=== PATIENT | female | born 1935 | race Caucasian/White ===

== ENCOUNTER → 2020-03-03 15:41 | Outpatient (CLI) | payer MEDICARE, SELFPAY ==
--- NOTE | ~2020-03-03 | XR_ITS ---
EXAMINATION: XR hip LT 2V w AP pelvis DATE: 03/03/2020 16:13 INDICATION: Left hip injury with left groin pain post fall TECHNIQUE: Anteroposterior view of the pelvis and anteroposterior and frog-leg lateral views of the l eft hip were obtained. COMPARISON: 10/08/2010 FINDINGS: Alignment is normal. Antegrade intramedullary stefania with femoral neck and distal interlocking screw fix ation at the proximal left femur. Cortical discontinuity consistent with nondisplaced fracture along the lateral aspect of the left first sacral arch. There is also buckling along the cortex at the ceph alad aspect of the left pubic body also consistent with a nondisplaced fracture. Mild osteoarthritis at the bilateral hips. Heterotopic ossification near the left ischial tuberosity origin of the proxim al left hamstring tendons. Moderate lower lumbar spondylosis. IMPRESSION: 1. Nondisplaced fractures at the left pubic body and left sacral ala. Reviewed, dictated and finalized at location B. GER OPERATIONAL
--- NOTE | ~2020-03-03 | XR_ITS ---
EXAMINATION: XR wrist LT 2V DATE: 03/03/2020 16:13 INDICATION: Left wrist pain post fall TECHNIQUE: Posteroanterior and lateral views of the left wrist were obtained. COMPARISON: none FINDINGS: Normal alignment. No acute fracture. Severe osteoarthritis at the first carpal metacarpal joint. Mild osteoarthritis at the distal radioulnar, wrist, midcarpal and triscaphe joints. Diffuse osteopenia. Soft tissues are unremarkable. IMPRESSION: 1. 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 No acute osseous abnormality. Reviewed, dictated and finalized at location B. ESSIONAL DEVELOPMENT DIRECTOR
== END ==
PROVIDERS: PCP Family Medicine; Visit Provider Physician Assistant Medical
DX: M25.532 Pain in left wrist (principal); S79.912A Unspecified injury of left hip, initial encounter; S32.502A Unspecified fracture of left pubis, initial encounter for closed fracture; S32.19XA Other fracture of sacrum, initial encounter for closed fracture
CPT/HCPCS: 73100; 73502

== ENCOUNTER 2020-03-05 07:58 | Emergency (ER) | payer MEDICARE, SELFPAY ==
--- NOTE | ~2020-03-05 | CT_ITS ---
EXAMINATION: CT pelvis wo con DATE: 03/05/2020 09:21 INDICATION: Pelvic fracture TECHNIQUE: High resolution computed tomography (CT) of the pelvis was performed without intravenous c ontrast. Additional sagittal and coronal reconstructions were performed. Automated exposure control a nd iterative reconstruction technique were employed. The dose-length product was 279.11 mGy-cm. COMPARISON: Radiographs dated 03/05/2020 FINDINGS: Nondisplaced fracture along the lateral aspect of the left sacral ala which extends into the left sac roiliac joint and which does not appear to transgress the neural foramina. Nondisplaced fracture of t he left pubic body with some buckling along the posterior cortex. There is an additional subtle nondi splaced fracture at the lateral base of the left superior pubic ramus which extends into the anterior and inferomedial aspect of the left acetabulum but which spares the articular cortices. Old healed f racture of the left inferior pubic ramus. Partially visualized antegrade intramedullary stefania and dynamic femoral neck compression screw fixation at the proximal left femur. Mild left and mild to moderate right hip osteoarthritis. Lumbar spondylo sis with severe disc height loss at L4-L5 and severe bilateral facet osteoarthritis at L5-S1. Multipl e diverticula along the sigmoid and visualized descending colon without adjacent inflammatory change to suggest diverticulitis. Normal appendix. Bladder, uterus and bilateral adnexa are unremarkable. Sm all hematoma in the extraperitoneal fat along the posterior margin of the left pubic body. IMPRESSION: 1. Nondisplaced fractures of the left pubic body, lateral root of the left superior pubic ramus exten ding into the left acetabulum and of the left sacral ala. Reviewed, dictated and finalized at location B. ANCE WILDLIFE SPECIALIST IMPRESSION: 1. Nondisplaced fractures of the left pubic body, lateral root of the left supe rior pubic ramus extending into the left acetabulum and of the left sacral ala.
--- NOTE | ~2020-03-05 | XR_ITS ---
EXAMINATION: XR pelvis 1-2V EXAM DATE: 03/05/2020 08:25 INDICATION: Pelvic fracture. TECHNIQUE: Pelvis frontal projection(s) obtained and reviewed. Comparison is made to prior examinatio n from 03/03/2020. Correlation was made with pelvic, left hip x-ray 03/03/2020. FINDINGS: Left hip gamma nail which is intact. There is moderate symmetric bilateral hip primary oste oarthritis. There are left inferior and pubis/superior ramus fractures which appear most likely acute . Possible nondisplaced left sacral ala fracture. Accounting for differences in technique, there is n o significant interval change. IMPRESSION: Left inferior ramus, pubis superior, possible sacral fractures unchanged. Reviewed, dictated and finalized at location A. HT SIMULATOR TEACHER IMPRESSION: Left inferior ramus, pubis superior, possible sacral fractures unch anged.
[2020-03-05 07:55] VITALS: BP 134/90; PULSE 83; RESP 17; TEMP 36.4; O2SAT 96
--- NOTE | 2020-03-05 08:05 | ED.FALL ---
HPI - Fall General Chief Complaint: Fall Stated Complaint: fx pelvis and wrist pain Time Seen by Provider: 03/05/20 08:02 History of Present Illness HPI Narrative: 84 yo female brought in by EMS from home for a pelvic fracture. She reports that she had a fall from standing 2 days ago. She had pain in the left groin and left wrist after this. She had outpatient x-rays done that reportedly showed a pelvic fracture. This morning the pain in her groin was more severe and she was not able to bear weight. The pain in her rist is mild. She lives alone. She did not hit her head in the fall. No numbness, weakness, back pain, neck pain. Related Data Allergies Allergy/AdvReac Type Severity Reaction Status Date / Time metformin Allergy Unknown Unknown Verified 03/05/20 08:17 Penicillins AdvReac Unknown Verified 03/05/20 08:17 Review of Systems Review of Systems: All systems reviewed & are unremarkable except as noted in HPI and below Constitutional: Constitutional: Denies fever(s) and Denies weakness Cardiovascular: Cardiovascular: Denies chest pain Respiratory: Respiratory: Denies dyspnea Gastrointestinal: Gastrointestinal: Denies abdominal pain, Denies nausea and Denies vomiting Genitourinary: Genitourinary: Denies dysuria Musculoskeletal: Musculoskeletal: Denies back pain Integumentary/Breasts: Comments: No wound Neurologic: Denies confusion, Denies dizziness, Denies numbness and Denies weakness Hematologic/Lymphatic: Hematologic/Lymphatic: Denies easy bleeding PMFSH Past Medical History Medical History Depression Diabetes type 2, controlled Other iron deficiency anemias Vitamin D deficiency Family History Family History Father Family history of diabetes mellitus in first degree relative Other Family history of lupus erythematosus Social History Social History Smoking status: Never smoker Alcohol intake: never Substance use: never Substance use type: does not use Gender identity (if verbalized by the patient): Female Exam Const: General: healthy appearing, no acute distress and alert Orientation/consciousness: patient oriented x3 HENMT: Head: normal to inspection Neck: Neck: normal visual inspection and no lymphadenopathy Chest: Chest palpation & inspection: no tenderness Resp: Effort & Inspection: normal respiratory effort Auscultation: clear to auscultation bilaterally, no rales, no rhonchi and no wheezes Cardio: Jugular venous distension: no JVD Rate: regular rate Rhythm: regular rhythm Heart sounds: no murmurs GI: Inspection: non-distended GI Palp: Yes Soft to palpation and No Tenderness to palpation present (GI) Skin: General skin exam: normal color Neuro: General: patient oriented x3, moves all extremities, no focal motor deficits and CN's II-XI intact bilaterally Speech: normal speech Extrem: Other: severe pain with left leg movement. pelvis stable. Mild left wrist swelling Psych: Appearance: well kempt Affect: normal affect Course Vital Signs Vital signs: Vital Signs Temperature 36.4 C 03/05/20 07:55 Pulse Rate 83 03/05/20 07:55 Respiratory Rate 17 03/05/20 07:55 Blood Pressure 134/90 03/05/20 07:55 Pulse Oximetry 96 03/05/20 07:55 Temperature 36.4 C 03/05/20 12:45 Pulse Rate 76 03/05/20 12:45 Respiratory Rate 16 03/05/20 12:45 Blood Pressure 144/65 H 03/05/20 12:45 Pulse Oximetry 99 03/05/20 12:45 MDM - Fall MDM Narrative Medical decision making narrative: Case discussed with Dr. Diaz. He recommends that she have a CT to better see the fracture. Otherwise he believes that she is safe for discharge to rehab and would like her to start on Eliquis for DVT prophylaxis. The patient changed her mind several times about her willingness to go to rehab. She
[2020-03-05 08:38] LABS: Basophils Percent Auto 0.5 % (0.2-1.2); Eosinophils Absolute Auto 0.1 K/mm3 (0-0.3); Eosinophils Percent Auto 1.5 % (0-4.4); Hematocrit 35.2 % (37.0-47.0); Hemoglobin 11.4 g/dL (12.0-15.0); Immature Granulocyte Absolute 0.02 K/mm3 (0.00-0.031); Immature Granulocyte Percent A 0.3 % (0-0.5); Lymphocytes Absolute Auto 0.86 K/mm3 (0.9-3.2); Lymphocytes Percent Auto 10.9 % (18.3-44.2); Mean Corpuscular HGB Conc 32.4 g/dl (32-36); Mean Corpuscular Hemoglobin 32.2 pg (26-34); Mean Corpuscular Volume 99.4 fl (80-100); Mean Platelet Volume 11.8 fl (7.4-10.4); Monocytes Absolute Auto 0.7 K/mm3 (0.1-0.6); Monocytes Percent Auto 9.4 % (2.6-8.5); Neutrophils Absolute Auto 6.1 K/mm3 (1.3-6.7); Neutrophils Percent Auto 77.4 % (45.5-73.1); Platelet Count Result 156 k/mm3 (150-375); Red Blood Count 3.54 M/mm3 (4.2-5.4); Red Cell Distribution Width 14.3 % (11.5-14.5); White Blood Count 7.9 K/mm3 (4.5-10.0)
[2020-03-05 08:41] LABS: Add Urine Microscopic? YES; Appearance Urine Clear (Clear); Bilirubin Urine Negative (Negative); Blood Urine Negative (Negative); Color Urine Yellow (Yellow); Glucose Urine UA Negative (Negative); Ketones Urine Negative (Negative); Leukocyte Esterase Ur Negative LEU/UL (Negative); Nitrate Urine Negative (Negative); Protein Urine Negative (Negative); RBC Urine 0-2 /hpf (0-2); Specific Grav Ur 1.024 (1.001-1.035); Urobilinogen Urine Negative mg/dL (<2.0); WBC Urine 0-3 /hpf
[2020-03-05 08:44] VITALS: BP 144/66; PULSE 72; RESP 18; O2SAT 95
[2020-03-05 08:56] LABS: Alanine Aminotransferase 18 U/L (4-35); Albumin Level 4.2 g/dL (3.5-5.1); Alkaline Phosphatase 78 U/L (38-126); Anion Gap 5 mmol/L (8-16); Aspartate Amino Transferase 35 U/L (14-36); Bilirubin,Total 0.9 mg/dL (0.2-1.3); Blood Urea Nitrogen 22 mg/dL (7-17); Calcium 9.6 mg/dL (8.4-10.2); Carbon Dioxide 30 mmol/L (22-30); Chloride 104 mmol/L (98-107); Estimated Glomerular Filt Rate > 60; Glucose 185 mg/dL (65-105); Potassium 4.1 mmol/L (3.4-5.0); Sodium 139 mmol/L (137-145)
[2020-03-05 09:30] LABS: Prothrombin Time 13.8 Seconds (11.1-14.7)
[2020-03-05 09:31] LABS: Partial Thromboplastin Time 30.8 SECONDS (22.3-36.8)
[2020-03-05 09:38] VITALS: BP 139/61; PULSE 73; RESP 18; O2SAT 99
[2020-03-05 10:32] VITALS: BP 144/65; PULSE 73; RESP 17; O2SAT 98
--- NOTE | 2020-03-05 12:01 | PCCCNOTE ---
Care Coordination met with pt about her need for help with her ADL's and rehab. Pt choose [facility] first and 2nd [facility]. [facility] does not have beds available today. [facility] has obtained the auth from [facility] and has accepted pt. Spoke with daughter Vianney at bedside and she is agreeable. Daughter Guerda Mark [phone] is agreeable to placement as well.
[2020-03-05 12:45] VITALS: BP 144/65; PULSE 76; RESP 16; TEMP 36.4; O2SAT 99
== END 2020-03-05 13:45 ==
PROVIDERS: Emergency Provider Emergency Medicine; Family Provider Family Medicine; PCP Family Medicine
DX: S32.502A Unspecified fracture of left pubis, initial encounter for closed fracture (principal); S32.592A Other specified fracture of left pubis, initial encounter for closed fracture; S32.19XA Other fracture of sacrum, initial encounter for closed fracture; E11.9 Type 2 diabetes mellitus without complications; F32.9 Major depressive disorder, single episode, unspecified; E55.9 Vitamin D deficiency, unspecified; D50.9 Iron deficiency anemia, unspecified
CPT/HCPCS: 36415; 51701; 72170; 72192; 80053; 81001; 85025; 85610; 85730; 99284

== ENCOUNTER 2020-10-10 10:04 | Emergency (ER) | payer MEDICARE, SELFPAY ==
[2020-10-10 10:28] VITALS: BP 150/64; PULSE 74; RESP 18; TEMP 37.2; O2SAT 99
--- NOTE | 2020-10-10 10:35 | ED.ABDPAIN ---
HPI - Abdominal Pain General Chief Complaint: Abdominal Pain Stated Complaint: Stomach Pain Time Seen by Provider: 10/10/20 10:35 Source: patient Mode of arrival: ambulatory Limitations: no limitations History of Present Illness HPI narrative: Marybeth Sunshine is an 85 yo female with a PMH of gastrointestinal stricture/obstruction, osteopenia, diabetes, [facility]. She is afebrile has no urinary issues but has difficulty trying to eat she has not had a bowel movement since Monday. She started vomiting afternoon after she tried to eat something. When she vomits it is mucous and everything that she tried to eat. She has basically been unable to drink or eat anything since evening and has little pain as long she does not try to eat. Blood sugar is 141 Related Data Allergies Allergy/AdvReac Type Severity Reaction Status Date / Time metformin Allergy Mild Hives Verified 10/10/20 11:35 Penicillins Allergy Mild Hives Verified 10/10/20 11:35 Review of Systems Review of Systems: CONSTITUTIONAL: Denies fever, chills, sweats. EYES: Denies visual changes, redness, discharge. ENT: Denies rhinorrhea, congestion, sore throat, otalgia. CARDIOVASCULAR: Denies chest pain, palpitations, edema. RESPIRATORY: Denies dyspnea, wheezing, cough GASTROINTESTINAL: Has abdominal pain, nausea, vomiting, diarrhea. GENITOURINARY: Denies dysuria, hematuria, abnormal discharge SKIN: Denies rash or itching. NEUROLOGIC: Denies numbness, or focal weakness. PSYCHIATRIC: Denies anxiety or depression. [facility] Past Medical History Medical History Depression Diabetes type 2, controlled Other iron deficiency anemias Stricture esophagus Vitamin D deficiency Family History Family History Father Family history of diabetes mellitus in first degree relative Other Family history of lupus erythematosus Social History Social History Smoking status: Never smoker Alcohol intake: never Substance use: never Substance use type: does not use Gender identity (if verbalized by the patient): Female Comments At time of signature, I agree with nursing past medical, surgical, social and family history. There is no relevant family history pertinent to the presenting complaint. Exam Narrative: GENERAL: This is a well-nourished, well-developed patient, in mild distress. HEAD: normocephalic, atraumatic. EYES: Sclera clear/white. Vision is grossly intact. EARS: External ears normal. Hearing grossly intact. NOSE: External nose normal without nasal discharge, nares without redness, no rhinorrhea. Patient denies pain but unable to eat THROAT: Mucous membranes moist, posterior pharynx NECK: Neck supple, non-tender CARDIOVASCULAR: Regular rate and rhythm without murmurs, gallops, or rubs. RESPIRATORY: Clear to auscultation. Breath sounds equal bilaterally. No wheezes, rales, or rhonchi. GASTROINTESTINAL: Abdomen soft, mild -tender,hypoactive BS SKIN: warm, intact with no suspicious lesions or rash, good texture and turgor. NEURO: awake, alert, and oriented to person, place and time. There were no obvious focal neurologic abnormalities. Steady gait EXTREMITIES: Normal range of motion. BACK: Nontender without deformity Course Course Emergency Course: Patient comes with difficulty eating and vomiting since Blood sugar is 141-patient will be transferred to [facility] for further work-up as she has been vomiting since , and unable to eat anything without vomiting back up with mucus, has had no bowel movement since Monday. Se has a history of GI stricture. She is diabetic but does not remember having a history of gastroparesis Vital Signs Vital signs: Vital Signs Temperature 99.0 F 10/10/20 10:28 Pulse Rate 74 10/10
== END 2020-10-10 11:00 | disposition short-term general hospital (02) ==
PROVIDERS: Emergency Provider Nurse Practitioner; PCP Family Medicine
DX: R11.10 Vomiting, unspecified (principal); R10.84 Generalized abdominal pain; E11.9 Type 2 diabetes mellitus without complications; F32.9 Major depressive disorder, single episode, unspecified
CPT/HCPCS: 82948; 99212; G0463

== ENCOUNTER 2020-10-10 11:23 | Observation (INO) | payer MEDICARE, SELFPAY ==
[2020-10-10] VITALS (29 sets, daily range): BP systolic 96–165; BP diastolic 54–79; PULSE 70–77; RESP 15–26; TEMP 36.1–36.8; O2SAT 87–100; BMI 22.8
--- NOTE | ~2020-10-10 | XR_ITS ---
EXAMINATION: XR chest 2V DATE: 10/10/2020 12:58 INDICATION: Esophageal obstruction TECHNIQUE: PA and lateral views of the chest were obtained. COMPARISON: Chest radiograph dated 10/08/2010 FINDINGS: Hyperexpansion of lungs with mild flattening of the diaphragm and increased retrosternal clear space suggestive but not diagnostic of COPD. No focal airspace opacities, pulmonary edema, pleural effusion or pneumothorax. The cardiomediastinal silhouette is normal. Several old healed right-sided rib frac tures. IMPRESSION: 1. Hyperexpansion lungs suggestive but not diagnostic of COPD. No acute cardiopulmonary disease. Reviewed, dictated and finalized at location A. IMPRESSION: 1. Hyperexpansion lungs suggestive but not diagnostic of COPD. No acute cardiop ulmonary disease.
--- NOTE | 2020-10-10 11:37 | PC.NURSE ---
Addendum entered by Zeus Funez, TECH 10/10/20 11:43: O2 99% Height 5'4 Weight 132lb Original Note: pt taken to room, vitals tken HR 73 BP 165/62 RR 17 Temp 97.5 F
[2020-10-10 12:41] LABS: Basophils Percent Auto 0.5 % (0.2-1.2); Eosinophils Absolute Auto 0.1 K/mm3 (0-0.3); Eosinophils Percent Auto 0.9 % (0-4.4); Hematocrit 36.8 % (37.0-47.0); Hemoglobin 11.6 g/dL (12.0-15.0); Immature Granulocyte Absolute 0.02 K/mm3 (0.00-0.031); Immature Granulocyte Percent A 0.2 % (0-0.5); Lymphocytes Absolute Auto 1.27 K/mm3 (0.9-3.2); Lymphocytes Percent Auto 14.5 % (18.3-44.2); Mean Corpuscular HGB Conc 31.5 g/dl (32-36); Mean Corpuscular Hemoglobin 30.9 pg (26-34); Mean Corpuscular Volume 97.9 fl (80-100); Mean Platelet Volume 11.2 fl (7.4-10.4); Monocytes Absolute Auto 0.5 K/mm3 (0.1-0.6); Monocytes Percent Auto 5.7 % (2.6-8.5); Neutrophils Absolute Auto 6.8 K/mm3 (1.3-6.7); Neutrophils Percent Auto 78.2 % (45.5-73.1); Platelet Count Result 183 k/mm3 (150-375); Red Blood Count 3.76 M/mm3 (4.2-5.4); Red Cell Distribution Width 13.4 % (11.5-14.5); White Blood Count 8.7 K/mm3 (4.5-10.0)
--- NOTE | 2020-10-10 12:50 | ECG_ITS ---
Measurements Intervals Helen Rate: 70 P: 66 NC: 186 QRS: 30 QRSD: 78 T: 60 QT: 404 QTc: 436 Interpretive Statements SINUS RHYTHM EARLY PRECORDIAL R/S TRANSITION BORDERLINE ECG Electronically Signed On 10-10-2020 17:15:44 CDT by Jose Alejandro Paredes D.O.
[2020-10-10 12:51] LABS: Alanine Aminotransferase 16 U/L (4-35); Albumin Level 4.6 g/dL (3.5-5.1); Alkaline Phosphatase 94 U/L (38-126); Anion Gap 11 mmol/L (8-16); Aspartate Amino Transferase 32 U/L (14-36); Bilirubin,Total 0.7 mg/dL (0.2-1.3); Blood Urea Nitrogen 18 mg/dL (7-17); Calcium 9.5 mg/dL (8.4-10.2); Carbon Dioxide 26 mmol/L (22-30); Chloride 100 mmol/L (98-107); Estimated Glomerular Filt Rate > 60; Glucose 131 mg/dL (65-110); Lipase 68 U/L (23-300); Potassium 4.4 mmol/L (3.4-5.0); Sodium 137 mmol/L (137-145)
--- NOTE | 2020-10-10 12:56 | ED.NAVMDI ---
HPI - Nausea/Vomiting/Diarrhea General Chief complaint: Nausea/Vomiting/Diarrhea Stated complaint: trouble swallowing Time Seen by Provider: 10/10/20 11:40 Source: patient Mode of arrival: ambulatory Limitations: no limitations History of Present Illness HPI Narrative: This is a 85 year old female that presents to the ER for difficulty swallowing x 2 days. Reports everything she tries to swallow, liquids or solids, comes back up shortly after. Does report she has had to have her esophagus dilated in the past. This was a couple of years ago. She had not had any trouble after that until just these last couple of days. Denies fever, chest pain, abdominal pain, or dysuria. Related Data Allergies Allergy/AdvReac Type Severity Reaction Status Date / Time metformin Allergy Mild Hives Verified 10/10/20 15:02 Penicillins Allergy Mild Hives Verified 10/10/20 15:02 Review of Systems Review of Systems: CONSTITUTIONAL: Denies fever CARDIOVASCULAR: Denies chest pain, or edema. GASTROINTESTINAL: Reports nausea and vomiting. Denies abdominal pain GENITOURINARY: Denies dysuria All systems reviewed & are unremarkable except as noted in HPI and below PMFSH Past Medical History Medical History Depression Diabetes type 2, controlled Other iron deficiency anemias Stricture esophagus Vitamin D deficiency Family History Family History Father Family history of diabetes mellitus in first degree relative Other Family history of lupus erythematosus Social History Social History Smoking status: Never smoker Alcohol intake: never Substance use: never Substance use type: does not use Gender identity (if verbalized by the patient): Female Exam Narrative: GENERAL: Well-appearing, well-nourished, and in no acute distress. HEAD: Normocephalic, atraumatic. EYES: EOMI. ENT: Nares clear, no rhinorrhea or epistaxis. Mucous membranes moist. Oropharynx without tonsillar hypertrophy exudate or other lesions. CHEST: Clear to auscultation. No respiratory distress. No wheezes rales or rhonchi HEART: Regular rate and rhythm. No murmur heard. Normal peripheral pulses. ABDOMEN: Soft, nontender, nondistended, normal active bowel sounds. EXTREMITIES: Normal range of motion. No edema. SKIN: Warm, dry, no rash. NEURO: No focal deficits. Alert and oriented x3. PSYCH: Normal mood and affect Course Consultations Consultation #1: Spoke with Dr. Clemente about patient and workup who will consult. Date: 10/10/20 Time: 14:00 Consultation #2: Spoke with hospitalist about patient and work-up who accepts admission Date: 10/10/20 Time: 15:05 Vital Signs Vital signs: Vital Signs Pulse Rate 76 10/10/20 11:33 Respiratory Rate 22 H 10/10/20 11:33 Temperature 98.2 F 10/10/20 14:33 Pulse Rate 72 10/10/20 14:33 Respiratory Rate 20 10/10/20 14:33 Blood Pressure 146/79 H 10/10/20 14:33 Pulse Oximetry 98 10/10/20 14:33 MDM - Nausea/Vomiting/Diarrhea MDM Narrative Medical decision making narrative: Patient presents to the ER for vomiting over the last couple of days. Reports she has history of needing an esophageal dilation a couple years ago. She had been doing well after this until just the last couple of days. Every time she eats or drinks anything moments after she starts to have some discomfort and then vomits. Denies any current abdominal pain. She is afebrile and nontoxic appearing. Her vitals are stable. CBC is without leukocytosis. Does show normocytic anemia with hemoglobin of 11.6. Metabolic panel without concerning findings. Lipase is normal. UA does have 7-9 white blood cells, patient is not having any symptoms. This will be sent for culture. Chest x-ray is without acute cardiopulmonary abnormality. Spoke with Dr. Clemente about patient and w
[2020-10-10 13:19] LABS: Add Urine Microscopic? YES; Appearance Urine Clear (Clear); Bacteria Urine Trace /hpf; Bilirubin Urine Negative (Negative); Blood Urine Negative (Negative); Color Urine Yellow (Yellow); Glucose Urine UA Negative (Negative); Ketones Urine 1+ mg/dL (Negative); Leukocyte Esterase Ur 2+ LEU/UL (Negative); Mucus Urine Rare /lpf; Nitrate Urine Negative (Negative); Protein Urine 2+ mg/dL (Negative); Specific Grav Ur 1.027 (1.001-1.035); Squamous Epithelial Cell Urine Few /hpf (Few); Urobilinogen Urine Negative mg/dL (<2.0)
[2020-10-10 14:21] LABS: Prothrombin Time 12.9 Seconds (11.1-14.7)
[2020-10-10] MEDS: SODIUM CHLORIDE 0.9% IV 1,000 ML 999 ML IV CONT (15:01)
[2020-10-10] MEDS: SODIUM CHLORIDE 0.9% IV 1,000 ML 75 ML IV CONT (15:15)
--- NOTE | 2020-10-10 15:30 | PM.IMHP ---
H&P: HPI History of Present Illness Date/Time: 10/10/20 15:30 Chief Complaint: Difficulties keeping down food and liquid. Narrative: This is a very pleasant 85-year-old female with history of cricopharyngeal achalasia status post dilation and Botox injection in February [address] Jah Soni at [place] who presented to the emergency department earlier today from home for evaluation after she has been having difficulties keeping food and even liquid down for the last 2 days. On afternoon she was eating a ham salad sandwich and after a couple of bites it was regurgitated and since that time she has not been able to hold down solids or liquids. She has no pain or difficulty in swallowing but she feels as though the food is not passing through to the stomach. The symptoms are similar to those she was experiencing prior to seeing Dr. Soni. She is not having any difficulties managing her secretions and she denies concerns for aspiration. No fever, chills, or sweats. No chest pain, cough, or shortness of breath. Review of Systems Review of Systems: Twelve systems were reviewed with pertinent positives and negatives as per HPI. No recent cold or flu symptoms. She denies sick contacts. No known exposure to those positive for COVID 19. Diabetes is well controlled. She has not noticed blood in her stool. Occasional heartburn but nothing significant. Except as documented, all other systems were reviewed and are negative. [facility] Past Medical History Medical History (Updated 10/10/20 @ 21:02 by Cely Burger PA-C) Anemia Cricopharyngeal achalasia Status post dilatation and Botox injection per Dr. Jah Soni (ENT) at [place]. Depression with anxiety Essential hypertension Type 2 diabetes mellitus Vitamin D deficiency Surgical History Surgical History (Updated 10/10/20 @ 20:55 by Cely Burger PA-C) History of arthroscopic knee surgery History of cataract extraction History of open reduction and internal fixation (ORIF) procedure Pinning of left hip fracture. History of tonsillectomy Family History Family History Father Family history of diabetes mellitus in first degree relative Other Family history of lupus erythematosus Social History Social History (Updated 10/10/20 @ 20:56 by Cely Burger PA-C) Social History: Surrogate decision maker: Guerda Mark, daughter. Code status: Full code. Smoking status: Never smoker Alcohol intake: never Substance use: never Additional living arrangements comments: Patient lives in a senior apartment in [place]. She has 6 children and was essentially a single mother for many years as her at a young age. 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 Meds Home Medications and Allergies Home Medications Medication Instructions Recorded Confirmed Type pioglitazone 30 mg tablet 30 mg PO DAILY #90 tablet 12/03/19 10/10/20 Rx sertraline 50 mg tablet 75 mg PO DAILY #135 tablet 12/03/19 10/10/20 Rx ibandronate 150 mg tablet 150 mg PO MONTHLY #12 tablet 01/13/20 10/10/20 Rx gabapentin 300 mg capsule See Rx Instructions PO DAILY #270 05/14/20 10/10/20 Rx cap Allergies Allergy/AdvReac Type Severity Reaction Status Date / Time metformin Allergy Mild Hives Verified 10/10/20 15:02 Penicillins Allergy Mild Hives Verified 10/10/20 15:02 Vital Signs Vital Signs - 24 hr 10/10/20 11:33 10/10/20 11:34 10/10/20 11:45 Temperature Pulse Rate 76 75 72 Respiratory Rate 22 H 25 H 23 H Blood Pressure 165/62 H Pulse Oximetry 99 10/10/20 11:46 10/10/20 12:00 10/10/20 12:01 Temperature Pulse Rate 71 71 72 Respiratory Rate 19 19 16 Blood Pressure 146/62 H 137/65 Pulse Oximetry 97 98 97 10/10/20 12:15 10/10/20 12:16 10/10/20 12:30 Temperature Pulse Rate 74 72 77 Respiratory Rate 22 H 19 15 Blood Pressure 141/63 H P
--- NOTE | 2020-10-10 18:28 | ADMGEN ---
This patient, Cristine Sunshine, was admitted to 3 Medical Room 345-01. Patient oriented to hospital policies and general routines including ID bracelet, bed and alarms, visiting hours, pain management, procedures, bathroom and other care routines, personal items, smoking policy, room service/diet, and visiting hours. Information on how to activate the Rapid Response Team has been discussed. Patient/Family are encouraged to report perceived risks to care and to ask questions if they do not understand what they are told or what they should do.
[2020-10-10 21:38] LABS: Glucose Point of Care 80 mg/dl (65-105)
[2020-10-11 00:28] LABS: Glucose Point of Care 81 mg/dl (65-105)
[2020-10-11] MEDS: SODIUM CHLORIDE 0.9% IV 1,000 ML 75 ML IV CONT (04:51)
[2020-10-11 05:13] VITALS: BP 118/52; PULSE 77; RESP 16; TEMP 36.1; O2SAT 97
[2020-10-11 06:42] LABS: Hematocrit 33.8 % (37.0-47.0); Hemoglobin 10.5 g/dL (12.0-15.0); Mean Corpuscular HGB Conc 31.1 g/dl (32-36); Mean Corpuscular Hemoglobin 30.5 pg (26-34); Mean Corpuscular Volume 98.3 fl (80-100); Mean Platelet Volume 11.3 fl (7.4-10.4); Platelet Count Result 158 k/mm3 (150-375); Red Blood Count 3.44 M/mm3 (4.2-5.4); Red Cell Distribution Width 13.3 % (11.5-14.5); White Blood Count 5.3 K/mm3 (4.5-10.0)
[2020-10-11 06:53] LABS: Glucose Point of Care 66 mg/dl (65-105)
[2020-10-11 06:57] LABS: Anion Gap 10 mmol/L (8-16); Blood Urea Nitrogen 13 mg/dL (7-17); Calcium 8.3 mg/dL (8.4-10.2); Carbon Dioxide 20 mmol/L (22-30); Chloride 107 mmol/L (98-107); Estimated CRCL calculation 50 ml/min; Estimated Glomerular Filt Rate > 60; Glucose 71 mg/dL (65-110); Magnesium 1.6 mg/dL (1.6-2.3); Potassium 3.6 mmol/L (3.4-5.0); Sodium 137 mmol/L (137-145)
[2020-10-11] MEDS: DEXTROSE 50% 25 GM/50 ML SYRINGE IV PUSH (07:00)
[2020-10-11 07:03] LABS: Hemoglobin A1C 6.7 % (<5.7)
[2020-10-11 07:33] LABS: Glucose Point of Care 136 mg/dl (65-105)
[2020-10-11 08:18] LABS: Glucose Point of Care 120 mg/dl (65-105)
[2020-10-11] MEDS: GABAPENTIN 300 MG CAPSULE PO (10:54)
--- NOTE | 2020-10-11 12:22 | PM.IMPN ---
Progress Note: A&P Assessment and Plan (1) Dysphagia: Code(s): R13.10 - Dysphagia, unspecified Status: Acute Assessment and Plan: Patient has a history of cricopharyngeal achalasia requiring dilatation and Botox injections as above and in fact she initially wanted to be transferred to [place] to see her ENT, Dr. Stephens, who had treated her previously though no beds are available. Dr. Clemente (GI) was consulted by the ED provider and he has agreed to see the patient in consultation. She will be NPO as she is not able to hold down food or drink for any significant period of time, putting her at risk for aspiration. Gabapentin PO allowed exceptionally as patient was complaining of diffuse pain. (2) Type 2 diabetes mellitus: Code(s): E11.9 - Type 2 diabetes mellitus without complications Status: Acute Assessment and Plan: Hold pioglitazone as she is NPO. Initiate sliding scale insulin, Accu-Cheks, and hypoglycemic protocol. Check hemoglobin A1c. (3) Essential hypertension: Code(s): I10 - Essential (primary) hypertension Status: Acute Assessment and Plan: I do not see antihypertensives listed on her home medications. Blood pressures reviewed and they are stable. (4) Chronic anemia: Code(s): D64.9 - Anemia, unspecified Status: Acute Assessment and Plan: Hemoglobin and hematocrit are stable on review of previous labs. (5) Depression with anxiety: Code(s): F41.8 - Other specified anxiety disorders Status: Acute Assessment and Plan: No acute issues. Sertraline on hold as she is NPO currently. Subjective Date/time seen: 10/11/20 12:22 Patient was examined at the bedside. There is no acute distress. She is complaining of dysphagia. Review of Systems Gastrointestinal: Comments: difficulty swallowing. Exam Narrative: HEENT: EOMI. Sclerae anicteric. Oral mucosa moist. Oropharynx clear. Neck: Supple. No adenopathy or thyromegaly. Respiratory: Lungs are clear to auscultation bilaterally. Cardiovascular: Regular rate and rhythm with S1-S2. Gastrointestinal: Abdomen is soft, nontender, and nondistended with positive bowel sounds. Skin: Warm and dry. Extremities: No cyanosis, clubbing, or edema. Radial and pedal pulses intact. Neurological: Alert. Cranial nerves 2-12 are grossly intact. No gross focal deficits to casual conversation. Psychiatric: Pleasant and cooperative with normal mood and affect. Judgment and insight intact. Objective Data Vital Signs Vital Signs: Vital Signs - 24 hr 10/10/20 12:30 10/10/20 12:33 10/10/20 12:45 Temperature Pulse Rate 77 75 72 Respiratory Rate 15 21 H 19 Blood Pressure 143/67 H Pulse Oximetry 87 L 100 100 10/10/20 13:00 10/10/20 13:01 10/10/20 13:15 Temperature Pulse Rate 75 73 71 Respiratory Rate 15 21 H 19 Blood Pressure 96/76 L Pulse Oximetry 93 100 100 10/10/20 13:16 10/10/20 13:30 10/10/20 13:31 Temperature Pulse Rate 71 72 71 Respiratory Rate 19 21 H 22 H Blood Pressure 140/59 L 129/62 Pulse Oximetry 100 98 99 10/10/20 13:45 10/10/20 13:46 10/10/20 14:00 Temperature Pulse Rate 72 72 70 Respiratory Rate 26 H 20 18 Blood Pressure 136/54 L Pulse Oximetry 97 98 99 10/10/20 14:01 10/10/20 14:15 10/10/20 14:16 Temperature Pulse Rate 70 71 71 Respiratory Rate 15 21 H 18 Blood Pressure 125/61 135/64 Pulse Oximetry 100 100 98 10/10/20 14:33 10/10/20 16:01 10/10/20 17:17 Temperature 98.2 F 96.9 F L 97.8 F Pulse Rate 72 73 74 Respiratory Rate 20 24 H 15 Blood Pressure 146/79 H 143/63 H 154/59 H Pulse Oximetry 98 100 98 10/10/20 18:02 10/10/20 18:25 10/10/20 20:26 Temperature 97.5 F L 97.5 F L 97.2 F L Pulse Rate 75 76 72 Respiratory Rate 15 18 16 Blood Pressure 124/76 150/68 H 137/55 L Pulse Oximetry 99 97 96 10/11/20 05:13 Temperature 96.9 F L Pulse Rate 77 Respiratory Rate 16 Blood Pre
--- NOTE | 2020-10-11 12:30 | WPDGICN ---
Assessment and Plan Assessment and plan (1) Cricopharyngeal achalasia: Code(s): K22.0 - Achalasia of cardia Status: Inactive Assessment and Plan: she has known history of CP dysphagia and treated previously with botox injection by ENT will arrange for EGD tomorrow and probably will need botox injection again, she was told in the past that if recurrent symptom probably will benefit from definitive myotomy for which he can follow up with ENT as outpatient only liquid diet for now and npo after midnight (2) Dysphagia: Code(s): R13.10 - Dysphagia, unspecified Status: Acute Assessment and Plan: probably from above problem but will assess with egd in am (3) Essential hypertension: Code(s): I10 - Essential (primary) hypertension Status: Acute (4) Type 2 diabetes mellitus: Code(s): E11.9 - Type 2 diabetes mellitus without complications Status: Acute GI Consult Note Consult date/time: 10/11/20 12:30 Reason for consult: dysphagia HPI: Cristine Sunshine is a 85 year old female with history of cricopharyngeal achalasia status post dilation and Botox injection in February [address] Jah Soni (ENT) at [place] (she had EGD 2017 when first presented with dysphagia and EGD performed by Dr Brewster who found difficulty to advance scope at [facility], also found non-obstructive small ring in lower esophagus- finally referred to [facility] and treated as mentioned above). She has done quite well until 3 days ago when noted again difficulty keeping food and even liquid down after she had for dinner ham salad sandwich. She can swallow her own saliva and she is not in distress but still food not passing through to the stomach. Review of Systems Constitutional: Constitutional: Denies chills Eyes: Eyes: Denies blurry vision ENT: Comments: using hearing aids Cardiovascular: Cardiovascular: Denies chest pain Respiratory: Respiratory: Denies dyspnea Gastrointestinal: Gastrointestinal: Reports no additional gastrointestinal complaints Genitourinary: Genitourinary: Denies hematuria Musculoskeletal: Musculoskeletal: Denies back pain Integumentary/Breasts: Skin/Breast: Denies dry skin Neurologic: Denies headache(s) Psychiatric: Psychiatric: Reports no additional psychiatric complaints PMFSH Past Medical History Medical History (Updated 10/11/20 @ 12:38 by Haider Clemente MD) Anemia Cricopharyngeal achalasia Status post dilatation and Botox injection per Dr. Jah Soni (ENT) at [place]. Depression with anxiety Essential hypertension Type 2 diabetes mellitus Vitamin D deficiency Surgical History Surgical History (Updated 10/10/20 @ 20:55 by Cely Burger PA-C) History of arthroscopic knee surgery History of cataract extraction History of open reduction and internal fixation (ORIF) procedure Pinning of left hip fracture. History of tonsillectomy Family History Family History Father Family history of diabetes mellitus in first degree relative Other Family history of lupus erythematosus Social History Social History (Updated 10/10/20 @ 20:56 by Cely Burger PA-C) Social History: Surrogate decision maker: Guerda Mark, daughter. Code status: Full code. Smoking status: Never smoker Alcohol intake: never Substance use: never Additional living arrangements comments: Patient lives in a senior apartment in [place]. She has 6 children and was essentially a single mother for many years as her at a young age. 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 Meds Home Medications and Allergies Home Medications Medication Instructions Recorded Confirmed Type pioglitazone 30 mg tablet 30 mg PO DAILY #90 tablet 12/03/19 10/10/20 Rx sertraline 50 mg tablet 75 mg PO DAILY #135 tablet 12/03/19 10/10/20 Rx ibandronate 150 m
[2020-10-11 13:29] LABS: Glucose Point of Care 87 mg/dl (65-105)
[2020-10-11 14:00] VITALS: BP 147/52; PULSE 77; RESP 20; TEMP 36.1; O2SAT 99
[2020-10-11 15:58] LABS: Glucose Point of Care 97 mg/dl (65-105)
[2020-10-11] MEDS: GABAPENTIN 300 MG CAPSULE 600 MG PO (17:20)
[2020-10-11 20:50] VITALS: BP 132/56; PULSE 75; RESP 16; TEMP 36.5; O2SAT 98
[2020-10-12 00:04] LABS: Glucose Point of Care 69 mg/dl (65-105)
[2020-10-12] MEDS: DEXTROSE 50% 25 GM/50 ML SYRINGE IV PUSH (00:09)
[2020-10-12 00:35] LABS: Glucose Point of Care 136 mg/dl (65-105)
[2020-10-12 05:52] VITALS: BP 153/51; PULSE 72; RESP 16; TEMP 36.6; O2SAT 98
[2020-10-12 06:01] LABS: Glucose Point of Care 77 mg/dl (65-105)
--- NOTE | 2020-10-12 07:07 | WPDANESEPP ---
Anes - Eval Pre Procedure Date/Time: 10/12/20 07:07 Pre Op Diagnosis: Esophageal obstruction Patient Data Age: 85 Gender: F Height: 1.63 m Weight: 60.2 kg Last Vital Signs Temp 36.6 C 10/12/20 05:52 Pulse 72 10/12/20 05:52 Resp 16 10/12/20 05:52 BP 153/51 H 10/12/20 05:52 Pulse Ox 98 10/12/20 05:52 Allergies Allergy/AdvReac Type Severity Reaction Status Date / Time metformin Allergy Mild Hives Verified 10/10/20 15:02 Penicillins Allergy Mild Hives Verified 10/10/20 15:02 Home Medications Medication Instructions Recorded Confirmed Type pioglitazone 30 mg tablet 30 mg PO DAILY #90 tablet 12/03/19 10/10/20 Rx sertraline 50 mg tablet 75 mg PO DAILY #135 tablet 12/03/19 10/10/20 Rx ibandronate 150 mg tablet 150 mg PO MONTHLY #12 tablet 01/13/20 10/10/20 Rx gabapentin 300 mg capsule See Rx Instructions PO DAILY #270 05/14/20 10/10/20 Rx cap Laboratory Tests 10/11/20 10/11/20 10/11/20 07:30 08:01 13:26 POC Capillary Glucose 136 mg/dl H mg/dl 120 mg/dl H mg/dl 87 mg/dl mg/dl (65-105) (65-105) (65-105) 10/11/20 10/12/20 10/12/20 15:56 00:02 00:32 POC Capillary Glucose 97 mg/dl mg/dl 69 mg/dl mg/dl 136 mg/dl H mg/dl (65-105) (65-105) (65-105) 10/12/20 05:59 POC Capillary Glucose 77 mg/dl mg/dl (65-105) Patient hx anesthesia problems: none Family hx anesthesia problems: none PMFSH Past Medical History Medical History (Updated 10/11/20 @ 12:38 by Haider Clemente MD) Anemia Cricopharyngeal achalasia Status post dilatation and Botox injection per Dr. Jah Soni (ENT) at [place]. Depression with anxiety Essential hypertension Type 2 diabetes mellitus Vitamin D deficiency Surgical History Surgical History (Updated 09/04/21 @ 20:55 by Cely Burger PA-C) History of arthroscopic knee surgery History of cataract extraction History of open reduction and internal fixation (ORIF) procedure Pinning of left hip fracture. History of tonsillectomy Family History Family History Father Family history of diabetes mellitus in first degree relative Other Family history of lupus erythematosus Social History Social History (Updated 10/10/20 @ 20:56 by Cely Burger PA-C) Social History: Surrogate decision maker: Guerad Mark, daughter. Code status: Full code. Smoking status: Never smoker Alcohol intake: never Substance use: never Additional living arrangements comments: Patient lives in a senior apartment in [place]. She has 6 children and was essentially a single mother for many years as her at a young age. 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 Exam Day of Procedure 10/12/20 07:07 Patient weight: normal Heart: regular rate and rhythm Lungs: decreased breath sounds Airway: Mallampati scale class II Neurological: alert and oriented
--- NOTE | 2020-10-12 07:55 | WPDANESEPPF ---
Anes - Initial Pre Proc Eval Procedure: Operation Date: 10/12/20 08:30 Proposed Procedures p Esophagogastroduodenoscopy - Haider Clemente MD Date/Time: 10/12/20 07:55 Surgeon: Felix Yip MD Pre Op Diagnosis: Esophageal obstruction Patient Data Age: 85 Gender: F Height: 1.63 m Weight: 60.2 kg Last Vital Signs Temp 36.6 C 10/12/20 05:52 Pulse 72 10/12/20 05:52 Resp 16 10/12/20 05:52 BP 153/51 H 10/12/20 05:52 Pulse Ox 98 10/12/20 05:52 Allergies Allergy/AdvReac Type Severity Reaction Status Date / Time metformin Allergy Mild Hives Verified 10/10/20 15:02 Penicillins Allergy Mild Hives Verified 10/10/20 15:02 Home Medications Medication Instructions Recorded Confirmed Type pioglitazone 30 mg tablet 30 mg PO DAILY #90 tablet 12/03/19 10/10/20 Rx sertraline 50 mg tablet 75 mg PO DAILY #135 tablet 12/03/19 10/10/20 Rx ibandronate 150 mg tablet 150 mg PO MONTHLY #12 tablet 01/13/20 10/10/20 Rx gabapentin 300 mg capsule See Rx Instructions PO DAILY #270 05/14/20 10/10/20 Rx cap Laboratory Tests 10/11/20 10/11/20 10/11/20 08:01 13:26 15:56 POC Capillary Glucose 120 mg/dl H mg/dl 87 mg/dl mg/dl 97 mg/dl mg/dl (65-105) (65-105) (65-105) 10/12/20 10/12/20 10/12/20 00:02 00:32 05:59 POC Capillary Glucose 69 mg/dl mg/dl 136 mg/dl H mg/dl 77 mg/dl mg/dl (65-105) (65-105) (65-105) Patient hx anesthesia problems: none Family hx anesthesia problems: none PMFSH Past Medical History Medical History Anemia Cricopharyngeal achalasia Status post dilatation and Botox injection per Dr. Jah Soni (ENT) at [place]. Depression with anxiety Essential hypertension Type 2 diabetes mellitus Vitamin D deficiency Surgical History Surgical History History of arthroscopic knee surgery History of cataract extraction History of open reduction and internal fixation (ORIF) procedure Pinning of left hip fracture. History of tonsillectomy Family History Family History Father Family history of diabetes mellitus in first degree relative Other Family history of lupus erythematosus Social History Social History Social History: Surrogate decision maker: Guerda Mark, daughter. Code status: Full code. Smoking status: Never smoker Alcohol intake: never Substance use: never Additional living arrangements comments: Patient lives in a senior apartment in [place]. She has 6 children and was essentially a single mother for many years as her at a young age. 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 Anes - Eval Final PreProcedure Day of Procedure 10/12/20 07:55 Patient weight: normal Heart: regular rate and rhythm Lungs: clear to auscultation Airway: Mallampati scale class II Neurological: other Last oral intake: >/= 8 hours ASA classification: III Emergent: no Anesthetic plan: proceed Anesthesia type and monitoring: general GIVS and standard monitoring Informed Consent: The patient's anesthetic plan and its attendant risks and benefits were discussed with the patient/family/POA. Questions were solicited and answers provided to the satisfaction of the patient/family/POA.
[2020-10-12] MEDS: LACTATED RINGERS 1,000 ML 150 ML IV CONT (07:56)
[2020-10-12 07:57] VITALS: BP 148/68; PULSE 76; RESP 16; TEMP 36.8; O2SAT 99
--- NOTE | 2020-10-12 08:00 | PC.NURSE ---
Patient taken to endo.
[2020-10-12 08:21] LABS: Glucose Point of Care 86 mg/dl (65-105)
[2020-10-12 08:28] VITALS: BP 113/56; PULSE 74; RESP 19; O2SAT 99
[2020-10-12 08:38] VITALS: BP 126/67; PULSE 79; RESP 23; O2SAT 99
[2020-10-12 08:48] VITALS: BP 160/82; PULSE 72; RESP 22; O2SAT 99
[2020-10-12] MEDS: GABAPENTIN 300 MG CAPSULE PO (10:28)
--- NOTE | 2020-11-04 14:18 | PM.DS ---
DS: Admitting Diagnosis Discharge Date 10/12/20 Admitting Diagnosis dysphagia DS: Discharge Diagnosis Discharge Diagnosis (1) Dysphagia: Code(s): R13.10 - Dysphagia, unspecified Status: Acute Assessment and Plan: Patient has a history of cricopharyngeal achalasia requiring dilatation and Botox injections as above and in fact she initially wanted to be transferred to [place] to see her ENT, Dr. Stephens, who had treated her previously though no beds are available. Dr. Clemente (GI) was consulted by the ED provider and he has agreed to see the patient in consultation. She will be NPO as she is not able to hold down food or drink for any significant period of time, putting her at risk for aspiration. Gabapentin PO allowed exceptionally as patient was complaining of diffuse pain. (2) Type 2 diabetes mellitus: Code(s): E11.9 - Type 2 diabetes mellitus without complications Status: Acute Assessment and Plan: Hold pioglitazone as she is NPO. Initiate sliding scale insulin, Accu-Cheks, and hypoglycemic protocol. Check hemoglobin A1c. (3) Essential hypertension: Code(s): I10 - Essential (primary) hypertension Status: Acute Assessment and Plan: I do not see antihypertensives listed on her home medications. Blood pressures reviewed and they are stable. (4) Chronic anemia: Code(s): D64.9 - Anemia, unspecified Status: Acute Assessment and Plan: Hemoglobin and hematocrit are stable on review of previous labs. (5) Depression with anxiety: Code(s): F41.8 - Other specified anxiety disorders Status: Acute Assessment and Plan: No acute issues. Sertraline on hold as she is NPO currently. DS: Summary Hospital Course Reason for hospitalization: Chief Complaint: Difficulties keeping down food and liquid. Narrative: This is a very pleasant 85-year-old female with history of cricopharyngeal achalasia status post dilation and Botox injection in February [address] Jah Soni at [place] who presented to the emergency department earlier today from home for evaluation after she has been having difficulties keeping food and even liquid down for the last 2 days. On afternoon she was eating a ham salad sandwich and after a couple of bites it was regurgitated and since that time she has not been able to hold down solids or liquids. She has no pain or difficulty in swallowing but she feels as though the food is not passing through to the stomach. The symptoms are similar to those she was experiencing prior to seeing Dr. Soni. She is not having any difficulties managing her secretions and she denies concerns for aspiration. No fever, chills, or sweats. No chest pain, cough, or shortness of breath. Hospital Course: patient with history of cricopharyngeal achalasia status post dilation and Botox injection in February 2017, patient presented with dysphagia and patient was seen by GI and had a EGD and esophagus was dilated, patient states is feeling much able to swallow and has no complaint will discharge the patient home today Status at Discharge Functional status at discharge: independent ambulation Overall status at discharge: patient is back to baseline Time Spent with Patient Time attestation: Total time spent providing and/or coordinating discharge services: Patient was seen and examined at the time of the discharge Condition at discharge is stable Code status: Full code. Time spent preparing discharge summary, discharge medications, discussing discharge planning with manager rn case and patient is 35 minutes. Time spent: Greater than 30 minutes Exam Narrative: elderly frail Patient is comfortable, NAD HEENT: eyes are clear and none icteric LUNGS:CTA HEART: RR S1S2 ABD: BS+, Soft and nontender Lower extremities: no edema SKIN: nonjaundiced Neuro: grossly intact. Discharge Plan Discharge Attending physician on discharge
== END 2020-10-12 12:00 | disposition home or self-care (01) ==
LOC: ANHED 15:03 → ANH3MED 10-11 21:58
PROVIDERS: Internal Medicine Gastroenterology; Physician Assistant; Admitting Provider Internal Medicine Nephrology; Emergency Provider Emergency Medicine; PCP Family Medicine; Visit Provider Family Medicine
PROC: 0DJ08ZZ Inspection of Upper Intestinal Tract, Via Natural or Artificial Opening Endoscopic (ICD-10-PCS; CPT 43235; principal; 2020-10-12 08:30)
DX: R13.10 Dysphagia, unspecified (principal); R11.2 Nausea with vomiting, unspecified; E11.9 Type 2 diabetes mellitus without complications; I10 Essential (primary) hypertension; D64.9 Anemia, unspecified; K22.2 Esophageal obstruction; K22.0 Achalasia of cardia; F41.8 Other specified anxiety disorders; Z79.899 Other long term (current) drug therapy; E55.9 Vitamin D deficiency, unspecified
CPT/HCPCS: 43247; 43249; 36415; 71046; 80048; 80053; 81001; 82948; 83036; 83690; 83735; 85025; 85027; 85610; 85730; 87077; 87086; 87186; 93005; 96361; 96365; 96375; 96376; 99285; A9270; C1726; G0378; J0696; J2704; J7030; J7120

== ENCOUNTER 2020-12-04 00:29 | Day surgery (SDC) | payer MEDICARE, SELFPAY ==
[2020-11-16 14:40] VITALS: BMI 23.1
[2020-12-04 08:53] VITALS: BP 154/61; PULSE 68; RESP 18; TEMP 36.7; O2SAT 99; BMI 22.8
[2020-12-04 09:07] LABS: Glucose Point of Care 136 mg/dl (65-105)
[2020-12-04] MEDS: LACTATED RINGERS 1,000 ML 150 ML IV CONT (09:07)
--- NOTE | 2020-12-04 09:14 | WPDANESEPPF ---
Anes - Initial Pre Proc Eval Procedure: Operation Date: 12/04/20 09:45 Proposed Procedures p Esophagogastroduodenoscopy With Possible Botox Injection - Haider Clemente MD Date/Time: 12/04/20 09:14 Surgeon: Haider Clemente MD Pre Op Diagnosis: dysphagia Patient Data Age: 85 Gender: F Height: 1.63 m Weight: 60.3 kg Last Vital Signs Temp 36.7 C 12/04/20 08:53 Pulse 68 12/04/20 08:53 Resp 18 12/04/20 08:53 BP 154/61 H 12/04/20 08:53 Pulse Ox 99 12/04/20 08:53 Allergies Allergy/AdvReac Type Severity Reaction Status Date / Time metformin Allergy Mild Hives Verified 11/09/20 12:43 Penicillins Allergy Mild Hives Verified 11/09/20 12:43 Home Medications Medication Instructions Recorded Confirmed Type ibandronate 150 mg tablet 150 mg PO MONTHLY #12 tablet 01/13/20 11/16/20 Rx gabapentin 300 mg capsule See Rx Instructions PO DAILY #270 05/14/20 11/16/20 Rx cap pioglitazone 30 mg tablet 30 mg PO DAILY #90 tablet 10/27/20 11/16/20 Rx sertraline 50 mg tablet 75 mg PO DAILY #135 tablet 10/27/20 11/16/20 Rx Laboratory Tests 12/04/20 09:05 POC Capillary Glucose 136 mg/dl H mg/dl (65-105) Patient hx anesthesia problems: none Family hx anesthesia problems: none Results Review: All pre-operative results and documents have been reviewed as part of the pre-operative evaluation. [facility] Past Medical History Medical History Anemia Cricopharyngeal achalasia Status post dilatation and Botox injection per Dr. Jah Soni (ENT) at [place]. Depression with anxiety Essential hypertension Type 2 diabetes mellitus Vitamin D deficiency Surgical History Surgical History History of arthroscopic knee surgery History of cataract extraction History of open reduction and internal fixation (ORIF) procedure Pinning of left hip fracture. History of tonsillectomy Family History Family History Father Family history of diabetes mellitus in first degree relative Other Family history of lupus erythematosus Social History Social History Social History: Surrogate decision maker: Guerda Mark, daughter. Code status: Full code. Smoking status: Never smoker Alcohol intake: never Substance use: never Living arrangements: alone Additional living arrangements comments: Patient lives in a senior apartment in [place]. She has 6 children and was essentially a single mother for many years as her at a young age. 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 Spiritual care concerns: No Anes - Eval Final PreProcedure Day of Procedure 12/04/20 09:14 Patient weight: normal Heart: regular rate and rhythm Lungs: clear to auscultation Airway: Mallampati scale class II Neurological: alert and oriented Last oral intake: >/= 8 hours ASA classification: III Emergent: no Anesthetic plan: proceed Anesthesia type and monitoring: general GIVS and standard monitoring Results Review: All pre-operative results and documents have been reviewed as part of the pre-operative evaluation. Informed Consent: The patient's anesthetic plan and its attendant risks and benefits were discussed with the patient/family/POA. Questions were solicited and answers provided to the satisfaction of the patient/family/POA.
--- NOTE | 2020-12-04 09:35 | PM.HPGS ---
History of Present Illness History of Present Illness Consent: Risks, benefits, and alternatives have been discussed and questions answered. Patient agrees to proceed with procedure. Chief complaint: dysphagia Narrative: Crsitine Sunshine is a 85 year old female with recent hospitalization with dysphagia, EGD showed retained food in distal esophagus and ring in GEJ dilated with balloon 12-15mm (did not require Botox injection) but she has been diagnosed in the past with cricopharyngeal achalasia in 2017 when botox was used. She is doing much better and denies more dysphagia. Review of Systems Constitutional: Constitutional: Denies headache(s) and Denies weakness Eyes: Eyes: Denies blurry vision ENT: Reports Normal hearing present, Denies headache(s) and Denies neck pain Cardiovascular: Cardiovascular: Denies chest pain and Denies dyspnea Respiratory: Respiratory: Denies dyspnea Gastrointestinal: Gastrointestinal: Reports no additional gastrointestinal complaints Genitourinary: Genitourinary: Denies dysuria Musculoskeletal: Musculoskeletal: Denies neck pain Integumentary/Breasts: Skin/Breast: Denies dry skin Neurologic: Reports Normal hearing present, Denies headache(s) and Denies weakness Psychiatric: Psychiatric: Denies anxiety Endocrine: Endocrine: Denies change in body appearance Hematologic/Lymphatic: Hematologic/Lymphatic: Denies easy bleeding Allergic/Immunologic: Allergic/Immunologic: Denies urticaria PMFSH Past Medical History Medical History (Updated 12/04/20 @ 09:38 by Haider Clemente MD) Anemia Cricopharyngeal achalasia Status post dilatation and Botox injection per Dr. Jah Soni (ENT) at [place]. Depression with anxiety Esophageal ring Essential hypertension Type 2 diabetes mellitus Vitamin D deficiency Surgical History Surgical History History of arthroscopic knee surgery History of cataract extraction History of open reduction and internal fixation (ORIF) procedure Pinning of left hip fracture. History of tonsillectomy Family History Family History Father Family history of diabetes mellitus in first degree relative Other Family history of lupus erythematosus Social History Social History Social History: Surrogate decision maker: Guerda Mark, daughter. Code status: Full code. Smoking status: Never smoker Alcohol intake: never Substance use: never Living arrangements: alone Additional living arrangements comments: Patient lives in a senior apartment in [place]. She has 6 children and was essentially a single mother for many years as her at a young age. 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 care concerns: No Meds Home Medications and Allergies Home Medications Medication Instructions Recorded Confirmed Type ibandronate 150 mg tablet 150 mg PO MONTHLY #12 tablet 01/13/20 11/16/20 Rx gabapentin 300 mg capsule See Rx Instructions PO DAILY #270 05/14/20 11/16/20 Rx cap pioglitazone 30 mg tablet 30 mg PO DAILY #90 tablet 10/27/20 11/16/20 Rx sertraline 50 mg tablet 75 mg PO DAILY #135 tablet 10/27/20 11/16/20 Rx Allergies Allergy/AdvReac Type Severity Reaction Status Date / Time metformin Allergy Mild Hives Verified 11/09/20 12:43 Penicillins Allergy Mild Hives Verified 11/09/20 12:43 Vital Signs Vital Signs - 24 hr 12/04/20 08:53 Temperature 98.1 F Pulse Rate 68 Respiratory Rate 18 Blood Pressure 154/61 H Pulse Oximetry 99 Exam Const: General: comfortable and no acute distress HENMT: General nose exam: Normal nares present Eyes: General: appearance normal, both eyes and all related structures Neck: Neck: no JVD Resp: Auscultation: clear to auscultation bilaterally Cardio: Rat
[2020-12-04 09:56] VITALS: BP 141/60; PULSE 72; RESP 20; O2SAT 100
[2020-12-04 10:06] VITALS: BP 152/66; PULSE 70; RESP 21; O2SAT 98
[2020-12-04 10:16] VITALS: BP 155/72; PULSE 64; RESP 17; O2SAT 100
== END 2020-12-04 10:30 | disposition home or self-care (01) ==
PROVIDERS: PCP Family Medicine; Visit Provider Internal Medicine Gastroenterology
PROC: 0DJ08ZZ Inspection of Upper Intestinal Tract, Via Natural or Artificial Opening Endoscopic (ICD-10-PCS; CPT 43235; principal; 2020-12-04 09:45)
DX: R13.10 Dysphagia, unspecified (principal); K22.2 Esophageal obstruction; K29.50 Unspecified chronic gastritis without bleeding; E11.9 Type 2 diabetes mellitus without complications; E55.9 Vitamin D deficiency, unspecified; F32.A Depression, unspecified; F41.9 Anxiety disorder, unspecified
CPT/HCPCS: 43239; 82948; 88305; J2001; J2704; J7120

== ENCOUNTER 2023-01-19 10:23 | Emergency (ER) | payer MEDICARE, SELFPAY ==
--- NOTE | 2023-01-19 10:41 | ED.GENADULT ---
HPI - General Adult General Chief complaint: Upper Respiratory Infection Stated complaint: sob,hoarse Time Seen by Provider: 01/19/23 10:50 Source: patient, RN notes reviewed and old records reviewed Mode of arrival: ambulatory Limitations: no limitations History of Present Illness HPI narrative: 87-year-old female presents to [facility] with complaints cough, congestion, sore throat, hoarseness, general malaise this started 3 days ago. Patient is not taking anything for symptoms. Patient denies dizziness, weakness, chest pain, vomiting, shortness of breath. MD complaint: Cough, congestion, sore throat Onset (ago): day(s) (3) Related Data Allergies Allergy/AdvReac Type Severity Reaction Status Date / Time metformin Allergy Mild Hives Verified 08/24/22 07:56 Penicillins Allergy Mild Hives Verified 08/24/22 07:56 Review of Systems Constitutional: Constitutional: Reports no additional constitutional complaints Eyes: Eyes: Reports no additional eye complaints ENT: Reports as per HPI, Denies vertigo, Denies dizziness, Reports nasal congestion and Reports sore throat Cardiovascular: Cardiovascular: Reports no additional cardiovascular complaints Respiratory: Respiratory: Reports as per HPI, Reports chest congestion, Reports cough, Denies dyspnea and Denies wheezing Neurologic: Reports system reviewed and no additional complaints, except as documented [facility] Past Medical History Medical History Anemia BMI 22.0-22.9, adult Cricopharyngeal achalasia Status post dilatation and Botox injection per Dr. Jah Soni (ENT) at [place]. Depression with anxiety Esophageal ring Essential hypertension Gastritis Type 2 diabetes mellitus Vitamin D deficiency Surgical History Surgical History History of arthroscopic knee surgery History of cataract extraction History of open reduction and internal fixation (ORIF) procedure Pinning of left hip fracture. History of tonsillectomy Family History Family History Father Family history of diabetes mellitus in first degree relative Mother Rheumatoid arthritis Sibling No problems noted. Other Family history of lupus erythematosus Social History Social History Social History: Surrogate decision maker: Guerda Mark, daughter. Code status: Full code. Smoking status: Never smoker Second hand tobacco smoke exposure: Yes Alcohol intake: never Substance use: never Substance use type: does not use Lack of Transportation: No Lack of Food: Never True Current Housing: I Have Housing Concerned About Future Housing: No Difficulty Paying Gas/Electric Bills: No Difficulty Paying for Meds: No Currently Unemployed: No Education: Trade/Vocational Certificate Difficulty w/ Childcare or Family Care: No Living arrangements: alone Additional living arrangements comments: Patient lives in a senior apartment in [place]. She has 6 children and was essentially a single mother for many years as her at a young age. 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 Gender identity (if verbalized by the patient): Female Spiritual care concerns: No Comments At the time of my signature, I reviewed and agree with the nursing past medical, surgical, social, and family history. There is no relevant family history pertinent to the patient complaint. Exam Const: General: cooperative, healthy appearing, no acute distress and well nourished Nutritional Appearance: well nourished Orientation/consciousness: patient oriented x3 Limitations: no limitations HENMT: Head: normal to inspection and normocephalic Ears: external ears normal, TM's normal
[2023-01-19 10:45] VITALS: BP 138/76; PULSE 91; RESP 18; TEMP 36.3; O2SAT 99
== END 2023-01-19 11:25 | disposition home or self-care (01) ==
PROVIDERS: Emergency Provider Registered Nurse; PCP Family Medicine
DX: J02.0 Streptococcal pharyngitis (principal); E11.9 Type 2 diabetes mellitus without complications; I10 Essential (primary) hypertension; Z20.822 Contact with and (suspected) exposure to COVID-19
CPT/HCPCS: 87426; 87880; 99213; C9803; G0463

== ENCOUNTER 2023-07-12 10:25 | Emergency (ER) | payer MEDICARE, SELFPAY ==
--- NOTE | 2023-07-12 10:31 | ED.URI ---
HPI - URI/Sore Throat General Chief Complaint: Upper Respiratory Infection Stated Complaint: cough Time Seen by Provider: 07/12/23 10:31 Source: patient Mode of arrival: ambulatory Limitations: no limitations History of Present Illness HPI Narrative: Patient is an 87-year-old female who presents with cough, runny nose and eye itching for the last month. Patient states she thinks it is allergies but has not taken anything for allergies. Patient states she is not concerned for strep throat, pneumonia, bronchitis. Patient just wants checked out to make sure she is healthy to go see her son who is in late stages of cancer. Patient plans on flying out as soon she can. Denies any fever, chills, nausea, vomiting, diarrhea, sore throat, ear pain. Related Data Allergies Allergy/AdvReac Type Severity Reaction Status Date / Time metformin AdvReac Mild Hives Verified 07/12/23 10:32 Penicillins AdvReac Mild Hives Verified 07/12/23 10:32 Review of Systems Review of Systems: All systems reviewed & are unremarkable except as noted in HPI and below Constitutional: Constitutional: Denies body ache(s), Denies chills, Denies fatigue, Denies fever(s), Denies headache(s), Denies malaise and Denies weakness Eyes: Eyes: Denies blurry vision, Reports itchy eyes and Denies loss of vision ENT: Denies otalgia, Denies headache(s), Reports nasal congestion, Denies sinus pain and Denies sore throat Cardiovascular: Cardiovascular: Denies chest pain, Denies irregular heart rhythm and Denies dyspnea Respiratory: Respiratory: Reports cough and Denies dyspnea Gastrointestinal: Gastrointestinal: Denies abdominal pain, Denies diarrhea, Denies nausea and Denies vomiting Musculoskeletal: Musculoskeletal: Denies back pain, Denies myalgias and Denies arthralgias Integumentary/Breasts: Skin/Breast: Denies pruritus and Denies rash Neurologic: Denies headache(s), Denies loss of vision and Denies weakness Psychiatric: Psychiatric: Reports no additional psychiatric complaints Endocrine: Endocrine: Denies fatigue Allergic/Immunologic: Allergic/Immunologic: Denies itchy eyes PMFSH Past Medical History Medical History Anemia BMI 22.0-22.9, adult Cricopharyngeal achalasia Status post dilatation and Botox injection per Dr. Jah Soni (ENT) at [place]. Depression with anxiety Esophageal ring Essential hypertension Gastritis Type 2 diabetes mellitus Vitamin D deficiency Surgical History Surgical History History of arthroscopic knee surgery History of cataract extraction History of open reduction and internal fixation (ORIF) procedure Pinning of left hip fracture. History of tonsillectomy Family History Family History Father Family history of diabetes mellitus in first degree relative Mother Rheumatoid arthritis Sibling No problems noted. Other Family history of lupus erythematosus Social History Social History Social History: Surrogate decision maker: Guerda Mark, daughter. Code status: Full code. Smoking status: Never smoker Second hand tobacco smoke exposure: Yes Alcohol intake: never Substance use: never Substance use type: does not use Lack of Transportation: No Lack of Food: Never True Current Housing: I Have Housing Concerned About Future Housing: No Difficulty Paying Gas/Electric Bills: No Difficulty Paying for Meds: No Currently Unemployed: No Education: Trade/Vocational Certificate Difficulty w/ Childcare or Family Care: No Living arrangements: alone Additional living arrangements comments: Patient lives in a senior apartment in [place]. She has 6 children and was essentially a single mother for many years as her at a young age. Occ
[2023-07-12 10:48] VITALS: BP 153/61; PULSE 86; RESP 18; TEMP 36.8; O2SAT 98
== END 2023-07-12 11:15 | disposition home or self-care (01) ==
PROVIDERS: Emergency Provider Nurse Practitioner Family; PCP Family Medicine
DX: J06.9 Acute upper respiratory infection, unspecified (principal); I10 Essential (primary) hypertension; E55.9 Vitamin D deficiency, unspecified; F41.8 Other specified anxiety disorders
CPT/HCPCS: 99213; G0463

== ENCOUNTER 2023-10-23 13:34 | Outpatient (CLI) | payer MEDICARE, SELFPAY ==
[2023-10-23 14:04] LABS: Basophils Absolute Auto 0.1 K/mm3 (0.0-0.1); Basophils Percent Auto 0.9 % (0.2-1.2); Eosinophils Absolute Auto 0.1 K/mm3 (0-0.3); Eosinophils Percent Auto 2.5 % (0-4.4); Hematocrit 37.2 % (37.0-47.0); Hemoglobin 11.2 g/dL (12.0-15.0); Immature Granulocyte Absolute 0.02 K/mm3 (0.00-0.031); Immature Granulocyte Percent A 0.4 % (0-0.5); Lymphocytes Absolute Auto 1.68 K/mm3 (0.9-3.2); Lymphocytes Percent Auto 30.4 % (18.3-44.2); Mean Corpuscular HGB Conc 30.1 g/dl (32-36); Mean Corpuscular Hemoglobin 28.9 pg (26-34); Mean Corpuscular Volume 96.1 fl (80-100); Mean Platelet Volume 12.1 fl (7.4-10.4); Monocytes Absolute Auto 0.5 K/mm3 (0.1-0.6); Neutrophils Absolute Auto 3.1 K/mm3 (1.3-6.7); Neutrophils Percent Auto 56.8 % (45.5-73.1); Platelet Count Result 189 k/mm3 (150-375); Red Blood Count 3.87 M/mm3 (4.2-5.4); Red Cell Distribution Width 15.2 % (11.5-14.5); White Blood Count 5.5 K/mm3 (4.5-10.0)
[2023-10-23 14:24] LABS: Iron 85 ug/dL (37-170)
[2023-10-23 14:26] LABS: Alanine Aminotransferase 17 U/L (6-35); Albumin Level 4.5 g/dL (3.5-5.1); Alkaline Phosphatase 87 U/L (38-126); Anion Gap 9 mmol/L (4-12); Aspartate Amino Transferase 34 U/L (14-36); Bilirubin,Total 0.3 mg/dL (0.2-1.3); Blood Urea Nitrogen 19 mg/dL (7-17); Calcium 9.5 mg/dL (8.4-10.2); Carbon Dioxide 29 mmol/L (22-30); Chloride 98 mmol/L (98-107); Estimated Glomerular Filt Rate > 60; Glucose 174 mg/dL (65-110); Potassium 4.9 mmol/L (3.4-5.0); Sodium 136 mmol/L (137-145)
[2023-10-23 14:35] LABS: Percent Iron Saturation 23 % (20-50)
[2023-10-23 14:46] LABS: Vitamin D 25 Hydroxy 53.8 ng/mL
[2023-10-23 16:11] LABS: Folic Acid > 20.0 ng/mL (2.76->20)
== END 2023-10-23 13:35 | disposition home or self-care (01) ==
LOC: ANHLAB 13:39
PROVIDERS: PCP Family Medicine
DX: D64.9 Anemia, unspecified (principal); R53.83 Other fatigue; E55.9 Vitamin D deficiency, unspecified; D50.8 Other iron deficiency anemias; R20.2 Paresthesia of skin; Z13.29 Encounter for screening for other suspected endocrine disorder; Z13.0 Encounter for screening for diseases of the blood and blood-forming organs and certain disorders involving the immune mechanism
CPT/HCPCS: 36415; 80053; 82306; 82607; 82746; 83540; 83550; 84443; 85025; 86644; 86645; 86664; 86665

== ENCOUNTER 2023-10-24 16:25 | Outpatient (NON) | payer MEDICARE, SELFPAY ==
[2023-11-07 07:51] LABS: EBV Nuclear Ab Antibody <18.00; EBV Virus Capsid Ag IgG Ab >750.00; EBV Virus Capsid Ag IgM Ab <36.00
== END 2023-10-24 16:26 | disposition home or self-care (01) ==
PROVIDERS: PCP Family Medicine
DX: D72.828 Other elevated white blood cell count (principal); R53.83 Other fatigue
CPT/HCPCS: 36415; 86644; 86645; 86664; 86665

== ENCOUNTER 2023-11-23 10:13 | Emergency (ER) | payer MEDICARE, SELFPAY ==
[2023-11-23 10:37] VITALS: BP 123/69; PULSE 88; RESP 16; TEMP 37.1; O2SAT 98
[2023-11-23 10:42] VITALS: BP 123/69; PULSE 88; RESP 16; TEMP 37.1
--- NOTE | 2023-11-23 10:54 | ED.URI ---
HPI - URI/Sore Throat General Chief Complaint: Upper Respiratory Infection Stated Complaint: sore throat and weakness Time Seen by Provider: 11/23/23 10:50 Source: patient, RN notes reviewed and old records reviewed Mode of arrival: ambulatory Limitations: no limitations History of Present Illness HPI Narrative: 88 year old female who presents to [facility] care with complaints of 3 day history of dry hacking cough with feelings of weakness. Patient reports that she has noted some wheezing at times, denies any acute dyspnea. Patient reports no fevers, eat pain, sore throat or any headache pain, reports some nasal drainage. Patient reports that she has taken some Yarely Dickinson cold medication. MD elicited complaint: cough, rhinorrhea and nasal congestion Pertinent past history: pneumonia and other (bronchitis) Onset (ago): day(s) (3) Severity: moderate Able to tolerate fluids by mouth: Yes Treatments prior to arrival: other (Yarely Dickinson cold medication) Related Data Allergies Allergy/AdvReac Type Severity Reaction Status Date / Time metformin Allergy Mild Hives Verified 11/23/23 10:41 Penicillins Allergy Mild Hives Verified 11/23/23 10:41 Review of Systems Review of Systems: CONSTITUTIONAL: Denies malaise, chills, sweats, or fever. EYES: Denies visual changes, redness, or discharge. ENT: Reports rhinorrhea, congestion,no sinus pain,no otalgia and no sore throat. CARDIOVASCULAR: Denies chest pain, palpitations, or edema. RESPIRATORY: Reports dry cough.? Denies dyspnea admits to some wheezes GASTROINTESTINAL: Denies abdominal pain, nausea, vomiting, diarrhea SKIN: Denies rash or itching. MUSCULOSKELETAL: Denies myalgia. NEUROLOGIC: Denies headache. All systems reviewed & are unremarkable except as noted in HPI and below PMFSH Past Medical History Medical History Anemia BMI 22.0-22.9, adult Cricopharyngeal achalasia Status post dilatation and Botox injection per Dr. Jah Soni (ENT) at [place]. Depression with anxiety Esophageal ring Essential hypertension Gastritis Pneumonia age 18 Type 2 diabetes mellitus Vitamin D deficiency Surgical History Surgical History History of arthroscopic knee surgery History of cataract extraction History of open reduction and internal fixation (ORIF) procedure Pinning of left hip fracture. History of tonsillectomy Family History Family History Father Family history of diabetes mellitus in first degree relative Mother Rheumatoid arthritis Sibling No problems noted. Other Family history of lupus erythematosus Social History Social History Social History: Surrogate decision maker: Guerda Mark, daughter. Code status: Full code. Smoking status: Never smoker Second hand tobacco smoke exposure: Yes Alcohol intake: never Substance use: never Substance use type: does not use Do You Feel Safe in your Home?: Yes Lack of Transportation: No Lack of Food: Never True Current Housing: I Have Housing Concerned About Future Housing: No Difficulty Paying Gas/Electric Bills: No Difficulty Paying for Meds: No Currently Unemployed: No Education: Trade/Vocational Certificate Difficulty w/ Childcare or Family Care: No Living arrangements: alone Additional living arrangements comments: Patient lives in a senior apartment in [place]. She has 6 children and was essentially a single mother for many years as her at a young age. 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 Gender identity (if verbalized by the patient): Female Spiritual care concerns: No Comments At time of signature, agree with nursing past medi
[2023-11-23 11:51] LABS: EDCOVIDSCREEN Negative (Negative); EDINFLUASCREEN Negative (Negative); EDINFLUBSCREEN Negative (Negative)
== END 2023-11-23 11:18 | disposition home or self-care (01) ==
PROVIDERS: Emergency Provider Registered Nurse; PCP Family Medicine
DX: J40 Bronchitis, not specified as acute or chronic (principal); Z20.822 Contact with and (suspected) exposure to COVID-19; E11.9 Type 2 diabetes mellitus without complications; I10 Essential (primary) hypertension; E55.9 Vitamin D deficiency, unspecified; F41.8 Other specified anxiety disorders
CPT/HCPCS: 87426; 87804; 99213; G0463

== ENCOUNTER 2023-12-29 13:15 | Emergency (ER) | payer MEDICARE, SELFPAY ==
[2023-12-29] VITALS (29 sets, daily range): BP systolic 112–149; BP diastolic 44–65; PULSE 77–97; RESP 12–26; TEMP 37.5; O2SAT 93–100
--- NOTE | ~2023-12-29 | CT_ITS ---
EXAMINATION: CTA chest PE protocol DATE: 12/29/2023 16:33 INDICATION: Shortness of breath and cough TECHNIQUE: Computed tomography (CT) pulmonary angiogram of the chest was performed with 100 mL Omnipa que-350 intravenous contrast. Additional 3D reconstructions utilizing coronal maximum intensity proje ction (MIP) were performed. Automated exposure control and iterative reconstruction technique were em ployed. The dose-length product was 183.83 mGy-cm. COMPARISON: None FINDINGS: No definitive pulmonary embolus. Evaluation limited in the subsegmental pulmonary arteries due to mil d to moderate scattered respiratory motion artifact. Mild basilar and dependent atelectasis in the bi lateral lower lobes. No pneumonia, pulmonary edema, pleural effusion or pneumothorax. The artifactual masslike opacity in the infrahilar right lower lung zone results from superimposition of shadows of the right middle and lower lobar pulmonary arteries and veins. Heart size is normal. No pericardial e ffusion. Thoracic aorta is normal in caliber with no dissection. No pathologically enlarged thoracic lymphadenopathy. Small sliding-type hiatal hernia. Moderate thoracic spondylosis. IMPRESSION: 1. No pulmonary embolism. Sensitivity decreased in some of the smaller subsegmental pulmonary arterie s due to mild to moderate scattered motion artifact. 2. Mild dependent and basilar atelectasis in the lateral lower lobes. No other acute cardiopulmonary disease. 3. Small sliding-type hiatal hernia. Reviewed, dictated and finalized at location B. OR NET SOFTWARE DEVELOPER IMPRESSION: 1. No pulmonary embolism. Sensitivity decreased in some of the smaller subsegme ntal pulmonary arteries due to mild to moderate scattered motion artifact. 2. Mild dependent and basilar atelectasis in the lateral lower lobes. No other acute cardiopulmonary disease. 3. Small sliding-type hiatal hernia.
--- NOTE | ~2023-12-29 | XR_ITS ---
EXAMINATION: XR chest 1V portable DATE: 12/29/2023 15:26 INDICATION: Cough and weakness TECHNIQUE: frontal view of the chest was obtained. COMPARISON: Chest radiograph dated 10/10/2020 FINDINGS: Gas-filled stomach underlies the elevated left hemidiaphragm. New masslike opacity with relatively sh arply defined margins opacity projecting over the right infrahilar region with no other airspace opac ities, pulmonary edema, pleural effusion or pneumothorax. The cardiomediastinal silhouette is within normal limits for AP technique. Multiple old bilateral rib fractures. IMPRESSION: 1. New indeterminate masslike opacity in the right infrahilar region. Recommend CT for further evalua tion, preferably with contrast. Reviewed, dictated and finalized at location B. ICAL THERAPIST ASSISTANT IMPRESSION: 1. New indeterminate masslike opacity in the right infrahilar region. Recommend CT for further evaluation, preferably with contrast.
[2023-12-29 14:09] LABS: Influenza A QL RT-PCR Negative (Negative); Influenza B QL RT-PCR Negative (Negative); RSV RNA, RT-PCR Negative (Negative); SARS-CoV-2 RNA PCR Positive (Negative)
--- NOTE | 2023-12-29 15:13 | ECG_ITS ---
Test Date: 2023-12-29 15:36:07 Measurements Intervals [place] Rate: 92 P: 48 NH: 164 QRS: 56 QRSD: 98 T: 77 QT: 373 QTc: 463 Interpretive Statements SINUS RHYTHM BORDERLINE ST-T WAVE ABNORMALITY- INF/LAT LEADS BASELINE ARTIFACT- I, III, AVR, AVL, AVF, V1-V6 BORDERLINE ECG No previous ECG available for comparison Electronically Signed On 12-29-2023 15:42:18 EVAPORATOR HELPER by Jose Alejandro Paredes D.O.
--- NOTE | 2023-12-29 15:43 | ED.URI ---
HPI - URI/Sore Throat General Chief Complaint: Upper Respiratory Infection Stated Complaint: SHORT OF BREATH, URI Time Seen by Provider: 12/29/23 14:40 History of Present Illness HPI Narrative: 88-year-old female presenting with cough and shortness of breath. States that it started overnight. Also complains of body aches and generalized weakness. No chest pain or leg swelling. She was nauseated earlier but received Zofran from EMS and nausea improved. Related Data Allergies Allergy/AdvReac Type Severity Reaction Status Date / Time metformin Allergy Mild Hives Verified 11/23/23 10:41 Penicillins Allergy Mild Hives Verified 11/23/23 10:41 Review of Systems Review of Systems: All systems reviewed & are unremarkable except as noted in HPI and below PMFSH Past Medical History Medical History Anemia BMI 22.0-22.9, adult Cricopharyngeal achalasia Status post dilatation and Botox injection per Dr. Jah Soni (ENT) at [place]. Depression with anxiety Esophageal ring Essential hypertension Gastritis Pneumonia age 18 Type 2 diabetes mellitus Vitamin D deficiency Surgical History Surgical History History of arthroscopic knee surgery History of cataract extraction History of open reduction and internal fixation (ORIF) procedure Pinning of left hip fracture. History of tonsillectomy Family History Family History Father Family history of diabetes mellitus in first degree relative Mother Rheumatoid arthritis Sibling No problems noted. Other Family history of lupus erythematosus Social History Social History Social History: Surrogate decision maker: Guerda Mark, daughter. Code status: Full code. Smoking status: Never smoker Second hand tobacco smoke exposure: Yes Alcohol intake: never Substance use: never Substance use type: does not use Do You Feel Safe in your Home?: Yes Lack of Transportation: No Lack of Food: Never True Current Housing: I Have Housing Concerned About Future Housing: No Difficulty Paying Gas/Electric Bills: No Difficulty Paying for Meds: No Currently Unemployed: No Education: Trade/Vocational Certificate Difficulty w/ Childcare or Family Care: No Living arrangements: alone Additional living arrangements comments: Patient lives in a senior apartment in [place]. She has 6 children and was essentially a single mother for many years as her at a young age. 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 Gender identity (if verbalized by the patient): Female Spiritual care concerns: No Exam Narrative: GENERAL: Well-appearing, in no acute distress, pleasant cooperative HEAD: Normocephalic, atraumatic. EYES: PERRLA and EOMI. ENT: Mucous membranes moist. NECK: Supple. CHEST: Clear to auscultation. No respiratory distress. HEART: Regular rate and rhythm. ABDOMEN: Soft, nontender, nondistended EXTREMITIES: No edema. SKIN: Warm, dry, no rash. NEURO: Alert and oriented x3. PSYCH: Normal mood and affect. Course Vital Signs Vital signs: Vital Signs Temperature 99.5 F 12/29/23 13:18 Pulse Rate 96 12/29/23 13:18 Respiratory Rate 20 12/29/23 13:18 Blood Pressure 149/52 H 12/29/23 13:18 Pulse Oximetry 96 12/29/23 13:18 Oxygen Delivery Room Air 12/29/23 13:18 Temperature 99.5 F 12/29/23 13:18 Pulse Rate 77 12/29/23 18:45 Respiratory Rate 22 H 12/29/23 18:45 Blood Pressure 112/65 12/29/23 17:31 Pulse Oximetry 98 12/29/23 18:00 Oxygen Delivery Room Air 12/29/23 15:13 MDM - URI/Sore Throat MDM Narrative Medical decision making narrative: 88-year-old female presenting with cough. Exam remarkable for the above. Vitals are within normal limits. EKG per my interpretation shows normal sinus rhythm, no ST elevations or depressions. Patient is positive for COVID-19. Blood work without acute abnormalities. CT of the chest shows no pulmonary embolus or other acute abnormalities. Patient observed for several hours and she continues to have normal vital signs. She feels well and would like to go home which I think is reasonable. Discussed appropriate supportive care and follow-up. Appropriate return precautions given. Discharged in stable condition. Differential Diagnosis Differential diagnosis: Likely upper respiratory infection, viral infection, influenza and other (COVID-19, pneumonia) Medical Records Attestation: I reviewed the patient's medical records. Lab Data Attestation: I reviewed the patient's lab results. 12/29/23 15:38 12/29/23 15:38 Labs: Lab Results 12/29/23 12/29/23 12/29/23 Range/Units 13:26 15:38 17:44 WBC 6.8 (4.5-10.0) K/mm3 RBC 3.78 L (4.2-5.4) M/mm3 Hgb 11.2 L (12.0-15.0) g/dL Hct 35.7 L (37.0-47.0) % MCV 94.4 (80-100) fl MCH 29.6 (26-34) pg MCHC 31.4 L (32-36) g/dl RDW 14.6 H (11.5-14.5) % Plt Count 155 (150-375) k/mm3 MPV 11.8 H (7.4-10.4) fl Immature Gran % (Auto) 0.4 (0-0.5) % Neut % (Auto) 82.8 H (45.5-73.1) % Lymph % (Auto) 7.5 L (18.3-44.2) % [place] % (Auto) 8.8 H (2.6-8.5) % Eos % (Auto) 0.1 (0-4.4) % Baso % (Auto) 0.4 (0.2-1.2) % Lymph # (Auto) 0.51 L (0.9-3.2) K/mm3 [place] # (Auto) 0.6 (0.1-0.6) K/mm3 Eos # (Auto) 0.0 (0-0.3) K/mm3 Baso # (Auto) 0.0 (0.0-0.1) K/mm3 Abs Immat Gran (auto) 0.03 (0.00-0.031) K/mm3 Absolute Neuts (auto) 5.6 (1.3-6.7) K/mm3 Absolute Nucleated RBC 0.000 (0.0-0.012) K/mm3 Nucleated RBC % 0.0 (0.0-0.2) % Sodium 138 (137-145) mmol/L Potassium 3.9 (3.4-5.0) mmol/L Chloride 99 (98-107) mmol/L Carbon Dioxide 30 (22-30) mmol/L Anion Gap 9 (4-12) mmol/L BUN 17 (7-17) mg/dL Creatinine 0.70 (0.7-1.0) mg/dL Estim Creat Clear Calc 41 ml/min Estimated GFR > 60 (59 - ) Glucose 178 H (65-110) mg/dL Calcium 9.3 (8.4-10.2) mg/dL Total Bilirubin 0.8 (0.2-1.3) mg/dL AST 39 H (14-36) U/L ALT 15 (6-35) U/L Alkaline Phosphatase 85 (38-126) U/L Total Protein 8.0 (6.3-8.2) g/dL Albumin 4.4 (3.5-5.1) g/dL Lipase 86 (23-300) U/L Urine Color Yellow (Yellow) Urine Appearance Clear (Clear) Urine pH 8.5 (5.0-9.0) Ur Specific [place] > 1.045 H (1.001-1.035) Urine Protein Trace (Negative) mg/dL Urine Glucose (UA) Negative (Negative) mg/dL Urine Ketones Negative (Negative) mg/dL Ur Blood (Man) Negative (Negative) Urine Nitrate Negative (Negative) Urine Bilirubin Negative (Negative) Urine Urobilinogen 1.0 (<2.0) mg/dL Leukocyte Esterase Rfl Negative (Negative) AARON/UL Urine RBC 3-5 H (0-2) /hpf Urine WBC 0-5 (0-3) /hpf Ur Squamous Epith Cells None seen (Few) /hpf Urine Bacteria None seen /hpf Urine Casts 0-2 Influenza A (RT-PCR) Negative (Negative) Influenza B (RT-PCR) Negative (Negative) RSV (RT-PCR) Negative (Negative) SARS-CoV-2 RNA (RT-PCR) Positive A (Negative) Imaging Data Radiologist's impression: ITS Impressions Chest X-Ray 12/29/23 15:27 IMPRESSION: 1. New indeterminate masslike opacity in the right infrahilar region. Recommend CT for further evaluation, preferably with contrast. Chest CTA 12/29/23 16:35 IMPRESSION: 1. No pulmonary embolism. Sensitivity decreased in some of the smaller subsegmental pulmonary arteries due to mild to moderate scattered motion artifact. 2. Mild dependent and basilar atelectasis in the lateral lower lobes. No other acute cardiopulmonary disease. 3. Small sliding-type hiatal hernia. Critical Care Time Critical Care Time Critical Care Time: No Discharge Plan Discharge Clinical Impression: COVID-19 Patient Disposition: Home, Self-Care Condition: Stable Instructions: Antibiotic Form, How to Recover from COVID-19 at Home (ED) Additional Instructions: Your workup today is positive for COVID-19. Your blood work and CT scan are reassuring. Please rest and drink plenty of hydrating fluids. Use Tylenol and ibuprofen for body aches or fevers. Follow-up closely with your PCP. If your symptoms worsen or other concerning symptoms arise, please return to the ER. Prescriptions: No Action albuterol sulfate 90 mcg/actuation HFA aerosol inhaler 2 puff inhalation QID PRN (Reason: shortness of breath or wheezing) Qty: 6.7 0RF azithromycin 250 mg tablet See Rx Instructions .ROUTE .COMPLEX Qty: 6 0RF Rx Instructions: For 250 mg dose pack: take 500 mg today (day 1), then 250 mg for 4 days (days 2-5) prednisone 20 mg tablet 40 mg PO DAILY 5 Days Qty: 10 0RF loratadine 10 mg tablet 10 mg PO DAILY Qty: 30 0RF ibandronate 150 mg tablet 150 mg PO MONTHLY Qty: 12 2RF sertraline [Zoloft] 50 mg tablet 75 mg PO DAILY Qty: 135 3RF gabapentin [Neurontin] 300 mg capsule See Rx Instructions PO DAILY Qty: 270 2RF Rx Instructions: Take 1 capsule by mouth in the AM and 2 in the PM PO daily; cholecalciferol (vitamin D3) 125 mcg (5,000 unit) capsule 125 mcg PO DAILY Qty: 30 0RF Follow-up/Referrals: Mario Walker MD [Primary Care Provider] -
[2023-12-29 15:44] LABS: Basophils Percent Auto 0.4 % (0.2-1.2); Eosinophils Percent Auto 0.1 % (0-4.4); Hematocrit 35.7 % (37.0-47.0); Hemoglobin 11.2 g/dL (12.0-15.0); Immature Granulocyte Absolute 0.03 K/mm3 (0.00-0.031); Immature Granulocyte Percent A 0.4 % (0-0.5); Lymphocytes Absolute Auto 0.51 K/mm3 (0.9-3.2); Lymphocytes Percent Auto 7.5 % (18.3-44.2); Mean Corpuscular HGB Conc 31.4 g/dl (32-36); Mean Corpuscular Hemoglobin 29.6 pg (26-34); Mean Corpuscular Volume 94.4 fl (80-100); Mean Platelet Volume 11.8 fl (7.4-10.4); Monocytes Absolute Auto 0.6 K/mm3 (0.1-0.6); Monocytes Percent Auto 8.8 % (2.6-8.5); Neutrophils Absolute Auto 5.6 K/mm3 (1.3-6.7); Neutrophils Percent Auto 82.8 % (45.5-73.1); Platelet Count Result 155 k/mm3 (150-375); Red Blood Count 3.78 M/mm3 (4.2-5.4); Red Cell Distribution Width 14.6 % (11.5-14.5); White Blood Count 6.8 K/mm3 (4.5-10.0)
[2023-12-29] MEDS: KETOROLAC 15 MG/ML VIAL (*BKC) IV PUSH (15:57)
[2023-12-29 16:01] LABS: Alanine Aminotransferase 15 U/L (6-35); Albumin Level 4.4 g/dL (3.5-5.1); Alkaline Phosphatase 85 U/L (38-126); Anion Gap 9 mmol/L (4-12); Aspartate Amino Transferase 39 U/L (14-36); Bilirubin,Total 0.8 mg/dL (0.2-1.3); Blood Urea Nitrogen 17 mg/dL (7-17); Calcium 9.3 mg/dL (8.4-10.2); Carbon Dioxide 30 mmol/L (22-30); Chloride 99 mmol/L (98-107); Estimated CRCL calculation 41 ml/min; Estimated Glomerular Filt Rate > 60; Glucose 178 mg/dL (65-110); Lipase 86 U/L (23-300); Potassium 3.9 mmol/L (3.4-5.0); Sodium 138 mmol/L (137-145)
[2023-12-29 17:56] LABS: Add Urine Microscopic? YES; Appearance Urine Clear (Clear); Bacteria Urine None Seen /hpf; Bilirubin Urine Negative (Negative); Blood Urine Negative (Negative); Color Urine Yellow (Yellow); Glucose Urine UA Negative (Negative); Ketones Urine Negative (Negative); Leukocyte Esterase Ur Negative LEU/UL (Negative); Nitrate Urine Negative (Negative); Non Pathogenic Casts 0-2; Protein Urine Trace mg/dL (Negative); Specific Grav Ur > 1.045 (1.001-1.035); Squamous Epithelial Cell Urine None Seen /hpf (Few); WBC Urine 0-5 /hpf (0-3); pH Urine 8.5 (5.0-9.0)
--- NOTE | 2023-12-29 19:16 | PC.NURSE ---
Report received from ROSA Romero. Assumed care of patient at this time.
== END 2023-12-29 19:30 | disposition home or self-care (01) ==
PROVIDERS: Emergency Medicine; Emergency Provider Emergency Medicine; PCP Family Medicine
DX: U07.1 COVID-19 (principal); F41.8 Other specified anxiety disorders; I10 Essential (primary) hypertension; E11.9 Type 2 diabetes mellitus without complications; E55.9 Vitamin D deficiency, unspecified
CPT/HCPCS: 36415; 71045; 71275; 80053; 81001; 83690; 85025; 87637; 93005; 96374; 99284; J1885; Q9967

== ENCOUNTER 2024-03-05 11:11 | Emergency (ER) | payer MEDICARE, SELFPAY ==
--- NOTE | ~2024-03-05 | XR_ITS ---
EXAMINATION: XR chest 2V DATE: 03/05/2024 12:18 INDICATION: Cough. TECHNIQUE: Frontal and lateral views of the chest were obtained. COMPARISON: Chest single view 12/29/2023, chest CT 12/29/2023 FINDINGS: There is no pneumonia, pleural effusion, or pneumothorax. The heart size is normal. There a re multiple old healed bilateral rib fractures. There is a chronic burst fracture of T12. IMPRESSION: 1. No acute cardiopulmonary disease. Reviewed, dictated and finalized at location A. ENTER GENERAL
--- NOTE | 2024-03-05 11:19 | ED.URI ---
HPI - URI/Sore Throat General Chief Complaint: Upper Respiratory Infection Stated Complaint: cough / congestion Time Seen by Provider: 03/05/24 12:00 Source: patient, RN notes reviewed and old records reviewed Mode of arrival: ambulatory Limitations: no limitations History of Present Illness HPI Narrative: patient presents with complaints of cough and congestion that began yesterday. She does not believe that she has been running a fever. She reports that she does have a headache and some body aches. She denies any chest pain or shortness of breath. She has been using gxhy-gcl-[id number] medications to manage her symptoms. She voices no other concerns or complaints today Related Data Allergies Allergy/AdvReac Type Severity Reaction Status Date / Time metformin Allergy Mild Hives Verified 03/05/24 11:30 Penicillins Allergy Mild Hives Verified 03/05/24 11:30 Review of Systems Review of Systems: All systems reviewed & are unremarkable except as noted in HPI and below Constitutional: Constitutional: Reports no additional constitutional complaints, Reports body ache(s), Reports headache(s) and Reports lethargy ENT: Reports system reviewed and no additional complaints, except as documented and Reports nasal congestion Cardiovascular: Cardiovascular: Reports no additional cardiovascular complaints Respiratory: Respiratory: Reports no additional respiratory complaints and Reports cough Gastrointestinal: Gastrointestinal: Reports no additional gastrointestinal complaints PMFSH Past Medical History Medical History Pneumonia age 18 Gastritis BMI 22.0-22.9, adult Esophageal ring Depression with anxiety Cricopharyngeal achalasia Status post dilatation and Botox injection per Dr. Jah Soni (ENT) at [place]. Anemia Essential hypertension Type 2 diabetes mellitus Vitamin D deficiency Surgical History Surgical History History of open reduction and internal fixation (ORIF) procedure Pinning of left hip fracture. History of arthroscopic knee surgery History of tonsillectomy History of cataract extraction Family History Family History Father Family history of diabetes mellitus in first degree relative Mother Rheumatoid arthritis Sibling No problems noted. Other Family history of lupus erythematosus Social History Social History Social History: Surrogate decision maker: Guerda Mark, daughter. Code status: Full code. Smoking status: Never smoker Second hand tobacco smoke exposure: Yes Alcohol intake: never Substance use: never Substance use type: does not use Do You Feel Safe in your Home?: Yes Lack of Transportation: No Lack of Food: Never True Current Housing: I Have Housing Concerned About Future Housing: No Difficulty Paying Gas/Electric Bills: No Difficulty Paying for Meds: No Currently Unemployed: No Education: Trade/Vocational Certificate Difficulty w/ Childcare or Family Care: No Living arrangements: alone Additional living arrangements comments: Patient lives in a senior apartment in [place]. She has 6 children and was essentially a single mother for many years as her at a young age. 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 Gender identity (if verbalized by the patient): Female Spiritual care concerns: No Comments At the time of my signature, I reviewed and agree with the nursing past medical, surgical, social, and family history. There is no relevant family history pertinent to the patient complaint. Exam Const: General: cooperative, no acute distress, alert and awake Orientation/consciousness: oriented to person, oriented to place and oriented to time HENMT: Head: normal to inspection Face/Nose/Sinus: Nasal discharge present clear Mouth: Yes moist mucous membranes Resp: Effort & Inspection: normal respiratory effort and able to speak in complete sentences Auscultation: clear to auscultation bilaterally, no crackles, no rales, no rhonchi, no wheezes and diminished lung sounds bilateral in the lower lung spaulding Cardio: Palpation: normal PMI Rate: regular rate Rhythm: regular rhythm Heart sounds: S1 normal heart sound present and S2 normal heart sound present Neuro: General: oriented to person, oriented to place and oriented to time Cranial nerves: Yes CN's II-XII intact bilaterally Psych: Appearance: grossly normal Thought process: Normal thought process present Insight: Good insight present (Psych) Judgement: Good judgement present (Psych) Course Course Level of Care: Express Care Visit Vital Signs Vital signs: Reviewed MDM - URI/Sore Throat MDM Narrative Medical decision making narrative: reassuring physical exam, negative flu, negative COVID, chest x-ray without acute finding. Results discussed with patient. Suspect that symptoms are viral in origin. Supportive care measures discussed. Emergency department precautions discussed. Discharge instructions reviewed with patient, as well as provided in writing per nursing staff. The instructions also include specific and strict return/GO TO THE ER as well as f/u information. All questions have been answered, and the patient deny any further questions with discharge and discharge plan. Some parts of this dictation were generated by voice recognition software and may contain typographical and/or grammatical inaccuracies. Differential Diagnosis Differential diagnosis: Likely upper respiratory infection, sinusitis, viral infection and influenza Medical Records Attestation: I reviewed the patient's medical records. Lab Data Attestation: I reviewed the patient's lab results. Imaging Data My impression: No acute finding Radiologist's impression: [address] [id number] XRay Report Signed Patient: Marybeth Sunshine : 1935 MR#: [id number] Age: 88 Acct:[id number] Loc: [facility] ADM Date: 03/05/24Attending Dr: Ordering Physician: Heather Lewis FNP Date of Service: 03/05/24 Procedure(s): XR chest 2V Accession Number(s): [id number] cc: Heather Lewis FNP; Mario Walker MD~ EXAMINATION: XR chest 2V DATE: 03/05/2024 12:18 INDICATION: Cough. TECHNIQUE: Frontal and lateral views of the chest were obtained. COMPARISON: Chest single view 12/29/2023, chest CT 12/29/2023 FINDINGS: There is no pneumonia, pleural effusion, or pneumothorax. The heart size is normal. There are multiple old healed bilateral rib fractures. There is a chronic burst fracture of T12. IMPRESSION: 1. No acute cardiopulmonary disease. Reviewed, dictated and finalized at location A. LY RESOURCE MANAGEMENT PROFESSOR Please be advised this is a medical document. It is intended for [id number]-[id number] communication. It is written in medical language and may contain unfamiliar abbreviations or verbiage. Medical documents are intended to carry relevant information, facts as evident, and the clinical opinion of the practitioner at the time of the encounter. This report may have been done utilizing a voice recognition system. Attempts have been made to correct errors. However, there may be uncorrected grammatical, spelling, and recognition errors present. The file time of this note does not necessarily represent the time of service. Dictated By: Shane Cook MD 03/05/24 1219 Signed By: <Electronically signed by Shane Cook MD in [place]> Discharge Plan Discharge Clinical Impression: Viral infection Patient Disposition: Home, Self-Care Condition: Stable Instructions: Antibiotic Form, Viral Syndrome (ED) Additional Instructions: take [id number] medication to treat your symptoms. Follow package instructions. Please follow-up with your primary care provider. Emergency department immediately for new or worse symptoms Patient Language: Kiswahili Prescriptions: No Action albuterol sulfate 90 mcg/actuation HFA aerosol inhaler 2 puff inhalation QID PRN (Reason: shortness of breath or wheezing) Qty: 6.7 0RF azithromycin 250 mg tablet See Rx Instructions .ROUTE .COMPLEX Qty: 6 0RF Rx Instructions: For 250 mg dose pack: take 500 mg today (day 1), then 250 mg for 4 days (days 2-5) prednisone 20 mg tablet 40 mg PO DAILY 5 Days Qty: 10 0RF loratadine 10 mg tablet 10 mg PO DAILY Qty: 30 0RF ibandronate 150 mg tablet 150 mg PO MONTHLY Qty: 12 2RF sertraline [Zoloft] 50 mg tablet 75 mg PO DAILY Qty: 135 3RF cholecalciferol (vitamin D3) 125 mcg (5,000 unit) capsule 125 mcg PO DAILY Qty: 30 0RF gabapentin [Neurontin] 300 mg capsule See Rx Instructions PO DAILY Qty: 270 2RF Rx Instructions: Take 1 capsule by mouth in the AM and 2 in the PM PO daily; Follow-up/Referrals: Mario Walker MD [Primary Care Provider] - 3 Days Time of Disposition: 12:36
[2024-03-05 11:36] VITALS: BP 111/57; PULSE 98; RESP 18; TEMP 36.4; O2SAT 98
[2024-03-05 12:12] LABS: EDCOVIDSCREEN Negative (Negative); EDINFLUASCREEN Negative (Negative); EDINFLUBSCREEN Negative (Negative)
--- OUTSIDE RECORDS SUMMARY | 2024-03-05 12:20 | XMS_ITS | Clinical Summary ---
Author Organization [facility] Care Team Providers Care Extractive Metallurgist Name Role Phone Unavailable Primary Care Provider Unavailabl e Social History Tobacco Use Types Packs/Day Years Used Date Smoking Tobacco: Never Assessed Comments Unknown Sex and Gender Information Value Date Recorded Sex Assigned at Not on file Legal Sex Female 1:48 PM CDT Gender Identity Not on file Sexual Orientation Not on file Plan of Treatment Health Maintenance Due Date Last Done Comments DEXA Bone Density 1935 Hepatitis C Virus (HCV) Screening 1935 Pneumococcal Immunization (50+ years) (1 of 1 - PCV) 09/16/1985 Zoster Immunization (1 of 2) 09/16/1985 Respiratory Syncytial Virus (RSV) Immunization (Adult) (1 - 1-dose 75+ series) 09/16/2010 Influenza Immunization (#1) 2023 SARS-COV-2 Immunization ( season) 2023 05/28/2020, 05/03/2020 DTaP/Tdap/Td Immunization Discontinued 06/17/2016 TdaP Immunization Completed 06/17/2016 Hepatitis B Immunization Aged Out No longer eligible based on patient's age to complete this topic Meningococcal Immunization (ACWY) Aged Out No longer eligible based on patient's age to complete this topic Rotavirus Immunization Aged Out No lo nger eligible based on patient's age to complete this topic
--- OUTSIDE RECORDS SUMMARY | 2024-03-05 12:20 | XMS_ITS | Clinical Summary ---
Author Organization [facility] [place] Address [address] [place] [address] Care Team Providers Care Special Weapons And Tactics Officer Name Role Phone Mario Walker MD Primary Care Provider + [phone] Allergies Active Allergy Reactions Criticality Noted Date Comments Penicillins Hives,Swelling Medium 04/27/2021 Medications gabapentin (NEURONTIN) 300 mg capsule 11/25/2020 Active ibandronate (BONIVA) 150 mg tablet 12/06/2020 Active pioglitazone (ACTOS) 30 mg tablet 11/25/2020 Active sertraline (ZOLOFT) 50 mg tablet 11/25/2020 Active omeprazole (PriLOSEC) 20 mg capsule 05/14/2021 Active Active Problems Problem Noted Date Diagnosed Date 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 Medical History Medical History Date Comments Anxiety disorder Anxiety - (Adde d by TW Conv) Personal history of other en docrine, nutritional and metabolic disease History of diabetes mellitus - (Added by TW Conv) Personal history of other di seases of the musculoskeletal system and connective tissue History o f back pain - (Added by TW Conv) Personal history of healed t raumatic fracture History of fracture - (Added by TW Conv) Alcohol abuse Diabetes mellitus (HCC) Family History Medical History Relation Name Comments Alcohol abuse Brother Edil Diabetes Son William Relation Name Status Comments Brother Edil Thomas Social History Tobacco Use Types Packs/Day Years Used Date Smoking Tobacco: Never Personal Safety Answer Date Recorded Getting School Help Needed Not on file 04/07 Comments Unknown Sex and Gender Information Value Date Recorded Sex Assigned at Not on file Legal Sex Female 3:19 PM CDT Gender Identity Not on file Sexual Orientation Not on file Obstetrics History Last Filed Vital Signs Vital Sign Reading Time Taken Comments Blood Pressure 138/63 01/11/2017 1:21 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 Pulse 72 01/11/2017 1:21 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 DIPPER Temperature - - Respiratory Rate - - Oxygen Saturation - - Inhaled Oxygen Concentration - - Weight 59.9 kg (132 lb) 04/27/2021 1:37 PM CDT Height 162.6 cm (5' 4 ) 04/27/2021 1:37 PM CDT Body Mass Index 22.66 04/27/2021 1:37 PM CDT Plan of Treatment Health Maintenance Due Date Last Done Comments Depression Screening 1935 Fall Risk Assessment 1935 Hepatitis B Screening 09/16/1953 Zoster Vaccine (1 of 2) 09/16/1985 Pneumococcal vaccine 65+ (1 of 1 - PCV) 09/16/2000 Well Visit 65+ 09/16/2000 Covid-19 Vaccine (3 - season) 2023, 05/03/2020 Influenza Vaccine (#1) 2023 DTaP/Tdap/Td Vaccine (2 - Td or Tdap) 06/17/202601/2017 Insurance [facility] Address: [address] [address] [place] [address] [facility] Address: [address] [address] [place] [address] [facility] Address: [address] [address] [place] [address] Care Teams Special Weapons And Tactics Officer Relationship Specialty Start Date End Date Mario Walker MD PCP - General 11/28/16
--- OUTSIDE RECORDS SUMMARY | 2024-03-05 12:20 | XMS_ITS | Clinical Summary ---
Author Organization [facility] Address [facility] [place] [address] [place] [address] Care Team Providers Care Parachute Marker Name Role Phone Unavailable Primary Care Provider Unavailabl e Social History Tobacco Use Types Packs/Day Years Used Date Smoking Tobacco: Never Assessed Comments Unknown Sex and Gender Information Value Date Recorded Sex Assigned at Not on file Legal Sex Female 5:02 PM CDT Gender Identity Not on file Sexual Orientation Not on file Plan of Treatment Health Maintenance Due Date Last Done Comments DTaP, Tdap and Td Vaccines ( 1 - Tdap) 09/16/1954 Zoster Vaccines (1 of 2) 09/16/1985 Pneumococcal Vaccine: 65+ Ye ars (1 of 1 - PCV) 09/16/2000 RSV Immunization or 60+ Years (1 - 1-dose 75+ series) 09/16/2010 COVID-19 Vaccine (2023-2 5 season) 2023 Influenza Adult (#1) 2023 Meningococcal B Vaccine Aged Out No l onger eligible based on patient's age to complete this topic Meningococcal Vaccine Aged Out No skye fabiano eligible based on patient's age to complete this topic RSV Immunizations Under 20 Months Aged Out No longer eligible based on patient's age to complete this topic
--- OUTSIDE RECORDS SUMMARY | 2024-03-05 12:20 | XMS_ITS | Continuity of Care Document ---
Author Organization [facility] Address [address] [place] [address] [address] [place] [address] Phone Care Team Providers Care Leather Fitter Name Role Phone Narayan Caro Unavailable Unavailable [...] Providers Copied on Encounter Office/[place]pat [place], [facility] [address] [place] [address] [address], [place], [place], [id number], [place] tel:[phone] [facility] No Information [address] Gordo Busch. [address], [place], [address], [place]. tel:[phone] Office/outpat ient Visit, [facility], [address] [place] [address] [address], [place], [place], [id number], [place] tel:[phone] [facility] No Information 0-200 8 Jacque Pagan [address] , [address], [place], [facility], . tel:[phone] Office/outpat ient Visit, [facility], [address], [place], [place], [id number], [place] tel:[phone] [facility] No Information June- 3-200 8 Jacque Butler. [address], [place], [facility], . tel:[phone] Office/outpat ient Visit, [facility], [address] [place] [address] [address], [place], [place], [id number], [place] tel:[phone] [facility] No Information Sep-2 5-200 7 Jacque Butler. [address], [place], [facility], . tel:[phone] Office/outpat ient Visit, [facility], [address], [place], [place], [id number], [place] tel:[phone] [facility] No Information Oct-1 9-200 7 Gordo Busch. [address], [place], [facility], [place]. tel:[phone] Office/outpat ient Visit, [facility] [address] [place] [address] [address], [place], [place], [id number], [place] tel:[phone] [facility] No Information Aug-1 0-200 7 Jacque Pagan [address], [place], [facility], [place]. tel:[phone] Office/outpat ient Visit, [facility], [address], [place], [place], [id number], [place] tel:[phone] [facility] No Information Miguelito-2 2-200 7 Jacque Pagan [address], [place], [facility], . tel:[phone] Office/outpat ient Visit, [facility], [address] [place] [address] [address], [place], [place], [id number], tel:[phone] [facility] No Information Miguelito-1 2-200 7 Santillan Carrie. [address] [facility] , [address], [place], [facility], [place]. tel:[phone] Office/outpat ient Visit, [facility], [address] [place] [address] [address], [place], [place], [id number], tel:[phone] [facility] No Information Miguelito-0 5-200 7 Santillan Carrie. [address] [facility] , [address], [place], [facility], . tel:[phone] [facility], [address] [place] [address] [address], [place], [place], [id number], tel:[phone] [facility] No Information Miguelito-0 1-200 7 Gordo Bushc. [address] [facility] , [address], [place], [facility], . tel:[phone] Family History Family Member Type Diagnosis Age At Onset No Information Payers Payer name Insurance type Covered alliance party ID [place] [id number] Social History Type Description Quantity Date Captured [...]
--- OUTSIDE RECORDS SUMMARY | 2024-03-05 12:20 | XMS_ITS | Continuity of Care Document ---
Author Organization [facility] Address [address] [place] [address] Phone Care Team Providers Care Appointment Setter Name Role Phone Frederick Miranda MD Unavailable Unavailable Allergies, Adverse Reactions, Alerts Substance Reaction Status Criticality No Known Allergies Active No Inform ation Medications Medication Instructions Dosage Effective Dates (start - stop) Status Comments Tylenol 325 mg tablet - Active ciprofloxacin 250 mg tablet - Ac tive hydrocodone 5 mg-acetaminophen 325 mg tablet - Active pioglitazone 30 mg tablet - Acti ve alprazolam 0.5 mg tablet - Activ e aspirin 325 mg tablet - Active ferrous sulfate 325 mg (65 mg iron) tablet - Active gabapentin 600 mg tablet - Activ e multivitamin tablet - Active sertraline 50 mg tablet - Active tramadol 50 mg tablet - Active Procedures Procedure Date Hand Xray Min 3 Views Hand Xray Min 3 Views Hand Xray Min 3 Views Postop followup visit Special Casting Material (Fiberglass) Ju Arm, Forearm Splint Application, Static Cast Supplies,Short Arm Split,Fiberglass ,Adult Hip Xray 2 To 3 Views Unilateral W Pelvi s When Per Hip Xray 2 To 3 Views Unilateral W Pelvi s When Per Hand Xray Min 3 Views Hand Xray Min 3 Views Femur FX Repair W/intramedullary implant , Interlocking Screws Hand Metacarpal Fx Single,Trtmt W/o Natanael p Initial hospital care, low Initial hospital care, moderate 019 Advance Directives Directive Yes / No Effective Date File Name No Information Encounters Encounter Description Practice Location Reason(s) For Visit Diagnoses Date Provider Providers Copied on Encounter [facility], [address] [place] [address], [id number], tel:[phone] [facility] hand (chief complaint) Pain in left hand 9 Ruth Mack. [address] [place] [address], [id number] , . tel:[phone] Referring Provider: Frederick Miranda, [address] [place] [address], [address] . tel:[phone] [facility], [address] [place] [address], [id number], tel:[phone] [facility] Pain in left hipPain in left handClosed displaced fracture of shaft of second metacarpal bone of left hand with routine healing, subsequent encounterClosed displaced fracture of shaft of third metacarpal bone of left hand with routine healing, subsequent encounterClosed displaced fracture of shaft of fourth metacarpal bone of left hand with routine healing, subsequent encounterClosed displaced fracture of shaft of fifth metacarpal bone of left hand with routine healing, subsequent encounterClosed displaced intertrochanteric fracture of left femur with routine healing, subsequent encounter Ruth Mack. [address] [place] [address], [id number] , . tel:[phone] Referring Provider: Frederick Miranda, [address] [place] [address], [address] . tel:[phone] [facility], [address] [place] [address], [id number], tel:[phone] [facility] Nondisplaced intertrochanteric fracture of left femur, init 9 Ruth Mack. [address] [place] [address], [id number] , . tel:[phone] Referring Provider: Frederick Miranda, [address] [place], [address] . tel:[phone] Initial hospital care, [facility], [address] [place] [address], [id number], tel:[phone] [facility] [place] No Information 9 Franklin Miller. [address] [place], [place], [id number] , . tel:[phone] Referring Provider: Mario Ramirez, [address] [place], [address] . tel:[phone] Initial hospital care, [facility], [address], [place], [id number], tel:[phone] [facility] No Information Salazar Tony. [address] [place] [address], [id number] , . tel:[phone] Referring Provider: Mario Ramirez, [address] [place], [address] . tel:[phone] Family History Family Member Type Diagnosis Age At Onset Problem (finding) Family history of Diabe cuate mellitus Payers Payer name Insurance type Covered republican ID Authorsladea tiarmani(s) [place] MB [id number] [facility] [id number] Social History Type Description Quantity Date Captured Comments Alcohol Use Details Unknown Caffeine Use Details Unknown Tobacco Use Status Current non-smoker 19 Smoking Status Never smoker Non-Smoking Tobacco Use Details : No Details Available : No Details Available Sex Female Chief Complaint And Reason For Visit From encounter dated '08/07/2018 13:10'. hand (chief complaint) Reason For Referral Reason For Referral No Information Plan Of Treatment Date Type Action Status Future Order: Radiology Order Walker nd Xray Min 3 Views ([id number]), Ordered on: Ordered Future Order: Radiology Order Walker nd Xray Min 3 Views ([id number]), Ordered on: Ordered Future Order: Radiology Order Hi p Unil W Pelvis 2-3 Views ([id number]), Ordered on: Ordered History Of Present Illness Encounter Date Complaint History Of Prese nt Illness hand Functional Status Date Functional Assessmen t No Information Instructions Date Instruction Additional Infor mation No Information Assessments Type Assessment Date assessment Pain in left hand Patient Care Teams Name Effective Dates (start - stop) Status Members No Information
--- OUTSIDE RECORDS SUMMARY | 2024-03-05 12:20 | XMS_ITS | Referral Summary ---
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 Social History Tobacco Use Types Packs/Day Years Used Date Smoking Tobacco: Never Personal Safety Answer Date Recorded Getting School Help Needed Not on file 04/07 Comments Unknown Sex and Gender Information Value Date Recorded Sex Assigned at Not on file Legal Sex Female 3:19 PM CDT Gender Identity Not on file Sexual Orientation Not on file Last Filed Vital Signs Vital Sign Reading Time Taken Comments Blood Pressure 138/63 01/11/2017 1: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 STAMP 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 Pulse 72 01/11/2017 1:21 PM STAMP PRESSER Temperature - - Respiratory Rate - - Oxygen Saturation - - Inhaled Oxygen Concentration - - Weight 59.9 kg (132 lb) 04/27/2021 1:37 PM CDT Height 162.6 cm (5' 4 ) 04/27/2021 1:37 PM CDT Body Mass Index 22.66 04/27/2021 1:37 PM CDT Plan of Treatment Not on file Insurance [facility] MED[facility] Address: [place] [id number] [address] [facility] [place] [address] [place] [address] HMO [facility] MEDIC[facility] Address: [address] [address] [place] [address] [employer] MDCR HMO REF Care Teams Physician Asst Relationship Specialty Start Date End Date Mario Walker MD PCP - General 11/28/16
--- OUTSIDE RECORDS SUMMARY | 2024-03-05 12:22 | XMS_ITS | Continuity of Care Document ---
Author Organization [facility] Address [address] [place] [address] [address] [place] [address] Phone Care Team Providers Care Court Recorder Name Role Phone Narayan Caro Unavailable Unavailable [...] Providers Copied on Encounter Office/outpat ient Visit, [facility], [address] [place] [address] [address], [place], [place], [id number], [place] tel:[phone] [facility] No Information [address]. [address] , [address], [place], [address], [place]. tel:[phone] Office/outpat ient Visit, [facility], [address] [place] [address] [address], [place], [place], [id number], [place] tel:[phone] [facility] No Information 0-200 8 Jacque Pagan [address], [place], [place], [facility], . tel:[phone] Office/outpat ient Visit, [facility], [address], [place], [place], [id number], [place] tel:[phone] [facility] No Information June- 3-200 8 Jacque Butler. [address] , [address], [place], [facility], . tel:[phone] Office/outpat ient Visit, [facility], [address] [place] [address] [address], [place], [place], [id number], [place] tel:[phone] [facility] No Information Sep-2 5-200 7 Jacque Butler. [address], [place], [place], [facility], . tel:[phone] Office/outpat ient Visit, [facility], [address], [place], [place], [id number], [place] tel:[phone] [facility] No Information Oct-1 9-200 7 Gordo Bus[address]. [address], [place], [place], [facility], [place]. tel:[phone] Office/outpat ient Visit, [facility], [address] [place] [address] [address], [place], [place], [id number], [place] tel:[phone] [facility] No Information Aug-1 0-200 7 Jacque Pagan [address], [place], [facility], [place]. tel:[phone] Office/outpat ient Visit, [facility], [address], [place], [place], [id number], [place] tel:[phone] [facility] No Information Miguelito-2 2-200 7 Jacque Pagan [address], [place], [place], [facility], . tel:[phone] Office/outpat ient Visit, [facility], [address] [place] [address] [address], [place], [place], [id number], tel:[phone] [facility] No Information Miguelito-1 2-200 7 Santillan Carrie. [address] [facility] , [address], [place], [facility], [place]. tel:[phone] Office/outpat ient Visit, [facility], [address] [place] [address] [address], [place], [place], [id number], tel:[phone] [facility] No Information Miguelito-0 5-200 7 Santillan Carrie. [address] [facility] , [address], [place], [facility], . tel:[phone] [facility], [address] [place] [address] [address], [place], [place], [id number], tel:[phone] [facility] No Information Miguelito-0 1-200 7 Gordo Bus[address]. [address] [facility] , [address], [place], [facility], . tel:[phone] Family History Family Member Type Diagnosis Age At Onset No Information Payers Payer name Insurance type Covered green party ID [place] [id number] Social History Type Description Quantity Date Captured [...]
--- OUTSIDE RECORDS SUMMARY | 2024-03-05 12:22 | XMS_ITS | Continuity of Care Document ---
Author Organization [facility] Address [address] [place] [address] Phone Care Team Providers Care Cushion Mat Maker Name Role Phone Frederick Miranda MD Unavailable [...] Diagnoses Date Provider Providers Copied on Encounter [facility], [address] [place] [address], [id number], tel:[phone] [facility] hand (chief complaint) Pain in left hand 9 Ruth Mack. [address] [place] [address], [id number] , . tel:[phone] Referring Provider: Frederick Miranda, [address] [place] [address], [address] . tel:[phone] [facility], [address] [place] [address], [id number], tel:[phone] [facility] Pain in left hipPain in left [...] with routine healing, subsequent encounter Ruth Mack. [address] [place] [address], [id number] , . tel:[phone] Referring Provider: Frederick Miranda, [address] [place] [address], [address] . tel:[phone] [facility], [address] [place] [address], [id number], tel:[phone] [facility] Nondisplaced intertrochanteric fracture of left femur, init 9 Ruth Mack. [address] [place] [address], [id number] , . tel:[phone] Referring Provider: Frederick Miranda, [address] [place], [address] . tel:[phone] Initial hospital care, [facility], [address] [place] [address], [id number], tel:[phone] [facility] [place] No Information 9 Franklin Miller. [address] [place], [place], [id number] , . tel:[phone] Referring Provider: Mario Ramirez, [address] [place], [address] . tel:[phone] Initial hospital care, [facility], [address], [place], [id number], tel:[phone] [facility] No Information Salazar Tony. [address] [place] [address], [id number] , . tel:[phone] Referring Provider: Mario Ramirez, [address] [place], [address] . tel:[phone] Family History Family Member Type Diagnosis Age At Onset Problem (finding) Family history of Diabe cuate mellitus Payers Payer name Insurance type Covered green party ID Authorsladea tiarmani(s) [place] MB [id number] [facility] [id number] Social History Type Description Quantity Date Captured [...] Order Walker nd Xray Min 3 Views ([id number]), Ordered on: Ordered Future Order: Radiology Order Walker nd Xray Min 3 Views ([id number]), Ordered on: Ordered Future Order: Radiology Order Hi p Unil W Pelvis 2-3 Views ([id number]), Ordered on: Ordered History Of Present Illness Encounter Date Complaint History Of Prese nt Illness hand Functional Status Date Functional Assessmen t No Information Instructions Date Instruction Additional Infor mation No Information Assessments Type Assessment Date assessment Pain in left hand Patient Care Teams Name Effective Dates (start - stop) Status Members No Information
== END 2024-03-05 12:40 | disposition home or self-care (01) ==
PROVIDERS: Emergency Provider Nurse Practitioner Family; PCP Family Medicine
DX: B34.9 Viral infection, unspecified (principal); Z20.822 Contact with and (suspected) exposure to COVID-19; I10 Essential (primary) hypertension; E11.9 Type 2 diabetes mellitus without complications; E55.9 Vitamin D deficiency, unspecified; F41.8 Other specified anxiety disorders
CPT/HCPCS: 71046; 87426; 87804; 99213; G0463

== ENCOUNTER 2024-03-11 09:57 | Inpatient (IN) | payer MEDICARE, SELFPAY ==
--- NOTE | ~2024-03-11 | NM_ITS ---
EXAMINATION: NM hepatobiliary wo pharm DATE: 03/14/2024 12:07 INDICATION: Cholelithiasis with right upper quadrant abdominal pain to assess cystic duct. COMPARISON: CT abdomen and pelvis dated 03/12/2024 and ultrasound dated 03/13/2024 TECHNIQUE: 5.1 mCi Tc-99m mebrofenin (Choletec) was administered intravenously. Scintigraphic images of the abdomen were obtained for one hour. Additional 2 hour delayed scintigrams obtained. FINDINGS: There is normal clearance of radiotracer from the blood pool. There is homogeneous tracer u ptake by the liver. Activity progresses to the bowel and gallbladder. During the initial hour the ma jority of the excreted activity. Be centered in the ming hepatis either within the biliary collectin g system or potentially in the distal stomach or proximal duodenum. A small amount of activity does e xtend into the gallbladder. To assess for persistent biliary obstruction additional 2 hour delayed im ages were obtained at which time such the activity extending to the small bowel. IMPRESSION: 1. Atypical transient greater than expected accumulation of activity in the region of the mnig hepa tis during the initial hour of the study which subsequently all passes into the bowel. Appearance sug gests a possible partial versus transient biliary obstruction which could be related to a stone or po tentially spasm at the sphincter related to patient's morphine use which was discontinued during the examination. 2. Patent cystic duct with transient accumulation of activity in the gallbladder. Reviewed, dictated and finalized at location A. DENTIAL TECH IMPRESSION: 1. Atypical transient greater than expected accumulation of activity in the re gion of the ming hepatis during the initial hour of the study which subsequent ly all passes into the bowel. Appearance suggests a possible partial versus tra nsient biliary obstruction which could be related to a stone or potentially spa sm at the sphincter related to patient's morphine use which was discontinued du ring the examination. 2. Patent cystic duct with transient accumulation of activity in the gallbladde r.
--- NOTE | ~2024-03-11 | US_ITS ---
EXAMINATION: US renal BI, US abdomen limited DATE: 03/13/2024 12:34 INDICATION: Abdominal pain with distended gallbladder and kidney stones TECHNIQUE: Multiple grayscale and color Doppler ultrasound images of the right upper quadrant of the abdomen and of the bilateral kidneys were obtained. COMPARISON: None. FINDINGS: The pancreatic head and body are normal in appearance. The pancreatic tail is not visualized. Liver has normal echogenicity and contour, with a smooth surface. No liver lesion identified. No intrahepat ic biliary duct dilation suspected. Portal venous flow was seen in the hepatopetal, normal direction and has normal Doppler waveform. The visualized proximal inferior vena cava is normal. There is a sma ll bowel 1.5 cm echogenic and shadowing gallstone at the neck of the gallbladder the initial imaging in the supine position which moves to the fundus in the decubitus position. The gallbladder is dilate d to 5 cm in maximal diameter but without evident gallbladder wall thickening or pericholecystic flui d. The common bile duct measures up to 607 mm which remains within normal limits for age. Sonographic Beckham sign was reported as positive by the tax analyst. Visualized portion of the proximal abdomina l aorta is normal. The right kidney measures 9.1 x 5.0 x 4.8 cm. The left kidney measures 9.7 x 5.9 x 5.9 cm. The kidney s demonstrate normal echogenicity. There are few bilateral renal cysts the largest measuring 1.1 cm i n maximal diameter on the right and 1.8 cm on the left. There is no hydronephrosis in either kidney. No shadowing renal stones identified. The bladder is normal with bilateral ureteral jets visualized on color Doppler. IMPRESSION: 1. Small bowel gallstone within the gallbladder which is dilated with positive sonographic Beckham's s ign but without evident gallbladder wall thickening which is equivocal for acute cholecystitis. Consi johnnie HIDA scan for further evaluation. 2. Several small bilateral renal cysts. Otherwise normal kidneys without hydronephrosis. Reviewed, dictated and finalized at location A. SECRECY ACT OFFICER IMPRESSION: 1. Small bowel gallstone within the gallbladder which is dilated with positive sonographic Beckham's sign but without evident gallbladder wall thickening which is equivocal for acute cholecystitis. Consider HIDA scan for further evaluatio n. 2. Several small bilateral renal cysts. Otherwise normal kidneys without hydron ephrosis.
--- NOTE | ~2024-03-11 | XR_ITS ---
CHEST RADIOGRAPH, PA AND LATERAL CLINICAL HISTORY: weakness . COMPARISON: 03/05/2024 TECHNIQUE: PA and lateral views of the chest. FINDINGS The cardiomediastinal silhouette is unremarkable. Pleural plaques are identified bilaterally, unchanged from prior. The lungs are clear. IMPRESSION: No focal infiltrate or effusion. Reviewed, dictated and finalized at location A. ISTICAL METHODS TEACHER
--- NOTE | ~2024-03-11 | CT_ITS ---
CLINICAL INDICATION: Severe stomach pain COMPARISON: None. TECHNIQUE: Multiple contiguous axial images of the abdomen and pelvis were performed without the admi nistration of intravenous contrast The dose-length product (DLP) was 297.60 mGy-cm. Automated exposure control and iterative reconstruction technique were employed. FINDINGS/OBSERVATIONS: Examination is limited by significant motion artifact. Visualized lower thorax: The bilateral lung bases are clear. The heart is enlarged, without pericardial effusion. Liver: The liver demonstrates primarily homogeneous attenuation and is not enlarged measuring 14 cm in longi tudinal dimension. Gallbladder and biliary system: The gallbladder is distended. Additional characterization is limited secondary to motion artifact. Pancreas: Fatty atrophy of the pancreas is suspected, although evaluation is limited secondary to significant m otion artifact and the lack of intravenous contrast Spleen: Punctate calcifications identified within the splenic parenchyma, suggesting prior granulomatous dise ase. Kidneys: Calcified stones detected within the bilateral kidneys. No large hydro-nephrosis. Adrenal glands: Limited evaluation secondary to motion artifact. Gastrointestinal tract: Limited evaluation secondary to motion artifact. Appendix: Limited evaluation secondary to motion artifact. Vasculature: Limited evaluation secondary to motion artifact and the lack of intravenous contrast. Lymph nodes: Limited evaluation secondary to motion artifact and the lack of intravenous contrast. Pelvic structures: The bladder is distended. The uterus is atrophic and calcified. Body wall and musculoskeletal: Age-appropriate degenerative disease within the lower thoracic and lumbosacral spines. IMPRESSION: Limited evaluation secondary to significant motion artifact. Stones within the bilateral kidneys. Distention of the gallbladder. Reviewed, dictated and finalized at location A. HOLDER
--- NOTE | ~2024-03-11 | XR_ITS ---
HISTORY: right should pain ACUTE NON INJ RADIATES TO RT SIDE NECK COMPARISON: None TECHNIQUE: 3 views of the right shoulder were performed FINDINGS: No acute fracture. The glenohumeral and acromioclavicular joint space is markedly narrowed with osteophyte formation. The visualized portion of the adjacent right lung is clear. The humeral head is well seated within the glenoid fossa. IMPRESSION: Significant degenerative disease, without acute fracture or anterior dislocation. Reviewed, dictated and finalized at location A. FLUMER IMPRESSION: Significant degenerative disease, without acute fracture or anterior dislocatio n.
--- NOTE | ~2024-03-11 | XR_ITS ---
EXAMINATION: [id number] DATE: 03/15/2024 15:45 INDICATION: Right knee pain. TECHNIQUE: 2 views of right knee were obtained. COMPARISON: None. FINDINGS: Alignment is normal. No fracture. There is moderate osteoarthritis of medial compartment an d mild osteoarthritis of lateral compartment. There is chondrocalcinosis of the menisci. No knee join t effusion. IMPRESSION: 1. Moderate right knee osteoarthritis. Reviewed, dictated and finalized at location A. PING MACHINE OPERATOR
--- NOTE | ~2024-03-11 | XR_ITS ---
EXAMINATION: XR abdomen/kub 1V DATE: 03/18/2024 10:55 INDICATION: Abdominal distention and pain. TECHNIQUE: A supine view of the abdomen on 2 radiographs was obtained. COMPARISON: CT abdomen and pelvis 03/12/2024 FINDINGS: There are no dilated loops of bowel. There is a small volume of stool in colon. There is in ternal fixation of left femur. IMPRESSION: 1. Normal bowel gas pattern. Reviewed, dictated and finalized at location A. ERTIBLE SOFA BEDSPRING TESTER
--- NOTE | 2024-03-11 10:05 | ECG_ITS ---
Test Date: 2024-03-11 10:11:23 Measurements Intervals [place] Rate: 78 P: 46 TN: 154 QRS: 32 QRSD: 78 T: 62 QT: 415 QTc: 473 Interpretive Statements SINUS RHYTHM BORDERLINE ST-T WAVE ABNORMALITY- DIFFUSE LEADS BASELINE ARTIFACT- I, II, III, AVR, AVL, AVF, V1-V6 BORDERLINE ECG Compared to ECG 12/29/2023 15:36:07 NO SIGNIFICANT CHANGE Electronically Signed On 03-11-2024 10:38:05 MANAGER EDUCATIONAL by Jose Alejandro Paredes D.O.
[2024-03-11 10:08] VITALS: BP 164/81; PULSE 79; RESP 19; TEMP 36.7; O2SAT 96
[2024-03-11 10:30] LABS: Basophils Percent Auto 0.7 % (0.2-1.2); Hematocrit 38.9 % (37.0-47.0); Hemoglobin 12.1 g/dL (12.0-15.0); Immature Granulocyte Absolute 0.01 K/mm3 (0.00-0.031); Immature Granulocyte Percent A 0.3 % (0-0.5); Lymphocytes Absolute Auto 1.29 K/mm3 (0.9-3.2); Lymphocytes Percent Auto 43.1 % (18.3-44.2); Mean Corpuscular HGB Conc 31.1 g/dl (32-36); Mean Corpuscular Hemoglobin 28.9 pg (26-34); Mean Corpuscular Volume 93.1 fl (80-100); Mean Platelet Volume 11.4 fl (7.4-10.4); Monocytes Absolute Auto 0.3 K/mm3 (0.1-0.6); Monocytes Percent Auto 9.4 % (2.6-8.5); Neutrophils Absolute Auto 1.4 K/mm3 (1.3-6.7); Neutrophils Percent Auto 45.5 % (45.5-73.1); Platelet Count Result 171 k/mm3 (150-375); Red Blood Count 4.18 M/mm3 (4.2-5.4); Red Cell Distribution Width 14.7 % (11.5-14.5)
[2024-03-11 11:06] LABS: Alanine Aminotransferase 26 U/L (6-35); Albumin Level 4.1 g/dL (3.5-5.1); Alkaline Phosphatase 90 U/L (38-126); Anion Gap 12 mmol/L (4-12); Aspartate Amino Transferase 47 U/L (14-36); Bilirubin,Total 0.5 mg/dL (0.2-1.3); Blood Urea Nitrogen 16 mg/dL (7-17); Calcium 9.5 mg/dL (8.4-10.2); Carbon Dioxide 29 mmol/L (22-30); Chloride 100 mmol/L (98-107); Estimated CRCL calculation 34 ml/min; Estimated Glomerular Filt Rate > 60; Glucose 217 mg/dL (65-110); Potassium 3.4 mmol/L (3.4-5.0); Sodium 141 mmol/L (137-145)
[2024-03-11 11:31] LABS: Add Urine Microscopic? YES; Appearance Urine Cloudy (Clear); Bacteria Urine None Seen /hpf; Bilirubin Urine Negative (Negative); Blood Urine Negative (Negative); Glucose Urine UA Negative (Negative); Ketones Urine Trace mg/dL (Negative); Leukocyte Esterase Ur Negative LEU/UL (Negative); Nitrate Urine Negative (Negative); Protein Urine 1+ mg/dL (Negative); RBC Urine 0-2 /hpf (0-2); Specific Grav Ur 1.023 (1.001-1.035); Squamous Epithelial Cell Urine None Seen /hpf (Few); Urobilinogen Urine 0.2 mg/dL (<2.0); WBC Urine 0-5 /hpf (0-3)
[2024-03-11 11:35] LABS: Amorphous Sediment Urine Few; Color Urine Yellow (Yellow)
--- OUTSIDE RECORDS SUMMARY | 2024-03-11 11:43 | XMS_ITS | Continuity of Care Document ---
Author Organization [facility] Address [address] [place] [address] Phone Care Team Providers Care Ent Nurse Name Role Phone Frederick Miranda MD Unavailable [...] Diagnoses Date Provider Providers Copied on Encounter [facility], [address] [place] [address], [id number], tel:[phone] [facility] hand (chief complaint) Pain in left hand 9 Ruth Mack. [address] [place] [address], [id number] , . tel:[phone] Referring Provider: Frederick Miranda, [address] [place] [address], [address] . tel:[phone] [facility], [address] [place] [address], [id number], tel:[phone] [facility] Pain in left hipPain in left [...] with routine healing, subsequent encounter Ruth Mack. [address] [place] [address], [id number] , . tel:[phone] Referring Provider: Frederick Miranda, [address] [place] [address], [address] . tel:[phone] [facility], [address] [place] [address], [id number], tel:[phone] [facility] Nondisplaced intertrochanteric fracture of left femur, init 9 Ruth Mack. [address] [place] [address], [id number] , . tel:[phone] Referring Provider: Frederick Miranda, [address] [place], [address] . tel:[phone] Initial hospital care, [facility], [address] [place] [address], [id number], tel:[phone] [facility] PA No Information 9 Franklin Miller. [address], [place], [id number] , . tel:[phone] Referring Provider: Mario Ramirez, [address] [place], [address] . tel:[phone] Initial hospital care, [facility], [address], [place], [id number], tel:[phone] [facility] No Information Salazar Tony. [address] [place] [address], [id number] , . tel:[phone] Referring Provider: Mario Ramirez, [address] [place], [address] . tel:[phone] Family History Family Member Type Diagnosis Age At Onset Problem (finding) Family history of Diabe cuate mellitus Payers Payer name Insurance type Covered republican ID Authorsladea tiarmani(s) [place] MB [id number] [facility] [id number] Social History Type Description Quantity Date Captured [...] Order Walker nd Xray Min 3 Views ([id number]), Ordered on: Ordered Future Order: Radiology Order Walker nd Xray Min 3 Views ([id number]), Ordered on: Ordered Future Order: Radiology Order Hi p Unil W Pelvis 2-3 Views ([id number]), Ordered on: Ordered History Of Present Illness Encounter Date Complaint History Of Prese nt Illness hand Functional Status Date Functional Assessmen t No Information Instructions Date Instruction Additional Infor mation No Information Assessments Type Assessment Date assessment Pain in left hand Patient Care Teams Name Effective Dates (start - stop) Status Members No Information
--- OUTSIDE RECORDS SUMMARY | 2024-03-11 11:43 | XMS_ITS | Clinical Summary ---
Author Organization [facility] Care Team Providers Care Buildings And Grounds Coordinator Name Role Phone Unavailable Primary Care Provider [...]
--- OUTSIDE RECORDS SUMMARY | 2024-03-11 11:43 | XMS_ITS | Referral Summary ---
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 [place] [address] [place] [address] HMO [facility]F [facility] MEDICARE Address: [address] [address] [place] [address] [employer] MDCR HMO REF Care Teams Accountant Assistant Relationship Specialty Start Date End Date Mario Walker MD PCP - General 11/28/16
--- OUTSIDE RECORDS SUMMARY | 2024-03-11 11:43 | XMS_ITS | Continuity of Care Document ---
Author Organization [facility] Address [address] [place] [address] [place] [address] Phone Care Team Providers Care Integrated Logistics Programs Director Name Role Phone Narayan Caro Unavailable Unavailable [...] Providers Copied on Encounter Office/outpat ient Visit, [facility], [address] [place] [address] [address], [place], [place], [id number], [place] tel:[phone] SEC [facility] No Information 6[address] Gordo Busch. [address], [place], [address], [place]. tel:[phone] Office/outpat ient Visit, [facility], [address] [place] [address] [address], [place], [place], [id number], [place] tel:[phone] [facility] No Information 0200 8 Jacque Pagan [address], [place], [place], [facility], . tel:[phone] Office/outpat ient Visit, [facility], [address], [place], [place], [address], [place] tel:[phone] [facility] No Information June- 3-200 8 Jacque Butler. [address], [place], [place], [facility], . tel:[phone] Office/outpat ient Visit, [facility], [address] [place] [address] [address], [place], [place], [id number], [place] tel:[phone] [facility] No Information Sep-2 5-200 7 Jacque Butler. [address], [place], [facility], . tel:[phone] Office/outpat ient Visit, [facility], [address], [place], [place], [address], [place] tel:[phone] [facility] No Information Oct-1 9-200 7 Gordo Busch. [address], [place], [facility], [place]. tel:[phone] Office/outpat ient Visit, [facility], [address] [place] [address] [address], [place], [place], [address], [place] tel:[phone] [facility] No Information Aug-1 0-200 7 Jacque Pagan [address], [place], [facility], [place]. tel:[phone] Office/outpat ient Visit, [facility], [address], [place], [place], [id number], [place] tel:[phone] [facility] No Information Miguelito-2 2-200 7 Jacque Pagan [address], [place], [facility], . tel:[phone] Office/outpat ient Visit, [facility], [address] [place] [address] [address], [place], [place], [id number], tel:[phone] [facility] No Information Miguelito-1 2-200 7 Santillan Carrie. [address] [facility] , [address], [place], [facility], [place]. tel:[phone] Office/outpat ient Visit, [facility], [address] [place] [address] [address], [place], [place], [id number], tel:[phone] [facility] No Information Miguelito-0 5-200 7 Santillan Carrie. [address] [facility] , [address], [place], [facility], . tel:[phone] [facility], [address] [place] [address] [address], [place], [place], [id number], tel:[phone] [facility] No Information Miguelito-0 1-200 7 Gordo Busch. [address] [facility] , [address], [place], [facility], . tel:[phone] Family History Family Member Type Diagnosis Age At Onset No Information Payers Payer name Insurance type Covered green party ID [place] [id number] Social History Type Description Quantity Date Captured [...]
--- OUTSIDE RECORDS SUMMARY | 2024-03-11 11:43 | XMS_ITS | Clinical Summary ---
Author Organization [facility] Address [facility] [address] [place] [address] Care Team Providers Care Sack Lifter Name Role Phone Unavailable Primary Care Provider [...]
--- OUTSIDE RECORDS SUMMARY | 2024-03-11 11:43 | XMS_ITS | Clinical Summary ---
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
[2024-03-11] MEDS: SODIUM CHLORIDE 0.9% IV 1,000 ML 125 ML IV CONT (11:45)
--- NOTE | 2024-03-11 12:08 | ED_ITS ---
HPI - Weakness General Chief complaint: Weakness Stated complaint: weakness Time Seen by Provider: 03/11/24 10:21 Source: patient Mode of arrival: EMS Limitations: no limitations History of Present Illness HPI Narrative: 88-year-old with a history of hypertension, diabetes, anxiety has brought in from home by EMS with a complaint of marked weakness which started about 4 days ago, family friend who is at bedside states that she lives by herself and she is unable to manage. Patient complains of chest congestion and nonproductive cough. Denies any fever or chills no history of nausea or vomiting. Denies any abdominal pain. MD Complaint: generalized weakness Duration: constant Location: generalized Severity: moderate Relieving factors: none Exacerbating factors: none Associated symptoms: denies other symptoms Related Data Allergies Allergy/AdvReac Type Severity Reaction Status Date / Time metformin Allergy Mild Hives Verified 03/11/24 10:12 Penicillins Allergy Mild Hives Verified 03/11/24 10:12 Review of Systems 2 Review of Systems: All systems reviewed & are unremarkable except as noted in HPI and below Constitutional: Constitutional: Reports no additional constitutional complaints Eyes: Eyes: Reports no additional eye complaints Cardiovascular: Cardiovascular: Reports no additional cardiovascular complaints Respiratory: Respiratory: Reports no additional respiratory complaints Gastrointestinal: Gastrointestinal: Reports no additional gastrointestinal complaints Musculoskeletal: Musculoskeletal: Reports no additional musculoskeletal complaints Neurologic: Reports system reviewed and no additional complaints, except as documented PMF Past Medical History Medical History Pneumonia age 18 Gastritis BMI 22.0-22.9, adult Esophageal ring Depression with anxiety Cricopharyngeal achalasia Status post dilatation and Botox injection per Dr. Jah Soni (ENT) at [facility]. Anemia Essential hypertension Type 2 diabetes mellitus Vitamin D deficiency Surgical History Surgical History History of open reduction and internal fixation (ORIF) procedure Pinning of left hip fracture. History of arthroscopic knee surgery History of tonsillectomy History of cataract extraction Family History Family History Father Family history of diabetes mellitus in first degree relative Mother Rheumatoid arthritis Sibling No problems noted. Other Family history of lupus erythematosus Social History Social History (Reviewed 03/05/24 @ 11:19 by COLIN Guzmán Social History: Surrogate decision maker: Guerda Mark, daughter. Code status: Full code. Smoking status: Never smoker Second hand tobacco smoke exposure: Yes Alcohol intake: never Substance use: never Substance use type: does not use Do You Feel Safe in your Home?: Yes Lack of Transportation: No Lack of Food: Never True Current Housing: I Have Housing Concerned About Future Housing: No Difficulty Paying Gas/Electric Bills: No Difficulty Paying for Meds: No Currently Unemployed: No Education: Trade/Vocational Certificate Difficulty w/ Childcare or Family Care: No Living arrangements: alone Additional living arrangements comments: Patient lives in a senior apartment in [place]. She has 6 children and was essentially a single mother for many years as her at a young age. 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 Gender identity (if verbalized by the patient): Female Spiritual care concerns: No Exam 2 Narrative: GENERAL: Well-appearing, well-nourished, and in no acute distress. HEAD: Normocephalic, atraumatic. EYES: PERRLA and EOMI. ENT: Nares clear, no rhinorrhea or epistaxis. Mucous membranes moist. NECK: Supple. CHEST: Clear to auscultation. No respiratory distress. HEART: Regular rate and rhythm. No murmur heard. Normal peripheral pulses. ABDOMEN: Soft, nontender, nondistended, normal active bowel sounds. EXTREMITIES: Normal range of motion. No edema. SKIN: Warm, dry, no rash. NEURO: No focal deficits. Alert and oriented x3. PSYCH: Normal mood and affect. Course Course Emergency Course: Discussed lab work with the patient and the friend who is at bedside. She states that she is unable to manage and she wants to be admitted. I did involve case management did recommended 3 day stay to be placed at [facility]. I discussed with the hospitalist accepted the patient Vital Signs Vital signs: Vital Signs Temperature 36.7 C 03/11/24 10:08 Pulse Rate 79 03/11/24 10:08 Respiratory Rate 19 03/11/24 10:08 Blood Pressure 164/81 H 03/11/24 10:08 Pulse Oximetry 96 03/11/24 10:08 Oxygen Delivery Room Air 03/11/24 10:08 Temperature 36.7 C 03/11/24 10:08 Pulse Rate 79 03/11/24 10:08 Respiratory Rate 19 03/11/24 10:08 Blood Pressure 164/81 H 03/11/24 10:08 Pulse Oximetry 96 03/11/24 10:08 Oxygen Delivery Room Air 03/11/24 10:08 MDM - Weakness Differential Diagnosis Differential diagnosis: Likely hypoglycemia, dehydration and other (Viral syndrome, deconditioning) Lab Data 03/11/24 10:15 03/11/24 10:48 Labs: Lab Results 03/11/24 03/11/24 03/11/24 Range/Units 10:15 10:48 11:14 WBC 3.0 L (4.5-10.0) K/mm3 RBC 4.18 L (4.2-5.4) M/mm3 Hgb 12.1 (12.0-15.0) g/dL Hct 38.9 (37.0-47.0) % MCV 93.1 (80-100) fl MCH 28.9 (26-34) pg MCHC 31.1 L (32-36) g/dl RDW 14.7 H (11.5-14.5) % Plt Count 171 (150-375) k/mm3 MPV 11.4 H (7.4-10.4) fl Immature Gran % (Auto) 0.3 (0-0.5) % Neut % (Auto) 45.5 (45.5-73.1) % Lymph % (Auto) 43.1 (18.3-44.2) % Piatt % (Auto) 9.4 H (2.6-8.5) % Eos % (Auto) 1.0 (0-4.4) % Baso % (Auto) 0.7 (0.2-1.2) % Lymph # (Auto) 1.29 (0.9-3.2) K/mm3 Piatt # (Auto) 0.3 (0.1-0.6) K/mm3 Eos # (Auto) 0.0 (0-0.3) K/mm3 Baso # (Auto) 0.0 (0.0-0.1) K/mm3 Abs Immat Gran (auto) 0.01 (0.00-0.031) K/mm3 Absolute Neuts (auto) 1.4 (1.3-6.7) K/mm3 Absolute Nucleated RBC 0.000 (0.0-0.012) K/mm3 Nucleated RBC % 0.0 (0.0-0.2) % Sodium 141 (137-145) mmol/L Potassium 3.4 (3.4-5.0) mmol/L Chloride 100 (98-107) mmol/L Carbon Dioxide 29 (22-30) mmol/L Anion Gap 12 (4-12) mmol/L BUN 16 (7-17) mg/dL Creatinine 0.70 (0.7-1.0) mg/dL Estim Creat Clear Calc 34 ml/min Estimated GFR > 60 (59 - ) Glucose 217 H (65-110) mg/dL Calcium 9.5 (8.4-10.2) mg/dL Total Bilirubin 0.5 (0.2-1.3) mg/dL AST 47 H (14-36) U/L ALT 26 (6-35) U/L Alkaline Phosphatase 90 (38-126) U/L Total Protein 7.0 (6.3-8.2) g/dL Albumin 4.1 (3.5-5.1) g/dL Urine Color Yellow (Yellow) Urine Appearance Cloudy H (Clear) Urine pH 7.0 (5.0-9.0) Ur Specific Swain 1.023 (1.001-1.035) Urine Protein 1+ H (Negative) mg/dL Urine Glucose (UA) Negative (Negative) mg/dL Urine Ketones Trace H (Negative) mg/dL Ur Blood (Man) Negative (Negative) Urine Nitrate Negative (Negative) Urine Bilirubin Negative (Negative) Urine Urobilinogen 0.2 (<2.0) mg/dL Leukocyte Esterase Rfl Negative (Negative) AARON/UL Urine RBC 0-2 (0-2) /hpf Urine WBC 0-5 (0-3) /hpf Ur Squamous Epith Cells None seen (Few) /hpf Amorphous Sediment Few H (None) Urine Bacteria None seen /hpf Urine Casts 3-5 Imaging Data Radiologist's impression: ITS Impressions Chest X-Ray 03/11/24 10:46 IMPRESSION: No focal infiltrate or effusion. ECG Data EKG #1: ECG completion date: 03/11/24 ECG completion time: 10:11 EKG Interpretation: normal rate (78), sinus rhythm, non-specific ST changes, normal QRS, NL axis and no acute changes Discharge Plan Discharge Clinical Impression: Weakness Patient Disposition: Still a Patient Condition: Stable Instructions: Antibiotic Form Patient Language: Marshallese Prescriptions: No Action loratadine 10 mg tablet 10 mg PO DAILY Qty: 30 0RF ibandronate 150 mg tablet 150 mg PO MONTHLY Qty: 12 2RF cholecalciferol (vitamin D3) 125 mcg (5,000 unit) capsule 125 mcg PO DAILY Qty: 30 0RF gabapentin [Neurontin] 300 mg capsule See Rx Instructions PO DAILY Qty: 270 2RF Rx Instructions: Take 1 capsule by mouth in the AM and 2 in the PM PO daily; sertraline [Zoloft] 50 mg tablet 75 mg PO DAILY Qty: 135 3RF Follow-up/Referrals: Mario Walker MD [Primary Care Provider] - Time of Disposition: 12:19
[2024-03-11 12:40] VITALS: BP 156/59; PULSE 65; RESP 18; O2SAT 95
--- NOTE | 2024-03-11 13:29 | PC.NURSE ---
Meal tray ordered for pt.
--- OUTSIDE RECORDS SUMMARY | 2024-03-11 14:37 | XMS_ITS | Continuity of Care Document ---
Author Organization [facility] Address [address] [place] [address] [place] [address] Phone Care Team Providers Care Surgical Processor Name Role Phone Narayan Caro Unavailable Unavailable [...] Providers Copied on Encounter Office/outpat ient Visit, [facility], [address] [place] [address] [address], [place], [place], [id number], [place] tel:[phone] [facility] No Information 6200 9 [address], [place], [address], [place]. tel:[phone] Office/outpat ient Visit, [facility], [address] [place] [address] [address], [place], [place], [id number], [place] tel:[phone] [facility] No Information 0200 8 Jacque [address], [place], [place], [facility], . tel:[phone] Office/outpat ient Visit, [facility], [address], [place], [place], [address], [place] tel:[phone] [facility] No Information June- 3-200 8 Jacque Butler. [address], [place], [facility], . tel:[phone] Office/outpat ient Visit, [facility], [address] [place] [address] [address], [place], [place], [address], [place] tel:[phone] [facility] No Information Sep-2 5-200 7 Jacque Butler. [address], [place], [facility], . tel:[phone] Office/outpat ient Visit, [facility], [address], [place], [place], [address], [place] tel:[phone] [facility] No Information Oct-1 9-200 7 Gordo Busch. [address], [place], [facility], [place]. tel:[phone] Office/outpat ient Visit, [facility], [address] [place] [address] [address], [place], [place], [address], [place] tel:[phone] [facility] No Information Aug-1 0-200 7 Jacque Pagan [address], [place], [facility], [place]. tel:[phone] Office/outpat ient Visit, [facility], [address], [place], [place], [address], [place] tel:[phone] [facility] No Information Miguelito-2 2-200 7 Jacque Pagan [address], [place], [facility], . tel:[phone] Office/outpat ient Visit, [facility], [address] [place] [address] [address], [place], [place], [id number], tel:[phone] [facility] No Information Miguelito-1 2-200 7 Santillan Carrie. [address] [facility] , [address], [place], [facility], [place]. tel:[phone] Office/outpat ient Visit, [facility], [address] [place] [address] [address], [place], [place], [id number], tel:[phone] [facility] No Information Miguelito-0 5-200 7 Santillan Carrie. [address] [facility] , [address], [place], [facility], . tel:[phone] [facility], [address] [place] [address] [address], [place], [place], [address], tel:[phone] [facility] No Information Miguelito-0 1-200 7 Gordo Busch. [address] [facility] , [address], [place], [facility], . tel:[phone] Family History Family Member Type Diagnosis Age At Onset No Information Payers Payer name Insurance type Covered democrat ID [place] [id number] Social History Type Description Quantity Date Captured [...]
--- OUTSIDE RECORDS SUMMARY | 2024-03-11 14:37 | XMS_ITS | Clinical Summary ---
Author Organization [facility] Address [id number] [place] [address] [place] [address] Care Team Providers Care Barrel Washer Name Role Phone Unavailable Primary Care Provider [...]
--- OUTSIDE RECORDS SUMMARY | 2024-03-11 14:37 | XMS_ITS | Clinical Summary ---
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
--- OUTSIDE RECORDS SUMMARY | 2024-03-11 14:37 | XMS_ITS | Referral Summary ---
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 Pulse 72 01/11/2017 1:21 PM CENTRAL SUPPLY ASSISTANT Temperature - - Respiratory Rate - - Oxygen Saturation - - Inhaled Oxygen Concentration - - Weight 59.9 kg (132 lb) 04/27/2021 1:37 PM CDT Height 162.6 cm (5' 4) 04/27/2021 1:37 PM CDT Body Mass Index 22.66 04/27/2021 1:37 PM CDT Plan of Treatment Not on file Insurance [facility] HMO REF Member Subscriber Plan / Payer ( fective 2020-Present) Name:Bita Marybeth Felton Relation to Subscriber:Self Name:Bita Marybeth Felton Payer ID:[id number] (NAIC) Type:[facility] MEDICARE Address: [place] [id number] [place] [address] [place] [address] HMO REF UHC MDCR HMO REF Care Teams Food Safety Officer Relationship Specialty Start Date End Date Mario Walker MD PCP - General 11/28/16
--- OUTSIDE RECORDS SUMMARY | 2024-03-11 14:37 | XMS_ITS | Continuity of Care Document ---
Author Organization [facility] Address [address] [place] [address] Phone Care Team Providers Care Orthopedic Physician Assistant Name Role Phone Frederick Miranda MD Unavailable [...] Diagnoses Date Provider Providers Copied on Encounter [facility], [address] [place] [address], [id number], tel:[phone] [place] [facility] hand (chief complaint) Pain in left hand 9 Ruth Mack. [address] [place] [address], [id number] , . tel:[phone] Referring Provider: Frederick Miranda, [address] [place] [address], [address] . tel:[phone] [facility], [address] [place] [address], [id number], tel:[phone] [place] [facility] Pain in left hipPain in left [...] with routine healing, subsequent encounter Ruth Mack. [address] [place] [address], [id number] , . tel:[phone] Referring Provider: Frederick Miranda, [address] [place] [address], [id number] . tel:[phone] [facility], [address] [place] [address], [id number], tel:[phone] [facility] Nondisplaced intertrochanteric fracture of left femur, init 9 Ruth Mack. [address] [place] [address], [id number] , . tel:[phone] Referring Provider: Frederick Miranda, [address] [place], [address] . tel:[phone] Initial hospital care, [facility], [address] [place] [address], [id number], tel:[phone] [facility] [place] No Information 9 Franklin Miller. [address], [place], [id number] , . tel:[phone] Referring Provider: Mario Ramirez, [address] [place], [address] . tel:[phone] Initial hospital care, [facility], [address], [place], [id number], tel:[phone] [facility] No Information Salazar Tony. [address] [place] [address], [id number] , . tel:[phone] Referring Provider: Mario Ramirez, [address] [place], [address] . tel:[phone] Family History Family Member Type Diagnosis Age At Onset Problem (finding) Family history of Diabe cuate mellitus Payers Payer name Insurance type Covered green party ID Authorsladea tiarmani(s) [place] MB [id number] [facility] [id number] Social History Type Description Quantity Date Captured [...] Order Walker nd Xray Min 3 Views ([id number]), Ordered on: Ordered Future Order: Radiology Order Walker nd Xray Min 3 Views ([id number]), Ordered on: Ordered Future Order: Radiology Order Hi p Unil W Pelvis 2-3 Views ([id number]), Ordered on: Ordered History Of Present Illness Encounter Date Complaint History Of Prese nt Illness hand Functional Status Date Functional Assessmen t No Information Instructions Date Instruction Additional Infor mation No Information Assessments Type Assessment Date assessment Pain in left hand Patient Care Teams Name Effective Dates (start - stop) Status Members No Information
--- OUTSIDE RECORDS SUMMARY | 2024-03-11 14:38 | XMS_ITS | Clinical Summary ---
Author Organization [facility] Care Team Providers Care Sustainability Officer Name Role Phone Unavailable Primary Care Provider [...]
--- OUTSIDE RECORDS SUMMARY | 2024-03-11 14:39 | XMS_ITS | Continuity of Care Document ---
Author Organization [facility] Address [address] [place] [address] Phone Care Team Providers Care Crane Helper Name Role Phone Frederick Miranda MD Unavailable [...] Diagnoses Date Provider Providers Copied on Encounter [facility], [address] [place] [address], [id number], tel:[phone] [place] [facility] hand (chief complaint) Pain in left hand 9 Ruth Mack. [address] [place] [address], [id number] , . tel:[phone] Referring Provider: Frederick Miranda, [address] [place] [address], [address] . tel:[phone] [facility], [address] [place] [address], [id number], tel:[phone] [place] [facility] Pain in left hipPain in left [...] with routine healing, subsequent encounter Ruth Mack. [address] [place] [address], [id number] , . tel:[phone] Referring Provider: Frederick Miranda, [address] [place] [address], [address] . tel:[phone] [facility], [address] [place] [address], [id number], tel:[phone] [facility] Nondisplaced intertrochanteric fracture of left femur, init 9 Ruth Mack. [address] [place] [address], [id number] , . tel:[phone] Referring Provider: Frederick Miranda, [address] [place], [address] . tel:[phone] Initial hospital care, [facility], [address] [place] [address], [id number], tel:[phone] [facility] [place] No Information 9 Franklin Miller. [address] [place], [place], [id number] , . tel:[phone] Referring Provider: Mario Ramirez, [address] [place], [address] . tel:[phone] Initial hospital care, [facility], [address], [place], [id number], tel:[phone] [facility] No Information Salazar Tony. [address] [place] [address], [id number] , . tel:[phone] Referring Provider: Mario Ramirez, [address] [place], [address] . tel:[phone] Family History Family Member Type Diagnosis Age At Onset Problem (finding) Family history of Diabe cuate mellitus Payers Payer name Insurance type Covered alliance party ID Authorsladea tiarmani(s) [place] [id number] [facility] [id number] Social History Type Description Quantity Date Captured [...] Order Walker nd Xray Min 3 Views ([id number]), Ordered on: Ordered Future Order: Radiology Order Walker nd Xray Min 3 Views ([id number]), Ordered on: Ordered Future Order: Radiology Order Hi p Unil W Pelvis 2-3 Views ([id number]), Ordered on: Ordered History Of Present Illness Encounter Date Complaint History Of Prese nt Illness hand Functional Status Date Functional Assessmen t No Information Instructions Date Instruction Additional Infor mation No Information Assessments Type Assessment Date assessment Pain in left hand Patient Care Teams Name Effective Dates (start - stop) Status Members No Information
--- OUTSIDE RECORDS SUMMARY | 2024-03-11 14:39 | XMS_ITS | Continuity of Care Document ---
Author Organization [facility] Address [address] [place] [address] [place] [address] Phone Care Team Providers Care Customer Service Attendant Name Role Phone Narayan Caro Unavailable Unavailable [...] Providers Copied on Encounter Office/outpat ient Visit, [facility], [address] [place] [address] [address], [place], [place], [id number], [place] tel:[phone] [facility] No Information 6[address] Gordo Busch. [address] , [address], [place], [address], [place]. tel:[phone] Office/outpat ient Visit, [facility], [address] [place] [address] [address], [place], [place], [id number], [place] tel:[phone] [facility] No Information 0200 8 Jacque Pagan [address] , [address], [place], [place], [facility], . tel:[phone] Office/outpat ient Visit, [facility], [address], [place], [place], [id number], [place] tel:[phone] [facility] No Information June- 3-200 8 Jacque Butler. [address] , [address], [place], [place], [facility], . tel:[phone] Office/outpat ient Visit, [facility], [id number] [place] [address] [address], [place], [place], [id number], [place] tel:[phone] [facility] No Information Sep-2 5-200 7 Jacque Butler. [address] , [address], [place], [facility], . tel:[phone] Office/outpat ient Visit, [facility], [address], [place], [place], [id number], [place] tel:[phone] [facility] No Information Oct-1 9-200 7 Gordo Busch. [address] , [address], [place], [facility], [place]. tel:[phone] Office/outpat ient Visit, [facility], [address] [place] [address] [address], [place], [place], [id number], [place] tel:[phone] [facility] No Information Aug-1 0-200 7 Jacque Pagan [address] , [address], [place], [facility], [place]. tel:[phone] Office/outpat ient Visit, [facility], [address], [place], [place], [id number], [place] tel:[phone] [facility] No Information Miguelito-2 2-200 7 Jacque Pagan [address] , [address], [place], [facility], . tel:[phone] Office/outpat ient Visit, [facility], [address] [place] [address] [address], [place], [place], [id number], tel:[phone] [facility] No Information Miguelito-1 2-200 7 Santillan Carrie. [address] , [address], [place], [facility], [place]. tel:[phone] Office/outpat ient Visit, [facility], [id number] [place] [address] [address], [place], [place], [id number], tel:[phone] [facility] No Information Miguelito-0 5-200 7 Santillan Carrie. [address] [facility] , [address], [place], [facility], . tel:[phone] [facility], [address] [place] [address] [address], [place], [place], [id number], tel:[phone] [facility] No Information Miguelito-0 1-200 7 Gordo Busch. [address] [facility] , [address], [place], [facility], . tel:[phone] Family History Family Member Type Diagnosis Age At Onset No Information Payers Payer name Insurance type Covered constitution party ID [place] [id number] Social History Type Description Quantity Date Captured [...]
--- NOTE | 2024-03-11 14:40 | PM.IMHP ---
H&P: HPI History of Present Illness Date/Time: 03/11/24 14:40 Chief Complaint: Generalized weakness Narrative: 88 year old lady complains of weakness all over no chest pain, SOB or fever Pt has been having diarrhea and nausea not been eating much for few days no significant PMH PMH retained food in distal esophagus and dyphagia, GERD, gastritis and DM Review of Systems Review of Systems: all 12 systems reviewed and negative apart from diarrhea and nausea and generalized weakness PMFSH Past Medical History Medical History Pneumonia age 18 Gastritis BMI 22.0-22.9, adult Esophageal ring Depression with anxiety Cricopharyngeal achalasia Status post dilatation and Botox injection per Dr. Jah Soni (ENT) at [place]. Anemia Essential hypertension Type 2 diabetes mellitus Vitamin D deficiency Surgical History Surgical History History of open reduction and internal fixation (ORIF) procedure Pinning of left hip fracture. History of arthroscopic knee surgery History of tonsillectomy History of cataract extraction Family History Family History Father Family history of diabetes mellitus in first degree relative Mother Rheumatoid arthritis Sibling No problems noted. Other Family history of lupus erythematosus Social History Social History Social History: Surrogate decision maker: Guerda Mark, daughter. Code status: Full code. Smoking status: Never smoker Second hand tobacco smoke exposure: Yes Alcohol intake: never Substance use: never Substance use type: does not use Do You Feel Safe in your Home?: Yes Lack of Transportation: No Lack of Food: Never True Current Housing: I Have Housing Concerned About Future Housing: No Difficulty Paying Gas/Electric Bills: No Difficulty Paying for Meds: No Currently Unemployed: No Education: Trade/Vocational Certificate Difficulty w/ Childcare or Family Care: No Living arrangements: alone Additional living arrangements comments: Patient lives in a senior apartment in [place]. She has 6 children and was essentially a single mother for many years as her at a young age. 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 Gender identity (if verbalized by the patient): Female Spiritual care concerns: No Meds Home Medications and Allergies Home Medications ?Medication ?Instructions ?Recorded ?Confirmed ?Type ibandronate 150 mg tablet 150 mg PO MONTHLY #12 tabs 02/01/23 03/11/24 Rx loratadine 10 mg tablet 10 mg PO DAILY #30 tabs 07/12/23 03/11/24 Rx cholecalciferol (vitamin D3) 125 125 mcg PO DAILY #30 caps 10/25/23 11/23/23 Rx mcg (5,000 unit) capsule gabapentin 300 mg capsule See Rx Instructions PO DAILY #270 01/11/24 03/11/24 Rx (Neurontin) caps sertraline 50 mg tablet (Zoloft) 75 mg (1.5 x 50 mg) PO DAILY #135 03/07/24 03/11/24 Rx tabs Allergies Allergy/AdvReac Type Severity Reaction Status Date / Time metformin Allergy Mild Hives Verified 03/11/24 10:12 Penicillins Allergy Mild Hives Verified 03/11/24 10:12 Vital Signs Vital Signs - 24 hr 03/11/24 10:08 03/11/24 12:40 Temperature 36.7 C Pulse Rate 79 65 Respiratory Rate 19 18 Blood Pressure 164/81 H 156/59 H Pulse Oximetry 96 95 Oxygen Delivery Room Air Exam Narrative: General: Tired and weak dry appearing HEENT: EOMI. Sclerae anicteric. Oral mucosa moist. Oropharynx clear. Neck: Supple. No adenopathy or thyromegaly. Respiratory: Lungs are clear to auscultation bilaterally. Cardiovascular: Regular rate and rhythm with S1-S2. Gastrointestinal: Abdomen is soft, nontender, and nondistended with positive bowel sounds. Skin: Warm and dry. Extremities: No cyanosis, clubbing, or edema. Radial and pedal pulses intact. Neurological: Alert. Cranial nerves 2-12 are grossly intact. No gross focal deficits to casual conversation. Psychiatric: Pleasant and cooperative with normal mood and affect. Judgment and insight intact. H&P: Results Labs Labs: Short CBC 03/11/24 Range/Units 10:15 WBC 3.0 L (4.5-10.0) K/mm3 Hgb 12.1 (12.0-15.0) g/dL Hct 38.9 (37.0-47.0) % Plt Count 171 (150-375) k/mm3 BMP 03/11/24 10:48 Sodium 141 Potassium 3.4 Chloride 100 Carbon Dioxide 29 BUN 16 Creatinine 0.70 Glucose 217 H Calcium 9.5 Liver Function 03/11/24 Range/Units 10:48 Total Bilirubin 0.5 (0.2-1.3) mg/dL AST 47 H (14-36) U/L ALT 26 (6-35) U/L Alkaline Phosphatase 90 (38-126) U/L Albumin 4.1 (3.5-5.1) g/dL Urine 03/11/24 Range/Units 11:14 Urine Color Yellow (Yellow) Urine Appearance Cloudy H (Clear) Urine pH 7.0 (5.0-9.0) Ur Specific [place] 1.023 (1.001-1.035) Urine Protein 1+ H (Negative) mg/dL Urine Glucose (UA) Negative (Negative) mg/dL Assessment and Plan Assessment and plan (1) Weakness: Code(s): R53.1 - Weakness Status: Acute Assessment and Plan: pt feels weak all over PT/ OT pt may benefit from AR if remains very weak (2) Enteritis: Code(s): K52.9 - Noninfective gastroenteritis and colitis, unspecified Status: Acute Assessment and Plan: pt having diarrhea and nausea continue to hydrate BMP Start gatroaids or spirit order stool culture (3) Type 2 diabetes mellitus without complications: Qualifiers: Diabetes mellitus wine sales representative insulin use: without wine sales representative use Qualified Code(s): E11.9 - Type 2 diabetes mellitus without complications Code(s): E11.9 - Type 2 diabetes mellitus without complications Status: Acute Assessment and Plan: accuchecks SSI start NS (4) Essential hypertension: Code(s): I10 - Essential (primary) hypertension Status: Acute Assessment and Plan: watch bp in hospital continue bp meds accirdingly (5) Depression: Code(s): F32.9 - Major depressive disorder, single episode, unspecified Status: Acute Assessment and Plan: continue antidepressants add trazadone (6) Dysphagia: Code(s): R13.10 - Dysphagia, unspecified Status: Acute Assessment and Plan: add PPI Dysphagia in the past reassess with ST ? not eating because of depression ? infection or mechanical problem Plan full code DVT prop: lovenox PT/ OT Hospitalist MIPS Advance Care Plan I have confirmed that the patient's Advanced Care Plan is present, code status is documented, or surrogate decision maker is listed in patient medical record.: Yes Medication Reconciliation I have utilized all available resources to obtain, update and review the patients current medications (includes all prescriptions, OTC, herbals, cannabis, and nutritional supplements).: Yes
[2024-03-11 15:14] VITALS: BP 155/72; PULSE 65; RESP 16; O2SAT 95
--- NOTE | 2024-03-11 15:29 | PC.NURSE ---
Pt. friend Marybeth Ivory left bedside. Left her number [phone]
[2024-03-11 15:45] LABS: Influenza A QL RT-PCR Positive (Negative); Influenza B QL RT-PCR Negative (Negative); RSV RNA, RT-PCR Negative (Negative); SARS-CoV-2 RNA PCR Negative (Negative)
[2024-03-11 16:05] VITALS: BMI 24.1
[2024-03-11 16:45] LABS: Glucose Point of Care 122 mg/dl (65-105)
[2024-03-11] MEDS: ENOXAPARIN 40 MG/0.4 ML SYRINGE SUB-Q (16:53)
[2024-03-11] MEDS: ACETAMINOPHEN 325 MG TABLET 650 MG PO ×2 (19:58→23:46)
[2024-03-11 21:40] VITALS: BP 153/84; PULSE 66; RESP 18; TEMP 36.9; O2SAT 96
[2024-03-11 22:10] LABS: Glucose Point of Care 111 mg/dl (65-105)
[2024-03-12 06:00] VITALS: BP 163/68; PULSE 78; RESP 20; TEMP 36.8; O2SAT 96
[2024-03-12 07:37] LABS: Glucose Point of Care 141 mg/dl (65-105)
[2024-03-12] MEDS: HYDROmorphone HCL INJ (*CRX) 1 MG/ML SYR 0.5 MG IV PUSH ×3 (07:48→21:21)
[2024-03-12 08:00] VITALS: BP 160/40; PULSE 79; TEMP 36.6; O2SAT 100
[2024-03-12 08:23] VITALS: BP 157/69; BP 189/86
[2024-03-12] MEDS: SERTRALINE HCL 25 MG TABLET 75 MG PO (09:03)
--- NOTE | 2024-03-12 09:14 | PCSTNOTE ---
Please refer to the Bedside Swallow Evaluation in the EMR. Please note, silent aspiration cannot be ruled out at bedside. The above pleasant and cooperative pt was seen for a swallow evaluation at bedside. The pt was positioned upright in the bed. She was alert & able to follow commands. She is currently on clear liquids due to n/v. Pt c/o occasional choking. Oral mucosa is dry/normal; pt has full upper and lower dentures. Cursory oral peripheral exam revealed lingual and labial structures to be within functional limits. She was able to dry swallow on command and exhibited clear vocal quality. She was tested with ice chips, pudding, cracker, and thin liquids in controlled and uncontrolled amounts. The oral stages appeared WFL. No oral leakage or pocketing was noted. During the pharyngeal stage, swallow reflex appeared prompt & laryngeal elevation adequate. No overt s/s of aspiration were exhibited; however, silent aspiration cannot be ruled out at bedside. General impression is normal swallow ability. Recommendation: Regular diet and regular liquids. Thank you for this referral.
--- NOTE | 2024-03-12 10:54 | PM.IMPN ---
Progress Note: A&P Assessment and Plan (1) Depression: Code(s): F32.9 - Major depressive disorder, single episode, unspecified Status: Acute (2) Depression with anxiety: Code(s): F41.8 - Other specified anxiety disorders Status: Acute (3) Essential hypertension: Code(s): I10 - Essential (primary) hypertension Status: Acute (4) Type 2 diabetes mellitus without complications: Qualifiers: Diabetes mellitus petroleum terminal plant operator insulin use: without petroleum terminal plant operator use Qualified Code(s): E11.9 - Type 2 diabetes mellitus without complications Code(s): E11.9 - Type 2 diabetes mellitus without complications Status: Acute (5) Diabetes type 2, controlled: Code(s): E11.9 - Type 2 diabetes mellitus without complications Status: Acute (6) Type 2 diabetes mellitus: Qualifiers: Diabetes mellitus complication status: with hyperglycemia Diabetes mellitus group home insulin use: without petroleum terminal plant operator use Qualified Code(s): E11.65 - Type 2 diabetes mellitus with hyperglycemia Code(s): E11.9 - Type 2 diabetes mellitus without complications Status: Acute Plan 88 year old lady complains of weakness all over no chest pain, SOB or fever Pt has been having diarrhea and nausea not been eating much for few days General Weakness: Code(s): R53.1 - Weakness Status: Acute Assessment and Plan: Physical deconditioning due to aging and multiple comorbidities, exaggerated by flu infection Patient has general weakness PT/ OT pt may benefit from AR if remains very weak Acute gastroenteritis Likely resulting from viral infection pt having diarrhea and nausea continue to hydrate BMP Start gatroaids or spirit order stool culture pending Influenza a infection Chest x-ray shows no acute infiltrate or effusion Start Tamiflu p.o. Severe malnutrition Consult dietitian provide ensure per dietitian Type 2 diabetes mellitus without complications: Qualifiers: Diabetes mellitus petroleum terminal plant operator insulin use: without group home use Qualified Code(s): E11.9 - Type 2 diabetes mellitus without complications Code(s): E11.9 - Type 2 diabetes mellitus without complications Status: Acute Assessment and Plan: accuchecks SSI Essential hypertension: Code(s): I10 - Essential (primary) hypertension Status: Acute Assessment and Plan: watch bp in hospital continue bp meds accirdingly Depression: Code(s): F32.9 - Major depressive disorder, single episode, unspecified Status: Acute Assessment and Plan: continue antidepressants add trazadone (6) Dysphagia: Code(s): R13.10 - Dysphagia, unspecified Status: Acute Assessment and Plan: add PPI Speech eval recommend regular diet Subjective Date/time seen: 03/12/24 10:54 Interval history: Patient is afebrile, blood pressure stable, pulse ox 100% on room air, patient has a poor intake, I some cough and shortness breath. Exam Narrative: GENERAL: Ill-appearing in no acute distress. Severe nutrition - EYES: EOMI. Anicteric. - HENT: Moist mucous membranes. - LUNGS: Clear to auscultation bilaterally, no wheezing, rhonchi, or rales. - CARDIOVASCULAR: Regular rate and rhythm. No murmur. No JVD. - ABDOMEN: Soft, non-tender and non-distended. No palpable masses. - EXTREMITIES: No edema. Peripheral pulses 2+. Non-tender. - NEUROLOGIC: No focal neurological deficits. CN II-XII grossly intact. General weakness - PSYCHIATRIC: Awake, Alert and oriented x 3. Appropriate mood and affect. - SKIN: No rashes or lesions. Warm. - LYMPH: No cervical lymphadenopathy. Objective Data Vital Signs Vital Signs: Vital Signs - 24 hr 03/11/24 12:40 03/11/24 15:14 03/11/24 16:55 Temperature Pulse Rate 65 65 Respiratory Rate 18 16 Blood Pressure 156/59 H 155/72 H Pulse Oximetry 95 95 Oxygen Delivery Room Air 03/11/24 20:00 03/11/24 21:40 03/12/24 06:00 Temperature 98.5 F 98.3 F Pulse Rate 66 78 Respiratory Rate 18 20 Blood Pressure 153/84 H 163/68 H Pulse Oximetry 96 96 Oxygen Delivery Room Air 03/12/24 08:00 03/12/24 08:23 03/12/24 08:23 Temperature 97.8 F Pulse Rate 79 Respiratory Rate Blood Pressure 160/40 H 189/86 H 157/69 H Pulse Oximetry 100 Oxygen Delivery 03/12/24 09:00 Temperature Pulse Rate Respiratory Rate Blood Pressure Pulse Oximetry Oxygen Delivery Room Air Intake/Output Intake/Output: Intake & Output 03/09/24 03/10/24 03/11/24 03/12/24 23:59 23:59 23:59 23:59 Intake Total 550 0 Balance 550 0 Meds/Results Medications: Active Medications Generic Name Dose Route Start Last Admin Trade Name Hannah PRN Reason Stop Dose Admin Acetaminophen 650 mg 03/11/24 12:19 03/11/24 23:46 Acetaminophen 325 Mg Tablet PO 650 mg Q4H PRN Administration Mild Pain (1-3) or Fever Dextrose 12.5 gm 03/11/24 14:54 Dextrose 50% 25 Gm/50 Ml Syringe IV PUSH PRN PRN Hypoglycemia Protocol Glucagon 1 mg 03/11/24 14:54 Glucagon For Inj 1 Mg Vial IM PRN PRN Hypoglycemia Protocol Glucose 15 gm 03/11/24 14:54 Glucose Oral Gel 15 Gm Of Glucse In 37.5 Gm Tube PO PRN PRN Hypoglycemia Protocol Dextrose 1,000 mls @ 100 mls/hr 03/11/24 14:54 Dextrose 5% 1,000 Ml IVPB PRN PRN Hypoglycemia Protocol Insulin Aspart 2 - 5 units 03/11/24 17:00 03/12/24 09:00 Insulin Aspart (*Bkc) 100 Units/Ml SUB-Q Not Given TIDWM [facility] Protocol Loperamide HCl 2 mg 03/11/24 14:55 Loperamide Hcl 2 Mg Capsule PO PRN PRN Diarrhea Sertraline HCl 75 mg 03/12/24 09:00 03/12/24 09:03 Sertraline Hcl 25 Mg Tablet PO 75 mg DAILY JENY Administration Radiology Results: ITS Impressions Chest X-Ray 03/11/24 10:46 IMPRESSION: No focal infiltrate or effusion. Labs Labs: Laboratory Results - last 24 hr 03/11/24 03/11/24 03/11/24 10:48 11:14 13:39 Sodium 141 Potassium 3.4 Chloride 100 Carbon Dioxide 29 Anion Gap 12 BUN 16 Creatinine 0.70 Estim Creat Clear Calc 34 Estimated GFR > 60 Glucose 217 H POC Capillary Glucose Calcium 9.5 Total Bilirubin 0.5 AST 47 H ALT 26 Alkaline Phosphatase 90 Total Protein 7.0 Albumin 4.1 Urine Color Yellow Urine Appearance Cloudy H Urine pH 7.0 Ur Specific [place] 1.023 Urine Protein 1+ H Urine Glucose (UA) Negative Urine Ketones Trace H Ur Blood (Man) Negative Urine Nitrate Negative Urine Bilirubin Negative Urine Urobilinogen 0.2 Leukocyte Esterase Rfl Negative Urine RBC 0-2 Urine WBC 0-5 Ur Squamous Epith Cells None seen Amorphous Sediment Few H Urine Bacteria None seen Urine Casts 3-5 Influenza A (RT-PCR) Positive A Influenza B (RT-PCR) Negative RSV (RT-PCR) Negative SARS-CoV-2 RNA (RT-PCR) Negative 03/11/24 03/11/24 03/12/24 16:40 22:08 07:25 Sodium Potassium Chloride Carbon Dioxide Anion Gap BUN Creatinine Estim Creat Clear Calc Estimated GFR Glucose POC Capillary Glucose 122 H 111 H 141 H Calcium Total Bilirubin AST ALT Alkaline Phosphatase Total Protein Albumin Urine Color Urine Appearance Urine pH Ur Specific [place] Urine Protein Urine Glucose (UA) Urine Ketones Ur Blood (Man) Urine Nitrate Urine Bilirubin Urine Urobilinogen Leukocyte Esterase Rfl Urine RBC Urine WBC Ur Squamous Epith Cells Amorphous Sediment Urine Bacteria Urine Casts Influenza A (RT-PCR) Influenza B (RT-PCR) RSV (RT-PCR) SARS-CoV-2 RNA (RT-PCR)
[2024-03-12 11:20] LABS: Basophils Percent Auto 0.3 % (0.2-1.2); Eosinophils Percent Auto 0.5 % (0-4.4); Hematocrit 39.6 % (37.0-47.0); Hemoglobin 12.4 g/dL (12.0-15.0); Immature Granulocyte Absolute 0.01 K/mm3 (0.00-0.031); Immature Granulocyte Percent A 0.3 % (0-0.5); Lymphocytes Absolute Auto 1.37 K/mm3 (0.9-3.2); Lymphocytes Percent Auto 35.8 % (18.3-44.2); Mean Corpuscular HGB Conc 31.3 g/dl (32-36); Mean Corpuscular Volume 92.5 fl (80-100); Mean Platelet Volume 11.4 fl (7.4-10.4); Monocytes Absolute Auto 0.2 K/mm3 (0.1-0.6); Monocytes Percent Auto 5.5 % (2.6-8.5); Neutrophils Absolute Auto 2.2 K/mm3 (1.3-6.7); Neutrophils Percent Auto 57.6 % (45.5-73.1); Platelet Count Result 188 k/mm3 (150-375); Red Blood Count 4.28 M/mm3 (4.2-5.4); Red Cell Distribution Width 14.6 % (11.5-14.5); White Blood Count 3.8 K/mm3 (4.5-10.0)
--- NOTE | 2024-03-12 11:20 | PCPTNOTE ---
Attempted PT evaluation this date, pt declined this date. Family states that her stomach had been bothering her earlier this morning. RN states that she did give her medication earlier this morning.
[2024-03-12 11:48] LABS: Glucose Point of Care 137 mg/dl (65-105)
[2024-03-12 11:50] LABS: Anion Gap 14 mmol/L (4-12); Blood Urea Nitrogen 13 mg/dL (7-17); Calcium 8.5 mg/dL (8.4-10.2); Carbon Dioxide 23 mmol/L (22-30); Chloride 105 mmol/L (98-107); Estimated CRCL calculation 42 ml/min; Estimated Glomerular Filt Rate > 60; Glucose 144 mg/dL (65-110); Magnesium 1.7 mg/dL (1.6-2.3); Phosphorus 2.7 mg/dL (2.5-4.5); Potassium 3.4 mmol/L (3.4-5.0); Sodium 142 mmol/L (137-145)
[2024-03-12 14:00] VITALS: BP 167/59; PULSE 86; RESP 16; TEMP 36.4; O2SAT 97
[2024-03-12] MEDS: SODIUM CHLORIDE 0.9% IV 1,000 ML 70 ML IV CONT (14:45)
[2024-03-12 15:28] VITALS: BP 178/73; PULSE 72; RESP 18; TEMP 36.3; O2SAT 97
[2024-03-12 16:56] LABS: Glucose Point of Care 140 mg/dl (65-105)
[2024-03-12] MEDS: OSELTAMIVIR PHOSPHATE 75 MG CAPSULE PO (17:33)
[2024-03-12] MEDS: OSELTAMIVIR PHOSPHATE 30 MG CAPSULE PO (20:50)
[2024-03-12] MEDS: ACETAMINOPHEN 325 MG TABLET 650 MG PO (20:50)
[2024-03-12 21:10] VITALS: BP 167/95; PULSE 78; RESP 20; TEMP 36.8; O2SAT 98
[2024-03-12 21:16] LABS: Glucose Point of Care 133 mg/dl (65-105)
[2024-03-13] MEDS: HYDROmorphone HCL INJ (*CRX) 1 MG/ML SYR 0.5 MG IV PUSH ×6 (03:19→21:16)
[2024-03-13 05:15] VITALS: BP 167/64; PULSE 82; RESP 20; TEMP 36.7; O2SAT 96
[2024-03-13 07:56] LABS: Glucose Point of Care 107 mg/dl (65-105)
[2024-03-13 08:00] VITALS: BP 181/69; PULSE 86; RESP 20; TEMP 35.8; O2SAT 96
[2024-03-13] MEDS: SERTRALINE HCL 25 MG TABLET 75 MG PO (09:27)
[2024-03-13] MEDS: OSELTAMIVIR PHOSPHATE 30 MG CAPSULE PO ×2 (09:28→21:16)
--- NOTE | 2024-03-13 09:34 | PM.IMPN ---
Progress Note: A&P Assessment and Plan (1) Depression: Code(s): F32.9 - Major depressive disorder, single episode, unspecified Status: Acute (2) Depression with anxiety: Code(s): F41.8 - Other specified anxiety disorders Status: Acute (3) Essential hypertension: Code(s): I10 - Essential (primary) hypertension Status: Acute (4) Type 2 diabetes mellitus without complications: Qualifiers: Diabetes mellitus long term care administrator insulin use: without long term care administrator use Qualified Code(s): E11.9 - Type 2 diabetes mellitus without complications Code(s): E11.9 - Type 2 diabetes mellitus without complications Status: Acute (5) Diabetes type 2, controlled: Code(s): E11.9 - Type 2 diabetes mellitus without complications Status: Acute (6) Type 2 diabetes mellitus: Qualifiers: Diabetes mellitus complication status: with hyperglycemia Diabetes mellitus shelter insulin use: without long term care administrator use Qualified Code(s): E11.65 - Type 2 diabetes mellitus with hyperglycemia Code(s): E11.9 - Type 2 diabetes mellitus without complications Status: Acute Plan 88 year old lady complains of weakness all over no chest pain, SOB or fever Pt has been having diarrhea and nausea not been eating much for few days Abdomen pain Patient had 2 episodes of severe abdomen pain yesterday CT scan showed distended gallbladder and kidney stone without hydronephrosis Order abdominal ultrasound and renal ultrasound: 1.5 cm echogenic and shadowing gallstone at the neck of the gallbladder, no gallstones or hydronephrosis Consult general surgeon for evaluation and treatment General Weakness: Code(s): R53.1 - Weakness Status: Acute Assessment and Plan: Physical deconditioning due to aging and multiple comorbidities, exaggerated by flu infection Patient has general weakness PT/ OT pt may benefit from AR if remains very weak Acute gastroenteritis Likely resulting from viral infection pt having diarrhea and nausea continue to hydrate order stool culture pending Influenza a infection Chest x-ray shows no acute infiltrate or effusion Start Tamiflu p.o. Severe malnutrition Consult dietitian provide ensure per dietitian Type 2 diabetes mellitus without complications: Qualifiers: Diabetes mellitus long term care administrator insulin use: without long term care administrator use Qualified Code(s): E11.9 - Type 2 diabetes mellitus without complications Code(s): E11.9 - Type 2 diabetes mellitus without complications Status: Acute Assessment and Plan: accuchecks SSI Essential hypertension: Code(s): I10 - Essential (primary) hypertension Status: Acute Assessment and Plan: watch bp in hospital continue bp meds accirdingly Depression: Code(s): F32.9 - Major depressive disorder, single episode, unspecified Status: Acute Assessment and Plan: continue antidepressants add trazadone (6) Dysphagia: Code(s): R13.10 - Dysphagia, unspecified Status: Acute Assessment and Plan: add PPI Speech eval recommend regular diet Subjective Date/time seen: 03/13/24 09:34 Interval history: Patient is afebrile, blood pressure stable, pulse ox 100% on room air, patient has a poor intake, patient had 2 episodes severe abdomen pain, CT scan showed distended gallbladder and kidney stone without hydronephrosis. Patient still had severe epigastric pain, needs frequent narcotic treatment. Patient feels nauseated denies vomiting Exam Narrative: GENERAL: Ill-appearing in no acute distress. Severe nutrition - EYES: EOMI. Anicteric. - HENT: Moist mucous membranes. - LUNGS: Clear to auscultation bilaterally, no wheezing, rhonchi, or rales. - CARDIOVASCULAR: Regular rate and rhythm. No murmur. No JVD. - ABDOMEN: Soft, right upper quadrant abdomen tender and non-distended. No palpable masses. - EXTREMITIES: No edema. Peripheral pulses 2+. Non-tender. - NEUROLOGIC: No focal neurological deficits. CN II-XII grossly intact. General weakness - PSYCHIATRIC: Awake, Alert and oriented x 3. Appropriate mood and affect. - SKIN: No rashes or lesions. Warm. - LYMPH: No cervical lymphadenopathy. Objective Data Vital Signs Vital Signs: Vital Signs - 24 hr 03/12/24 11:50 03/12/24 14:00 03/12/24 15:28 Temperature 97.5 F L 97.4 F L Pulse Rate 86 72 Respiratory Rate 16 18 Blood Pressure 167/59 H 178/73 H Pulse Oximetry 97 97 Oxygen Delivery Room Air 03/12/24 20:00 03/12/24 21:10 03/13/24 05:15 Temperature 98.3 F 98.1 F Pulse Rate 78 82 Respiratory Rate 20 20 Blood Pressure 167/95 H 167/64 H Pulse Oximetry 98 96 Oxygen Delivery Room Air 03/13/24 08:00 Temperature 96.5 F L Pulse Rate 86 Respiratory Rate 20 Blood Pressure 181/69 H Pulse Oximetry 96 Oxygen Delivery Intake/Output Intake/Output: Intake & Output 03/10/24 03/11/24 03/12/24 03/13/24 23:59 23:59 23:59 23:59 Intake Total 550 240 724 Balance 550 240 724 Meds/Results Medications: Active Medications Generic Name Dose Route Start Last Admin Trade Name Freq PRN Reason Stop Dose Admin Acetaminophen 650 mg 03/11/24 12:19 03/12/24 20:50 Acetaminophen 325 Mg Tablet PO 650 mg Q4H PRN Administration Mild Pain (1-3) or Fever Dextrose 12.5 gm 03/11/24 14:54 Dextrose 50% 25 Gm/50 Ml Syringe IV PUSH PRN PRN Hypoglycemia Protocol Glucagon 1 mg 03/11/24 14:54 Glucagon For Inj 1 Mg Vial IM PRN PRN Hypoglycemia Protocol Glucose 15 gm 03/11/24 14:54 Glucose Oral Gel 15 Gm Of Glucse In 37.5 Gm Tube PO PRN PRN Hypoglycemia Protocol Hydromorphone HCl 0.5 mg 03/13/24 02:53 03/13/24 07:09 Hydromorphone Hcl Inj (*Crx) 1 Mg/Ml Syr IV PUSH 0.5 mg Q4HR PRN Administration Pain Rated 7-10 Dextrose 1,000 mls @ 100 mls/hr 03/11/24 14:54 Dextrose 5% 1,000 Ml IVPB PRN PRN Hypoglycemia Protocol Sodium Chloride 1,000 mls @ 70 mls/hr 03/12/24 13:55 03/12/24 14:45 Normal Saline Iv IV CONT 70 mls/hr .[id number] JENY Administration Insulin Aspart 2 - 5 units 03/11/24 17:00 03/13/24 09:26 Insulin Aspart (*Bkc) 100 Units/Ml SUB-Q Not Given TIDWM JENY Protocol Loperamide HCl 2 mg 03/11/24 14:55 Loperamide Hcl 2 Mg Capsule PO PRN PRN Diarrhea Oseltamivir Phosphate 30 mg 03/12/24 22:00 03/13/24 09:28 Oseltamivir Phosphate 30 Mg Capsule PO 03/16/24 21:01 30 mg Q12HR JENY Administration Sertraline HCl 75 mg 03/12/24 09:00 03/13/24 09:27 Sertraline Hcl 25 Mg Tablet PO 75 mg DAILY JENY Administration Radiology Results: ITS Impressions Chest X-Ray 03/11/24 10:46 IMPRESSION: No focal infiltrate or effusion. Abdomen/Pelvis CT 03/12/24 15:16 IMPRESSION: Limited evaluation secondary to significant motion artifact. Stones within the bilateral kidneys. Distention of the gallbladder. Labs Labs: Laboratory Results - last 24 hr 03/12/24 03/12/24 03/12/24 11:10 11:36 16:51 WBC 3.8 L RBC 4.28 Hgb 12.4 Hct 39.6 MCV 92.5 MCH 29.0 MCHC 31.3 L RDW 14.6 H Plt Count 188 MPV 11.4 H Immature Gran % (Auto) 0.3 Neut % (Auto) 57.6 Lymph % (Auto) 35.8 [place] % (Auto) 5.5 Eos % (Auto) 0.5 Baso % (Auto) 0.3 Lymph # (Auto) 1.37 [place] # (Auto) 0.2 Eos # (Auto) 0.0 Baso # (Auto) 0.0 Abs Immat Gran (auto) 0.01 Absolute Neuts (auto) 2.2 Absolute Nucleated RBC 0.000 Nucleated RBC % 0.0 Sodium 142 Potassium 3.4 Chloride 105 Carbon Dioxide 23 Anion Gap 14 H BUN 13 Creatinine 0.56 L Estim Creat Clear Calc 42 Estimated GFR > 60 Glucose 144 H POC Capillary Glucose 137 H 140 H Calcium 8.5 Phosphorus 2.7 Magnesium 1.7 03/12/24 03/13/24 21:08 07:42 WBC RBC Hgb Hct MCV MCH MCHC RDW Plt Count MPV Immature Gran % (Auto) Neut % (Auto) Lymph % (Auto) [place] % (Auto) Eos % (Auto) Baso % (Auto) Lymph # (Auto) [place] # (Auto) Eos # (Auto) Baso # (Auto) Abs Immat Gran (auto) Absolute Neuts (auto) Absolute Nucleated RBC Nucleated RBC % Sodium Potassium Chloride Carbon Dioxide Anion Gap BUN Creatinine Estim Creat Clear Calc Estimated GFR Glucose POC Capillary Glucose 133 H 107 H Calcium Phosphorus Magnesium
[2024-03-13 10:24] LABS: Basophils Percent Auto 0.5 % (0.2-1.2); Eosinophils Percent Auto 0.7 % (0-4.4); Hemoglobin 11.5 g/dL (12.0-15.0); Immature Granulocyte Absolute 0.02 K/mm3 (0.00-0.031); Immature Granulocyte Percent A 0.5 % (0-0.5); Lymphocytes Absolute Auto 1.01 K/mm3 (0.9-3.2); Mean Corpuscular HGB Conc 31.1 g/dl (32-36); Mean Corpuscular Hemoglobin 29.2 pg (26-34); Mean Corpuscular Volume 93.9 fl (80-100); Mean Platelet Volume 11.1 fl (7.4-10.4); Monocytes Absolute Auto 0.3 K/mm3 (0.1-0.6); Monocytes Percent Auto 5.9 % (2.6-8.5); Neutrophils Absolute Auto 3.1 K/mm3 (1.3-6.7); Neutrophils Percent Auto 69.4 % (45.5-73.1); Platelet Count Result 180 k/mm3 (150-375); Red Blood Count 3.94 M/mm3 (4.2-5.4); Red Cell Distribution Width 14.6 % (11.5-14.5); White Blood Count 4.4 K/mm3 (4.5-10.0)
[2024-03-13 10:38] LABS: Anion Gap 16 mmol/L (4-12); Blood Urea Nitrogen 16 mg/dL (7-17); Calcium 8.5 mg/dL (8.4-10.2); Carbon Dioxide 21 mmol/L (22-30); Chloride 106 mmol/L (98-107); Estimated CRCL calculation 40 ml/min; Estimated Glomerular Filt Rate > 60; Glucose 130 mg/dL (65-110); Magnesium 1.7 mg/dL (1.6-2.3); Phosphorus 2.6 mg/dL (2.5-4.5); Sodium 143 mmol/L (137-145)
[2024-03-13] MEDS: SODIUM CHLORIDE 0.9% IV 1,000 ML 70 ML IV CONT (10:57)
[2024-03-13 11:31] LABS: Glucose Point of Care 118 mg/dl (65-105)
--- NOTE | 2024-03-13 12:26 | PCPTNOTE ---
Attempted evaluation 1225, on hold per RN due to ultrasound and pain.
--- NOTE | 2024-03-13 13:30 | P.CONGS_ITS ---
Assessment and Plan Assessment and plan (1) Cholelithiasis: Code(s): K80.20 - Calculus of gallbladder without cholecystitis without obstruction Status: Acute Assessment and Plan: Patient presented to the ED with generalized weakness, cold-like symptoms, diarrhea, and nausea x 1 week. She was found to be Influenza A positive and admitted for possible skilled nursing placement. She has developed an acute onset of right-sided abdominal pain yesterday. CT scan of the abdomen and pelvis was limited due to motion artifact, but mentioned a distended gallbladder. She also had a RUQ abdominal ultrasound today that showed a 1.5 cm gallstone within a distended gallbladder, but with no wall thickening to suggest acute cholecystitis. The gallstone is mobile within the gallbladder on ultrasound and did not appear to be lodged in the neck. She does not have any leukocytosis and her LFTs are essentially normal on admission. She is still having RUQ pain and she is also focally tender in the RUQ on exam. We will go ahead and order a HIDA scan tomorrow morning to evaluate for cystic duct obstruction. The patient is a poor surgical candidate at this time in the setting of Influenza A as well as her generalized weakness, poor nutrition, and advanced age. We could consider percutaneous cholecystectomy tube placement if she is found to have a cystic duct obstruction. Will continue to follow along and await HIDA scan results to decipher further recommendations. (2) RUQ abdominal pain: Code(s): R10.11 - Right upper quadrant pain Status: Acute (3) Influenza A: Code(s): J10.1 - Influenza due to other identified influenza virus with other respiratory manifestations Status: Acute (4) Diarrhea: Code(s): R19.7 - Diarrhea, unspecified Status: Acute (5) Type 2 diabetes mellitus: Qualifiers: Diabetes mellitus complication status: with hyperglycemia Diabetes mellitus local company intermodal truck driver insulin use: without local company intermodal truck driver use Qualified Code(s): E11.65 - Type 2 diabetes mellitus with hyperglycemia Code(s): E11.9 - Type 2 diabetes mellitus without complications Status: Acute (6) Essential (primary) hypertension: Code(s): I10 - Essential (primary) hypertension Status: Acute Plan I have discussed the patient's case and plan of care with Dr. Sharma. Thank you for allowing us to see the patient in consultation and we will continue to follow along with you. History of Present Illness Consult details Consult date: 03/13/24 Reason for consult: other (Distention of the gallbladder on imaging) Requesting physician: Cristela Hatfield MD Narrative: This is an 88-year-old woman who we have been asked to see in surgical consultation for a gallbladder distension on imaging. She was brought into the ED 2 days ago via EMS for generalized weakness, nausea, and diarrhea. He typically lives at home alone and was no longer able to take care of herself due to the weakness. That reportedly had diarrhea and nausea over the past week with minimal oral intake. She was able to drink some liquids. No vomiting. She additionally had cold-like symptoms, including cough and congestion. Workup in the ED showed she was positive for influenza A. Chest x-ray negative. Labs showed a white blood cell count of 3,000, LFTs normal other than mild elevation of AST at 47. She was hemodynamically stable and admitted for possible placement to a skilled nursing. Care coordination was consulted. She is on droplet isolation and started on Tamiflu. She is on a diabetic diet, but has only eaten a few bites of food since admission per her family. Yesterday, she began complaining of abdominal pain. Per staff, she would yell out in pain and complain of abdominal pain but had a difficult time describing the pain or location. She was receiving IV Dilaudid about every 6 hours and today has received this almost every 4 hours. As the medication wears off, she wakes up and starts yelling in pain again. She had a CT scan of the abdomen and pelvis yesterday without IV contrast with a significant amount of motion artifact that limited the evaluation. CT showed stones within bilateral kidneys and gallbladder distension. She also has a renal ultrasound and RUQ abdominal ultrasound ordered for today, which showed a 1.5 cm gallstone within the dilated gallbladder with no wall thickening, and a positive sonographic Beckham's sign which is equivocal for acute cholecystitis. Radiologist recommends HIDA scan for further evaluation. She is now seen on the medical floor. She reports RUQ and epigastric abdominal pain. She recently received IV Dilaudid and is resting comfortably. No previous abdominal surgeries. Denies ever having this pain in the past. No other complaints at this time. Review of Systems 2 Review of Systems: All systems reviewed & are unremarkable except as noted in HPI and below PMFSH Past Medical History Medical History Pneumonia age 18 Gastritis BMI 22.0-22.9, adult Esophageal ring Depression with anxiety Cricopharyngeal achalasia Status post dilatation and Botox injection per Dr. Jah Soni (ENT) at [place]. Anemia Essential hypertension Type 2 diabetes mellitus Vitamin D deficiency Surgical History Surgical History History of open reduction and internal fixation (ORIF) procedure Pinning of left hip fracture. History of arthroscopic knee surgery History of tonsillectomy History of cataract extraction Family History Family History Father Family history of diabetes mellitus in first degree relative Mother Rheumatoid arthritis Sibling No problems noted. Other Family history of lupus erythematosus Social History Social History Social History: Surrogate decision maker: Guerda Mark, daughter. Code status: Full code. Smoking status: Never smoker Second hand tobacco smoke exposure: Yes Alcohol intake: never Substance use: never Substance use type: does not use Do You Feel Safe in your Home?: Yes Lack of Transportation: No Lack of Food: Never True Current Housing: I Have Housing Concerned About Future Housing: No Difficulty Paying Gas/Electric Bills: No Difficulty Paying for Meds: No Currently Unemployed: No Education: Trade/Vocational Certificate Difficulty w/ Childcare or Family Care: No Living arrangements: alone Additional living arrangements comments: Patient lives in a senior apartment in [place]. She has 6 children and was essentially a single mother for many years as her at a young age. 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 Gender identity (if verbalized by the patient): Female Spiritual care concerns: No Meds Home Medications and Allergies Home Medications ?Medication ?Instructions ?Recorded ?Confirmed ?Type ibandronate 150 mg tablet 150 mg PO MONTHLY #12 tabs 02/01/23 03/11/24 Rx loratadine 10 mg tablet 10 mg PO DAILY #30 tabs 07/12/23 03/11/24 Rx cholecalciferol (vitamin D3) 125 125 mcg PO DAILY #30 caps 10/25/23 03/11/24 Rx mcg (5,000 unit) capsule gabapentin 300 mg capsule See Rx Instructions PO DAILY #270 01/11/24 03/11/24 Rx (Neurontin) caps sertraline 50 mg tablet (Zoloft) 75 mg (1.5 x 50 mg) PO DAILY #135 03/07/24 03/11/24 Rx tabs Allergies Allergy/AdvReac Type Severity Reaction Status Date / Time metformin Allergy Mild Hives Verified 03/11/24 16:07 Penicillins Allergy Mild Hives Verified 03/11/24 16:07 Vital Signs Vital Signs - 24 hr 03/12/24 14:00 03/12/24 15:28 03/12/24 20:00 Temperature 97.5 F L 97.4 F L Pulse Rate 86 72 Respiratory Rate 16 18 Blood Pressure 167/59 H 178/73 H Pulse Oximetry 97 97 Oxygen Delivery Room Air 03/12/24 21:10 03/13/24 05:15 03/13/24 08:00 Temperature 98.3 F 98.1 F 96.5 F L Pulse Rate 78 82 86 Respiratory Rate 20 20 20 Blood Pressure 167/95 H 167/64 H 181/69 H Pulse Oximetry 98 96 96 Oxygen Delivery 03/13/24 09:25 Temperature Pulse Rate Respiratory Rate Blood Pressure Pulse Oximetry Oxygen Delivery Room Air Exam 2 Const: General: comfortable and no acute distress Nutritional Appearance: a verage body habitus Orientation/consciousness: patient oriented x3 HENMT: Head: normocephalic and atraumatic Ears: hearing grossly normal bilaterally Mouth: Yes moist mucous membranes Eyes: General: appearance normal, both eyes and all related structures P upils: Equal, round and reactive pupils present Neck: Neck: normal visual inspection and full ROM Resp: Effort & Inspection: no respiratory distress Auscultation: clear to auscultation bilaterally Cardio: Rate: regular rate Rhythm: regular rhythm Peripheral pulses: P eripheral pulses 2+ throughout GI: Inspection: non-distended, no scars and no visible herniation GI Palp: Yes Soft to palpation, Yes Tenderness to palpation present (GI) (RUQ), Yes Guarding due to palpation present (GI) (RUQ), Yes No hepatosplenomegaly present and No Rebound tenderness present Percussion: Yes normal to percussion A uscultation: normal bowel sounds Skin: General skin exam: normal color Neuro: General: moves all extremities and no focal motor deficits Speech: n ormal speech Motor exam (neuro): 5/5 motor strength present throughout Extrem: General: normal to inspection and no edema Psych: Mental Status: mental status grossly normal Attitude: cooperative Insight: Good insight present (Psych) Judgement: Good judgement present (Psych) Results Labs 03/13/24 10:15 03/13/24 10:15 Labs: Abnormal lab results 03/12/24 03/12/24 03/13/24 Range/Units 16:51 21:08 07:42 WBC (4.5-10.0) K/mm3 RBC (4.2-5.4) M/mm3 Hgb (12.0-15.0) g/dL MCHC (32-36) g/dl RDW (11.5-14.5) % MPV (7.4-10.4) fl Carbon Dioxide (22-30) mmol/L Anion Gap (4-12) mmol/L Creatinine (0.7-1.0) mg/dL Glucose (65-110) mg/dL POC Capillary Glucose 140 H 133 H 107 H (65-105) mg/dl 03/13/24 03/13/24 Range/Units 10:15 11:28 WBC 4.4 L (4.5-10.0) K/mm3 RBC 3.94 L (4.2-5.4) M/mm3 Hgb 11.5 L (12.0-15.0) g/dL MCHC 31.1 L (32-36) g/dl RDW 14.6 H (11.5-14.5) % MPV 11.1 H (7.4-10.4) fl Carbon Dioxide 21 L (22-30) mmol/L Anion Gap 16 H (4-12) mmol/L Creatinine 0.60 L (0.7-1.0) mg/dL Glucose 130 H (65-110) mg/dL POC Capillary Glucose 118 H (65-105) mg/dl Diabetes panel 03/13/24 Range/Units 10:15 Sodium 143 (137-145) mmol/L Potassium 4.0 (3.4-5.0) mmol/L Chloride 106 (98-107) mmol/L Carbon Dioxide 21 L (22-30) mmol/L BUN 16 (7-17) mg/dL Creatinine 0.60 L (0.7-1.0) mg/dL Glucose 130 H (65-110) mg/dL Calcium 8.5 (8.4-10.2) mg/dL Calcium panel 03/13/24 Range/Units 10:15 Calcium 8.5 (8.4-10.2) mg/dL Phosphorus 2.6 (2.5-4.5) mg/dL Pituitary panel 03/13/24 Range/Units 10:15 Sodium 143 (137-145) mmol/L Potassium 4.0 (3.4-5.0) mmol/L Chloride 106 (98-107) mmol/L Carbon Dioxide 21 L (22-30) mmol/L BUN 16 (7-17) mg/dL Creatinine 0.60 L (0.7-1.0) mg/dL Glucose 130 H (65-110) mg/dL Calcium 8.5 (8.4-10.2) mg/dL Adrenal panel 03/13/24 Range/Units 10:15 Sodium 143 (137-145) mmol/L Potassium 4.0 (3.4-5.0) mmol/L Chloride 106 (98-107) mmol/L Carbon Dioxide 21 L (22-30) mmol/L BUN 16 (7-17) mg/dL Creatinine 0.60 L (0.7-1.0) mg/dL Glucose 130 H (65-110) mg/dL Calcium 8.5 (8.4-10.2) mg/dL All other labs normal. Imaging Additional studies: ITS Impressions Chest X-Ray 03/11/24 10:46 IMPRESSION: No focal infiltrate or effusion. Abdomen/Pelvis CT 03/12/24 15:16 IMPRESSION: Limited evaluation secondary to significant motion artifact. Stones within the bilateral kidneys. Distention of the gallbladder. Abdomen Ultrasound 03/13/24 13:08 IMPRESSION: 1. Small bowel gallstone within the gallbladder which is dilated with positive sonographic Beckham's sign but without evident gallbladder wall thickening which is equivocal for acute cholecystitis. Consider HIDA scan for further evaluation. 2. Several small bilateral renal cysts. Otherwise normal kidneys without hydronephrosis. Renal Ultrasound 03/13/24 13:08
[2024-03-13 13:52] VITALS: BP 165/68; PULSE 74; RESP 16; TEMP 35.8; O2SAT 94
[2024-03-13 16:36] LABS: Glucose Point of Care 98 mg/dl (65-105)
[2024-03-13 22:00] VITALS: BP 157/62; PULSE 75; RESP 18; TEMP 36.6; O2SAT 95
[2024-03-13 22:18] LABS: Glucose Point of Care 90 mg/dl (65-105)
[2024-03-14] MEDS: HYDROmorphone HCL INJ (*CRX) 1 MG/ML SYR 0.5 MG IV PUSH ×4 (01:05→20:18)
[2024-03-14] MEDS: SODIUM CHLORIDE 0.9% IV 1,000 ML 70 ML IV CONT ×3 (01:26→20:18)
[2024-03-14 06:00] VITALS: BP 189/79; PULSE 96; RESP 18; TEMP 36.8; O2SAT 95
[2024-03-14 08:00] VITALS: BP 150/79; PULSE 74; RESP 18; TEMP 36.4; O2SAT 98
[2024-03-14 08:22] LABS: Glucose Point of Care 91 mg/dl (65-105)
[2024-03-14 09:30] LABS: Basophils Percent Auto 0.5 % (0.2-1.2); Eosinophils Percent Auto 0.6 % (0-4.4); Hematocrit 38.7 % (37.0-47.0); Hemoglobin 12.1 g/dL (12.0-15.0); Immature Granulocyte Absolute 0.02 K/mm3 (0.00-0.031); Immature Granulocyte Percent A 0.3 % (0-0.5); Lymphocytes Absolute Auto 0.95 K/mm3 (0.9-3.2); Lymphocytes Percent Auto 15.3 % (18.3-44.2); Mean Corpuscular HGB Conc 31.3 g/dl (32-36); Mean Corpuscular Hemoglobin 29.5 pg (26-34); Mean Corpuscular Volume 94.4 fl (80-100); Mean Platelet Volume 11.3 fl (7.4-10.4); Monocytes Absolute Auto 0.5 K/mm3 (0.1-0.6); Monocytes Percent Auto 7.8 % (2.6-8.5); Neutrophils Absolute Auto 4.7 K/mm3 (1.3-6.7); Neutrophils Percent Auto 75.5 % (45.5-73.1); Platelet Count Result 189 k/mm3 (150-375); Red Cell Distribution Width 14.9 % (11.5-14.5); White Blood Count 6.2 K/mm3 (4.5-10.0)
[2024-03-14 09:51] LABS: Alanine Aminotransferase 22 U/L (6-35); Albumin Level 4.1 g/dL (3.5-5.1); Alkaline Phosphatase 79 U/L (38-126); Anion Gap 19 mmol/L (4-12); Aspartate Amino Transferase 38 U/L (14-36); Bilirubin,Total 0.7 mg/dL (0.2-1.3); Blood Urea Nitrogen 14 mg/dL (7-17); Calcium 8.6 mg/dL (8.4-10.2); Carbon Dioxide 17 mmol/L (22-30); Chloride 109 mmol/L (98-107); Estimated CRCL calculation 44 ml/min; Estimated Glomerular Filt Rate > 60; Glucose 93 mg/dL (65-110); Magnesium 1.7 mg/dL (1.6-2.3); Phosphorus 2.3 mg/dL (2.5-4.5); Potassium 3.4 mmol/L (3.4-5.0); Sodium 145 mmol/L (137-145)
--- NOTE | 2024-03-14 10:24 | P.PNIM_ITS ---
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 insulin use: without terminal block assembler use Qualified Code(s): E11.9 - Type 2 diabetes mellitus without complications Code(s): E11.9 - Type 2 diabetes mellitus without complications Status: Acute (5) Diabetes type 2, controlled: Code(s): E11.9 - Type 2 diabetes mellitus without complications Status: Acute (6) Type 2 diabetes mellitus: Qualifiers: Diabetes mellitus complication status: with hyperglycemia Diabetes mellitus assisted insulin use: without terminal block assembler use Qualified Code(s): E11.65 - Type 2 diabetes mellitus with hyperglycemia Code(s): E11.9 - Type 2 diabetes mellitus without complications Status: Acute Plan 88 year old lady complains of weakness all over no chest pain, SOB or fever Pt has been having diarrhea and nausea not been eating much for few days Abdomen pain Patient had several episodes of severe abdomen pain CT scan showed distended gallbladder and kidney stone without hydronephrosis Order abdominal ultrasound and renal ultrasound: 1.5 cm echogenic and shadowing gallstone at the neck of the gallbladder, no gallstones or hydronephrosis Consult general surgeon for evaluation and treatment General surgeon considers percutaneous cholecystectomy tube placement if she is found to have a cystic duct obstruction Pending HIDA scan Appreciate general surgeon consultation, follow recommendations Suspecting acute cholecystitis Start meropenem 1 g q.8 hours IV General Weakness: Code(s): R53.1 - Weakness Status: Acute Assessment and Plan: Physical deconditioning due to aging and multiple comorbidities, exaggerated by flu infection Patient has general weakness PT/ OT pt may benefit from AR if remains very weak Acute gastroenteritis Likely resulting from viral infection pt having diarrhea and nausea continue to hydrate order stool culture pending Influenza a infection Chest x-ray shows no acute infiltrate or effusion Start Tamiflu p.o. Severe malnutrition Consult dietitian provide ensure per dietitian Type 2 diabetes mellitus without complications: Qualifiers: Diabetes mellitus assisted insulin use: without assisted use Qualified Code(s): E11.9 - Type 2 diabetes mellitus without complications Code(s): E11.9 - Type 2 diabetes mellitus without complications Status: Acute Assessment and Plan: accuchecks SSI Essential hypertension: Code(s): I10 - Essential (primary) hypertension Status: Acute Assessment and Plan: watch bp in hospital continue bp meds accirdingly Depression: Code(s): F32.9 - Major depressive disorder, single episode, unspecified Status: Acute Assessment and Plan: continue antidepressants add trazadone (6) Dysphagia: Code(s): R13.10 - Dysphagia, unspecified Status: Acute Assessment and Plan: add PPI Speech eval recommend regular diet Subjective Date/time seen: 03/14/24 10:24 Interval history: Patient is afebrile, blood pressure stable, pulse ox 100% on room air, patient has a poor intake, patient still complaining of intermittent severe epigastric pain, patient denies nausea vomiting. Leukopenia resolved Exam Narrative: GENERAL: Ill-appearing in no acute distress. Severe nutrition - EYES: EOMI. Anicteric. - HENT: Moist mucous membranes. - LUNGS: Clear to auscultation bilateral ly, no wheezing, rhonchi, or rales. - CARDIOVASCULAR: Regular rate and rhyth m. No murmur. No JVD. - ABDOMEN: Soft, right upper quadrant ab domen tender and non-distended. No palpable masses. - EXTREMITIES: No edema. Peripheral puls es 2+. Non-tender. - NEUROLOGIC: No focal neurological defi cits. CN II-XII grossly intact. General weakness - PSYCHIATRIC: Awake, Alert and oriented x 3. Appropriate mood and affect. - SKIN: No rashes or lesions. Warm. - LYMPH: No cervical lymphadenopathy. Objective Data Vital Signs Vital Signs: Vital Signs - 24 hr 03/13/24 13:52 03/13/24 20:00 03/13/24 22:00 Temperature 96.4 F L 97.9 F Pulse Rate 74 75 Respiratory Rate 16 18 Blood Pressure 165/68 H 157/62 H Pulse Oximetry 94 95 Oxygen Delivery Room Air 03/14/24 06:00 Temperature 98.3 F Pulse Rate 96 Respiratory Rate 18 Blood Pressure 189/79 H Pulse Oximetry 95 Oxygen Delivery Intake/Output Intake/Output: Intake & Output 03/11/24 03/12/24 03/13/24 03/14/24 23:59 23:59 23:59 23:59 Intake Total 510 100 5097 1050 Balance 974 039 7694 1050 Meds/Results Medications: Active Medications Generic Name Dose Route Start Last Admin Trade Name Freq PRN Reason Stop Dose Admin Acetaminophen 650 mg 03/11/24 12:19 03/12/24 20:50 Acetaminophen 325 Mg Tablet PO 650 mg Q4H PRN Administration Mild Pain (1-3) or Fever Dextrose 12.5 gm 03/11/24 14:54 Dextrose 50% 25 Gm/50 Ml Syringe IV PUSH PRN PRN Hypoglycemia Protocol Glucagon 1 mg 03/11/24 14:54 Glucagon For Inj 1 Mg Vial IM PRN PRN Hypoglycemia Protocol Glucose 15 gm 03/11/24 14:54 Glucose Oral Gel 15 Gm Of Glucse In 37.5 Gm Tube PO PRN PRN Hypoglycemia Protocol Hydromorphone HCl 0.5 mg 03/13/24 02:53 03/14/24 05:19 Hydromorphone Hcl Inj (*Crx) 1 Mg/Ml Syr IV PUSH 0.5 mg Q4HR PRN Administration Pain Rated 7-10 Dextrose 1,000 mls @ 100 mls/hr 03/11/24 14:54 Dextrose 5% 1,000 Ml IVPB PRN PRN Hypoglycemia Protocol Sodium Chloride 1,000 mls @ 70 mls/hr 03/12/24 13:55 03/14/24 01:26 Normal Saline Iv IV CONT 70 mls/hr .[id number] JENY Administration Insulin Aspart 2 - 5 units 03/11/24 17:00 03/14/24 08:23 Insulin Aspart (*Bkc) 100 Units/Ml SUB-Q Not Given TIDWM [facility] Protocol Loperamide HCl 2 mg 03/11/24 14:55 Loperamide Hcl 2 Mg Capsule PO PRN PRN Diarrhea Ondansetron HCl 4 mg 03/14/24 08:19 Ondansetron Inj 4 Mg/2 Ml Vial IV PUSH Q6H PRN Nausea And Vomiting Oseltamivir Phosphate 30 mg 03/12/24 22:00 03/13/24 21:16 Oseltamivir Phosphate 30 Mg Capsule PO 03/16/24 21:01 30 mg Q12HR JENY Administration Sertraline HCl 75 mg 03/12/24 09:00 03/13/24 09:27 Sertraline Hcl 25 Mg Tablet PO 75 mg DAILY JENY Administration Radiology Results: ITS Impressions Chest X-Ray 03/11/24 10:46 IMPRESSION: No focal infiltrate or effusion. Abdomen/Pelvis CT 03/12/24 15:16 IMPRESSION: Limited evaluation secondary to significant motion artifact. Stones within the bilateral kidneys. Distention of the gallbladder. Abdomen Ultrasound 03/13/24 13:08 IMPRESSION: 1. Small bowel gallstone within the gallbladder which is dilated with positive sonographic Beckham's sign but without evident gallbladder wall thickening which is equivocal for acute cholecystitis. Consider HIDA scan for further evaluation. 2. Several small bilateral renal cysts. Otherwise normal kidneys without hydronephrosis. ADDENDUM: 03/13/24 [id number] CORRECTION: There are couple dictation error is in the findings section. Corrected these sentences should read- There is a MOBILE 1.5 cm echogenic and shadowing gallstone at the neck of the gallbladder the initial imaging in the supine position which moves to the fundus in the decubitus position. The common bile duct measures up to 6-7 mm which remains within normal limits for age. Renal Ultrasound 03/13/24 13:08 IMPRESSION: 1. Small bowel gallstone within the gallbladder which is dilated with positive sonographic Beckham's sign but without evident gallbladder wall thickening which is equivocal for acute cholecystitis. Consider HIDA scan for further evaluation. 2. Several small bilateral renal cysts. Otherwise normal kidneys without hydronephrosis. ADDENDUM: 03/13/24 3630 CORRECTION: There are couple dictation error is in the findings section. Corrected these sentences should read- There is a MOBILE 1.5 cm echogenic and shadowing gallstone at the neck of the gallbladder the initial imaging in the supine position which moves to the fundus in the decubitus position. The common bile duct measures up to 6-7 mm which remains within normal limits for age. Labs Labs: Laboratory Results - last 24 hr 03/13/24 03/13/24 03/13/24 10:15 11:28 16:33 WBC 4.4 L RBC 3.94 L Hgb 11.5 L Hct 37.0 MCV 93.9 MCH 29.2 MCHC 31.1 L RDW 14.6 H Plt Count 180 MPV 11.1 H Immature Gran % (Auto) 0.5 Neut % (Auto) 69.4 Lymph % (Auto) 23.0 Finney % (Auto) 5.9 Eos % (Auto) 0.7 Baso % (Auto) 0.5 Lymph # (Auto) 1.01 Finney # (Auto) 0.3 Eos # (Auto) 0.0 Baso # (Auto) 0.0 Abs Immat Gran (auto) 0.02 Absolute Neuts (auto) 3.1 Absolute Nucleated RBC 0.000 Nucleated RBC % 0.0 Sodium 143 Potassium 4.0 Chloride 106 Carbon Dioxide 21 L Anion Gap 16 H BUN 16 Creatinine 0.60 L Estim Creat Clear Calc 40 Estimated GFR > 60 Glucose 130 H POC Capillary Glucose 118 H 98 Calcium 8.5 Phosphorus 2.6 Magnesium 1.7 Total Bilirubin AST ALT Alkaline Phosphatase Total Protein Albumin 03/13/24 03/14/24 03/14/24 22:04 08:19 08:55 WBC 6.2 RBC 4.10 L Hgb 12.1 Hct 38.7 MCV 94.4 MCH 29.5 MCHC 31.3 L RDW 14.9 H Plt Count 189 MPV 11.3 H Immature Gran % (Auto) 0.3 Neut % (Auto) 75.5 H Lymph % (Auto) 15.3 L Finney % (Auto) 7.8 Eos % (Auto) 0.6 Baso % (Auto) 0.5 Lymph # (Auto) 0.95 Finney # (Auto) 0.5 Eos # (Auto) 0.0 Baso # (Auto) 0.0 Abs Immat Gran (auto) 0.02 Absolute Neuts (auto) 4.7 Absolute Nucleated RBC 0.000 Nucleated RBC % 0.0 Sodium 145 Potassium 3.4 Chloride 109 H Carbon Dioxide 17 L Anion Gap 19 H BUN 14 Creatinine 0.53 L Estim Creat Clear Calc 44 Estimated GFR > 60 Glucose 93 POC Capillary Glucose 90 91 Calcium 8.6 Phosphorus 2.3 L Magnesium 1.7 Total Bilirubin 0.7 AST 38 H ALT 22 Alkaline Phosphatase 79 Total Protein 7.0 Albumin 4.1
[2024-03-14 12:56] LABS: Glucose Point of Care 90 mg/dl (65-105)
--- NOTE | 2024-03-14 13:07 | P.PNGS_ITS ---
Progress Note: A&P Assessment and Plan (1) Cholelithiasis: Code(s): K80.20 - Calculus of gallbladder without cholecystitis without obstruction Status: Acute Assessment and Plan: Patient admitted for possible alf placement and also found to have Influenza A. She developed an acute onset of right-sided abdominal pain after admission and has had abnormal findings of her gallbladder on imaging. CT scan showed a distended gallbladder. RUQ ultrasound showed a 1.5 cm gallstone within a distended gallbladder, but with no wall thickening to suggest acute cholecystitis. She continues to have RUQ pain and tenderness. HIDA scan ordered today and we are waiting for these results. If she has evidence of cystic duct occlusion, then we could consider proceeding with percutaneous cholecystostomy tube placement as she is a poor surgical candidate in the setting of influenza A, poor nutritional status, advanced age, and deconditioning. She is currently on IV Meropenem. Will continue to follow along. (2) RUQ abdominal pain: Code(s): R10.11 - Right upper quadrant pain Status: Acute (3) Influenza A: Code(s): J10.1 - Influenza due to other identified influenza virus with other respiratory manifestations Status: Acute Plan I have discussed the patient's case and plan of care with Dr. Sharma. Subjective Subjective Date/Time Seen: 03/14/24 13:07 Patient reports: no new complaints, still having pain and afebrile Interval history: Patient has been NPO this morning for the HIDA scan. Still having right upper quadrant abdominal pain. Her only other complaint is thirst. No acute issues overnight. White blood cell count 6200 today. Exam Const: General: no acute distress and awake Orientation/consciousness: patient oriented x3 GI: Inspection: non-distended GI Palp: Yes Soft to palpation, Yes T enderness to palpation present (GI) (RUQ), No Guarding due to palpation present (GI) and No Rebound tenderness present Auscultation: normal bowel sounds Objective Data Vital Signs Vital Signs: Vital Signs - 24 hr 03/13/24 13:52 03/13/24 20:00 03/13/24 22:00 Temperature 96.4 F L 97.9 F Pulse Rate 74 75 Respiratory Rate 16 18 Blood Pressure 165/68 H 157/62 H Pulse Oximetry 94 95 Oxygen Delivery Room Air 03/14/24 06:00 03/14/24 08:00 03/14/24 10:20 Temperature 98.3 F 97.5 F L Pulse Rate 96 74 Respiratory Rate 18 18 Blood Pressure 189/79 H 150/79 H Pulse Oximetry 95 98 Oxygen Delivery Room Air Intake/Output Intake/Output: Intake & Output 03/11/24 03/12/24 03/13/24 03/14/24 23:59 23:59 23:59 23:59 Intake Total 894 946 4237 1720.8 Balance 980 490 9664 1720.8 Meds/Results Medications: Active Medications Generic Name Dose Route Start Last Admin Trade Name Freq PRN Reason Stop Dose Admin Acetaminophen 650 mg 03/11/24 12:19 03/12/24 20:50 Acetaminophen 325 Mg Tablet PO 650 mg Q4H PRN Administration Mild Pain (1-3) or Fever Dextrose 12.5 gm 03/11/24 14:54 Dextrose 50% 25 Gm/50 Ml Syringe IV PUSH PRN PRN Hypoglycemia Protocol Glucagon 1 mg 03/11/24 14:54 Glucagon For Inj 1 Mg Vial IM PRN PRN Hypoglycemia Protocol Glucose 15 gm 03/11/24 14:54 Glucose Oral Gel 15 Gm Of Glucse In 37.5 Gm Tube PO PRN PRN Hypoglycemia Protocol Hydromorphone HCl 0.5 mg 03/13/24 02:53 03/14/24 05:19 Hydromorphone Hcl Inj (*Crx) 1 Mg/Ml Syr IV PUSH 0.5 mg Q4HR PRN Administration Pain Rated 7-10 Dextrose 1,000 mls @ 100 mls/hr 03/11/24 14:54 Dextrose 5% 1,000 Ml IVPB PRN PRN Hypoglycemia Protocol Sodium Chloride 1,000 mls @ 70 mls/hr 03/12/24 13:55 03/14/24 11:01 Normal Saline Iv IV CONT 0 mls/hr .[id number] JENY Infusion Meropenem 1 gm in 100 mls @ 200 mls/hr 03/14/24 10:30 IVPB Q8HR JENY Insulin Aspart 2 - 5 units 03/11/24 17:00 03/14/24 08:23 Insulin Aspart (*Bkc) 100 Units/Ml SUB-Q Not Given TIDWM JENY Protocol Loperamide HCl 2 mg 03/11/24 14:55 Loperamide Hcl 2 Mg Capsule PO PRN PRN Diarrhea Ondansetron HCl 4 mg 03/14/24 08:19 Ondansetron Inj 4 Mg/2 Ml Vial IV PUSH Q6H PRN Nausea And Vomiting Oseltamivir Phosphate 30 mg 03/12/24 22:00 03/13/24 21:16 Oseltamivir Phosphate 30 Mg Capsule PO 03/16/24 21:01 30 mg Q12HR JENY Administration Sertraline HCl 75 mg 03/12/24 09:00 03/13/24 09:27 Sertraline Hcl 25 Mg Tablet PO 75 mg DAILY JENY Administration Radiology Results: ITS Impressions Chest X-Ray 03/11/24 10:46 IMPRESSION: No focal infiltrate or effusion. Abdomen/Pelvis CT 03/12/24 15:16 IMPRESSION: Limited evaluation secondary to significant motion artifact. Stones within the bilateral kidneys. Distention of the gallbladder. Abdomen Ultrasound 03/13/24 13:08 IMPRESSION: 1. Small bowel gallstone within the gallbladder which is dilated with positive sonographic Beckham's sign but without evident gallbladder wall thickening which is equivocal for acute cholecystitis. Consider HIDA scan for further evaluation. 2. Several small bilateral renal cysts. Otherwise normal kidneys without hydronephrosis. ADDENDUM: 03/13/24 [id number] CORRECTION: There are couple dictation error is in the findings section. Corrected these sentences should read- There is a MOBILE 1.5 cm echogenic and shadowing gallstone at the neck of the gallbladder the initial imaging in the supine position which moves to the fundus in the decubitus position. The common bile duct measures up to 6-7 mm which remains within normal limits for age. Renal Ultrasound 03/13/24 13:08 IMPRESSION: 1. Small bowel gallstone within the gallbladder which is dilated with positive sonographic Beckham's sign but without evident gallbladder wall thickening which is equivocal for acute cholecystitis. Consider HIDA scan for further evaluation. 2. Several small bilateral renal cysts. Otherwise normal kidneys without hydronephrosis. ADDENDUM: 03/13/24 [id number] CORRECTION: There are couple dictation error is in the findings section. Corrected these sentences should read- There is a MOBILE 1.5 cm echogenic and shadowing gallstone at the neck of the gallbladder the initial imaging in the supine position which moves to the fundus in the decubitus position. The common bile duct measures up to 6-7 mm which remains within normal limits for age. Labs Labs: Laboratory Results - last 24 hr 03/13/24 03/13/24 03/14/24 16:33 22:04 08:19 WBC RBC Hgb Hct MCV MCH MCHC RDW Plt Count MPV Immature Gran % (Auto) Neut % (Auto) Lymph % (Auto) [place] % (Auto) Eos % (Auto) Baso % (Auto) Lymph # (Auto) [place] # (Auto) Eos # (Auto) Baso # (Auto) Abs Immat Gran (auto) Absolute Neuts (auto) Absolute Nucleated RBC Nucleated RBC % Sodium Potassium Chloride Carbon Dioxide Anion Gap BUN Creatinine Estim Creat Clear Calc Estimated GFR Glucose POC Capillary Glucose 98 90 91 Calcium Phosphorus Magnesium Total Bilirubin AST ALT Alkaline Phosphatase Total Protein Albumin 03/14/24 03/14/24 08:55 12:50 WBC 6.2 RBC 4.10 L Hgb 12.1 Hct 38.7 MCV 94.4 MCH 29.5 MCHC 31.3 L RDW 14.9 H Plt Count 189 MPV 11.3 H Immature Gran % (Auto) 0.3 Neut % (Auto) 75.5 H Lymph % (Auto) 15.3 L [place] % (Auto) 7.8 Eos % (Auto) 0.6 Baso % (Auto) 0.5 Lymph # (Auto) 0.95 [place] # (Auto) 0.5 Eos # (Auto) 0.0 Baso # (Auto) 0.0 Abs Immat Gran (auto) 0.02 Absolute Neuts (auto) 4.7 Absolute Nucleated RBC 0.000 Nucleated RBC % 0.0 Sodium 145 Potassium 3.4 Chloride 109 H Carbon Dioxide 17 L Anion Gap 19 H BUN 14 Creatinine 0.53 L Estim Creat Clear Calc 44 Estimated GFR > 60 Glucose 93 POC Capillary Glucose 90 Calcium 8.6 Phosphorus 2.3 L Magnesium 1.7 Total Bilirubin 0.7 AST 38 H ALT 22 Alkaline Phosphatase 79 Total Protein 7.0 Albumin 4.1
[2024-03-14] MEDS: MEROPENEM 1 GM/NS 100 ML 1 GM/100 ML BAG IVPB ×2 (13:59→20:16)
[2024-03-14 14:00] VITALS: BP 165/74; PULSE 74; RESP 18; TEMP 36.9; O2SAT 99
[2024-03-14] MEDS: OSELTAMIVIR PHOSPHATE 30 MG CAPSULE PO ×2 (14:00→20:17)
[2024-03-14] MEDS: SERTRALINE HCL 25 MG TABLET 75 MG PO (14:00)
[2024-03-14 14:18] VITALS: BMI 24.1
[2024-03-14] MEDS: POTASSIUM PHOS,M-BASIC-D-BASIC 15 MMOL in SODIUM CHLORIDE 0.9% IV 250 ML 63.75 MMOL IVPB (16:33)
[2024-03-14 17:23] LABS: Glucose Point of Care 127 mg/dl (65-105)
[2024-03-14] MEDS: LORazepam INJ (*CRX) 2 MG/ML VIAL 0.5 MG IV PUSH (17:51)
[2024-03-14 20:17] VITALS: BP 174/79; PULSE 85; RESP 18; TEMP 36.9; O2SAT 95
[2024-03-14 20:18] VITALS: BP 169/66; RESP 20
[2024-03-14 21:26] LABS: Glucose Point of Care 160 mg/dl (65-105)
[2024-03-15] VITALS (9 sets, daily range): BP systolic 144–182; BP diastolic 58–80; PULSE 79–113; RESP 18–22; TEMP 36.7–37.1; O2SAT 94–100
[2024-03-15] MEDS: MEROPENEM 1 GM/NS 100 ML 1 GM/100 ML BAG IVPB ×3 (06:00→21:26)
[2024-03-15 07:54] LABS: Glucose Point of Care 149 mg/dl (65-105)
[2024-03-15] MEDS: HYDROmorphone HCL INJ (*CRX) 1 MG/ML SYR 0.5 MG IV PUSH ×3 (08:10→21:25)
[2024-03-15] MEDS: SERTRALINE HCL 25 MG TABLET 75 MG PO (08:12)
[2024-03-15] MEDS: OSELTAMIVIR PHOSPHATE 30 MG CAPSULE PO ×2 (08:13→21:26)
--- NOTE | 2024-03-15 09:35 | PM.IMPN ---
Progress Note: A&P Assessment and Plan (1) Influenza A: Code(s): J10.1 - Influenza due to other identified influenza virus with other respiratory manifestations Status: Acute Assessment and Plan: Gradually improving, continue current treatment. (2) Weakness: Code(s): R53.1 - Weakness Status: Acute Assessment and Plan: Physical therapy and nursing placement. (3) Type 2 diabetes mellitus: Qualifiers: Diabetes mellitus fpc insulin use: without rodent exterminator use Diabetes mellitus complication status: with hyperglycemia Qualified Code(s): E11.65 - Type 2 diabetes mellitus with hyperglycemia Code(s): E11.9 - Type 2 diabetes mellitus without complications Status: Acute Assessment and Plan: Stable on current medications, will continue current treatment. (4) Cholelithiasis: Code(s): K80.20 - Calculus of gallbladder without cholecystitis without obstruction Status: Acute Assessment and Plan: Surgical consult noted. Patient is poor candidate for surgery. Continue to monitor. (5) Depression with anxiety: Code(s): F41.8 - Other specified anxiety disorders Status: Acute Assessment and Plan: Stable on current medications, will continue current treatment. (6) Essential hypertension: Code(s): I10 - Essential (primary) hypertension Status: Acute Assessment and Plan: Stable on current medications, will continue current treatment. Plan Plan is to continue current treatment. Surgical consult noted and appreciated. Physical therapy and intermediate placement. Full code. DVT prophylaxis Lovenox. Subjective Date/time seen: 03/15/24 09:35 Interval history: Patient was seen during the morning today. Mild abdominal pain. No Nausea or vomiting. No shortness of breath or chest pain. Review of Systems Review of Systems: All systems reviewed & are unremarkable except as noted in HPI and below (the history and physical exam.) Exam Const: General: cooperative and no acute distress Orientation/consciousness: oriented to person, oriented to place, oriented to time and patient oriented x3 HENMT: Head: normal to inspection Ears: hearing grossly normal bilaterally and external ears normal Face/Nose/Sinus: Normal external nose present and normal facial exam Face and sinus: normal facial exam Mouth: Yes Normal oral and palatal mucosa present Eyes: General: appearance normal, both eyes and all related structures Neck: Neck: normal visual inspection and full ROM Chest: Chest palpation & inspection: normal inspection of the chest and normal palpation of entire chest wall Resp: Effort & Inspection: normal respiratory effort Auscultation: clear to auscultation bilaterally Cardio: Jugular venous distension: no JVD Palpation: normal PMI Rate: regular rate Heart sounds: S1 normal heart sound present and S2 normal heart sound present GI: Inspection: normal to inspection GI Palp: Yes abdominal tenderness Neuro: General: oriented to person, oriented to place, oriented to time and patient oriented x3 Cranial nerves: Yes CN's II-XII intact bilaterally Speech: normal speech Gait exam (Neuro): Normal gait present Motor exam (neuro): 5/5 motor strength present throughout Sensory Exam: normal sensation Psych: Appearance: grossly normal Objective Data Vital Signs Vital Signs: Vital Signs - 24 hr 03/14/24 10:20 03/14/24 14:00 03/14/24 20:00 Temperature 36.9 C Pulse Rate 74 Respiratory Rate 18 Blood Pressure 165/74 H Pulse Oximetry 99 Oxygen Delivery Room Air Room Air 03/14/24 20:17 03/14/24 20:18 03/15/24 04:59 Temperature 36.9 C 36.7 C Pulse Rate 85 79 Respiratory Rate 18 20 20 Blood Pressure 174/79 H 169/66 H 148/63 H Pulse Oximetry 95 100 Oxygen Delivery 03/15/24 08:44 Temperature Pulse Rate Respiratory Rate Blood Pressure Pulse Oximetry 94 Oxygen Delivery Room Air Intake/Output Intake/Output: Intake & Output 03/12/24 03/13/24 03/14/24 03/15/24 23:59 23:59 23:59 23:59 Intake Total 240 1724 2476.0 550 Balance 240 1724 2476.0 550 Meds/Results Medications: Active Medications Generic Name Dose Route Start Last Admin Trade Name Freq PRN Reason Stop Dose Admin Acetaminophen 650 mg 03/11/24 12:19 03/12/24 20:50 Acetaminophen 325 Mg Tablet PO 650 mg Q4H PRN Administration Mild Pain (1-3) or Fever Dextrose 12.5 gm 03/11/24 14:54 Dextrose 50% 25 Gm/50 Ml Syringe IV PUSH PRN PRN Hypoglycemia Protocol Enoxaparin Sodium 40 mg 03/16/24 09:00 Enoxaparin 40 Mg/0.4 Ml Syringe SUB-Q DAILY JENY Glucagon 1 mg 03/11/24 14:54 Glucagon For Inj 1 Mg Vial IM PRN PRN Hypoglycemia Protocol Glucose 15 gm 03/11/24 14:54 Glucose Oral Gel 15 Gm Of Glucse In 37.5 Gm Tube PO PRN PRN Hypoglycemia Protocol Hydromorphone HCl 0.5 mg 03/14/24 17:29 03/15/24 08:10 Hydromorphone Hcl Inj (*Crx) 1 Mg/Ml Syr IV PUSH 0.5 mg Q3H PRN Administration Pain Rated 7-10 Dextrose 1,000 mls @ 100 mls/hr 03/11/24 14:54 Dextrose 5% 1,000 Ml IVPB PRN PRN Hypoglycemia Protocol Sodium Chloride 1,000 mls @ 70 mls/hr 03/12/24 13:55 03/14/24 20:18 Normal Saline Iv IV CONT 70 mls/hr .[id number] JENY Administration Meropenem 1 gm in 100 mls @ 200 mls/hr 03/14/24 14:00 03/15/24 06:00 IVPB 200 mls/hr Q8HR JENY Administration Insulin Aspart 2 - 5 units 03/11/24 17:00 03/15/24 08:13 Insulin Aspart (*Bkc) 100 Units/Ml SUB-Q Not Given TIDWM [facility] Protocol Loperamide HCl 2 mg 03/11/24 14:55 Loperamide Hcl 2 Mg Capsule PO PRN PRN Diarrhea Lorazepam 0.5 mg 03/14/24 17:30 03/14/24 17:51 Lorazepam Inj (*Crx) 2 Mg/Ml Vial IV PUSH 0.5 mg Q12H PRN Administration Anxiety Ondansetron HCl 4 mg 03/14/24 08:19 Ondansetron Inj 4 Mg/2 Ml Vial IV PUSH Q6H PRN Nausea And Vomiting Oseltamivir Phosphate 30 mg 03/12/24 22:00 03/15/24 08:13 Oseltamivir Phosphate 30 Mg Capsule PO 03/16/24 21:01 30 mg Q12HR JENY Administration Sertraline HCl 75 mg 03/12/24 09:00 03/15/24 08:12 Sertraline Hcl 25 Mg Tablet PO 75 mg DAILY JENY Administration Radiology Results: ITS Impressions Chest X-Ray 03/11/24 10:46 IMPRESSION: No focal infiltrate or effusion. Abdomen/Pelvis CT 03/12/24 15:16 IMPRESSION: Limited evaluation secondary to significant motion artifact. Stones within the bilateral kidneys. Distention of the gallbladder. Abdomen Ultrasound 03/13/24 13:08 IMPRESSION: 1. Small bowel gallstone within the gallbladder which is dilated with positive sonographic Beckham's sign but without evident gallbladder wall thickening which is equivocal for acute cholecystitis. Consider HIDA scan for further evaluation. 2. Several small bilateral renal cysts. Otherwise normal kidneys without hydronephrosis. ADDENDUM: 03/13/24 6003 CORRECTION: There are couple dictation error is in the findings section. Corrected these sentences should read- There is a MOBILE 1.5 cm echogenic and shadowing gallstone at the neck of the gallbladder the initial imaging in the supine position which moves to the fundus in the decubitus position. The common bile duct measures up to 6-7 mm which remains within normal limits for age. Renal Ultrasound 03/13/24 13:08 IMPRESSION: 1. Small bowel gallstone within the gallbladder which is dilated with positive sonographic Beckham's sign but without evident gallbladder wall thickening which is equivocal for acute cholecystitis. Consider HIDA scan for further evaluation. 2. Several small bilateral renal cysts. Otherwise normal kidneys without hydronephrosis. ADDENDUM: 03/13/24 [id number] CORRECTION: There are couple dictation error is in the findings section. Corrected these sentences should read- There is a MOBILE 1.5 cm echogenic and shadowing gallstone at the neck of the gallbladder the initial imaging in the supine position which moves to the fundus in the decubitus position. The common bile duct measures up to 6-7 mm which remains within normal limits for age. Hepatobiliary Scan Nuclear Medicine 03/14/24 12:08 IMPRESSION: 1. Atypical transient greater than expected accumulation of activity in the region of the ming hepatis during the initial hour of the study which subsequently all passes into the bowel. Appearance suggests a possible partial versus transient biliary obstruction which could be related to a stone or potentially spasm at the sphincter related to patient's morphine use which was discontinued during the examination. 2. Patent cystic duct with transient accumulation of activity in the gallbladder. Labs Labs: Laboratory Results - last 24 hr 03/14/24 03/14/24 03/14/24 08:55 12:50 17:20 Sodium 145 Potassium 3.4 Chloride 109 H Carbon Dioxide 17 L Anion Gap 19 H BUN 14 Creatinine 0.53 L Estim Creat Clear Calc 44 Estimated GFR > 60 Glucose 93 POC Capillary Glucose 90 127 H Calcium 8.6 Phosphorus 2.3 L Magnesium 1.7 Total Bilirubin 0.7 AST 38 H ALT 22 Alkaline Phosphatase 79 Total Protein 7.0 Albumin 4.1 03/14/24 03/15/24 20:22 07:45 Sodium Potassium Chloride Carbon Dioxide Anion Gap BUN Creatinine Estim Creat Clear Calc Estimated GFR Glucose POC Capillary Glucose 160 H 149 H Calcium Phosphorus Magnesium Total Bilirubin AST ALT Alkaline Phosphatase Total Protein Albumin
[2024-03-15 11:53] LABS: Glucose Point of Care 181 mg/dl (65-105)
[2024-03-15] MEDS: LORazepam INJ (*CRX) 2 MG/ML VIAL 0.5 MG IV PUSH (12:21)
[2024-03-15] MEDS: SODIUM CHLORIDE 0.9% IV 1,000 ML 70 ML IV CONT (14:56)
--- NOTE | 2024-03-15 15:33 | PCPTNOTE ---
The patient treatment was not able to be completed due to pain. Patient attempted participation with OT prior to PT and had increased pain with activity. Patient receiving X-rays at bedside and unable to participate in PT. Will plan to continue treatment per plan of care.
[2024-03-15 16:42] LABS: Glucose Point of Care 168 mg/dl (65-105)
[2024-03-15] MEDS: ACETAMINOPHEN 325 MG TABLET 650 MG PO (21:26)
[2024-03-15 22:21] LABS: Glucose Point of Care 212 mg/dl (65-105)
--- NOTE | 2024-03-15 22:39 | WPDPN ---
Progress Note: A&P Assessment and Plan (1) Cholelithiasis: Code(s): K80.20 - Calculus of gallbladder without cholecystitis without obstruction Status: Acute Assessment and Plan: Patient is noted to have abnormal gallbladder imaging was gallstones and a dilated gallbladder on CT scan. She had a HIDA scan performed which showed a patent cystic duct so she does not appear to have acute cholecystitis. On exam if you distract the patient palpation the right upper quadrant elicits very minimal if any tenderness. Today I press very deeply and the right upper quadrant without any complaints of pain. Again I had discussion the patient's daughter at the bedside today. I think the patient does not need to have any surgical management as I do not think the gallbladder is contributing to harm her complaints of pain. On physical examination the when the patient is distracted her abdomen is very benign by exam. I do not think the patient needs to have a cholecystostomy tube or a cholecystectomy. Advance diet as tolerated. Disposition as per hospitalist service. Subjective Date/time seen: 03/15/24 22:39 Interval history: Patient was calm and sleeping when I entered the room. Her daughter was at the bedside. She did awaken easily. Most of her complaints today were regarding right knee pain in right shoulder pain. She was then complaining of too much abdominal pain. She did eat small amounts without any vomiting or nausea. She was given some Ativan last night and this morning seems to be much less agitated. Exam GI: Other: The patient complains of having tenderness throughout the abdomen with a fairly palpating but if he distractor deep palpation in the right upper quadrant elicits no specific tenderness or rebound or guarding. Objective Data Vital Signs Vital Signs: Vital Signs - 24 hr 03/15/24 04:59 03/15/24 08:00 03/15/24 08:10 Temperature 36.7 C 37.0 C Pulse Rate 79 80 Respiratory Rate 20 18 Blood Pressure 148/63 H 152/59 H Pulse Oximetry 100 97 Oxygen Delivery Room Air 03/15/24 08:44 03/15/24 14:00 Temperature 37.1 C Pulse Rate 104 H Respiratory Rate 20 Blood Pressure 164/58 H Pulse Oximetry 94 99 Oxygen Delivery Room Air Intake/Output Intake/Output: Intake & Output 03/12/24 03/13/24 03/14/24 03/15/24 23:59 23:59 23:59 23:59 Intake Total 240 1724 2476.0 2210 Output Total 900 Balance 240 1724 2476.0 1310 Meds/Results Medications: Active Medications Generic Name Dose Route Start Last Admin Trade Name Freq PRN Reason Stop Dose Admin Acetaminophen 650 mg 03/11/24 12:19 03/15/24 21:26 Acetaminophen 325 Mg Tablet PO 650 mg Q4H PRN Administration Mild Pain (1-3) or Fever Dextrose 12.5 gm 03/11/24 14:54 Dextrose 50% 25 Gm/50 Ml Syringe IV PUSH PRN PRN Hypoglycemia Protocol Enoxaparin Sodium 40 mg 03/16/24 09:00 Enoxaparin 40 Mg/0.4 Ml Syringe SUB-Q DAILY JENY Glucagon 1 mg 03/11/24 14:54 Glucagon For Inj 1 Mg Vial IM PRN PRN Hypoglycemia Protocol Glucose 15 gm 03/11/24 14:54 Glucose Oral Gel 15 Gm Of Glucse In 37.5 Gm Tube PO PRN PRN Hypoglycemia Protocol Hydromorphone HCl 0.5 mg 03/14/24 17:29 03/15/24 21:25 Hydromorphone Hcl Inj (*Crx) 1 Mg/Ml Syr IV PUSH 0.5 mg Q3H PRN Administration Pain Rated 7-10 Dextrose 1,000 mls @ 100 mls/hr 03/11/24 14:54 Dextrose 5% 1,000 Ml IVPB PRN PRN Hypoglycemia Protocol Sodium Chloride 1,000 mls @ 70 mls/hr 03/12/24 13:55 03/15/24 14:56 Normal Saline Iv IV CONT 70 mls/hr .[id number] JENY Administration Meropenem 1 gm in 100 mls @ 200 mls/hr 03/14/24 14:00 03/15/24 21:26 IVPB 200 mls/hr Q8HR JENY Administration Insulin Aspart 2 - 5 units 03/11/24 17:00 03/15/24 16:47 Insulin Aspart (*Bkc) 100 Units/Ml SUB-Q Not Given TIDWM [facility] Protocol Loperamide HCl 2 mg 03/11/24 14:55 Loperamide Hcl 2 Mg Capsule PO PRN PRN Diarrhea Lorazepam 0.5 mg 03/14/24 17:30 03/15/24 12:21 Lorazepam Inj (*Crx) 2 Mg/Ml Vial IV PUSH 0.5 mg Q12H PRN Administration Anxiety Ondansetron HCl 4 mg 03/14/24 08:19 Ondansetron Inj 4 Mg/2 Ml Vial IV PUSH Q6H PRN Nausea And Vomiting Oseltamivir Phosphate 30 mg 03/12/24 22:00 03/15/24 21:26 Oseltamivir Phosphate 30 Mg Capsule PO 03/16/24 21:01 30 mg Q12HR JENY Administration Sertraline HCl 75 mg 03/12/24 09:00 03/15/24 08:12 Sertraline Hcl 25 Mg Tablet PO 75 mg DAILY JENY Administration Radiology Results: ITS Impressions Chest X-Ray 03/11/24 10:46 IMPRESSION: No focal infiltrate or effusion. Abdomen/Pelvis CT 03/12/24 15:16 IMPRESSION: Limited evaluation secondary to significant motion artifact. Stones within the bilateral kidneys. Distention of the gallbladder. Abdomen Ultrasound 03/13/24 13:08 IMPRESSION: 1. Small bowel gallstone within the gallbladder which is dilated with positive sonographic Beckham's sign but without evident gallbladder wall thickening which is equivocal for acute cholecystitis. Consider HIDA scan for further evaluation. 2. Several small bilateral renal cysts. Otherwise normal kidneys without hydronephrosis. ADDENDUM: 03/13/24 0401 CORRECTION: There are couple dictation error is in the findings section. Corrected these sentences should read- There is a MOBILE 1.5 cm echogenic and shadowing gallstone at the neck of the gallbladder the initial imaging in the supine position which moves to the fundus in the decubitus position. The common bile duct measures up to 6-7 mm which remains within normal limits for age. Renal Ultrasound 03/13/24 13:08 IMPRESSION: 1. Small bowel gallstone within the gallbladder which is dilated with positive sonographic Beckham's sign but without evident gallbladder wall thickening which is equivocal for acute cholecystitis. Consider HIDA scan for further evaluation. 2. Several small bilateral renal cysts. Otherwise normal kidneys without hydronephrosis. ADDENDUM: 03/13/24 [id number] CORRECTION: There are couple dictation error is in the findings section. Corrected these sentences should read- There is a MOBILE 1.5 cm echogenic and shadowing gallstone at the neck of the gallbladder the initial imaging in the supine position which moves to the fundus in the decubitus position. The common bile duct measures up to 6-7 mm which remains within normal limits for age. Hepatobiliary Scan Nuclear Medicine 03/14/24 12:08 IMPRESSION: 1. Atypical transient greater than expected accumulation of activity in the region of the ming hepatis during the initial hour of the study which subsequently all passes into the bowel. Appearance suggests a possible partial versus transient biliary obstruction which could be related to a stone or potentially spasm at the sphincter related to patient's morphine use which was discontinued during the examination. 2. Patent cystic duct with transient accumulation of activity in the gallbladder. Knee X-Ray 03/15/24 15:49 IMPRESSION: 1. Moderate right knee osteoarthritis. Labs Labs: Laboratory Results - last 24 hr 03/15/24 03/15/24 03/15/24 07:45 11:44 16:39 POC Capillary Glucose 149 H 181 H 168 H 03/15/24 20:47 POC Capillary Glucose 212 H
[2024-03-16] MEDS: MEROPENEM 1 GM/NS 100 ML 1 GM/100 ML BAG IVPB ×3 (05:36→21:56)
[2024-03-16] MEDS: SODIUM CHLORIDE 0.9% IV 1,000 ML 70 ML IV CONT ×2 (05:36→18:41)
[2024-03-16 06:28] VITALS: BP 159/71; PULSE 82; RESP 16; TEMP 37.4; O2SAT 97
[2024-03-16] MEDS: ACETAMINOPHEN 325 MG TABLET 650 MG PO (06:55)
[2024-03-16 08:24] LABS: Glucose Point of Care 164 mg/dl (65-105)
--- NOTE | 2024-03-16 08:49 | P.PNIM_ITS ---
Progress Note: A&P Assessment and Plan (1) Influenza A: Code(s): J10.1 - Influenza due to other identified influenza virus with other respiratory manifestations Status: Acute Assessment and Plan: Gradually improving, continue current treatment. (2) Weakness: Code(s): R53.1 - Weakness Status: Acute Assessment and Plan: Physical therapy and nursing placement. 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 (4) Cholelithiasis: Code(s): K80.20 - Calculus of gallbladder without cholecystitis without obstruction Status: Acute Assessment and Plan: Surgical consult noted. Patient is poor candidate for surgery. Continue to monitor. (5) Depression with anxiety: Code(s): F41.8 - Other specified anxiety disorders Status: Acute Assessment and Plan: Stable on current medications, will continue current treatment. (6) Essential hypertension: Code(s): I10 - Essential (primary) hypertension Status: Acute Assessment and Plan: Stable on current medications, will continue current treatment. Plan Abdomen pain Patient had several episodes of severe abdomen pain CT scan showed distended gallbladder and kidney stone without hydronephrosis Order abdominal ultrasound and renal ultrasound: 1.5 cm echogenic and shadowing gallstone at the neck of the gallbladder, no gallstones or hydronephrosis Consult general surgeon for evaluation and treatment General surgeon considers percutaneous cholecystectomy tube placement if she is found to have a cystic duct obstruction HIDA scan performed which showed a patent cystic duct so she does not appear to have acute cholecystitis Appreciate general surgeon consultation, follow recommendations General surgeon does not think the patient needs to have a cholecystostomy tube or a cholecystectomy. Advance diet as tolerated. f/u CBC CMP Now patient does not have abdomen pain Suspecting acute cholecystitis ON meropenem 1 g q.8 hours IV Hypokalemia Potassium chloride 2.8 Repeated potassium chloride 40 mg b.i.d. p.o. Follow-up BMP General Weakness: Code(s): R53.1 - Weakness Status: Acute Assessment and Plan: Physical deconditioning due to aging and multiple comorbidities, exaggerated by flu infection Patient has general weakness PT/ OT pt may benefit from AR if remains very weak Acute gastroenteritis Likely resulting from viral infection pt having diarrhea and nausea continue to hydrate order stool culture pending Influenza a infection Chest x-ray shows no acute infiltrate or effusion Start Tamiflu p.o. Severe malnutrition Consult dietitian provide ensure per dietitian Type 2 diabetes mellitus without complications: Qualifiers: Diabetes mellitus senior living insulin use: without termite control service representative use Qualified Code(s): E11.9 - Type 2 diabetes mellitus without complications Code(s): E11.9 - Type 2 diabetes mellitus without complications Status: Acute Assessment and Plan: accuchecks SSI Essential hypertension: Code(s): I10 - Essential (primary) hypertension Status: Acute Assessment and Plan: watch bp in hospital continue bp meds accirdingly Depression: Code(s): F32.9 - Major depressive disorder, single episode, unspecified Status: Acute Assessment and Plan: continue antidepressants add trazadone (6) Dysphagia: Code(s): R13.10 - Dysphagia, unspecified Status: Acute Assessment and Plan: add PPI Speech eval recommend regular diet Waiting for placement to SNF Subjective Date/time seen: 03/16/24 08:49 Interval history: Patient denies abdomen pain, nausea vomiting. Patient has chronic right shoulder pain. Patient also denies new focal weakness, abnormal sensation Exam Narrative: GENERAL: Ill-appearing in no acute distress. Severe nutrition - EYES: EOMI. Anicteric. - HENT: Moist mucous membranes. - LUNGS: Clear to auscultation bilateral ly, no wheezing, rhonchi, or rales. - CARDIOVASCULAR: Regular rate and rhyth m. No murmur. No JVD. - ABDOMEN: Soft, no tender and non-diste nded. No palpable masses. - EXTREMITIES: No edema. Peripheral puls es 2+. Non-tender. - NEUROLOGIC: No focal neurological defi cits. CN II-XII grossly intact. General weakness - PSYCHIATRIC: Awake, Alert and oriented x 3. Appropriate mood and affect. - SKIN: No rashes or lesions. Warm. - LYMPH: No cervical lymphadenopathy. Objective Data Vital Signs Vital Signs: Vital Signs - 24 hr 03/15/24 14:00 03/15/24 20:00 03/15/24 21:00 Temperature 98.8 F 98.1 F Pulse Rate 104 H 98 113 H Respiratory Rate 20 22 H 22 H Blood Pressure 164/58 H 175/80 H Pulse Oximetry 99 94 96 Oxygen Delivery Room Air 03/15/24 21:00 03/15/24 21:01 03/15/24 22:45 Temperature 98.1 F Pulse Rate 113 H 98 Respiratory Rate 22 H 22 H Blood Pressure 175/80 H 182/79 H 166/76 H Pulse Oximetry 96 94 Oxygen Delivery 03/15/24 23:00 03/16/24 06:28 Temperature 99.4 F Pulse Rate 82 Respiratory Rate 16 Blood Pressure 144/66 H 159/71 H Pulse Oximetry 97 Oxygen Delivery Intake/Output Intake/Output: Intake & Output 03/13/24 03/14/24 03/15/24 03/16/24 23:59 23:59 23:59 23:59 Intake Total 1724 2476.0 2310 1550 Output Total 900 375 Balance 1724 2476.0 1410 1175 Meds/Results Medications: Active Medications Generic Name Dose Route Start Last Admin Trade Name Freq PRN Reason Stop Dose Admin Acetaminophen 650 mg 03/11/24 12:19 03/16/24 06:55 Acetaminophen 325 Mg Tablet PO 650 mg Q4H PRN Administration Mild Pain (1-3) or Fever Dextrose 12.5 gm 03/11/24 14:54 Dextrose 50% 25 Gm/50 Ml Syringe IV PUSH PRN PRN Hypoglycemia Protocol Enoxaparin Sodium 40 mg 03/16/24 09:00 Enoxaparin 40 Mg/0.4 Ml Syringe SUB-Q DAILY JENY Glucagon 1 mg 03/11/24 14:54 Glucagon For Inj 1 Mg Vial IM PRN PRN Hypoglycemia Protocol Glucose 15 gm 03/11/24 14:54 Glucose Oral Gel 15 Gm Of Glucse In 37.5 Gm Tube PO PRN PRN Hypoglycemia Protocol Hydromorphone HCl 0.5 mg 03/14/24 17:29 03/15/24 21:25 Hydromorphone Hcl Inj (*Crx) 1 Mg/Ml Syr IV PUSH 0.5 mg Q3H PRN Administration Pain Rated 7-10 Dextrose 1,000 mls @ 100 mls/hr 03/11/24 14:54 Dextrose 5% 1,000 Ml IVPB PRN PRN Hypoglycemia Protocol Sodium Chloride 1,000 mls @ 70 mls/hr 03/12/24 13:55 03/16/24 05:36 Normal Saline Iv IV CONT 70 mls/hr .[id number] JENY Administration Meropenem 1 gm in 100 mls @ 200 mls/hr 03/14/24 14:00 03/16/24 05:36 IVPB 200 mls/hr Q8HR JENY Administration Insulin Aspart 2 - 5 units 03/11/24 17:00 03/15/24 16:47 Insulin Aspart (*Bkc) 100 Units/Ml SUB-Q Not Given TIDWM [facility] Protocol Loperamide HCl 2 mg 03/11/24 14:55 Loperamide Hcl 2 Mg Capsule PO PRN PRN Diarrhea Lorazepam 0.5 mg 03/14/24 17:30 03/15/24 12:21 Lorazepam Inj (*Crx) 2 Mg/Ml Vial IV PUSH 0.5 mg Q12H PRN Administration Anxiety Ondansetron HCl 4 mg 03/14/24 08:19 Ondansetron Inj 4 Mg/2 Ml Vial IV PUSH Q6H PRN Nausea And Vomiting Oseltamivir Phosphate 30 mg 03/12/24 22:00 03/15/24 21:26 Oseltamivir Phosphate 30 Mg Capsule PO 03/16/24 21:01 30 mg Q12HR JENY Administration Sertraline HCl 75 mg 03/12/24 09:00 03/15/24 08:12 Sertraline Hcl 25 Mg Tablet PO 75 mg DAILY JENY Administration Radiology Results: ITS Impressions Chest X-Ray 03/11/24 10:46 IMPRESSION: No focal infiltrate or effusion. Abdomen/Pelvis CT 03/12/24 15:16 IMPRESSION: Limited evaluation secondary to significant motion artifact. Stones within the bilateral kidneys. Distention of the gallbladder. Abdomen Ultrasound 03/13/24 13:08 IMPRESSION: 1. Small bowel gallstone within the gallbladder which is dilated with positive sonographic Beckham's sign but without evident gallbladder wall thickening which is equivocal for acute cholecystitis. Consider HIDA scan for further evaluation. 2. Several small bilateral renal cysts. Otherwise normal kidneys without hydronephrosis. ADDENDUM: 03/13/24 [id number] CORRECTION: There are couple dictation error is in the findings section. Corrected these sentences should read- There is a MOBILE 1.5 cm echogenic and shadowing gallstone at the neck of the gallbladder the initial imaging in the supine position which moves to the fundus in the decubitus position. The common bile duct measures up to 6-7 mm which remains within normal limits for age. Renal Ultrasound 03/13/24 13:08 IMPRESSION: 1. Small bowel gallstone within the gallbladder which is dilated with positive sonographic Beckham's sign but without evident gallbladder wall thickening which is equivocal for acute cholecystitis. Consider HIDA scan for further evaluation. 2. Several small bilateral renal cysts. Otherwise normal kidneys without hydronephrosis. ADDENDUM: 03/13/24 [id number] CORRECTION: There are couple dictation error is in the findings section. Corrected these sentences should read- There is a MOBILE 1.5 cm echogenic and shadowing gallstone at the neck of the gallbladder the initial imaging in the supine position which moves to the fundus in the decubitus position. The common bile duct measures up to 6-7 mm which remains within normal limits for age. Hepatobiliary Scan Nuclear Medicine 03/14/24 12:08 IMPRESSION: 1. Atypical transient greater than expected accumulation of activity in the region of the ming hepatis during the initial hour of the study which subsequently all passes into the bowel. Appearance suggests a possible partial versus transient biliary obstruction which could be related to a stone or potentially spasm at the sphincter related to patient's morphine use which was discontinued during the examination. 2. Patent cystic duct with transient accumulation of activity in the gallbladder. Knee X-Ray 03/15/24 15:49 IMPRESSION: 1. Moderate right knee osteoarthritis. Labs Labs: Laboratory Results - last 24 hr 03/15/24 03/15/24 03/15/24 11:44 16:39 20:47 POC Capillary Glucose 181 H 168 H 212 H 03/16/24 08:19 POC Capillary Glucose 164 H
[2024-03-16 09:07] LABS: Hematocrit 33.9 % (37.0-47.0); Mean Corpuscular HGB Conc 32.4 g/dl (32-36); Mean Corpuscular Hemoglobin 29.6 pg (26-34); Mean Corpuscular Volume 91.1 fl (80-100); Mean Platelet Volume 11.7 fl (7.4-10.4); Platelet Count Result 141 k/mm3 (150-375); Red Blood Count 3.72 M/mm3 (4.2-5.4); Red Cell Distribution Width 15.1 % (11.5-14.5); White Blood Count 7.7 K/mm3 (4.5-10.0)
[2024-03-16 09:21] LABS: Alanine Aminotransferase 16 U/L (6-35); Albumin Level 3.3 g/dL (3.5-5.1); Alkaline Phosphatase 63 U/L (38-126); Anion Gap 11 mmol/L (4-12); Aspartate Amino Transferase 21 U/L (14-36); Bilirubin,Total 1.3 mg/dL (0.2-1.3); Blood Urea Nitrogen 10 mg/dL (7-17); Calcium 8.1 mg/dL (8.4-10.2); Carbon Dioxide 19 mmol/L (22-30); Chloride 109 mmol/L (98-107); Estimated CRCL calculation 52 ml/min; Estimated Glomerular Filt Rate > 60; Glucose 239 mg/dL (65-110); Potassium 2.8 mmol/L (3.4-5.0); Sodium 139 mmol/L (137-145)
[2024-03-16] MEDS: SERTRALINE HCL 25 MG TABLET 75 MG PO (10:26)
[2024-03-16] MEDS: OSELTAMIVIR PHOSPHATE 30 MG CAPSULE PO ×2 (10:26→21:56)
[2024-03-16] MEDS: ENOXAPARIN 40 MG/0.4 ML SYRINGE SUB-Q (10:27)
[2024-03-16] MEDS: POTASSIUM CHLORIDE 20 MEQ PACKET (FOR LIQUID) 40 MEQ PO ×2 (10:33→18:40)
[2024-03-16] MEDS: HYDROmorphone HCL INJ (*CRX) 1 MG/ML SYR 0.5 MG IV PUSH (10:34)
[2024-03-16 12:03] LABS: Glucose Point of Care 315 mg/dl (65-105)
[2024-03-16] MEDS: INSULIN ASPART (*BKC) 100 UNITS/ML SUB-Q (12:26)
[2024-03-16] MEDS: GABAPENTIN 300 MG CAPSULE PO (12:27)
[2024-03-16 15:11] VITALS: BP 140/66; PULSE 100; RESP 18; TEMP 36.9; O2SAT 98
[2024-03-16 15:16] VITALS: BP 157/74; PULSE 105; RESP 20; TEMP 37.1; O2SAT 98
[2024-03-16 15:20] VITALS: BP 129/73; PULSE 112; RESP 22; TEMP 37.1; O2SAT 98
[2024-03-16 16:51] LABS: Glucose Point of Care 150 mg/dl (65-105)
[2024-03-16] MEDS: oxyCODONE HCL (*CRX) 5 MG TAB IR PO (18:40)
[2024-03-16 20:21] VITALS: BP 130/69; PULSE 105; RESP 16; TEMP 36.6; O2SAT 97
[2024-03-16 21:33] LABS: Glucose Point of Care 193 mg/dl (65-105)
[2024-03-17 04:29] VITALS: BP 179/98; PULSE 99; RESP 18; TEMP 36.7; O2SAT 99
[2024-03-17] MEDS: oxyCODONE HCL (*CRX) 5 MG TAB IR PO ×2 (04:42→18:42)
[2024-03-17] MEDS: MEROPENEM 1 GM/NS 100 ML 1 GM/100 ML BAG IVPB ×3 (05:00→20:51)
[2024-03-17 08:03] LABS: Glucose Point of Care 166 mg/dl (65-105)
[2024-03-17] MEDS: SERTRALINE HCL 25 MG TABLET 75 MG PO (09:13)
[2024-03-17] MEDS: ENOXAPARIN 40 MG/0.4 ML SYRINGE SUB-Q (09:14)
[2024-03-17] MEDS: GABAPENTIN 300 MG CAPSULE PO (09:14)
[2024-03-17] MEDS: POTASSIUM CHLORIDE 20 MEQ PACKET (FOR LIQUID) 40 MEQ PO ×2 (09:14→17:42)
[2024-03-17] MEDS: SODIUM CHLORIDE 0.9% IV 1,000 ML 70 ML IV CONT (09:29)
--- NOTE | 2024-03-17 10:32 | PM.IMPN ---
Progress Note: A&P Assessment and Plan (1) Influenza A: Code(s): J10.1 - Influenza due to other identified influenza virus with other respiratory manifestations Status: Acute Assessment and Plan: Gradually improving, continue current treatment. (2) Weakness: Code(s): R53.1 - Weakness Status: Acute Assessment and Plan: Physical therapy and nursing placement. 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 (4) Cholelithiasis: Code(s): K80.20 - Calculus of gallbladder without cholecystitis without obstruction Status: Acute Assessment and Plan: Surgical consult noted. Patient is poor candidate for surgery. Continue to monitor. (5) Depression with anxiety: Code(s): F41.8 - Other specified anxiety disorders Status: Acute Assessment and Plan: Stable on current medications, will continue current treatment. (6) Essential hypertension: Code(s): I10 - Essential (primary) hypertension Status: Acute Assessment and Plan: Stable on current medications, will continue current treatment. Plan Abdomen pain Patient had several episodes of severe abdomen pain CT scan showed distended gallbladder and kidney stone without hydronephrosis Order abdominal ultrasound and renal ultrasound: 1.5 cm echogenic and shadowing gallstone at the neck of the gallbladder, no gallstones or hydronephrosis Consult general surgeon for evaluation and treatment General surgeon considers percutaneous cholecystectomy tube placement if she is found to have a cystic duct obstruction HIDA scan performed which showed a patent cystic duct so she does not appear to have acute cholecystitis Appreciate general surgeon consultation, follow recommendations General surgeon does not think the patient needs to have a cholecystostomy tube or a cholecystectomy. Advance diet as tolerated. f/u CBC CMP Now patient does not have abdomen pain Suspecting acute cholecystitis On meropenem 1 g q.8 hours IV Hypokalemia Potassium chloride 2.8 Repeated potassium chloride 40 mg b.i.d. p.o. Follow-up BMP General Weakness: Code(s): R53.1 - Weakness Status: Acute Assessment and Plan: Physical deconditioning due to aging and multiple comorbidities, exaggerated by flu infection Patient has general weakness PT/ OT pt may benefit from AR if remains very weak Acute gastroenteritis Likely resulting from viral infection pt having diarrhea and nausea continue to hydrate order stool culture pending Influenza a infection Chest x-ray shows no acute infiltrate or effusion Start Tamiflu p.o. 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 Qualified Code(s): E11.9 - Type 2 diabetes mellitus without complications Code(s): E11.9 - Type 2 diabetes mellitus without complications Status: Acute Assessment and Plan: accuchecks SSI Essential hypertension: Code(s): I10 - Essential (primary) hypertension Status: Acute Assessment and Plan: watch bp in hospital continue bp meds accirdingly Depression: Code(s): F32.9 - Major depressive disorder, single episode, unspecified Status: Acute Assessment and Plan: continue antidepressants add trazadone (6) Dysphagia: Code(s): R13.10 - Dysphagia, unspecified Status: Acute Assessment and Plan: add PPI Speech eval recommend regular diet Waiting for placement to SNF Subjective Date/time seen: 03/17/24 10:32 Interval history: Patient has no new issue or event overnight. Patient denies abdomen pain, nausea vomiting. Patient has chronic right shoulder pain. Patient also denies new focal weakness, abnormal sensation Exam Narrative: GENERAL: Ill-appearing in no acute distress. Severe nutrition - EYES: EOMI. Anicteric. - HENT: Moist mucous membranes. - LUNGS: Clear to auscultation bilaterally, no wheezing, rhonchi, or rales. - CARDIOVASCULAR: Regular rate and rhythm. No murmur. No JVD. - ABDOMEN: Soft, no tender and non-distended. No palpable masses. - EXTREMITIES: No edema. Peripheral pulses 2+. Non-tender. - NEUROLOGIC: No focal neurological deficits. CN II-XII grossly intact. General weakness - PSYCHIATRIC: Awake, Alert and oriented x 3. Appropriate mood and affect. - SKIN: No rashes or lesions. Warm. - LYMPH: No cervical lymphadenopathy. Objective Data Vital Signs Vital Signs: Vital Signs - 24 hr 03/16/24 15:11 03/16/24 15:11 03/16/24 15:16 Temperature 98.5 F 98.5 F 98.7 F Pulse Rate 100 100 105 H Respiratory Rate 18 18 20 Blood Pressure 140/66 140/66 157/74 H Pulse Oximetry 98 98 98 Oxygen Delivery 03/16/24 15:20 03/16/24 20:00 03/16/24 20:21 Temperature 98.8 F 97.9 F Pulse Rate 112 H 105 H Respiratory Rate 22 H 16 Blood Pressure 129/73 130/69 Pulse Oximetry 98 97 Oxygen Delivery Room Air 03/17/24 04:29 Temperature 98.1 F Pulse Rate 99 Respiratory Rate 18 Blood Pressure 179/98 H Pulse Oximetry 99 Oxygen Delivery Intake/Output Intake/Output: Intake & Output 03/14/24 03/15/24 03/16/24 03/17/24 23:59 23:59 23:59 23:59 Intake Total 2476.0 2310 3425.8 1940 Output Total 900 575 400 Balance 2476.0 1410 2850.8 1540 Meds/Results Medications: Active Medications Generic Name Dose Route Start Last Admin Trade Name Freq PRN Reason Stop Dose Admin Acetaminophen 650 mg 03/11/24 12:19 03/16/24 06:55 Acetaminophen 325 Mg Tablet PO 650 mg Q4H PRN Administration Mild Pain (1-3) or Fever Dextrose 12.5 gm 03/11/24 14:54 Dextrose 50% 25 Gm/50 Ml Syringe IV PUSH PRN PRN Hypoglycemia Protocol Enoxaparin Sodium 40 mg 03/16/24 09:00 03/17/24 09:14 Enoxaparin 40 Mg/0.4 Ml Syringe SUB-Q 40 mg DAILY JENY Administration Gabapentin 300 mg 03/16/24 11:10 03/17/24 09:14 Gabapentin 300 Mg Capsule PO 300 mg DAILY JENY Administration Glucagon 1 mg 03/11/24 14:54 Glucagon For Inj 1 Mg Vial IM PRN PRN Hypoglycemia Protocol Glucose 15 gm 03/11/24 14:54 Glucose Oral Gel 15 Gm Of Glucse In 37.5 Gm Tube PO PRN PRN Hypoglycemia Protocol Dextrose 1,000 mls @ 100 mls/hr 03/11/24 14:54 Dextrose 5% 1,000 Ml IVPB PRN PRN Hypoglycemia Protocol Sodium Chloride 1,000 mls @ 70 mls/hr 03/12/24 13:55 03/17/24 09:29 Normal Saline Iv IV CONT 70 mls/hr .[id number] JENY Administration Meropenem 1 gm in 100 mls @ 200 mls/hr 03/14/24 14:00 03/17/24 05:30 IVPB Infused Q8HR JENY Infusion Insulin Aspart 2 - 5 units 03/11/24 17:00 03/17/24 09:13 Insulin Aspart (*Bkc) 100 Units/Ml SUB-Q Not Given TIDWM [facility] Protocol Loperamide HCl 2 mg 03/11/24 14:55 Loperamide Hcl 2 Mg Capsule PO PRN PRN Diarrhea Lorazepam 0.5 mg 03/14/24 17:30 03/15/24 12:21 Lorazepam Inj (*Crx) 2 Mg/Ml Vial IV PUSH 0.5 mg Q12H PRN Administration Anxiety Ondansetron HCl 4 mg 03/14/24 08:19 Ondansetron Inj 4 Mg/2 Ml Vial IV PUSH Q6H PRN Nausea And Vomiting Oxycodone HCl 5 mg 03/16/24 11:03 03/17/24 04:42 Oxycodone Hcl (*Crx) 5 Mg Tab Ir PO 5 mg Q6HR PRN Administration Pain Rated 7-10 Potassium Chloride 40 meq 03/16/24 09:30 03/17/24 09:14 Potassium Chloride 20 Meq Packet (For Liquid) PO 40 meq BID JENY Administration Sertraline HCl 75 mg 03/12/24 09:00 03/17/24 09:13 Sertraline Hcl 25 Mg Tablet PO 75 mg DAILY JENY Administration Radiology Results: ITS Impressions Chest X-Ray 03/11/24 10:46 IMPRESSION: No focal infiltrate or effusion. Abdomen/Pelvis CT 03/12/24 15:16 IMPRESSION: Limited evaluation secondary to significant motion artifact. Stones within the bilateral kidneys. Distention of the gallbladder. Abdomen Ultrasound 03/13/24 13:08 IMPRESSION: 1. Small bowel gallstone within the gallbladder which is dilated with positive sonographic Beckham's sign but without evident gallbladder wall thickening which is equivocal for acute cholecystitis. Consider HIDA scan for further evaluation. 2. Several small bilateral renal cysts. Otherwise normal kidneys without hydronephrosis. ADDENDUM: 03/13/24 1003 CORRECTION: There are couple dictation error is in the findings section. Corrected these sentences should read- There is a MOBILE 1.5 cm echogenic and shadowing gallstone at the neck of the gallbladder the initial imaging in the supine position which moves to the fundus in the decubitus position. The common bile duct measures up to 6-7 mm which remains within normal limits for age. Renal Ultrasound 03/13/24 13:08 IMPRESSION: 1. Small bowel gallstone within the gallbladder which is dilated with positive sonographic Beckham's sign but without evident gallbladder wall thickening which is equivocal for acute cholecystitis. Consider HIDA scan for further evaluation. 2. Several small bilateral renal cysts. Otherwise normal kidneys without hydronephrosis. ADDENDUM: 03/13/24 [id number] CORRECTION: There are couple dictation error is in the findings section. Corrected these sentences should read- There is a MOBILE 1.5 cm echogenic and shadowing gallstone at the neck of the gallbladder the initial imaging in the supine position which moves to the fundus in the decubitus position. The common bile duct measures up to 6-7 mm which remains within normal limits for age. Hepatobiliary Scan Nuclear Medicine 03/14/24 12:08 IMPRESSION: 1. Atypical transient greater than expected accumulation of activity in the region of the ming hepatis during the initial hour of the study which subsequently all passes into the bowel. Appearance suggests a possible partial versus transient biliary obstruction which could be related to a stone or potentially spasm at the sphincter related to patient's morphine use which was discontinued during the examination. 2. Patent cystic duct with transient accumulation of activity in the gallbladder. Knee X-Ray 03/15/24 15:49 IMPRESSION: 1. Moderate right knee osteoarthritis. Labs Labs: Laboratory Results - last 24 hr 03/16/24 03/16/24 03/16/24 11:58 16:48 21:29 POC Capillary Glucose 315 H 150 H 193 H 03/17/24 07:59 POC Capillary Glucose 166 H
[2024-03-17 12:03] LABS: Glucose Point of Care 303 mg/dl (65-105)
[2024-03-17] MEDS: ACETAMINOPHEN 325 MG TABLET 650 MG PO (12:25)
[2024-03-17] MEDS: INSULIN ASPART (*BKC) 100 UNITS/ML SUB-Q (12:25)
[2024-03-17 16:24] VITALS: BP 161/68; PULSE 80; RESP 18; TEMP 36.9; O2SAT 97
[2024-03-17 16:27] VITALS: BP 166/72; PULSE 82; RESP 18; TEMP 36.8; O2SAT 97
[2024-03-17 17:20] LABS: Glucose Point of Care 184 mg/dl (65-105)
[2024-03-17] MEDS: ONDANSETRON INJ 4 MG/2 ML VIAL IV PUSH (18:42)
[2024-03-17 21:58] LABS: Glucose Point of Care 194 mg/dl (65-105)
[2024-03-17 22:00] VITALS: BP 148/79; PULSE 93; RESP 18; TEMP 37.3; O2SAT 91
[2024-03-18] MEDS: oxyCODONE HCL (*CRX) 5 MG TAB IR PO ×3 (01:30→21:05)
[2024-03-18] MEDS: SODIUM CHLORIDE 0.9% IV 1,000 ML 70 ML IV CONT ×2 (01:30→17:32)
[2024-03-18] MEDS: MEROPENEM 1 GM/NS 100 ML 1 GM/100 ML BAG IVPB (05:30)
[2024-03-18 06:00] VITALS: BP 175/80; PULSE 94; RESP 18; TEMP 36.6; O2SAT 93
[2024-03-18 08:16] LABS: Glucose Point of Care 188 mg/dl (65-105)
[2024-03-18] MEDS: ACETAMINOPHEN 325 MG TABLET 650 MG PO ×2 (08:43→21:05)
[2024-03-18] MEDS: BENZOCAINE/MENTHOL (*BKC) 18 EA LOZENGE 1 LOZENGE PO (08:44)
[2024-03-18] MEDS: SERTRALINE HCL 25 MG TABLET 75 MG PO (08:44)
[2024-03-18] MEDS: GABAPENTIN 300 MG CAPSULE PO (08:44)
[2024-03-18] MEDS: POTASSIUM CHLORIDE 20 MEQ PACKET (FOR LIQUID) 40 MEQ PO ×2 (08:44→17:33)
[2024-03-18] MEDS: LIDOCAINE 5% PATCH 1 PATCH TRANSDERM (08:45)
[2024-03-18] MEDS: ENOXAPARIN 40 MG/0.4 ML SYRINGE SUB-Q (08:46)
--- NOTE | 2024-03-18 09:32 | P.PNIM_ITS ---
Progress Note: A&P Assessment and Plan (1) Influenza A: Code(s): J10.1 - Influenza due to other identified influenza virus with other respiratory manifestations Status: Acute Assessment and Plan: Gradually improving, continue current treatment. (2) Weakness: Code(s): R53.1 - Weakness Status: Acute Assessment and Plan: Physical therapy and nursing placement. (3) Type 2 diabetes mellitus: Qualifiers: Diabetes mellitus complication status: with hyperglycemia Diabetes mellitus [employer] tender insulin use: without [employer] tender use Qualified Code(s): E11.65 - Type 2 diabetes mellitus with hyperglycemia Code(s): E11.9 - Type 2 diabetes mellitus without complications Status: Acute Assessment and Plan: Stable on current medications, will continue current treatment. (4) Cholelithiasis: Code(s): K80.20 - Calculus of gallbladder without cholecystitis without obstruction Status: Acute Assessment and Plan: Surgical consult noted. Patient is poor candidate for surgery. Continue to monitor. (5) Depression with anxiety: Code(s): F41.8 - Other specified anxiety disorders Status: Acute Assessment and Plan: Stable on current medications, will continue current treatment. (6) Essential hypertension: Code(s): I10 - Essential (primary) hypertension Status: Acute Assessment and Plan: Stable on current medications, will continue current treatment. Plan Abdomen pain Patient had several episodes of severe abdomen pain CT scan showed distended gallbladder and kidney stone without hydronephrosis Order abdominal ultrasound and renal ultrasound: 1.5 cm echogenic and shadowing gallstone at the neck of the gallbladder, no gallstones or hydronephrosis Consult general surgeon for evaluation and treatment General surgeon considers percutaneous cholecystectomy tube placement if she is found to have a cystic duct obstruction HIDA scan performed which showed a patent cystic duct so she does not appear to have acute cholecystitis Appreciate general surgeon consultation, follow recommendations General surgeon does not think the patient needs to have a cholecystostomy tube or a cholecystectomy. Advance diet as tolerated. f/u CBC CMP Now patient does not have abdomen pain Suspecting acute cholecystitis On meropenem 1 g q.8 hours IV 03/14-. change to levaquin 500mg po daily Hypokalemia Potassium chloride 2.8 Repeated potassium chloride 40 mg b.i.d. p.o. Follow-up BMP General Weakness: Code(s): R53.1 - Weakness Status: Acute Assessment and Plan: Physical deconditioning due to aging and multiple comorbidities, exaggerated by flu infection Patient has general weakness PT/ OT Acute gastroenteritis Likely resulting from viral infection pt having diarrhea and nausea continue to hydrate order stool culture pending Influenza a infection Chest x-ray shows no acute infiltrate or effusion Start Tamiflu p.o. Right shoulder Chronic pain Follow-up right shoulder x-ray Severe malnutrition Consult dietitian provide ensure per dietitian Type 2 diabetes mellitus without complications: Qualifiers: Diabetes mellitus [facility] insulin use: without [facility] use Qualified Code(s): E11.9 - Type 2 diabetes mellitus without complications Code(s): E11.9 - Type 2 diabetes mellitus without complications Status: Acute Assessment and Plan: accuchecks SSI Essential hypertension: Code(s): I10 - Essential (primary) hypertension Status: Acute Assessment and Plan: Blood pressure is not control Start losartan 50 mg daily p.o. Depression: Code(s): F32.9 - Major depressive disorder, single episode, unspecified Status: Acute Assessment and Plan: continue antidepressants add trazadone (6) Dysphagia: Code(s): R13.10 - Dysphagia, unspecified Status: Acute Assessment and Plan: add PPI Speech eval recommend regular diet Waiting for placement to SNF Subjective Date/time seen: 03/18/24 09:32 Interval history: Patient has no new issue or event overnight. Patient denies abdomen pain, nausea vomiting. Patient has chronic right shoulder pain. Patient also denies new focal weakness, abnormal sensation. Blood pressure is not well controlled Exam Narrative: GENERAL: Ill-appearing in no acute distress. Severe nutrition - EYES: EOMI. Anicteric. - HENT: Moist mucous membranes. - LUNGS: Clear to auscultation bilateral ly, no wheezing, rhonchi, or rales. - CARDIOVASCULAR: Regular rate and rhyth m. No murmur. No JVD. - ABDOMEN: Soft, no tender and non-diste nded. No palpable masses. - EXTREMITIES: No edema. Peripheral puls es 2+. Non-tender. Deformities of hand joints - NEUROLOGIC: No focal neurological defi cits. CN II-XII grossly intact. General weakness - PSYCHIATRIC: Awake, Alert and oriented x 3. Appropriate mood and affect. - SKIN: No rashes or lesions. Warm. - LYMPH: No cervical lymphadenopathy. Objective Data Vital Signs Vital Signs: Vital Signs - 24 hr 03/17/24 16:24 03/17/24 16:24 03/17/24 16:27 Temperature 98.4 F 98.4 F 98.3 F Pulse Rate 80 80 82 Respiratory Rate 18 18 18 Blood Pressure 161/68 H 161/68 H 166/72 H Pulse Oximetry 97 97 97 Oxygen Delivery 03/17/24 20:00 03/17/24 22:00 03/18/24 06:00 Temperature 99.2 F 97.9 F Pulse Rate 93 94 Respiratory Rate 18 18 Blood Pressure 148/79 H 175/80 H Pulse Oximetry 91 93 Oxygen Delivery Room Air Intake/Output Intake/Output: Intake & Output 03/15/24 03/16/24 03/17/24 03/18/24 23:59 23:59 23:59 23:59 Intake Total 2310 3425.8 3190 Output Total 910 120 1585 Balance 1410 2850.8 2090 Meds/Results Medications: Active Medications Generic Name Dose Route Start Last Admin Trade Name Freq PRN Reason Stop Dose Admin Acetaminophen 650 mg 03/11/24 12:19 03/18/24 08:43 Acetaminophen 325 Mg Tablet PO 650 mg Q4H PRN Administration Mild Pain (1-3) or Fever Benzocaine 1 lozenge 03/18/24 07:55 03/18/24 08:44 Benzocaine/Menthol (*Bkc) 18 Ea Lozenge PO 1 lozenge PRN PRN Administration Sore Throat Dextrose 12.5 gm 03/11/24 14:54 Dextrose 50% 25 Gm/50 Ml Syringe IV PUSH PRN PRN Hypoglycemia Protocol Enoxaparin Sodium 40 mg 03/16/24 09:00 03/18/24 08:46 Enoxaparin 40 Mg/0.4 Ml Syringe SUB-Q 40 mg DAILY JENY Administration Gabapentin 300 mg 03/16/24 11:10 03/18/24 08:44 Gabapentin 300 Mg Capsule PO 300 mg DAILY JENY Administration Glucagon 1 mg 03/11/24 14:54 Glucagon For Inj 1 Mg Vial IM PRN PRN Hypoglycemia Protocol Glucose 15 gm 03/11/24 14:54 Glucose Oral Gel 15 Gm Of Glucse In 37.5 Gm Tube PO PRN PRN Hypoglycemia Protocol Dextrose 1,000 mls @ 100 mls/hr 03/11/24 14:54 Dextrose 5% 1,000 Ml IVPB PRN PRN Hypoglycemia Protocol Sodium Chloride 1,000 mls @ 70 mls/hr 03/12/24 13:55 03/18/24 01:30 Normal Saline Iv IV CONT 70 mls/hr .[id number] JENY Administration Meropenem 1 gm in 100 mls @ 200 mls/hr 03/14/24 14:00 03/18/24 05:30 IVPB 200 mls/hr Q8HR JENY Administration Insulin Aspart 2 - 5 units 03/11/24 17:00 03/18/24 08:41 Insulin Aspart (*Bkc) 100 Units/Ml SUB-Q Not Given TIDWM [facility] Protocol Lidocaine 1 patch 03/18/24 09:00 03/18/24 08:45 Lidocaine 5% Patch TRANSDERM 1 patch DAILY JENY Administration Loperamide HCl 2 mg 03/11/24 14:55 Loperamide Hcl 2 Mg Capsule PO PRN PRN Diarrhea Lorazepam 0.5 mg 03/14/24 17:30 03/15/24 12:21 Lorazepam Inj (*Crx) 2 Mg/Ml Vial IV PUSH 0.5 mg Q12H PRN Administration Anxiety Ondansetron HCl 4 mg 03/14/24 08:19 03/17/24 18:42 Ondansetron Inj 4 Mg/2 Ml Vial IV PUSH 4 mg Q6H PRN Administration Nausea And Vomiting Oxycodone HCl 5 mg 03/16/24 11:03 03/18/24 01:30 Oxycodone Hcl (*Crx) 5 Mg Tab Ir PO 5 mg Q6HR PRN Administration Pain Rated 7-10 Potassium Chloride 40 meq 03/16/24 09:30 03/18/24 08:44 Potassium Chloride 20 Meq Packet (For Liquid) PO 40 meq BID JENY Administration Sertraline HCl 75 mg 03/12/24 09:00 03/18/24 08:44 Sertraline Hcl 25 Mg Tablet PO 75 mg DAILY JENY Administration Radiology Results: ITS Impressions Chest X-Ray 03/11/24 10:46 IMPRESSION: No focal infiltrate or effusion. Abdomen/Pelvis CT 03/12/24 15:16 IMPRESSION: Limited evaluation secondary to significant motion artifact. Stones within the bilateral kidneys. Distention of the gallbladder. Abdomen Ultrasound 03/13/24 13:08 IMPRESSION: 1. Small bowel gallstone within the gallbladder which is dilated with positive sonographic Beckham's sign but without evident gallbladder wall thickening which is equivocal for acute cholecystitis. Consider HIDA scan for further evaluation. 2. Several small bilateral renal cysts. Otherwise normal kidneys without hydronephrosis. ADDENDUM: 03/13/24 1740 CORRECTION: There are couple dictation error is in the findings section. Corrected these sentences should read- There is a MOBILE 1.5 cm echogenic and shadowing gallstone at the neck of the gallbladder the initial imaging in the supine position which moves to the fundus in the decubitus position. The common bile duct measures up to 6-7 mm which remains within normal limits for age. Renal Ultrasound 03/13/24 13:08 IMPRESSION: 1. Small bowel gallstone within the gallbladder which is dilated with positive sonographic Beckham's sign but without evident gallbladder wall thickening which is equivocal for acute cholecystitis. Consider HIDA scan for further evaluation. 2. Several small bilateral renal cysts. Otherwise normal kidneys without hydronephrosis. ADDENDUM: 03/13/24 1432 CORRECTION: There are couple dictation error is in the findings section. Corrected these sentences should read- There is a MOBILE 1.5 cm echogenic and shadowing gallstone at the neck of the gallbladder the initial imaging in the supine position which moves to the fundus in the decubitus position. The common bile duct measures up to 6-7 mm which remains within normal limits for age. Hepatobiliary Scan Nuclear Medicine 03/14/24 12:08 IMPRESSION: 1. Atypical transient greater than expected accumulation of activity in the region of the ming hepatis during the initial hour of the study which subsequently all passes into the bowel. Appearance suggests a possible partial versus transient biliary obstruction which could be related to a stone or potentially spasm at the sphincter related to patient's morphine use which was discontinued during the examination. 2. Patent cystic duct with transient accumulation of activity in the gallbladder. Knee X-Ray 03/15/24 15:49 IMPRESSION: 1. Moderate right knee osteoarthritis. Shoulder X-Ray 03/17/24 16:54 IMPRESSION: Significant degenerative disease, without acute fracture or anterior dislocation. Labs Labs: Laboratory Results - last 24 hr 03/17/24 03/17/24 03/17/24 11:59 17:16 21:47 POC Capillary Glucose 303 H 184 H 194 H 03/18/24 08:05 POC Capillary Glucose 188 H
[2024-03-18 10:09] LABS: Hematocrit 33.6 % (37.0-47.0); Hemoglobin 10.8 g/dL (12.0-15.0); Mean Corpuscular HGB Conc 32.1 g/dl (32-36); Mean Corpuscular Hemoglobin 29.4 pg (26-34); Mean Corpuscular Volume 91.6 fl (80-100); Mean Platelet Volume 12.1 fl (7.4-10.4); Platelet Count Result 181 k/mm3 (150-375); Red Blood Count 3.67 M/mm3 (4.2-5.4); Red Cell Distribution Width 15.3 % (11.5-14.5)
[2024-03-18 10:19] LABS: Anion Gap 6 mmol/L (4-12); Blood Urea Nitrogen 9 mg/dL (7-17); Calcium 8.3 mg/dL (8.4-10.2); Carbon Dioxide 27 mmol/L (22-30); Chloride 103 mmol/L (98-107); Estimated CRCL calculation 58 ml/min; Estimated Glomerular Filt Rate > 60; Glucose 245 mg/dL (65-110); Potassium 3.9 mmol/L (3.4-5.0); Sodium 136 mmol/L (137-145)
[2024-03-18] MEDS: levoFLOXacin 500 MG TABLET PO (10:35)
[2024-03-18 11:27] LABS: Glucose Point of Care 255 mg/dl (65-105)
[2024-03-18] MEDS: INSULIN ASPART (*BKC) 100 UNITS/ML SUB-Q (12:55)
[2024-03-18 14:00] VITALS: BP 135/63; PULSE 84; RESP 16; TEMP 37.9; O2SAT 100
--- NOTE | 2024-03-18 14:50 | PCPTNOTE ---
On 03/18/24, the student, ARACELIS Castellano, provided care and completed [facility] documentation on this patient. I have reviewed the student's documentation and agree with the findings.
[2024-03-18 16:46] LABS: Glucose Point of Care 158 mg/dl (65-105)
[2024-03-18] MEDS: LOSARTAN POTASSIUM 50 MG TABLET PO (17:33)
[2024-03-18 22:00] VITALS: BP 160/87; PULSE 105; RESP 18; TEMP 37.1; O2SAT 97
[2024-03-19] MEDS: oxyCODONE HCL (*CRX) 5 MG TAB IR PO ×2 (03:44→16:41)
[2024-03-19 05:36] VITALS: BP 168/74; PULSE 86; RESP 18; TEMP 36.6; O2SAT 97
[2024-03-19 07:37] LABS: Potassium 3.8 mmol/L (3.4-5.0)
[2024-03-19] MEDS: LORazepam INJ (*CRX) 2 MG/ML VIAL 0.5 MG IV PUSH (07:43)
[2024-03-19] MEDS: ACETAMINOPHEN 325 MG TABLET 650 MG PO (07:44)
[2024-03-19 07:58] LABS: Glucose Point of Care 201 mg/dl (65-105)
[2024-03-19 08:02] LABS: Glucose Point of Care 190 mg/dl (65-105)
[2024-03-19] MEDS: levoFLOXacin 500 MG TABLET PO (09:33)
[2024-03-19] MEDS: SERTRALINE HCL 25 MG TABLET 75 MG PO (09:33)
[2024-03-19] MEDS: GABAPENTIN 300 MG CAPSULE PO (09:34)
[2024-03-19] MEDS: LIDOCAINE 5% PATCH 1 PATCH TRANSDERM (09:34)
[2024-03-19] MEDS: LOSARTAN POTASSIUM 50 MG TABLET PO (09:34)
[2024-03-19] MEDS: POTASSIUM CHLORIDE 20 MEQ PACKET (FOR LIQUID) 40 MEQ PO ×2 (09:34→16:42)
[2024-03-19] MEDS: ENOXAPARIN 40 MG/0.4 ML SYRINGE SUB-Q (09:35)
[2024-03-19] MEDS: INSULIN ASPART (*BKC) 100 UNITS/ML SUB-Q ×2 (09:35→16:44)
[2024-03-19] MEDS: SODIUM CHLORIDE 0.9% IV 1,000 ML 70 ML IV CONT (09:44)
--- NOTE | 2024-03-19 11:12 | PCNFU ---
Nutrition Follow-Up Complete: Mild protein calorie malnutrition related to acute altered GI function as evidenced by poor intake, diarrhea Goal:Improve PO intake at least 50% meals and supplements Pt progressing towards goal. Continue with same goal Pt current nutrition is Diabetic consistent carb, Ensure Clear TID with meals. Nutrition recommendation: Continue with current plan of care. Last recorded weight is 56.1 kg. Bowel Motility: No BM recorded at this time Labs Reviewed: Hgb:10.8, HCT:33.6, NA:136, Cr:0.39, Glu:245 Meds Noted: insulin, KCL Skin: WNL Additional Notes: Pt continues on a diabetic diet, intake varied from 25-75% of meals, Ensure clear TID in place, 0g fat per serving. Encourage po intake. Monitoring intakes, weights, labs, supplement tolerance, output, plan of care Follow up in 5 days
--- NOTE | 2024-03-19 13:09 | PM.IMPN ---
Progress Note: A&P Assessment and Plan (1) Influenza A: Code(s): J10.1 - Influenza due to other identified influenza virus with other respiratory manifestations Status: Acute Assessment and Plan: Gradually improving, continue current treatment. (2) Weakness: Code(s): R53.1 - Weakness Status: Acute Assessment and Plan: Physical therapy and nursing placement. (3) Type 2 diabetes mellitus: Qualifiers: Diabetes mellitus complication status: with hyperglycemia Diabetes mellitus intermediate frame tender insulin use: without intermediate frame tender use Qualified Code(s): E11.65 - Type 2 diabetes mellitus with hyperglycemia Code(s): E11.9 - Type 2 diabetes mellitus without complications Status: Acute Assessment and Plan: Stable on current medications, will continue current treatment. (4) Cholelithiasis: Code(s): K80.20 - Calculus of gallbladder without cholecystitis without obstruction Status: Acute Assessment and Plan: Surgical consult noted. Patient is poor candidate for surgery. Continue to monitor. (5) Depression with anxiety: Code(s): F41.8 - Other specified anxiety disorders Status: Acute Assessment and Plan: Stable on current medications, will continue current treatment. (6) Essential hypertension: Code(s): I10 - Essential (primary) hypertension Status: Acute Assessment and Plan: Stable on current medications, will continue current treatment. Plan Abdomen pain Patient had several episodes of severe abdomen pain CT scan showed distended gallbladder and kidney stone without hydronephrosis Order abdominal ultrasound and renal ultrasound: 1.5 cm echogenic and shadowing gallstone at the neck of the gallbladder, no gallstones or hydronephrosis Consult general surgeon for evaluation and treatment General surgeon considers percutaneous cholecystectomy tube placement if she is found to have a cystic duct obstruction HIDA scan performed which showed a patent cystic duct so she does not appear to have acute cholecystitis Appreciate general surgeon consultation, follow recommendations General surgeon does not think the patient needs to have a cholecystostomy tube or a cholecystectomy. Advance diet as tolerated. f/u CBC CMP Now patient does not have abdomen pain Suspecting acute cholecystitis On meropenem 1 g q.8 hours IV 03/14-. change to levaquin 500mg po daily Hypokalemia Potassium chloride 2.8 Repeated potassium chloride 40 mg b.i.d. p.o. Follow-up BMP General Weakness: Code(s): R53.1 - Weakness Status: Acute Assessment and Plan: Physical deconditioning due to aging and multiple comorbidities, exaggerated by flu infection Patient has general weakness PT/ OT Acute gastroenteritis Likely resulting from viral infection pt having diarrhea and nausea continue to hydrate order stool culture pending Influenza a infection Chest x-ray shows no acute infiltrate or effusion Completed a course of Tamiflu p.o. Right shoulder Chronic pain Follow-up right shoulder x-ray: Significant degenerative disease, without acute fracture or anterior dislocation. Severe malnutrition Consult dietitian provide ensure per dietitian Type 2 diabetes mellitus without complications: Qualifiers: Diabetes mellitus group home insulin use: without group home use Qualified Code(s): E11.9 - Type 2 diabetes mellitus without complications Code(s): E11.9 - Type 2 diabetes mellitus without complications Status: Acute Assessment and Plan: accuchecks SSI Essential hypertension: Code(s): I10 - Essential (primary) hypertension Status: Acute Assessment and Plan: Blood pressure is not control Start losartan 50 mg daily p.o. Depression: Code(s): F32.9 - Major depressive disorder, single episode, unspecified Status: Acute Assessment and Plan: continue antidepressants add trazadone (6) Dysphagia: Code(s): R13.10 - Dysphagia, unspecified Status: Acute Assessment and Plan: add PPI Speech eval recommend regular diet Patient will be discharged to long term today Subjective Date/time seen: 03/19/24 13:09 Interval history: Patient has no new issue or event overnight. Patient feels better today, denies headache, abdomen pain, nausea vomiting. denies new focal weakness, abnormal sensation. Right shoulder pain is better controlled, Exam Narrative: GENERAL: Ill-appearing in no acute distress. Severe nutrition - EYES: EOMI. Anicteric. - HENT: Moist mucous membranes. - LUNGS: Clear to auscultation bilaterally, no wheezing, rhonchi, or rales. - CARDIOVASCULAR: Regular rate and rhythm. No murmur. No JVD. - ABDOMEN: Soft, no tender and non-distended. No palpable masses. - EXTREMITIES: No edema. Peripheral pulses 2+. Non-tender. Deformities of hand joints - NEUROLOGIC: No focal neurological deficits. CN II-XII grossly intact. General weakness - PSYCHIATRIC: Awake, Alert and oriented x 3. Appropriate mood and affect. - SKIN: No rashes or lesions. Warm. - LYMPH: No cervical lymphadenopathy. Objective Data Vital Signs Vital Signs: Vital Signs - 24 hr 03/18/24 14:00 03/18/24 20:00 03/18/24 22:00 Temperature 100.3 F H 98.7 F Pulse Rate 84 105 H Respiratory Rate 16 18 Blood Pressure 135/63 160/87 H Pulse Oximetry 100 97 Oxygen Delivery Room Air 03/19/24 05:36 03/19/24 08:00 Temperature 97.9 F Pulse Rate 86 Respiratory Rate 18 Blood Pressure 168/74 H Pulse Oximetry 97 Oxygen Delivery Room Air Intake/Output Intake/Output: Intake & Output 03/16/24 03/17/24 03/18/24 03/19/24 23:59 23:59 23:59 23:59 Intake Total 3425.8 3190 2540 1640 Output Total 575 1100 1200 700 Balance 2850.8 2090 1340 940 Meds/Results Medications: Active Medications Generic Name Dose Route Start Last Admin Trade Name Freq PRN Reason Stop Dose Admin Acetaminophen 650 mg 03/11/24 12:19 03/19/24 07:44 Acetaminophen 325 Mg Tablet PO 650 mg Q4H PRN Administration Mild Pain (1-3) or Fever Benzocaine 1 lozenge 03/18/24 07:55 03/18/24 08:44 Benzocaine/Menthol (*Bkc) 18 Ea Lozenge PO 1 lozenge PRN PRN Administration Sore Throat Dextrose 12.5 gm 03/11/24 14:54 Dextrose 50% 25 Gm/50 Ml Syringe IV PUSH PRN PRN Hypoglycemia Protocol Enoxaparin Sodium 40 mg 03/16/24 09:00 03/19/24 09:35 Enoxaparin 40 Mg/0.4 Ml Syringe SUB-Q 40 mg DAILY JENY Administration Gabapentin 300 mg 03/16/24 11:10 03/19/24 09:34 Gabapentin 300 Mg Capsule PO 300 mg DAILY JENY Administration Glucagon 1 mg 03/11/24 14:54 Glucagon For Inj 1 Mg Vial IM PRN PRN Hypoglycemia Protocol Glucose 15 gm 03/11/24 14:54 Glucose Oral Gel 15 Gm Of Glucse In 37.5 Gm Tube PO PRN PRN Hypoglycemia Protocol Dextrose 1,000 mls @ 100 mls/hr 03/11/24 14:54 Dextrose 5% 1,000 Ml IVPB PRN PRN Hypoglycemia Protocol Sodium Chloride 1,000 mls @ 70 mls/hr 03/12/24 13:55 03/19/24 09:44 Normal Saline Iv IV CONT 70 mls/hr .[id number] JENY Administration Insulin Aspart 2 - 5 units 03/11/24 17:00 03/19/24 12:54 Insulin Aspart (*Bkc) 100 Units/Ml SUB-Q Not Given TIDWM [facility] Protocol Levofloxacin 500 mg 03/18/24 09:00 03/19/24 09:33 Levofloxacin 500 Mg Tablet PO 500 mg DAILY JENY Administration Lidocaine 1 patch 03/18/24 09:00 03/19/24 09:34 Lidocaine 5% Patch TRANSDERM 1 patch DAILY JENY Administration Loperamide HCl 2 mg 03/11/24 14:55 Loperamide Hcl 2 Mg Capsule PO PRN PRN Diarrhea Lorazepam 0.5 mg 03/14/24 17:30 03/19/24 07:43 Lorazepam Inj (*Crx) 2 Mg/Ml Vial IV PUSH 0.5 mg Q12H PRN Administration Anxiety Losartan Potassium 50 mg 03/18/24 13:55 03/19/24 09:34 Losartan Potassium 50 Mg Tablet PO 50 mg DAILY JENY Administration Ondansetron HCl 4 mg 03/14/24 08:19 03/17/24 18:42 Ondansetron Inj 4 Mg/2 Ml Vial IV PUSH 4 mg Q6H PRN Administration Nausea And Vomiting Oxycodone HCl 5 mg 03/16/24 11:03 03/19/24 03:44 Oxycodone Hcl (*Crx) 5 Mg Tab Ir PO 5 mg Q6HR PRN Administration Pain Rated 7-10 Potassium Chloride 40 meq 03/16/24 09:30 03/19/24 09:34 Potassium Chloride 20 Meq Packet (For Liquid) PO 40 meq BID JENY Administration Sertraline HCl 75 mg 03/12/24 09:00 03/19/24 09:33 Sertraline Hcl 25 Mg Tablet PO 75 mg DAILY JENY Administration Radiology Results: ITS Impressions Chest X-Ray 03/11/24 10:46 IMPRESSION: No focal infiltrate or effusion. Abdomen/Pelvis CT 03/12/24 15:16 IMPRESSION: Limited evaluation secondary to significant motion artifact. Stones within the bilateral kidneys. Distention of the gallbladder. Abdomen Ultrasound 03/13/24 13:08 IMPRESSION: 1. Small bowel gallstone within the gallbladder which is dilated with positive sonographic Beckham's sign but without evident gallbladder wall thickening which is equivocal for acute cholecystitis. Consider HIDA scan for further evaluation. 2. Several small bilateral renal cysts. Otherwise normal kidneys without hydronephrosis. ADDENDUM: 03/13/24 4432 CORRECTION: There are couple dictation error is in the findings section. Corrected these sentences should read- There is a MOBILE 1.5 cm echogenic and shadowing gallstone at the neck of the gallbladder the initial imaging in the supine position which moves to the fundus in the decubitus position. The common bile duct measures up to 6-7 mm which remains within normal limits for age. Renal Ultrasound 03/13/24 13:08 IMPRESSION: 1. Small bowel gallstone within the gallbladder which is dilated with positive sonographic Beckham's sign but without evident gallbladder wall thickening which is equivocal for acute cholecystitis. Consider HIDA scan for further evaluation. 2. Several small bilateral renal cysts. Otherwise normal kidneys without hydronephrosis. ADDENDUM: 03/13/24 [id number] CORRECTION: There are couple dictation error is in the findings section. Corrected these sentences should read- There is a MOBILE 1.5 cm echogenic and shadowing gallstone at the neck of the gallbladder the initial imaging in the supine position which moves to the fundus in the decubitus position. The common bile duct measures up to 6-7 mm which remains within normal limits for age. Hepatobiliary Scan Nuclear Medicine 03/14/24 12:08 IMPRESSION: 1. Atypical transient greater than expected accumulation of activity in the region of the ming hepatis during the initial hour of the study which subsequently all passes into the bowel. Appearance suggests a possible partial versus transient biliary obstruction which could be related to a stone or potentially spasm at the sphincter related to patient's morphine use which was discontinued during the examination. 2. Patent cystic duct with transient accumulation of activity in the gallbladder. Knee X-Ray 03/15/24 15:49 IMPRESSION: 1. Moderate right knee osteoarthritis. Shoulder X-Ray 03/17/24 16:54 IMPRESSION: Significant degenerative disease, without acute fracture or anterior dislocation. Abdomen X-Ray 03/18/24 10:59 IMPRESSION: 1. Normal bowel gas pattern. Labs Labs: Laboratory Results - last 24 hr 03/18/24 03/18/24 03/19/24 16:42 21:09 07:01 Potassium 3.8 POC Capillary Glucose 158 H 190 H 03/19/24 07:41 Potassium POC Capillary Glucose 201 H
--- NOTE | 2024-03-19 13:11 | P.DS_ITS ---
DS: Admitting Diagnosis Discharge Date 03/19/24 Admitting Diagnosis (1) Influenza A: Code(s): J10.1 - Influenza due to other identified influenza virus with other respiratory manifestations Status: Acute Assessment and Plan: Gradually improving, continue current treatment. (2) Weakness: Code(s): R53.1 - Weakness Status: Acute Assessment and Plan: Physical therapy and nursing placement. (3) Type 2 diabetes mellitus: Qualifiers: Diabetes mellitus complication status: with hyperglycemia Diabetes mellitus long term care phlebotomist insulin use: without half-way use Qualified Code(s): E11.65 - Type 2 diabetes mellitus with hyperglycemia Code(s): E11.9 - Type 2 diabetes mellitus without complications Status: Acute Assessment and Plan: Stable on current medications, will continue current treatment. (4) Cholelithiasis: Code(s): K80.20 - Calculus of gallbladder without cholecystitis without obstruction Status: Acute Assessment and Plan: Surgical consult noted. Patient is poor candidate for surgery. Continue to monitor. (5) Depression with anxiety: Code(s): F41.8 - Other specified anxiety disorders Status: Acute Assessment and Plan: Stable on current medications, will continue current treatment. (6) Essential hypertension: Code(s): I10 - Essential (primary) hypertension Status: Acute Assessment and Plan: Stable on current medications, will continue current treatment. DS: Discharge Diagnosis Discharge Diagnosis (1) Influenza A: Code(s): J10.1 - Influenza due to other identified influenza virus with other respiratory manifestations Status: Acute Assessment and Plan: Gradually improving, continue current treatment. (2) Weakness: Code(s): R53.1 - Weakness Status: Acute Assessment and Plan: Physical therapy and nursing placement. (3) Type 2 diabetes mellitus: Qualifiers: Diabetes mellitus half-way insulin use: without long term care phlebotomist use Diabetes mellitus complication status: with hyperglycemia Qualified Code(s): E11.65 - Type 2 diabetes mellitus with hyperglycemia Code(s): E11.9 - Type 2 diabetes mellitus without complications Status: Acute Assessment and Plan: Stable on current medications, will continue current treatment. (4) Cholelithiasis: Code(s): K80.20 - Calculus of gallbladder without cholecystitis without obstruction Status: Acute Assessment and Plan: Surgical consult noted. Patient is poor candidate for surgery. Continue to monitor. (5) Depression with anxiety: Code(s): F41.8 - Other specified anxiety disorders Status: Acute Assessment and Plan: Stable on current medications, will continue current treatment. (6) Essential hypertension: Code(s): I10 - Essential (primary) hypertension Status: Acute Assessment and Plan: Stable on current medications, will continue current treatment. DS: Summary Hospital Course Hospital Course: Per H&P, 88 year old lady complains of weakness all over no chest pain, SOB or fever Pt has been having diarrhea and nausea not been eating much for few days The following med issues have been addressed during hospitalization Abdomen pain Patient had several episodes of severe abdomen pain CT scan showed distended gallbladder and kidney stone without hydronephrosis Order abdominal ultrasound and renal ultrasound: 1.5 cm echogenic and shadowing gallstone at the neck of the gallbladder, no gallstones or hydronephrosis Consult general surgeon for evaluation and treatment General surgeon considers percutaneous cholecystectomy tube placement if she is found to have a cystic duct obstruction HIDA scan performed which showed a patent cystic duct so she does not appear to have acute cholecystitis Appreciate general surgeon consultation, follow recommendations General surgeon does not think the patient needs to have a cholecystostomy tube or a cholecystectomy. Advance diet as tolerated. f/u CBC CMP Now patient does not have abdomen pain Suspecting acute cholecystitis On meropenem 1 g q.8 hours IV 03/14-. change to levaquin 500mg po daily Hypokalemia Potassium chloride 2.8 Repeated potassium chloride 40 mg b.i.d. p.o. Follow-up BMP General Weakness: Code(s): R53.1 - Weakness Status: Acute Assessment and Plan: Physical deconditioning due to aging and multiple comorbidities, exaggerated by flu infection Patient has general weakness PT/ OT Acute gastroenteritis Likely resulting from viral infection pt having diarrhea and nausea continue to hydrate order stool culture pending Influenza a infection Chest x-ray shows no acute infiltrate or effusion Completed a course of Tamiflu p.o. Right shoulder Chronic pain Follow-up right shoulder x-ray: Significant degenerative disease, without acute fracture or anterior dislocation. Severe malnutrition Consult dietitian provide ensure per dietitian Type 2 diabetes mellitus without complications: Qualifiers: Diabetes mellitus half-way insulin use: without half-way use Qualified Code(s): E11.9 - Type 2 diabetes mellitus without complications Code(s): E11.9 - Type 2 diabetes mellitus without complications Status: Acute Assessment and Plan: accuchecks SSI Essential hypertension: Code(s): I10 - Essential (primary) hypertension Status: Acute Assessment and Plan: Blood pressure is not control Start losartan 50 mg daily p.o. Depression: Code(s): F32.9 - Major depressive disorder, single episode, unspecified Status: Acute Assessment and Plan: continue antidepressants add trazadone (6) Dysphagia: Code(s): R13.10 - Dysphagia, unspecified Status: Acute Assessment and Plan: add PPI Speech eval recommend regular diet Patient will be discharged to care home today Time Spent with Patient Time attestation: Total time spent providing and/or coordinating discharge services: Exam Narrative: GENERAL: Ill-appearing in no acute distress. Severe nutrition - EYES: EOMI. Anicteric. - HENT: Moist mucous membranes. - LUNGS: Clear to auscultation bilateral ly, no wheezing, rhonchi, or rales. - CARDIOVASCULAR: Regular rate and rhyth m. No murmur. No JVD. - ABDOMEN: Soft, no tender and non-diste nded. No palpable masses. - EXTREMITIES: No edema. Peripheral puls es 2+. Non-tender. Deformities of hand joints - NEUROLOGIC: No focal neurological defi cits. CN II-XII grossly intact. General weakness - PSYCHIATRIC: Awake, Alert and oriented x 3. Appropriate mood and affect. - SKIN: No rashes or lesions. Warm. - LYMPH: No cervical lymphadenopathy. DS: Data Data Completed and Pending Labs on day of discharge: Labs from last 24 hours 03/19/24 03/19/24 03/18/24 07:41 07:01 21:09 Potassium 3.8 POC Capillary Glucose 201 H 190 H 03/18/24 16:42 Potassium POC Capillary Glucose 158 H Discharge Plan Discharge Attending physician on discharge: Cristela Hatfield Discharging Clinician: Cristela Hatfield Anticipated Discharge Date/Time: 03/19/24 13:14 Patient Disposition: SNF Activity: as tolerated Diet: as tolerated and regular Patient Instructions: Antibiotic Form Patient Language: Belarusian Stand Alone Forms: General Discharge Information Follow-up/Referrals: Mario Walker MD [Primary Care Provider] - (Patient needs to see primary care doctor in 1 week) Discharge Medications: New losartan [Cozaar] 50 mg Tablet 50 mg PO DAILY Qty: 30 0RF acetaminophen 325 mg Tablet 650 mg PO Q6H PRN (Reason: Mild Pain (1-3) Or Fever) Qty: 30 0RF levofloxacin 500 mg Tablet 500 mg PO DAILY Qty: 5 0RF oxycodone 5 mg Tablet 5 mg PO Q6HR PRN (Reason: Pain Rated 7-10) Qty: 15 0RF Continued loratadine 10 mg tablet 10 mg PO DAILY Qty: 30 0RF ibandronate 150 mg tablet 150 mg PO MONTHLY Qty: 12 2RF cholecalciferol (vitamin D3) 125 mcg (5,000 unit) capsule 125 mcg PO DAILY Qty: 30 0RF gabapentin [Neurontin] 300 mg capsule See Rx Instructions PO DAILY Qty: 270 2RF Rx Instructions: Take 1 capsule by mouth in the AM and 2 in the PM PO daily; sertraline [Zoloft] 50 mg tablet 75 mg PO DAILY Qty: 135 3RF Date of admission: 03/13/24 10:40 Primary Care Provider: Mario Walker Admitting Provider: Geraldo Leon Attending physician on admission: Geraldo Leon Condition: Stable
--- NOTE | 2024-03-19 13:49 | PCPTNOTE ---
Pt refused therapy this afternoon. Pt is complaining of terrible headache and states that she needs pain medication before trying to attempt physical therapy. Pt states once she has pain medication that she would be willing to attempt therapy. Will continue to follow per PT POC.
[2024-03-19 15:12] LABS: SARS-CoV-2 RNA PCR Negative (Negative)
[2024-03-19 16:47] LABS: Glucose Point of Care 220 mg/dl (65-105)
== END 2024-03-19 17:15 | DRG 866 ==
LOC: ANHED 12:19 → ANH3MEDSUR 13:45
PROVIDERS: Nurse Practitioner Family; Admitting Provider General Practice; Emergency Provider Family Medicine; PCP Family Medicine; Visit Provider Hospitalist
DX: J10.2 Influenza due to other identified influenza virus with gastrointestinal manifestations (principal); K80.00 Calculus of gallbladder with acute cholecystitis without obstruction; E11.9 Type 2 diabetes mellitus without complications; R13.10 Dysphagia, unspecified; R53.1 Weakness; I10 Essential (primary) hypertension; D64.9 Anemia, unspecified; F41.8 Other specified anxiety disorders; Z68.24 Body mass index [BMI] 24.0-24.9, adult; E87.6 Hypokalemia; M25.511 Pain in right shoulder
CPT/HCPCS: 36415; 71046; 73030; 73560; 74018; 74176; 76705; 76775; 78226; 80048; 80053; 81001; 82948; 83735; 84100; 84132; 85025; 85027; 87635; 87637; 92610; 93005; 96361; 96372; 96374; 96376; 97110; 97116; 97162; 97165; 97530; 99285; A9270; A9537; G0378; J1171; J1650; J1815; J2060; J2185; J2405; J7030; J7050

== ENCOUNTER 2024-06-10 12:29 | Emergency (ER) | payer MEDICARE, SELFPAY ==
--- NOTE | 2024-06-10 12:41 | ED_ITS ---
HPI - Head Injury General Chief complaint: Head Injury Stated complaint: fall (head injury) Time Seen by Provider: 06/10/24 12:48 Source: patient Mode of arrival: ambulatory Limitations: no limitations History of Present Illness HPI Narrative: 88-year-old female presents with concern for head injury. Reports about 2-1/2 hours ago she fell backwards onto concrete and hit her head. She reports she has a wound on the back her head. She denies any current dizziness, nausea, vomiting. She denies loss of consciousness. She is unaware of why she fell. She denies other injury. Complaint: head injury Related Data Allergies Allergy/AdvReac Type Severity Reaction Status Date / Time metformin Allergy Mild Hives Verified 06/10/24 12:40 Penicillins Allergy Mild Hives Verified 06/10/24 12:40 Review of Systems Review of Systems: CONSTITUTIONAL: Denies malaise, chills, sweats, or fever. EYES: Denies visual changes ENT: Denies rhinorrhea CARDIOVASCULAR: Denies chest pain, palpitations, or edema. RESPIRATORY: Denies dyspnea. GASTROINTESTINAL: Denies nausea, vomiting SKIN: Reports laceration to the back of her head MUSCULOSKELETAL: Denies muscle skeletal pain NEUROLOGIC: Denies numbness, weakness, or headache. All systems reviewed & are unremarkable except as noted in HPI and below PMFSH Past Medical History Medical History Pneumonia age 18 Gastritis BMI 22.0-22.9, adult Esophageal ring Depression with anxiety Cricopharyngeal achalasia Status post dilatation and Botox injection per Dr. Jah Soni (ENT) at [facility]. Anemia Essential hypertension Type 2 diabetes mellitus Vitamin D deficiency Surgical History Surgical History History of open reduction and internal fixation (ORIF) procedure Pinning of left hip fracture. History of arthroscopic knee surgery History of tonsillectomy History of cataract extraction Family History Family History Father Family history of diabetes mellitus in first degree relative Mother Rheumatoid arthritis Sibling No problems noted. Other Family history of lupus erythematosus Social History Social History (Reviewed 03/13/24 @ 13:46 by TERI Conn Social History: Surrogate decision maker: Guerda Mark, daughter. Code status: Full code. Smoking status: Never smoker Second hand tobacco smoke exposure: Yes Alcohol intake: never Substance use: never Substance use type: does not use Do You Feel Safe in your Home?: Yes Lack of Transportation: No Lack of Food: Never True Current Housing: I Have Housing Concerned About Future Housing: No Difficulty Paying Gas/Electric Bills: No Difficulty Paying for Meds: No Currently Unemployed: No Education: Trade/Vocational Certificate Difficulty w/ Childcare or Family Care: No Living arrangements: alone Additional living arrangements comments: Patient lives in a senior apartment in [place]. She has 6 children and was essentially a single mother for many years as her at a young age. 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 Gender identity (if verbalized by the patient): Female Spiritual care concerns: No Comments At time of signature, agree with nursing past medical, surgical, social and family history. There is no relevant family history pertinent to the presenting complaint Exam Narrative: GENERAL: Well-appearing, well-nourished, and in no acute distress. HEAD: Normocephalic EYES: PERRLA, sclera clear, and EOMI. No nystagmus. ENT: Nares clear, no rhinorrhea. Mucous membranes moist. NECK: Supple. CHEST: No respiratory distress. Speaks in full sentences. HEART: Regular rate and rhythm. No murmur heard. Normal peripheral pulses. EXTREMITIES: Normal range of motion. No edema. Normal strength and sensation. SKIN: Warm, dry. 3 cm laceration into the subcutaneous tissue noted to the occiput, surrounded by approximately 1.5 cm abrasion. NEURO: Alert and oriented x3. No focal deficits. Cranial nerves II through XII grossly intact PSYCH: Normal mood and affect Course Course Emergency Course: Anticipatory guidance given. Patient agrees to follow-up as directed and is aware of reasons to seek care at the emergency department. Portions of this record may have been created with voice recognition software Level of Care: Express Care Visit Vital Signs Vital signs: Reviewed. Procedures Laceration Laceration 1: Date: 06/10/24 Time: 13:04 Site: scalp Size (cm): 3 Description: irregular Depth: simple, single layer Pre-repair: irrigated ====== Skin Level ====== Skin layer closed with: garrett Number of sutures: 4 ====== Subcutaneous Layer ====== ====== Muscle Layer ====== ====== Tendon Layer ====== MDM - Head Injury MDM Narrative Medical decision making narrative: The [facility] medical advice to go to the emergency room for further evaluation of her head injury. I believe this patient is of sound mind and competent to refuse medical care. The patient is responding and asking questions appropriately. The patient is oriented to person, place and time. The patient is not psychotic, delusional, suicidal, homicidal or hallucinating. The patient demonstrates a normal mental capacity to make decisions regarding their healthcare. The patient is clinically sober and does not appear to be under the influence of any illicit drugs at this time. The patient has been advised of the risks, in layman terms, of leaving AMA which include, but are not limited to , coma, permanent disability, loss of current lifestyle, delay in diagnosis. The patient has been advised that should they change their mind they are welcome to return to this clinic, or any other, at any time. The patient understands that in no way does an AMA discharge mean that I do not want them to have the best medical care available. To this end, I have provided appropriate prescriptions, referrals, and discharge instructions. The patient did sign AMA paperwork. The above discussion was witnessed by another member of staff. Critical Care Time Critical Care Time Critical Care Time: No Discharge Plan Discharge Clinical Impression: Head injury Patient Disposition: Left Against Medical Advice Condition: Stable Instructions: Head Injury (ED) Additional Instructions: It is my advice that he go to the hospital for further evaluation of your head injury. Hitting her head could lead to bleeding in your brain that could cause incapacitation or appear if you have any nausea, vomiting, headache, vision changes or other concerns please call 911 or go to the emergency room. You may take Tylenol as needed for pain. You can wash your wound with soap and water, let soap and water run over the wound. Avoid scrubbing the wound. You will need to have your garrett removed in 7-10 days. If you have any redness, swelling, discharge from the wound you should be evaluated by her primary care provider. Please make a follow-up appoint with your primary care provider in next 3-5 days. Patient Language: Greek Prescriptions: No Action loratadine 10 mg tablet 10 mg PO DAILY Qty: 30 0RF losartan [Cozaar] 50 mg Tablet 50 mg PO DAILY Qty: 30 0RF acetaminophen 325 mg Tablet 650 mg PO Q6H PRN (Reason: Mild Pain (1-3) Or Fever) Qty: 30 0RF oxycodone 5 mg Tablet 5 mg PO Q6HR PRN (Reason: Pain Rated 7-10) Qty: 15 0RF cholecalciferol (vitamin D3) 125 mcg (5,000 unit) capsule 125 mcg PO DAILY Qty: 30 0RF gabapentin [Neurontin] 300 mg capsule See Rx Instructions PO DAILY Qty: 270 2RF Rx Instructions: Take 1 capsule by mouth in the AM and 2 in the PM PO daily; sertraline [Zoloft] 50 mg tablet 75 mg PO DAILY Qty: 135 3RF ibandronate 150 mg tablet 150 mg PO MONTHLY Qty: 12 2RF Follow-up/Referrals: Mario Walker MD [Primary Care Provider] - Time of Disposition: 13:08
[2024-06-10 12:43] VITALS: BP 147/74; PULSE 82; RESP 18; TEMP 36.3; O2SAT 100
--- OUTSIDE RECORDS SUMMARY | 2024-06-10 12:49 | XMS_ITS | Clinical Summary ---
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 Pulse 72 01/11/2017 1:21 PM HIGH SCHOOL ADMISSIONS REPRESENTATIVE Temperature - - Respiratory Rate - - [...] Risk Assessment 1935 Hepatitis B Screening 09[birth year]16/1953 Pneumococcal vaccine 65+ (1 of 1 - PCV) 09/16/1985 Zoster Vaccine (1 of 2) 09/16/1985 Well Visit 65+ 09/16/2000 Covid-19 Vaccine (3 - season) 2023, 05/03/2020 Influenza Vaccine (Season Ended) 2024 DTaP/Tdap/Td Vaccine (2 - Td or Tdap) 06/17/202601/2017 Insurance [facility] HMO REF [facility] RE[facility] Care Teams Tactical Deception Plans Officer Relationship Specialty Start Date End Date Mario Walker MD PCP - General 11/28/16
--- OUTSIDE RECORDS SUMMARY | 2024-06-10 12:49 | XMS_ITS | Referral Summary ---
Author Organization [facility] Address [address] [place] [address] Care Team Providers Care Textile Artist Name Role Phone Mario Walker MD Primary Care Provider [phone] Allergies Active Allergy Reactions Criticality Noted Date [...] Blood Pressure 138/63 01/11/2017 1:21 PM [employer] Pulse 72 01/11/2017 1:21 PM [employer] Temperature - - Respiratory Rate - - Oxygen Saturation - - Inhaled Oxygen Concentration - - Weight 59.9 kg (132 lb) 04/27/2021 1:37 PM CDT Height 162.6 cm (5' 4 ) 04/27/2021 1:37 PM CDT Body Mass Index 22.66 04/27/2021 1:37 PM CDT Plan of Treatment Not on file Insurance [facility] HMO REF Member Subscriber Plan / Payer ( fective 2020-Present) Name:Bita Marybeth Felton Relation to Subscriber:Self Name:Bita Marybeth Felton Payer ID:[id number] (NAIC) Type:[facility] MEDICARE Address: [place] [id number] [place] [address] [place] [address] HMO REF [employer] MDCR HMO REF Care Teams Textile Artist Relationship Specialty Start Date End Date Mario Walker MD PCP - General 11/28/16
--- OUTSIDE RECORDS SUMMARY | 2024-06-10 12:49 | XMS_ITS | Clinical Summary ---
Author Organization [facility] Address [facility] [place] [address] Care Team Providers Care Gas Leak Inspector Name Role Phone Unavailable Primary Care Provider [...] Td Vaccines ( 1 - Tdap) 09/16/1954 Pneumococcal Vaccine: 50+ Ye ars (1 of 1 - PCV) 09/16/1985 Zoster Vaccines (1 of 2) 09/16/1985 RSV Immunization or 60+ Years (1 - 1-dose 75+ series) 09/16/2010 COVID-19 Vaccine (2023-2 5 season) 2023 Meningococcal B Vaccine Aged Out No l onger eligible based on patient's age to complete this topic Meningococcal Vaccine Aged Out No skye fabiano eligible based on patient's age to complete this topic RSV Immunizations Under 20 Months Aged Out No longer eligible based on patient's age to complete this topic
--- OUTSIDE RECORDS SUMMARY | 2024-06-10 12:50 | XMS_ITS | Continuity of Care Document ---
Author Organization [facility] Address [address] [place] [address] [place] [address] Phone Care Team Providers Care Corn Grower Name Role Phone Narayan Caro Unavailable Unavailable [...] Providers Copied on Encounter Office/outpat ient Visit, [facility], [address] [place] [address] [address], [place], [place], [id number], [place] tel:[phone] [facility] No Information [address], [place], [address], [place]. tel:[phone] Office/outpat ient Visit, [facility], [address] [place] [address] [address], [place], [place], [id number], [place] tel:[phone] [facility] No Information 0-200 8 Jacque Pagan [address] , [address], [place], [place], [facility] [place], . tel:[phone] Office/outpat ient Visit, [facility], [address], [place], [place], [id number], [place] tel:[phone] [facility] No Information June- 3-200 8 Jacque Butler. [address] , [address], [place], [facility] [place], . tel:[phone] Office/outpat ient Visit, [facility], [address] [place] [address] [address], [place], [place], [id number], [place] tel:[phone] [facility] No Information Sep-2 5-200 7 Jacque Butler. [address], [place], [facility] [place], . tel:[phone] Office/outpat ient Visit, [facility], [address], [place], [place], [id number], [place] tel:[phone] [facility] No Information Oct-1 9-200 7 [address] Bus[address]. [address] , [address], [place], [place], [facility] [place], [place]. tel:[phone] Office/outpat ient Visit, [facility], [address] [place] [address] [address], [place], [place], [id number], [place] tel:[phone] [facility] No Information Aug-1 0-200 7 Jacque Pagan [address], [place], [facility] [place], [place]. tel:[phone] Office/outpat ient Visit, [facility], [address], [place], [place], [id number], [place] tel:[phone] [facility] No Information Miguelito-2 2-200 7 Jac[address] Pagan [address] , [address], [place], [facility] [place], . tel:[phone] Office/outpat ient Visit, [facility], [address] [place] [address] [address], [place], [place], [id number], tel:[phone] [facility] No Information Miguelito-1 2-200 7 Santill[address] Carrie. [address] [facility] , [address], [place], [facility] [place], [place]. tel:[phone] Office/outpat ient Visit, [facility], [address] [place] [address] [address], [place], [place], [id number], tel:[phone] [facility] No Information Miguelito-0 5-200 7 [address] Carrie. [address] [facility] , [address], [place], [facility] [facility] [place], . tel:[phone] [facility], [address] [place] [address] [address], [place], [place], [id number], tel:[phone] [facility] No Information Miguelito-0 1-200 7 [address]ch. [address] [facility] , [address], [place], [place], [facility] [place], . tel:[phone] Family History Family Member Type Diagnosis Age At Onset No Information Payers Payer name Insurance type Covered libertarian [place] [id number] Social History Type Description Quantity Date Captured [...]
--- OUTSIDE RECORDS SUMMARY | 2024-06-10 12:50 | XMS_ITS | Continuity of Care Document ---
Author Organization [facility] Address [address] [place] [address] Phone Care Team Providers Care Personnel Manager Name Role Phone Frederick Miranda MD Unavailable [...] Diagnoses Date Provider Providers Copied on Encounter [facility], [address] [place] [address], [id number], tel:[phone] [place] [facility] hand (chief complaint) Pain in left hand 9 Ruth Mack. [address] [place] [address], [id number] , . tel:[phone] Referring Provider: Frederick Miranda, [address] [place] [address], [address] . tel:[phone] [facility], [address] [place] [address], [id number], tel:[phone] [place] [facility] Pain in left hipPain in left [...] with routine healing, subsequent encounter Ruth Mack. [address] [place] [address], [id number] , . tel:[phone] Referring Provider: Frederick Miranda, [address] [place] [address], [address] . tel:[phone] [facility], [address] [place] [address], [id number], tel:[phone] [facility] Nondisplaced intertrochanteric fracture of left femur, init 9 Ruth Mack. [address] [place] [address], [id number] , . tel:[phone] Referring Provider: Frederick Miranda, [address] [place], [address] . tel:[phone] Initial hospital care, [facility], [address] [place] [address], [id number], tel:[phone] [facility] [place] No Information 9 Franklin Miller. [address] [place], [place], [id number] , . tel:[phone] Referring Provider: Mario Ramirez, [address] [place], [address] . tel:[phone] Initial hospital care, [facility], [address] [place], [id number], tel:[phone] [facility] No Information Salazar Tony. [address] [place] [address], [id number] , . tel:[phone] Referring Provider: Mario Ramirez, [address] [place], [address] . tel:[phone] Family History Family Member Type Diagnosis Age At Onset Problem (finding) Family history of Diabe cuate mellitus Payers Payer name Insurance type Covered libertarian ID Authorsladea tiarmani(s) [place] MB [id number] [facility] [id number] Social History Type Description Quantity Date Captured [...] Order Walker nd Xray Min 3 Views ([id number]), Ordered on: Ordered Future Order: Radiology Order Walker nd Xray Min 3 Views ([id number]), Ordered on: Ordered Future Order: Radiology Order Hi p Unil W Pelvis 2-3 Views ([id number]), Ordered on: Ordered History Of Present Illness Encounter Date Complaint History Of Prese nt Illness hand Functional Status Date Functional Assessmen t No Information Instructions Date Instruction Additional Infor mation No Information Assessments Type Assessment Date assessment Pain in left hand Patient Care Teams Name Effective Dates (start - stop) Status Members No Information
--- OUTSIDE RECORDS SUMMARY | 2024-06-10 12:50 | XMS_ITS | Clinical Summary ---
Author Organization [facility] Care Team Providers Care Cook Dessert Name Role Phone Unavailable Primary Care Provider [...]
== END 2024-06-10 13:11 | disposition left against medical advice (07) ==
PROVIDERS: Emergency Provider Nurse Practitioner; PCP Family Medicine
DX: S01.01XA Laceration without foreign body of scalp, initial encounter (principal); I10 Essential (primary) hypertension; E11.9 Type 2 diabetes mellitus without complications; W18.30XA Fall on same level, unspecified, initial encounter
CPT/HCPCS: 12002; 99213; G0463

== ENCOUNTER 2024-06-20 16:38 | Emergency (ER) | payer MEDICARE, SELFPAY ==
--- OUTSIDE RECORDS SUMMARY | 2024-06-20 16:39 | XMS_ITS | Clinical Summary ---
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
--- OUTSIDE RECORDS SUMMARY | 2024-06-20 16:39 | XMS_ITS | Continuity of Care Document ---
Author Organization [facility] Address [address] [place] [address] [address] [place] [address] Phone Care Team Providers Care School Library Media Program Director Name Role Phone Narayan Caro Unavailable [...] Providers Copied on Encounter Office/outpat ient Visit, [facility], [address] [place] [address] [address], [place], [place], [id number], [place] tel:[phone] [facility] No Information 6200 9 Gordo Busch. [address], [place], [address], [place]. tel:[phone] Office/outpat ient Visit, [facility], [address] [place] [address] [address], [place], [place], [id number], [place] tel:[phone] [facility] No Information 0-200 8 Jacque Pagan [address], [place], [place], [facility], . tel:[phone] Office/outpat ient Visit, [facility], [address], [place], [place], [id number], [place] tel:[phone] [facility] No Information June- 3-200 8 Jacque Butler. [address], [place], [facility], . tel:[phone] Office/outpat ient Visit, [facility], [address] [place] [address] [address], [place], [place], [id number], [place] tel:[phone] [facility] No Information Sep-2 5-200 7 Jacque Butler. [address], [place], [facility], . tel:[phone] Office/outpat ient Visit, [facility], [address], [place], [place], [id number], [place] tel:[phone] [facility] No Information Oct-1 9-200 7 Gordo Busch. [address], [place], [facility], [place]. tel:[phone] Office/outpat ient Visit, [facility], [address] [place] [address] [address], [place], [place], [id number], [place] tel:[phone] [facility] No Information Aug-1 0-200 7 Jacque Pagan [address], [place], [facility], [place]. tel:[phone] Office/outpat ient Visit, [facility], [address], [place], [place], [address], [place] tel:[phone] [facility] No Information Miguelito-2 2-200 7 Jacque Pagan [address], [place], [facility], . tel:[phone] Office/outpat ient Visit, [facility], [address] [place] [address] [address], [place], [place], [id number], tel:[phone] [facility] No Information Miguelito-1 2-200 7 Santillan Carrie. [address] [facility] , [address], [place], [facility], [place]. tel:[phone] Office/outpat ient Visit, [facility], [address] [place] [address] [address], [place], [place], [id number], tel:[phone] [facility] No Information Miguelito-0 5-200 7 Santillan Carrie. [address] [facility] , [address], [place], [facility], . tel:[phone] [facility], [address] [place] [address] [address], [place], [place], [address], tel:[phone] [facility] No Information Miguelito-0 1-200 7 Gordo Busch. [address] [facility] , [address], [place], [facility], . tel:[phone] Family History Family Member Type Diagnosis Age At Onset No Information Payers Payer name Insurance type Covered libertarian ID [place] [id number] Social History Type Description Quantity Date Captured [...]
--- OUTSIDE RECORDS SUMMARY | 2024-06-20 16:39 | XMS_ITS | Referral Summary ---
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 Temperature - - Respiratory Rate - - Oxygen Saturation - - Inhaled Oxygen Concentration - - Weight 59.9 kg (132 lb) 04/27/2021 1:37 PM CDT Height 162.6 cm (5' 4 ) 04/27/2021 1:37 PM CDT Body Mass Index 22.66 04/27/2021 1:37 PM CDT Plan of Treatment Not on file Insurance [facility] HMO REF Member Subscriber Plan / Payer ( fective 2020-Present) Name:Bita Marybeth Felton Relation to Subscriber:Self Name:Bita Marybeth Felton Payer ID:[id number] (NAIC) Type:[facility] MEDIC[facility] Address: [place] [id number] [address] [place] [address] [place] [address] HMO REF [employer] MDCR HMO REF Care Teams Mica Spreader Relationship Specialty Start Date End Date Mario Walker MD PCP - General 11/28/16
--- OUTSIDE RECORDS SUMMARY | 2024-06-20 16:40 | XMS_ITS | Clinical Summary ---
Author Organization [facility] Care Team Providers Care Locum Tenens Psychiatrist Name Role Phone Unavailable Primary Care Provider [...]
--- OUTSIDE RECORDS SUMMARY | 2024-06-20 16:40 | XMS_ITS | Continuity of Care Document ---
Author Organization [facility] Address [address] [place] [address] Phone Care Team Providers Care Metal Stamper Name Role Phone Frederick Miranda MD Unavailable [...] Provider Providers Copied on Encounter [facility], [address] [place] [address], [id number], tel:[phone] [place] [facility] hand (chief complaint) Pain in left hand 9 Ruth Mack. [address] [place] [address], [id number] , . tel:[phone] Referring Provider: Frederick Miranda, [address] [place] [address], [address] . tel:[phone] [facility], [address] [place] [address], [id number], tel:[phone] [place] [facility] Pain in left hipPain in left [...] with routine healing, subsequent encounter Ruth Mack. [address] [place] [address], [id number] , . tel:[phone] Referring Provider: Frederick Miranda, [address] [place] [address], [address] . tel:[phone] [facility], [address] [place] [address], [id number], tel:[phone] [facility] Nondisplaced intertrochanteric fracture of left femur, init 9 Ruth Mack. [address] [place] [address], [id number] , . tel:[phone] Referring Provider: Frederick Miranda, [address] [place], [address] . tel:[phone] Initial hospital care, [facility], [address] [place] [address], [id number], tel:[phone] [facility] No Information 9 Franklin Miller. [address] [place], [place], [id number] , . tel:[phone] Referring Provider: Mario Ramirez, [address] [place], [address] . tel:[phone] Initial hospital care, [facility], [address] [place], [place], [id number], tel:[phone] [facility] [place] No Information Salazar Tony. [address] [place] [address], [id number] , . tel:[phone] Referring Provider: Mario Ramirez, [address] [place], [address] . tel:[phone] Family History Family Member Type Diagnosis Age At Onset Problem (finding) Family history of Diabe cuate mellitus Payers Payer name Insurance type Covered democrat ID Authorsladea tiarmani(s) [place] MB [id number] [facility] [id number] Social History Type Description Quantity Date Captured [...] Order Walker nd Xray Min 3 Views ([id number]), Ordered on: Ordered Future Order: Radiology Order Walker nd Xray Min 3 Views ([id number]), Ordered on: Ordered Future Order: Radiology Order Hi p Unil W Pelvis 2-3 Views ([id number]), Ordered on: Ordered History Of Present Illness Encounter Date Complaint History Of Prese nt Illness hand Functional Status Date Functional Assessmen t No Information Instructions Date Instruction Additional Infor mation No Information Assessments Type Assessment Date assessment Pain in left hand Patient Care Teams Name Effective Dates (start - stop) Status Members No Information
--- OUTSIDE RECORDS SUMMARY | 2024-06-20 16:40 | XMS_ITS | Clinical Summary ---
Author Organization [facility] Address [facility] [place] [address] Care Team Providers Care Dress Cap Maker Name Role Phone Unavailable Primary Care Provider [...]
--- OUTSIDE RECORDS SUMMARY | 2024-06-20 16:42 | XMS_ITS | Continuity of Care Document ---
Author Organization [facility] Address [address] [place] [address] Phone Care Team Providers Care A Operator Name Role Phone Frederick Miranda MD Unavailable [...] Diagnoses Date Provider Providers Copied on Encounter [facility], [address] [place] [address], [id number], tel:[phone] [place] [facility] hand (chief complaint) Pain in left hand 9 Ruth Mack. [address] [place] [address], [id number] , . tel:[phone] Referring Provider: Frederick Miranda, [address] [place] [address], [address] . tel:[phone] [facility], [address] [place] [address], [id number], tel:[phone] [place] [facility] Pain in left hipPain in left [...] femur with routine healing, subsequent encounter Ruth Mcak. [address] [place] [address], [id number] , . tel:[phone] Referring Provider: Frederick Miranda, [address] [place] [address], [address] . tel:[phone] [facility], [address] [place] [address], [id number], tel:[phone] [facility] Nondisplaced intertrochanteric fracture of left femur, init 9 Ruth Mack. [address] [place] [address], [id number] , . tel:[phone] Referring Provider: Frederick Miranda, [address] [place], [address] . tel:[phone] Initial hospital care, [facility], [address] [place] [address], [id number], tel:[phone] [facility] [place] No Information 9 Franklin Miller. [address] [place], [id number] , . tel:[phone] Referring Provider: Mario Ramirez, [address] [place], [address] . tel:[phone] Initial hospital care, [facility], [address] [place], [place], [id number], tel:[phone] [facility] No Information Salazar Tony. [address] [place] [address], [id number] , . tel:[phone] Referring Provider: Mario Ramirez, [address] [place], [address] . tel:[phone] Family History Family Member Type Diagnosis Age At Onset Problem (finding) Family history of Diabe cuate mellitus Payers Payer name Insurance type Covered democrat ID Authorsladea tiarmani(s) [place] MB [id number] [facility] [id number] Social History Type Description Quantity Date Captured [...] Order Walker nd Xray Min 3 Views ([id number]), Ordered on: Ordered Future Order: Radiology Order Walker nd Xray Min 3 Views ([id number]), Ordered on: Ordered Future Order: Radiology Order Hi p Unil W Pelvis 2-3 Views ([id number]), Ordered on: Ordered History Of Present Illness Encounter Date Complaint History Of Prese nt Illness hand Functional Status Date Functional Assessmen t No Information Instructions Date Instruction Additional Infor mation No Information Assessments Type Assessment Date assessment Pain in left hand Patient Care Teams Name Effective Dates (start - stop) Status Members No Information
--- OUTSIDE RECORDS SUMMARY | 2024-06-20 16:42 | XMS_ITS | Continuity of Care Document ---
Author Organization [facility] Address [address] [place] [address] [address] [place] [address] Phone Care Team Providers Care Laboratory Clerk Name Role Phone Narayan Caro Unavailable Unavailable [...] Providers Copied on Encounter Office/outpat ient Visit, [facility], [address] [place] [address] [address], [place], [place], [id number], [place] tel:[phone] [facility] No Information 6200 9 Gordo Busch. [address], [place], [address], [place]. tel:[phone] Office/outpat ient Visit, [facility], [address] [place] [address] [address], [place], [place], [id number], [place] tel:[phone] [facility] No Information 0-200 8 Jacque Pagan [address] , [address], [place], [facility], . tel:[phone] Office/outpat ient Visit, [facility], [address], [place], [place], [address], [place] tel:[phone] [facility] No Information June- 3-200 8 Jacque Butler. [address], [place], [facility], . tel:[phone] Office/outpat ient Visit, [facility], [address] [place] [address] [address], [place], [place], [id number], [place] tel:[phone] [facility] No Information Sep-2 5-200 7 Jacque Butler. [address], [place], [facility], . tel:[phone] Office/outpat ient Visit, [facility], [address], [place], [place], [address], [place] tel:[phone] [facility] No Information Oct-1 9-200 7 Gordo Busch. [address], [place], [facility], [place]. tel:[phone] Office/outpat ient Visit, [facility], [address] [place] [address] [address], [place], [place], [id number], [place] tel:[phone] [facility] No Information Aug-1 0-200 7 Jacque Pagan [address], [place], [facility], [place]. tel:[phone] Office/outpat ient Visit, [facility], [address], [place], [place], [address], [place] tel:[phone] [facility] No Information Miguelito-2 2-200 7 Jacque Pagan [address], [place], [facility], . tel:[phone] Office/outpat ient Visit, [facility], [address] [place] [address] [address], [place], [place], [id number], tel:[phone] [facility] No Information Miguelito-1 2-200 7 Santillan Carrie. [address] [facility] , [address], [place], [facility], [place]. tel:[phone] Office/outpat ient Visit, [facility], [address] [place] [address] [address], [place], [place], [id number], tel:[phone] [facility] No Information Miguelito-0 5-200 7 Santillan Carrie. [address] [facility] , [address], [place], [facility], . tel:[phone] [facility], [address] [place] [address] [address], [place], [place], [address], tel:[phone] [facility] No Information Miguelito-0 1-200 7 Gordo Busch. [address] [facility] , [address], [place], [facility], . tel:[phone] Family History Family Member Type Diagnosis Age At Onset No Information Payers Payer name Insurance type Covered republican ID [place]) [place] [id number] Social History Type Description Quantity Date Captured [...]
[2024-06-20 16:47] VITALS: BP 177/87; PULSE 96; RESP 18; TEMP 36.8; O2SAT 98
--- NOTE | 2024-06-20 16:50 | ED.WOUNDLAC ---
HPI - Wound/Laceration General Chief Complaint: Skin/Abscess/Foreign Body Stated Complaint: stitch removal Time Seen by Provider: 06/20/24 16:38 Source: patient Mode of arrival: ambulatory Limitations: no limitations History of Present Illness HPI narrative: Marybeth is an 88-year-old female patient presenting to the clinic today to have staple removed from her scalp. Was seen 10 days ago after falling and hitting her head and having a 3 cm laceration to her scalp. 4 gloria were placed closing the wound. Also reporting some low back pain since falling. States she recently went to [place] and had to travel back on a airplane and that was awful. Denies any saddle anesthesia or loss of bowel or bladder. Denies any radiation of pain down her lower extremities. Denies any urinary symptoms. Related Data Allergies Allergy/AdvReac Type Severity Reaction Status Date / Time metformin Allergy Mild Hives Verified 06/20/24 16:52 Penicillins Allergy Mild Hives Verified 06/20/24 16:52 Review of Systems Review of Systems: Pertinent positives per HPI. Patient denies any fever, chills, rash, headache, visual changes, dizziness, cough, runny nose, sore throat, shortness of breath, chest pain, palpitations, nausea, vomiting, diarrhea, constipation, abdominal pain, or any urinary issues. FORMERLY [facility], [facility] Past Medical History Medical History Pneumonia age 18 Gastritis BMI 22.0-22.9, adult Esophageal ring Depression with anxiety Cricopharyngeal achalasia Status post dilatation and Botox injection per Dr. Jah Soni (ENT) at [facility]. Anemia Essential hypertension Type 2 diabetes mellitus Vitamin D deficiency Surgical History Surgical History History of open reduction and internal fixation (ORIF) procedure Pinning of left hip fracture. History of arthroscopic knee surgery History of tonsillectomy History of cataract extraction Family History Family History Father Family history of diabetes mellitus in first degree relative Mother Rheumatoid arthritis Sibling No problems noted. Other Family history of lupus erythematosus Social History Social History (Reviewed 06/20/24 @ 17:02 by COLIN Martinez Social History: Surrogate decision maker: Guerda Mark, daughter. Code status: Full code. Smoking status: Never smoker Second hand tobacco smoke exposure: Yes Alcohol intake: never Substance use: never Substance use type: does not use Do You Feel Safe in your Home?: Yes Lack of Transportation: No Lack of Food: Never True Current Housing: I Have Housing Concerned About Future Housing: No Difficulty Paying Gas/Electric Bills: No Difficulty Paying for Meds: No Currently Unemployed: No Education: Trade/Vocational Certificate Difficulty w/ Childcare or Family Care: No Living arrangements: alone Additional living arrangements comments: Patient lives in a senior apartment in [place]. She has 6 children and was essentially a single mother for many years as her at a young age. 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 Gender identity (if verbalized by the patient): Female Spiritual care concerns: No Comments At the time of my signature, I reviewed and agree with the nursing past medical, surgical, social, and family history. There is no relevant family history pertinent to the patient complaint. Exam Narrative: General: Well-developed, well nourished, in no apparent distress Head: Normocephalic, atraumatic. 4 gloria were removed from the posterior occipital scalp. Patient tolerated well Cardio: Regular rate and rhythm, s1 and s2 normal, no murmur appreciated. Resp: Clear to auscultation bilaterally, no rhonchi, rales, wheezing or rubs. Musculoskeletal: No deformity, tender to palpation to bilateral low back, pain worse with movement, grossly normal range of motion, muscle strength strong and equal in BLE. SLT negative, patellar reflexes 2/4 bilaterally, negative foot drop, normal gait and station Course Course Emergency Course: Portions of this record may have been created with voice recognition software. Level of Care: Express Care Visit Vital Signs Vital signs: Vital Signs Temperature 36.8 C 06/20/24 16:47 Pulse Rate 96 06/20/24 16:47 Respiratory Rate 18 06/20/24 16:47 Blood Pressure 177/87 H 06/20/24 16:47 Pulse Oximetry 98 06/20/24 16:47 Oxygen Delivery Room Air 06/20/24 16:47 Temperature 36.8 C 06/20/24 16:47 Pulse Rate 96 06/20/24 16:47 Respiratory Rate 18 06/20/24 16:47 Blood Pressure 177/87 H 06/20/24 16:47 Pulse Oximetry 98 06/20/24 16:47 Oxygen Delivery Room Air 06/20/24 16:47 Vital signs reviewed MDM - Wound/Laceration MDM Narrative Medical decision making narrative: At the time of visit patient is resting comfortably on the exam table. Patient appears to be nontoxic. Plan: Patient declining lumbar x-rays at this time. Is requesting some pain medicine for low back pain. Gloria were removed. Will send than short course of tramadol for the patient have her follow-up with her primary care doctor if symptoms persist. Supportive measures were discussed with the patient and they voiced understanding discharge instructions and agrees to treatment plan. Return precautions reviewed Differential Diagnosis Differential diagnosis: Likely other (Staple removal, low back pain, vertebral fracture, low back strain, low back contusion) Discharge Plan Discharge Clinical Impression: Encounter for removal of gloria Low back pain Qualifiers: Chronicity: acute Back pain laterality: bilateral Sciatica presence: without sciatica Qualified Code(s): M54.50 - Low back pain, unspecified Patient Disposition: Home Condition: Stable Instructions: Antibiotic Form, Acute Low Back Pain (ED) Additional Instructions: 4 gloria removed from scalp Wound is healing well. Take tramadol as prescribed for pain May continue taking Tylenol or ibuprofen Follow-up with your primary care doctor as needed Patient Language: Togolese Prescriptions: New tramadol 50 mg tablet 50 mg PO BID PRN (Reason: pain) 5 Days Qty: 10 0RF No Action loratadine 10 mg tablet 10 mg PO DAILY Qty: 30 0RF losartan [Cozaar] 50 mg Tablet 50 mg PO DAILY Qty: 30 0RF acetaminophen 325 mg Tablet 650 mg PO Q6H PRN (Reason: Mild Pain (1-3) Or Fever) Qty: 30 0RF oxycodone 5 mg Tablet 5 mg PO Q6HR PRN (Reason: Pain Rated 7-10) Qty: 15 0RF cholecalciferol (vitamin D3) 125 mcg (5,000 unit) capsule 125 mcg PO DAILY Qty: 30 0RF gabapentin [Neurontin] 300 mg capsule See Rx Instructions PO DAILY Qty: 270 2RF Rx Instructions: Take 1 capsule by mouth in the AM and 2 in the PM PO daily; sertraline [Zoloft] 50 mg tablet 75 mg PO DAILY Qty: 135 3RF ibandronate 150 mg tablet 150 mg PO MONTHLY Qty: 12 2RF Follow-up/Referrals: Mario Walker MD [Primary Care Provider] - Time of Disposition: 16:58 Quality NIHSS Nursing Documentation ED NIHSS nursing documentation: reviewed/agree
== END 2024-06-20 17:09 | disposition home or self-care (01) ==
PROVIDERS: Emergency Provider Nurse Practitioner Family; PCP Family Medicine
DX: S01.01XD Laceration without foreign body of scalp, subsequent encounter (principal); W19.XXXD Unspecified fall, subsequent encounter; I10 Essential (primary) hypertension; E11.9 Type 2 diabetes mellitus without complications; F41.8 Other specified anxiety disorders; E55.9 Vitamin D deficiency, unspecified
CPT/HCPCS: 99213; G0463

== ENCOUNTER 2024-07-02 10:57 | Emergency (ER) | payer MEDICARE, SELFPAY ==
--- NOTE | ~2024-07-02 | XR_ITS ---
EXAMINATION: XR abdomen obstructive series DATE: 07/02/2024 11:35 INDICATION: Lower abdominal pain for 5 days TECHNIQUE: Supine and upright views of the abdomen. FINDINGS: 03/18/2024 The visualized lung parenchyma is normal.. There is a nonobstructive bowel gas pattern. Gas and stool are seen throughout the colon to the level of the rectum. There is no free air. There is an intrame dullary stefania in the left femoral neck. There are healed pubic rami fractures. There is osteoarthritis of the hips. There is lumbar spondylosis. Osteopenia. There are pelvic phleboliths. IMPRESSION: 1. No acute abdominal abnormality. Reviewed, dictated and finalized at location A.
--- OUTSIDE RECORDS SUMMARY | 2024-07-02 11:01 | XMS_ITS | Clinical Summary ---
Author Organization [facility] Care Team Providers Care Grain Oilseed Or Pasture Grower Name Role Phone Unavailable Primary Care Provider [...]
--- OUTSIDE RECORDS SUMMARY | 2024-07-02 11:01 | XMS_ITS | Clinical Summary ---
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
--- OUTSIDE RECORDS SUMMARY | 2024-07-02 11:01 | XMS_ITS | Referral Summary ---
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 Temperature - - Respiratory Rate - - Oxygen Saturation - - Inhaled Oxygen Concentration - - Weight 59.9 kg (132 lb) 04/27/2021 1:37 PM CDT Height 162.6 cm (5' 4) 04/27/2021 1:37 PM CDT Body Mass Index 22.66 04/27/2021 1:37 PM CDT Plan of Treatment Not on file Insurance [facility] H[employer] REF Member Subscriber Plan / Payer ( fective 2020-Present) Name:Bita Marybeth Felton Relation to Subscriber:Self Name:Bita Marybeth Felton Payer ID:[id number] (NAIC) Type:[facility] MED[facility] Address: [place] [id number] [address] [place] [address] [place] [address] HMO REF [employer] MD[employer] HMO REF Care Teams Assembler Movement Relationship Specialty Start Date End Date Mario Walker MD PCP - General 11/28/16
--- OUTSIDE RECORDS SUMMARY | 2024-07-02 11:01 | XMS_ITS | Continuity of Care Document ---
Author Organization [facility] Address [address] [place] [address] [address] [place] [address] Phone Care Team Providers Care Cleaning Team Member Name Role Phone Narayan Caro Unavailable Unavailable [...] Copied on Encounter Office/outpat ient Visit, [facility], [address] [place] [address] [address], [place], [place], [id number], [place] tel:[phone] [facility] No Information [address]. [address] , [address], [place], [address], [place]. tel:[phone] Office/outpat ient Visit, [facility], [address] [place] [address] [address], [place], [place], [id number], [place] tel:[phone] [facility] No Information 0-200 8 Jacque Pagan [address] , [address], [place], [place], [facility], . tel:[phone] Office/outpat ient Visit, [facility], [address], [place], [place], [id number], [place] tel:[phone] [facility] No Information June- 3-200 8 Jacque Butler. [address] , [address], [place], [facility], . tel:[phone] Office/outpat ient Visit, [facility], [address] [place] [address] [address], [place], [place], [id number], [place] tel:[phone] [facility] No Information Sep-2 5-200 7 Jacque Butler. [address] , [address], [place], [facility], . tel:[phone] Office/outpat ient Visit, [facility], [address], [place], [place], [id number], [place] tel:[phone] [facility] No Information Oct-1 9-200 7 Gordo Busch. [address] , [address], [place], [facility], [place]. tel:[phone] Office/outpat ient Visit, [facility], [address] [place] [address] [address], [place], [place], [id number], [place] tel:[phone] [facility] No Information Aug-1 0-200 7 Jacque Pagan [address] , [address], [place], [facility], [place]. tel:[phone] Office/outpat ient Visit, [facility], [address], [place], [place], [id number], [place] tel:[phone] [facility] No Information Miguelito-2 2-200 7 Jacque Pagan [address] , [address], [place], [facility], . tel:[phone] Office/outpat ient Visit, [facility], [address] [place] [address] [address], [place], [place], [id number], tel:[phone] [facility] No Information Miguelito-1 2-200 7 Santillan Carrie. [address] [facility] , [address], [place], [facility], [place]. tel:[phone] Office/outpat ient Visit, [facility], [address] [place] [address] [address], [place], [place], [id number], tel:[phone] [facility] No Information Miguelito-0 5-200 7 Santillan Carrie. [address] [facility] , [address], [place], [facility], . tel:[phone] [facility], [address] [place] [address] [address], [place], [place], [id number], tel:[phone] [facility] No Information Miguelito-0 1-200 7 Gordo Busch. [address] [facility] , [address], [place], [facility], . tel:[phone] Family History Family Member Type Diagnosis Age At Onset No Information Payers Payer name Insurance type Covered democrat ID [place] [id number] Social History Type Description Quantity Date Captured [...]
--- OUTSIDE RECORDS SUMMARY | 2024-07-02 11:01 | XMS_ITS | Continuity of Care Document ---
Author Organization [facility] Address [address] [place] [address] Phone Care Team Providers Care Fiberglass Boat Parts Finisher Name Role Phone Frederick Miranda MD Unavailable [...] Diagnoses Date Provider Providers Copied on Encounter [facility], [address] [place] [address], [id number], tel:[phone] Only Office hand (chief complaint) Pain in left hand 9 Ruth Mack. [address] [place] [address], [id number] , . tel:[phone] Referring Provider: Frederick Miranda, [address] [place] [address], [address] . tel:[phone] [facility], [address] [place] [address], [id number], tel:[phone] Only Office Pain in left hipPain in left [...] with routine healing, subsequent encounter Ruth Mack. [address] [place] [address], [id number] , . tel:[phone] Referring Provider: Frederick Miranda, [address] [place] [address], [address] . tel:[phone] [facility], [address] [place] [address], [id number], tel:[phone] [facility] Nondisplaced intertrochanteric fracture of left femur, init 9 Ruth Mack. [address] [place] [address], [id number] , . tel:[phone] Referring Provider: Frederick Miranda, [address] [place], [address] . tel:[phone] Initial hospital care, [facility], [address] [place] [address], [id number], tel:[phone] [facility] No Information 9 Franklin Miller. [address] [place], [place], [id number] , . tel:[phone] Referring Provider: Mario Ramirez, [address] [place], [address] . tel:[phone] Initial hospital [facility], [facility], [address], [place], [id number], tel:[phone] [facility] No Information Salazar Tony. [address] [place] [address], [id number] , . tel:[phone] Referring Provider: Mario Ramirez, [address] [place], [address] . tel:[phone] Family History Family Member Type Diagnosis Age At Onset Problem (finding) Family history of Diabe cuate mellitus Payers Payer name Insurance type Covered green party ID Authorsladea tiarmani(s) [place] [id number] [facility] [id number] Social History Type Description Quantity Date Captured [...] Order Walker nd Xray Min 3 Views ([id number]), Ordered on: Ordered Future Order: Radiology Order Walker nd Xray Min 3 Views ([id number]), Ordered on: Ordered Future Order: Radiology Order Hi p Unil W Pelvis 2-3 Views ([id number]), Ordered on: Ordered History Of Present Illness Encounter Date Complaint History Of Prese nt Illness hand Functional Status Date Functional Assessmen t No Information Instructions Date Instruction Additional Infor mation No Information Assessments Type Assessment Date assessment Pain in left hand Patient Care Teams Name Effective Dates (start - stop) Status Members No Information
--- OUTSIDE RECORDS SUMMARY | 2024-07-02 11:02 | XMS_ITS | Continuity of Care Document ---
Author Organization [facility] Address [address] [place] [address] Phone Care Team Providers Care Cephalometric Analyst Name Role Phone Frederick Miranda MD Unavailable [...] Diagnoses Date Provider Providers Copied on Encounter [facility], [address] [place] [address], [id number], tel:[phone] [place] [facility] hand (chief complaint) Pain in left hand 9 Ruth Mack. [address] [place] [address], [id number] , . tel:[phone] Referring Provider: Frederick Miranda, [address] [place] [address], [address] . tel:[phone] [facility], [address] [place] [address], [id number], tel:[phone] [facility] Pain in left hipPain in left [...] with routine healing, subsequent encounter Ruth Mack. [address] [place] [address], [id number] , . tel:[phone] Referring Provider: Frederick Miranda, [address] [place] [address], [address] . tel:[phone] [facility], [address] [place] [address], [id number], tel:[phone] [facility] Nondisplaced intertrochanteric fracture of left femur, init 9 Ruth Mack. [address] [place] [address], [id number] , . tel:[phone] Referring Provider: Frederick Miranda, [address] [place], [address] . tel:[phone] Initial hospital care, [facility], [address] [place] [address], [id number], tel:[phone] [facility] No Information 9 Franklin Miller. [address] [place], [place], [id number] , . tel:[phone] Referring Provider: Mario Ramirez, [address] [place], [address] . tel:[phone] Initial hospital care, [facility], [address] [place], [place], [id number], tel:[phone] [facility] No Information Salazar Tony. [address] [place] [address], [id number] , . tel:[phone] Referring Provider: Mario Ramirez, [address] [place], [address] . tel:[phone] Family History Family Member Type Diagnosis Age At Onset Problem (finding) Family history of Diabe cuate mellitus Payers Payer name Insurance type Covered alliance party ID Authorsladea tiarmani(s) [place] [id number] [facility] [id number] Social History Type Description Quantity Date Captured [...] Order Walker nd Xray Min 3 Views ([id number]), Ordered on: Ordered Future Order: Radiology Order Walker nd Xray Min 3 Views ([id number]), Ordered on: Ordered Future Order: Radiology Order Hi p Unil W Pelvis 2-3 Views ([id number]), Ordered on: Ordered History Of Present Illness Encounter Date Complaint History Of Prese nt Illness hand Functional Status Date Functional Assessmen t No Information Instructions Date Instruction Additional Infor mation No Information Assessments Type Assessment Date assessment Pain in left hand Patient Care Teams Name Effective Dates (start - stop) Status Members No Information
--- OUTSIDE RECORDS SUMMARY | 2024-07-02 11:02 | XMS_ITS | Continuity of Care Document ---
Author Organization [facility] Address [address] [place] [address] [address] [place] [address] Phone Care Team Providers Care Ship'S Electronic Warfare Officer Name Role Phone Narayan Caro Unavailable Unavailable [...] Providers Copied on Encounter Office/[place]pat ient [place], [facility] [address] [place] [address] [address], [place], [place], [id number], [place] tel:[phone] SEC [facility] No Information 6200 9 Gordo Busch. [address], [place], [address], [place]. tel:[phone] Office/outpat ient Visit, [facility] [address] [place] [address] [address], [place], [place], [id number], [place] tel:[phone] SEC [facility] No Information 0-200 8 Jacque Pagan [address], [place], [place], [facility], . tel:[phone] Office/outpat ient Visit, [facility], [address], [place], [place], [id number], [place] tel:[phone] SEC [facility] No Information June- 3-200 8 Jacque Butler. [address] , [address], [place], [place], [facility], . tel:[phone] Office/outpat ient Visit, [facility], [address] [place] [address] [address], [place], [place], [id number], [place] tel:[phone] SEC [facility] No Information Sep-2 5-200 7 Jacque Butler. [address], [place], [place], [facility], . tel:[phone] Office/outpat ient Visit, [facility], [address], [place], [place], [id number], [place] tel:[phone] SEC [facility] No Information Oct-1 9-200 7 Gordo Busch. [address], [place], [place], [facility], [place]. tel:[phone] Office/outpat ient Visit, [facility] [address] [place] [address] [address], [place], [place], [id number], [place] tel:[phone] SEC [facility] No Information Aug-1 0-200 7 Jacque Pagan [address], [place], [facility], [place]. tel:[phone] Office/outpat ient Visit, [facility], [address], [place], [place], [id number], [place] tel:[phone] SEC [facility] No Information Miguelito-2 2-200 7 Jacque Pagan [address], [place], [facility], . tel:[phone] Office/outpat ient Visit, [facility], [address] [place] [address] [address], [place], [place], [id number], tel:[phone] SEC [facility] No Information Miguelito-1 2-200 7 Santillan Carrie. [address] [facility] , [address], [place], [facility], [place]. tel:[phone] Office/outpat ient Visit, [facility], [address] [place] [address] [address], [place], [place], [id number], tel:[phone] SEC [facility] No Information Miguelito-0 5-200 7 Santillan Carrie. [address] [facility] , [address], [place], [facility], . tel:[phone] [facility], [address] [place] [address] [address], [place], [place], [id number], tel:[phone] [facility] No Information Miguelito-0 1-200 7 Gordo Busch. [address] [facility] , [address], [place], [facility], . tel:[phone] Family History Family Member Type Diagnosis Age At Onset No Information Payers Payer name Insurance type Covered libertarian ID [place] [id number] Social History Type Description Quantity Date Captured [...]
[2024-07-02 11:07] VITALS: BP 136/75; PULSE 87; RESP 20; TEMP 36.3; O2SAT 99
--- NOTE | 2024-07-02 11:18 | ED.ABDPAIN ---
HPI - Abdominal Pain General Chief Complaint: Abdominal Pain Stated Complaint: Abdominal Pain Time Seen by Provider: 07/02/24 11:18 Source: patient, RN notes reviewed and old records reviewed Mode of arrival: ambulatory Limitations: no limitations History of Present Illness HPI narrative: 88 year old female presents to [facility] care accompanied by neighbor with complaints of lower abdominal pain mainly on the left lower abdomen which radiates to the back. Patient reports that she did have some black stool yesterday denies being on any iron or taking Pepto Bismol. Patient poor historian states she just doesn't know states she just feels bad, states symptoms are getting worse and she feels weak. Patient reports that she was in the hospital for 8 days and then went to [facility] for rehab for about 3 weeks then came home. Patient had recent fall at home on the and hit head garrett but in the scalp and patient was advised to go to ED at that time and she signed out AMA. Patient reports that she has been taking some Tylenol for her discomfort. MD elicited complaint: abdominal pain Onset (ago): day(s) (5 days) Location: other (across left lower abdomen to back) Severity: moderate Treatments prior to arrival: other (Tylenol) Related Data Allergies Allergy/AdvReac Type Severity Reaction Status Date / Time metformin Allergy Mild Hives Verified 07/02/24 11:05 Penicillins Allergy Mild Hives Verified 07/02/24 11:05 Review of Systems Review of Systems: CONSTITUTIONAL: Denies fever, chills, or sweats. EYES: Denies visual changes, redness, or discharge. ENT: Denies rhinorrhea, congestion, sore throat, or otalgia. CARDIOVASCULAR: Denies chest pain, palpitations, or edema. RESPIRATORY: Denies cough or dyspnea. GASTROINTESTINAL:Reports abdominal pain, reports some nausea decreased appetite,no vomiting, occasional diarrhea. GENITOURINARY: Denies dysuria or hematuria. SKIN: Denies rash or itching. MUSCULOSKELETAL: report left back pain, joint pain,reports generalized arthritis NEUROLOGIC: Denies headache, numbness, or weakness. PSYCHIATRIC:Reports anxiety or depression. All systems reviewed & are unremarkable except as noted in HPI and below PMFSH Past Medical History Medical History Pneumonia age 18 Gastritis BMI 22.0-22.9, adult Esophageal ring Depression with anxiety Cricopharyngeal achalasia Status post dilatation and Botox injection per Dr. Jah Soni (ENT) at [facility]. Anemia Essential hypertension Type 2 diabetes mellitus Vitamin D deficiency Surgical History Surgical History History of open reduction and internal fixation (ORIF) procedure Pinning of left hip fracture. History of arthroscopic knee surgery History of tonsillectomy History of cataract extraction Family History Family History Father Family history of diabetes mellitus in first degree relative Mother Rheumatoid arthritis Sibling No problems noted. Other Family history of lupus erythematosus Social History Social History Social History: Surrogate decision maker: Guerda Mark, daughter. Code status: Full code. Smoking status: Never smoker Second hand tobacco smoke exposure: Yes Alcohol intake: never Substance use: never Substance use type: does not use Do You Feel Safe in your Home?: Yes Lack of Transportation: No Lack of Food: Never True Current Housing: I Have Housing Concerned About Future Housing: No Difficulty Paying Gas/Electric Bills: No Difficulty Paying for Meds: No Currently Unemployed: No Education: Trade/Vocational Certificate Difficulty w/ Childcare or Family Care: No Living arrangements: alone Additional living arrangements comments: Patient lives in a senior apartment in [place]. She has 6 children and was essentially a single mother for many years as her at a young age. 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 Gender identity (if verbalized by the patient): Female Spiritual care concerns: No Comments At time of signature, agree with nursing past medical, surgical, social and family history. There is no relevant family history pertinent to the presenting complaint Exam Narrative: GENERAL:Chronic ill appearing, fair-nourished,frail and in no acute distress. HEAD: Normocephalic, atraumatic. EYES: PERRLA and EOMI. ENT: Nares clear, no rhinorrhea or epistaxis. Mucous membranes moist.TM's normal with no pain, throat pink no swelling or redness NECK: Supple. no lymphadenopathy CHEST: Clear to auscultation. No respiratory distress.SAO2 99% on room air HEART: Regular rate and rhythm. No murmur heard. Normal peripheral pulses. ABDOMEN: Soft, tender across left lower abdomen into back, nondistended, normal active bowel sounds reports diarrhea black stool and some episodes of constipation.. EXTREMITIES: Normal range of motion. No edema. SKIN: Warm, dry, no rash. NEURO: No focal deficits. Alert and oriented x3 forgetful. Course Course Emergency Course: Patient is aware of diagnosis, understands and agrees to treatment plan.? Anticipatory guidance given.? Patient agrees to follow-up as directed and is aware of reasons to seek care at the emergency department. Portions of this record may have been created with voice recognition software Level of Care: Express Care Visit Vital Signs Vital signs: Vital Signs Temperature 36.3 C L 07/02/24 11:07 Pulse Rate 87 07/02/24 11:07 Respiratory Rate 20 07/02/24 11:07 Blood Pressure 136/75 07/02/24 11:07 Pulse Oximetry 99 07/02/24 11:07 Oxygen Delivery Room Air 07/02/24 11:07 Temperature 36.3 C L 07/02/24 11:07 Pulse Rate 87 07/02/24 11:07 Respiratory Rate 20 07/02/24 11:07 Blood Pressure 136/75 07/02/24 11:07 Pulse Oximetry 99 07/02/24 11:07 Oxygen Delivery Room Air 07/02/24 11:07 Reviewed MDM - Abdominal Pain Differential Diagnosis Differential diagnosis: Likely abdominal pain, diverticulitis, small bowel obstruction and other (renal colic, gall bladder disease) Medical Records Attestation: I reviewed the patient's medical records. Imaging Data Attestation: I personally reviewed and interpreted this imaging study as follows: My impression: no acute abdominal abnormality Radiologist's impression: ITS Impressions Abdomen X-Ray 07/02/24 11:37 IMPRESSION: 1. No acute abdominal abnormality. Critical Care Time Critical Care Time Critical Care Time: No Discharge Plan Discharge Clinical Impression: Abdominal pain with radiation to back Patient Disposition: Acute Care Hospital Condition: Stable Patient Language: Macedonian Prescriptions: No Action loratadine 10 mg tablet 10 mg PO DAILY Qty: 30 0RF tramadol 50 mg tablet 50 mg PO BID PRN (Reason: pain) 5 Days Qty: 10 0RF losartan [Cozaar] 50 mg Tablet 50 mg PO DAILY Qty: 30 0RF acetaminophen 325 mg Tablet 650 mg PO Q6H PRN (Reason: Mild Pain (1-3) Or Fever) Qty: 30 0RF oxycodone 5 mg Tablet 5 mg PO Q6HR PRN (Reason: Pain Rated 7-10) Qty: 15 0RF cyclobenzaprine 10 mg tablet 10 mg PO BID PRN (Reason: muscle spasm) Qty: 14 0RF cholecalciferol (vitamin D3) 125 mcg (5,000 unit) capsule 125 mcg PO DAILY Qty: 30 0RF sertraline [Zoloft] 50 mg tablet 75 mg PO DAILY Qty: 135 3RF ibandronate 150 mg tablet 150 mg PO MONTHLY Qty: 12 2RF gabapentin [Neurontin] 300 mg capsule See Rx Instructions PO DAILY Qty: 270 2RF Rx Instructions: Take 1 capsule by mouth in the AM and 2 in the PM PO daily; Follow-up/Referrals: Mario Walker MD [Primary Care Provider] - Time of Disposition: 11:59 Quality [place] Coma Scale Eyes: Open Verbal: Oriented and Alert Motor: Follows Commands [place] Coma Total Score: 15
== END 2024-07-02 11:59 | disposition short-term general hospital (02) ==
PROVIDERS: Emergency Provider Registered Nurse; PCP Family Medicine
DX: R10.32 Left lower quadrant pain (principal); M54.9 Dorsalgia, unspecified; I10 Essential (primary) hypertension; E11.9 Type 2 diabetes mellitus without complications; E55.9 Vitamin D deficiency, unspecified; F41.8 Other specified anxiety disorders
CPT/HCPCS: 74019; 99213; G0463

== ENCOUNTER 2024-07-02 12:15 | Emergency (ER) | payer MEDICARE, SELFPAY ==
--- NOTE | ~2024-07-02 | CT_ITS ---
CLINICAL INDICATION: Abdominal pain, constipation and melena. COMPARISON: 03/12/2024. TECHNIQUE: Multiple contiguous axial images of the abdomen and pelvis were performed following the ad ministration of with 100 mL Omnipaque-350 intravenous contrast The dose-length product (DLP) was 181.34 mGy-cm. Automated exposure control and iterative reconstruction technique were employed. FINDINGS/OBSERVATIONS: Visualized lower thorax: The bilateral lung bases are clear. The heart is of normal size, with a small pericardial effusion. Small hiatal hernia is present. Liver: The liver demonstrates homogeneous enhancement and is not enlarged. Technique Gallbladder and biliary system: The gallbladder demonstrates fluid distention, and is otherwise unremarkable. Pancreas: The pancreas demonstrates fatty atrophy without ductal dilatation. Spleen: The spleen enhances homogeneously and is not enlarged. Kidneys: Subcentimeter foci of decreased attenuation within the bilateral kidneys, too small to janis cterize on the current examination. Multiple nonobstructing stones are also present within the bilateral kidneys. The largest on the right measures 5.7 mm. The largest on the left measures 6.8 mm The remainder of the bilateral kidneys otherwise enhance symmetrically without hydronephrosis. Adrenal glands: Unremarkable. Gastrointestinal tract: Colonic diverticulosis without surrounding inflammatory change. Fecal stasis within the colon. Appendix: The appendix is of normal caliber (axial series, images 79 through 92). Vasculature: Trace calcified atherosclerotic disease, without aneurysmal dilatation. Lymph nodes: No pathologically enlarged or morphologically suspicious lymph nodes within the retroperitoneum or at the root of the mesentery. Pelvic structures: The bladder is decompressed, limiting its evaluation. The uterus is retroverted and retroflexed, and contains multiple bulky calcifications suggesting prio r fibroid disease. Body wall and musculoskeletal: Interval development of acute compression fracture involving the T11 vertebral body, an interval davis ge from 03/12/2024. Greater than 50% loss of vertebral body height is demonstrated. Query a history of trauma in the interval. IMPRESSION: Colonic diverticulosis without surrounding inflammatory change. Interval development of an acute compression fracture involving the T11 vertebral body with greater t capone 50% loss of vertebral body height, as detailed above. Reviewed, dictated and finalized at location A. IMPRESSION: Colonic diverticulosis without surrounding inflammatory change. Interval development of an acute compression fracture involving the T11 vertebr al body with greater than 50% loss of vertebral body height, as detailed above.
--- OUTSIDE RECORDS SUMMARY | 2024-07-02 12:17 | XMS_ITS | Continuity of Care Document ---
Author Organization [facility] Address [address] [place] [address] [address] [place] [address] Phone Care Team Providers Care Farmworker Field Crop Name Role Phone Narayan Caro Unavailable Unavailable [...] Copied on Encounter Office/outpat ient Visit, [facility], [address] [place] [address] [address], [place], [place], [id number], [place] tel:[phone] [facility] No Information 6200 9 Gordo Busch. [address], [place], [address], [place]. tel:[phone] Office/outpat ient Visit, [facility], [address] [place] [address] [address], [place], [place], [id number], [place] tel:[phone] [facility] No Information 0-200 8 Jacque Pagan [address], [place], [place], [facility], . tel:[phone] Office/outpat ient Visit, [facility], [address], [place], [place], [address], [place] tel:[phone] [facility] No Information June- 3-200 8 Jacque Butler. [address], [place], [facility], . tel:[phone] Office/outpat ient Visit, [facility], [address] [place] [address] [address], [place], [place], [address], [place] tel:[phone] [facility] No Information Sep-2 5-200 7 Jacque Butler. [address], [place], [place], [facility], . tel:[phone] Office/outpat ient Visit, [facility], [address], [place], [place], [address], [place] tel:[phone] [facility] No Information Oct-1 9-200 7 Gordo Busch. [address], [place], [place], [facility], [place]. tel:[phone] Office/outpat ient Visit, [facility], [address] [place] [address] [address], [place], [place], [address], [place] tel:[phone] [facility] No Information Aug-1 0-200 7 Jacque Pagan [address], [place], [place], [facility], [place]. tel:[phone] Office/outpat ient Visit, [facility], [address], [place], [place], [address], [place] tel:[phone] [facility] No Information Miguelito-2 2-200 7 Jacque Pagan [address], [place], [facility], . tel:[phone] Office/outpat ient Visit, [facility], [address] [place] [address] [address], [place], [place], [id number], tel:[phone] [facility] No Information Miguelito-1 2-200 7 Santillan Carrie. [address] [facility] , [address], [place], [facility], [place]. tel:[phone] Office/outpat ient Visit, [facility], [address] [place] [address] [address], [place], [place], [address], tel:[phone] SEC [facility] No Information Miguelito-0 5-200 7 Santillan Carrie. [address] [facility] , [address], [place], [place], [facility], . tel:[phone] [facility], [address] [place] [address] [address], [place], [place], [address], tel:[phone] [facility] No Information Miguelito-0 1-200 7 Gordo Busch. [address] [facility] , [address], [place], [place], [facility], . tel:[phone] Family History Family Member Type Diagnosis Age At Onset No Information Payers Payer name Insurance type Covered green party ID [place] [id number] Social History Type Description Quantity Date Captured [...]
--- OUTSIDE RECORDS SUMMARY | 2024-07-02 12:17 | XMS_ITS | Clinical Summary ---
Author Organization [facility]] at [facility] [place] Address [address] [place] [address] Care Team Providers Care Automotive Glass Specialist Name Role Phone Mario Walker MD Primary Care Provider [phone] Allergies Active Allergy Reactions Criticality Noted Date [...] Comments Blood Pressure 138/63 01/11/2017 1:21 PM INVESTIGATOR UTILITY BILL COMPLAINTS Pulse 72 01/11/2017 1:21 PM INVESTIGATOR UTILITY BILL COMPLAINTS Temperature - - Respiratory Rate - - [...] Td or Tdap) 06/17/202601/[address] [facility] MDCR [facility] Care Teams Automotive Glass Specialist Relationship Specialty Start Date End Date Mario Walker MD PCP - General 11/28/16
--- OUTSIDE RECORDS SUMMARY | 2024-07-02 12:17 | XMS_ITS | Clinical Summary ---
Author Organization [facility] Care Team Providers Care Bounty Trapper Name Role Phone Unavailable Primary Care Provider [...]
--- OUTSIDE RECORDS SUMMARY | 2024-07-02 12:17 | XMS_ITS | Referral Summary ---
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 BACK TENDER Pulse 72 01/11/2017 1:21 PM CLOTH FINISHING RANGE BACK TENDER Temperature - - Respiratory Rate - - Oxygen Saturation - - Inhaled Oxygen Concentration - - Weight 59.9 kg (132 lb) 04/27/2021 1:37 PM CDT Height 162.6 cm (5' 4) 04/27/2021 1:37 PM CDT Body Mass Index 22.66 04/27/2021 1:37 PM CDT Plan of Treatment Not on file Insurance [facility] HMO REF [facility] Address: [place] [id number] [place] [address] [place] [address] HMO REF [facility] Address: [address] [address] [place] [address] [employer] MDCR HMO REF Care Teams Speech Language Pathology Assistant Relationship Specialty Start Date End Date Mario Walker MD PCP - General 11/28/16
--- OUTSIDE RECORDS SUMMARY | 2024-07-02 12:17 | XMS_ITS | Continuity of Care Document ---
Author Organization [facility] Address [address] [place] [address] Phone Care Team Providers Care Door Frame Assembler Machine Name Role Phone Frederick Miranda MD Unavailable [...] Diagnoses Date Provider Providers Copied on Encounter [facility], [address] [place] [address], [id number], tel:[phone] [facility] hand (chief complaint) Pain in left hand 9 uRth Mack. [address] [place] [address], [id number] , . tel:[phone] Referring Provider: Frederick Miranda, [address] [place] [address], [address] . tel:[phone] [facility], [address] [place] [address], [id number], tel:[phone] [facility] Pain in left hipPain in left [...] with routine healing, subsequent encounter Ruth Mack. [address] [place] [address], [id number] , . tel:[phone] Referring Provider: Frederick Miranda, [address] [place] [address], [address] . tel:[phone] [facility], [address] [place] [address], [id number], tel:[phone] [facility] Nondisplaced intertrochanteric fracture of left femur, init 9 Ruth Mack. [address] [place] [address], [id number] , . tel:[phone] Referring Provider: Frederick Miranda, [address] [place], [address] . tel:[phone] Initial hospital care, [facility], [address] [place] [address], [id number], tel:[phone] [facility] No Information 9 Franklin Miller. [address] [place], [place], [id number] , . tel:[phone] Referring Provider: Mario Ramirez, [address] [place], [address] . tel:[phone] Initial hospital care, [facility], [address], [place], [id number], tel:[phone] [facility] No Information Salazar Tony. [address] [place] [address], [id number] , . tel:[phone] Referring Provider: Mario Ramirez, [address] [place], [address] . tel:[phone] Family History Family Member Type Diagnosis Age At Onset Problem (finding) Family history of Diabe cuate mellitus Payers Payer name Insurance type Covered alliance party ID Authorsladea tiarmani(s) [place] MB [id number] [facility] [id number] Social History Type Description Quantity Date Captured [...] Order Walker nd Xray Min 3 Views ([id number]), Ordered on: Ordered Future Order: Radiology Order Walker nd Xray Min 3 Views ([id number]), Ordered on: Ordered Future Order: Radiology Order Hi p Unil W Pelvis 2-3 Views ([id number]), Ordered on: Ordered History Of Present Illness Encounter Date Complaint History Of Prese nt Illness hand Functional Status Date Functional Assessmen t No Information Instructions Date Instruction Additional Infor mation No Information Assessments Type Assessment Date assessment Pain in left hand Patient Care Teams Name Effective Dates (start - stop) Status Members No Information
[2024-07-02 12:19] VITALS: BP 192/82; PULSE 77; RESP 18; TEMP 36.7; O2SAT 99
[2024-07-02 12:38] LABS: Basophils Absolute Auto 0.1 K/mm3 (0.0-0.1); Basophils Percent Auto 0.7 % (0.2-1.2); Eosinophils Absolute Auto 0.1 K/mm3 (0-0.3); Eosinophils Percent Auto 0.8 % (0-4.4); Hematocrit 38.8 % (37.0-47.0); Hemoglobin 11.9 g/dL (12.0-15.0); Immature Granulocyte Absolute 0.02 K/mm3 (0.00-0.031); Immature Granulocyte Percent A 0.3 % (0-0.5); Lymphocytes Absolute Auto 1.68 K/mm3 (0.9-3.2); Mean Corpuscular HGB Conc 30.7 g/dl (32-36); Mean Corpuscular Hemoglobin 29.5 pg (26-34); Mean Platelet Volume 10.4 fl (7.4-10.4); Monocytes Absolute Auto 0.6 K/mm3 (0.1-0.6); Monocytes Percent Auto 7.8 % (2.6-8.5); Neutrophils Absolute Auto 5.2 K/mm3 (1.3-6.7); Neutrophils Percent Auto 68.4 % (45.5-73.1); Platelet Count Result 293 k/mm3 (150-375); Red Blood Count 4.04 M/mm3 (4.2-5.4); Red Cell Distribution Width 14.7 % (11.5-14.5); White Blood Count 7.7 K/mm3 (4.5-10.0)
[2024-07-02 12:51] LABS: Alanine Aminotransferase 15 U/L (6-35); Albumin Level 4.4 g/dL (3.5-5.1); Alkaline Phosphatase 168 U/L (38-126); Anion Gap 9 mmol/L (4-12); Aspartate Amino Transferase 47 U/L (14-36); Bilirubin,Total 0.6 mg/dL (0.2-1.3); Blood Urea Nitrogen 16 mg/dL (7-17); Calcium 9.4 mg/dL (8.4-10.2); Carbon Dioxide 28 mmol/L (22-30); Chloride 101 mmol/L (98-107); Estimated CRCL calculation 41 ml/min; Estimated Glomerular Filt Rate > 60; Glucose 124 mg/dL (65-110); Lipase 88 U/L (23-300); Potassium 4.1 mmol/L (3.4-5.0); Sodium 138 mmol/L (137-145)
--- NOTE | 2024-07-02 14:32 | ED.ABDPAIN ---
HPI - Abdominal Pain General Chief Complaint: Abdominal Pain <Julee Yepez PA-C - Last Filed: 07/02/24 14:55> Stated Complaint: Abd pain x 6 days-sent by <Julee Yepez PA-C - Last Filed: 07/02/24 14:55> Time Seen by Provider: 07/02/24 14:32 <Julee Yepez PA-C - Last Filed: 07/02/24 14:55> Focused HPI: Patient is an 88 y/o female who presents to the ED with c/o abdominal pain. Patient reports having pain throughout her L lower abdomen, radiating to her L flank region for the past 6 days. States she has been constipated. Has had very small BMs over the past few days, but nothing substanstial. Had a small BM this morning, was black in color, very loose. Did take pepto bismol 3 days ago. Reports nausea, denies vomiting. Denies fevers. Denies hematuria/dysuria. Denies hx of similar pain or hx of diverticulitis. GENERAL: Elderly, frail, and in no acute distress. HEAD: Normocephalic, atraumatic. CHEST: Clear to auscultation. ?No respiratory distress. HEART: Regular rate and rhythm.? ABD: TTP in LLQ, L flank region. No rebound. Normoactive BS NEURO: ?Alert and oriented x3. Patient screened in triage and initial orders placed.? ?Additional care and disposition to be based upon?diagnostic testing and treatment. <Julee Yepez PA-C - Last Filed: 07/02/24 14:55> Source: patient <Julee Yepez PA-C - Last Filed: 07/02/24 14:55> Mode of arrival: ambulatory <Julee Yepez PA-C - Last Filed: 07/02/24 14:55> Limitations: no limitations <Julee Yepez PA-C - Last Filed: 07/02/24 14:55> History of Present Illness HPI narrative: I agree with the above HPI <Nico Williamson MD - Last Filed: 07/02/24 21:19> Related Data Allergies/Adverse Reactions: Allergies Allergy/AdvReac Type Severity Reaction Status Date / Time metformin Allergy Mild Hives Verified 07/02/24 11:05 Penicillins Allergy Mild Hives Verified 07/02/24 11:05 <Julee Yepez PA-C - Last Filed: 07/02/24 14:55> Review of Systems Review of Systems: All systems reviewed & are unremarkable except as noted in HPI and below <Nico Williamson MD - Last Filed: 07/02/24 21:19> [facility] Past Medical History Medical History: Medical History Pneumonia age 18 Gastritis BMI 22.0-22.9, adult Esophageal ring Depression with anxiety Cricopharyngeal achalasia Status post dilatation and Botox injection per Dr. Jah Soni (ENT) at [facility]. Anemia Essential hypertension Type 2 diabetes mellitus Vitamin D deficiency <Julee Yepez PA-C - Last Filed: 07/02/24 14:55> Surgical History Surgical History: Surgical History History of open reduction and internal fixation (ORIF) procedure Pinning of left hip fracture. History of arthroscopic knee surgery History of tonsillectomy History of cataract extraction <Julee Ypeez PA-C - Last Filed: 07/02/24 14:55> Family History Family History: Family History Father Family history of diabetes mellitus in first degree relative Mother Rheumatoid arthritis Sibling No problems noted. Other Family history of lupus erythematosus <Julee Yepez PA-C - Last Filed: 07/02/24 14:55> Social History Social History: Social History Social History: Surrogate decision maker: Guerda Mark, daughter. Code status: Full code. Smoking status: Never smoker Second hand tobacco smoke exposure: Yes Alcohol intake: never Substance use: never Substance use type: does not use Do You Feel Safe in your Home?: Yes Lack of Transportation: No Lack of Food: Never True Current Housing: I Have Housing Concerned About Future Housing: No Difficulty Paying Gas/Electric Bills: No Difficulty Paying for Meds: No Currently Unemployed: No Education: Trade/Vocational Certificate Difficulty w/ Childcare or Family Care: No Living arrangements: alone Additional living arrangements comments: Patient lives in a senior apartment in [place]. She has 6 children and was essentially a single mother for many years as her at a young age. 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 Gender identity (if verbalized by the patient): Female Spiritual care concerns: No <Julee Yepez PA-C - Last Filed: 07/02/24 14:55> Exam Narrative: APPEARANCE: Well appearing, no pain, no distress, well-nourished. HEAD: normocephalic, atraumatic. EYES: PERRLA/EOMI, conjunctivae clear. NOSE: Normal no drainage EARS:TMS clear with good light reflex. THROAT: Pharynx clear, no exudate. NECK: Supple. No adenopathy, no masses. RESPIRATORY: Airway patent, respirations nonlabored. Clear to auscultation bilaterally, no rales, rhonchi, wheezing. CARDIOVASCULAR: Regular rate and rhythm without murmurs rubs or gallops. ABDOMINAL: Soft, nontender, nondistended, normal bowel sounds MUSCULOSKELETAL: Moves all extremities. Strength/ROM intact, No edema, No calf tenderness. NEURO: Alert. Cranial nerves II through XII intact. Grossly SKIN: Warm, dry. Normal Color <Nico Williamson MD - Last Filed: 07/02/24 21:19> Course Vital Signs Vital signs: Vital Signs Temperature 98.0 F 07/02/24 12:19 Pulse Rate 77 07/02/24 12:19 Respiratory Rate 18 07/02/24 12:19 Blood Pressure 192/82 H 07/02/24 12:19 Pulse Oximetry 99 07/02/24 12:19 Oxygen Delivery Room Air 07/02/24 12:19 Temperature 98.0 F 07/02/24 12:19 Pulse Rate 71 07/02/24 16:21 Respiratory Rate 18 07/02/24 16:21 Blood Pressure 191/82 H 07/02/24 16:21 Pulse Oximetry 99 07/02/24 16:21 Oxygen Delivery Room Air 07/02/24 12:19 <Julee Yepez PA-C - Last Filed: 07/02/24 14:55> Vital Signs Temperature 98.0 F 07/02/24 12:19 Pulse Rate 77 07/02/24 12:19 Respiratory Rate 18 07/02/24 12:19 Blood Pressure 192/82 H 07/02/24 12:19 Pulse Oximetry 99 07/02/24 12:19 Oxygen Delivery Room Air 07/02/24 12:19 Temperature 98.0 F 07/02/24 12:19 Pulse Rate 71 07/02/24 16:21 Respiratory Rate 18 07/02/24 16:21 Blood Pressure 191/82 H 07/02/24 16:21 Pulse Oximetry 99 07/02/24 16:21 Oxygen Delivery Room Air 07/02/24 12:19 <Nico Williamson MD - Last Filed: 07/02/24 21:19> MDM - Abdominal Pain MDM Narrative Medical decision making narrative: MSE by [place] in triage. <Julee Yepez PA-C - Last Filed: 07/02/24 14:55> MSE by [place] in triage. 80-year-old female present to the emergency department for evaluation for left-sided rib pain back pain any issues with constipation. Patient reports she had a fall approximately 2 and half weeks ago. Patient was evaluated urgent care at this time. At that time patient did decline a head CT. Patient states she has since had her garrett from her scalp laceration removed. Patient states since the fall she has had left-sided rib pain and back pain. Patient has been taking Tylenol for pain control. Patient is also reports she has had some increased constipation but patient has not taken any medications to help with this. Patient states he did have a couple episodes of diarrhea was dark. Patient was Hemoccult negative on her digital rectal exam. CT scan does show a T11 compression fracture. Patient has left-sided rib tenderness to palpation but patient declined an x-ray. Patient prefers to be discharged home. Patient was provided incentive spirometer for concern for a rib fracture. Patient was also encouraged to increase her water intake and take MiraLax to help with constipation. <Nico Williamson MD - Last Filed: 07/02/24 21:19> Differential Diagnosis Differential diagnosis: Likely abdominal pain, acute appendicitis, calculus of kidney, constipation, diverticulitis and small bowel obstruction <Nico Williamson MD - Last Filed: 07/02/24 21:19> Lab Data Attestation: I reviewed the patient's lab results. <Nico Williamson MD - Last Filed: 07/02/24 21:19> Result diagrams: 07/02/24 12:32 07/02/24 12:32 <Julee Yepez PA-C - Last Filed: 07/02/24 14:55> Labs: Lab Results 07/02/24 07/02/24 Range/Units 12:32 15:59 WBC 7.7 (4.5-10.0) K/mm3 RBC 4.04 L (4.2-5.4) M/mm3 Hgb 11.9 L (12.0-15.0) g/dL Hct 38.8 (37.0-47.0) % MCV 96.0 (80-100) fl MCH 29.5 (26-34) pg MCHC 30.7 L (32-36) g/dl RDW 14.7 H (11.5-14.5) % Plt Count 293 D (150-375) k/mm3 MPV 10.4 (7.4-10.4) fl Immature Gran % (Auto) 0.3 (0-0.5) % Neut % (Auto) 68.4 (45.5-73.1) % Lymph % (Auto) 22.0 (18.3-44.2) % [place] % (Auto) 7.8 (2.6-8.5) % Eos % (Auto) 0.8 (0-4.4) % Baso % (Auto) 0.7 (0.2-1.2) % Lymph # (Auto) 1.68 (0.9-3.2) K/mm3 [place] # (Auto) 0.6 (0.1-0.6) K/mm3 Eos # (Auto) 0.1 (0-0.3) K/mm3 Baso # (Auto) 0.1 (0.0-0.1) K/mm3 Abs Immat Gran (auto) 0.02 (0.00-0.031) K/mm3 Absolute Neuts (auto) 5.2 (1.3-6.7) K/mm3 Absolute Nucleated RBC 0.000 (0.0-0.012) K/mm3 Nucleated RBC % 0.0 (0.0-0.2) % Sodium 138 (137-145) mmol/L Potassium 4.1 (3.4-5.0) mmol/L Chloride 101 (98-107) mmol/L Carbon Dioxide 28 (22-30) mmol/L Anion Gap 9 (4-12) mmol/L BUN 16 (7-17) mg/dL Creatinine 0.61 L (0.7-1.0) mg/dL Estim Creat Clear Calc 41 ml/min Estimated GFR > 60 (59 - ) Glucose 124 H (65-110) mg/dL Calcium 9.4 (8.4-10.2) mg/dL Total Bilirubin 0.6 (0.2-1.3) mg/dL AST 47 H (14-36) U/L ALT 15 (6-35) U/L Alkaline Phosphatase 168 H (38-126) U/L Total Protein 8.0 (6.3-8.2) g/dL Albumin 4.4 (3.5-5.1) g/dL Lipase 88 (23-300) U/L Urine Color Yellow (Yellow) Urine Appearance Clear (Clear) Urine pH 8.0 (5.0-9.0) Ur Specific [place] 1.044 H (1.001-1.035) Urine Protein Negative (Negative) mg/dL Urine Glucose (UA) Negative (Negative) mg/dL Urine Ketones Trace H (Negative) mg/dL Ur Blood (Man) Negative (Negative) Urine Nitrate Negative (Negative) Urine Bilirubin Negative (Negative) Urine Urobilinogen 0.2 (<2.0) mg/dL Leukocyte Esterase Rfl Negative (Negative) AARON/UL <Julee Yepez PA-C - Last Filed: 07/02/24 14:55> Lab Results 07/02/24 07/02/24 Range/Units 12:32 15:59 WBC 7.7 (4.5-10.0) K/mm3 RBC 4.04 L (4.2-5.4) M/mm3 Hgb 11.9 L (12.0-15.0) g/dL Hct 38.8 (37.0-47.0) % MCV 96.0 (80-100) fl MCH 29.5 (26-34) pg MCHC 30.7 L (32-36) g/dl RDW 14.7 H (11.5-14.5) % Plt Count 293 D (150-375) k/mm3 MPV 10.4 (7.4-10.4) fl Immature Gran % (Auto) 0.3 (0-0.5) % Neut % (Auto) 68.4 (45.5-73.1) % Lymph % (Auto) 22.0 (18.3-44.2) % [place] % (Auto) 7.8 (2.6-8.5) % Eos % (Auto) 0.8 (0-4.4) % Baso % (Auto) 0.7 (0.2-1.2) % Lymph # (Auto) 1.68 (0.9-3.2) K/mm3 [place] # (Auto) 0.6 (0.1-0.6) K/mm3 Eos # (Auto) 0.1 (0-0.3) K/mm3 Baso # (Auto) 0.1 (0.0-0.1) K/mm3 Abs Immat Gran (auto) 0.02 (0.00-0.031) K/mm3 Absolute Neuts (auto) 5.2 (1.3-6.7) K/mm3 Absolute Nucleated RBC 0.000 (0.0-0.012) K/mm3 Nucleated RBC % 0.0 (0.0-0.2) % Sodium 138 (137-145) mmol/L Potassium 4.1 (3.4-5.0) mmol/L Chloride 101 (98-107) mmol/L Carbon Dioxide 28 (22-30) mmol/L Anion Gap 9 (4-12) mmol/L BUN 16 (7-17) mg/dL Creatinine 0.61 L (0.7-1.0) mg/dL Estim Creat Clear Calc 41 ml/min Estimated GFR > 60 (59 - ) Glucose 124 H (65-110) mg/dL Calcium 9.4 (8.4-10.2) mg/dL Total Bilirubin 0.6 (0.2-1.3) mg/dL AST 47 H (14-36) U/L ALT 15 (6-35) U/L Alkaline Phosphatase 168 H (38-126) U/L Total Protein 8.0 (6.3-8.2) g/dL Albumin 4.4 (3.5-5.1) g/dL Lipase 88 (23-300) U/L Urine Color Yellow (Yellow) Urine Appearance Clear (Clear) Urine pH 8.0 (5.0-9.0) Ur Specific [place] 1.044 H (1.001-1.035) Urine Protein Negative (Negative) mg/dL Urine Glucose (UA) Negative (Negative) mg/dL Urine Ketones Trace H (Negative) mg/dL Ur Blood (Man) Negative (Negative) Urine Nitrate Negative (Negative) Urine Bilirubin Negative (Negative) Urine Urobilinogen 0.2 (<2.0) mg/dL Leukocyte Esterase Rfl Negative (Negative) AARON/UL <Nico Williamson MD - Last Filed: 07/02/24 21:19> Imaging Data Radiologist's impression: ITS Impressions Abdomen/Pelvis CT 07/02/24 15:39 IMPRESSION: Colonic diverticulosis without surrounding inflammatory change. Interval development of an acute compression fracture involving the T11 vertebral body with greater than 50% loss of vertebral body height, as detailed above. <Julee Yepez PA-C - Last Filed: 07/02/24 14:55> ITS Impressions Abdomen/Pelvis CT 07/02/24 15:39 IMPRESSION: Colonic diverticulosis without surrounding inflammatory change. Interval development of an acute compression fracture involving the T11 vertebral body with greater than 50% loss of vertebral body height, as detailed above. <Nico Williamson MD - Last Filed: 07/02/24 21:19> Discharge Plan Discharge Clinical Impression: Closed wedge compression fracture of T11 vertebra, Contusion of rib, Constipation <Julee Yepez PA-C - Last Filed: 07/02/24 14:55> Patient Disposition: Home <Julee Yepez PA-C - Last Filed: 07/02/24 14:55> Condition: Stable <Julee Yepez PA-C - Last Filed: 07/02/24 14:55> Instructions: Antibiotic Form, How to Use an Incentive Spirometer (ED), Constipation (DC), Vertebral Compression Fracture (ED) <Julee Yepez PA-C - Last Filed: 07/02/24 14:55> Additional Instructions: Incentive spirometer as directed. Tylenol for pain control. Flexeril for muscle spasm. Increase your water and MiraLax intake to help with your constipation. Have follow-up with Neurosurgery. Have close follow-up with your primary care physician. <Julee Yepez PA-C - Last Filed: 07/02/24 14:55> Patient Language: Angolan <Julee Yepez PA-C - Last Filed: 07/02/24 14:55> Prescriptions: New cyclobenzaprine 10 mg tablet 10 mg PO BID PRN (Reason: muscle spasm) Qty: 14 0RF No Action loratadine 10 mg tablet 10 mg PO DAILY Qty: 30 0RF tramadol 50 mg tablet 50 mg PO BID PRN (Reason: pain) 5 Days Qty: 10 0RF losartan [Cozaar] 50 mg Tablet 50 mg PO DAILY Qty: 30 0RF acetaminophen 325 mg Tablet 650 mg PO Q6H PRN (Reason: Mild Pain (1-3) Or Fever) Qty: 30 0RF oxycodone 5 mg Tablet 5 mg PO Q6HR PRN (Reason: Pain Rated 7-10) Qty: 15 0RF cholecalciferol (vitamin D3) 125 mcg (5,000 unit) capsule 125 mcg PO DAILY Qty: 30 0RF sertraline [Zoloft] 50 mg tablet 75 mg PO DAILY Qty: 135 3RF ibandronate 150 mg tablet 150 mg PO MONTHLY Qty: 12 2RF gabapentin [Neurontin] 300 mg capsule See Rx Instructions PO DAILY Qty: 270 2RF Rx Instructions: Take 1 capsule by mouth in the AM and 2 in the PM PO daily; <Julee Yepez PA-C - Last Filed: 07/02/24 14:55> Follow-up/Referrals: Mario [place] MD [Primary Care Provider] - <Julee Yepez PA-C - Last Filed: 07/02/24 14:55>
[2024-07-02] MEDS: ONDANSETRON INJ 4 MG/2 ML VIAL IV PUSH (15:06)
[2024-07-02 16:05] LABS: Add Urine Microscopic? NO; Appearance Urine Clear (Clear); Bilirubin Urine Negative (Negative); Blood Urine Negative (Negative); Color Urine Yellow (Yellow); Glucose Urine UA Negative (Negative); Ketones Urine Trace mg/dL (Negative); Leukocyte Esterase Ur Negative LEU/UL (Negative); Nitrate Urine Negative (Negative); Protein Urine Negative (Negative); Specific Grav Ur 1.044 (1.001-1.035); Urobilinogen Urine 0.2 mg/dL (<2.0)
[2024-07-02 16:21] VITALS: BP 191/82; PULSE 71; RESP 18; O2SAT 99
--- OUTSIDE RECORDS SUMMARY | 2024-07-02 16:39 | XMS_ITS | Continuity of Care Document ---
Author Organization [facility] Address [address] [place] [address] Phone Care Team Providers Care Nematologist Name Role Phone Frederick Miranda MD Unavailable [...] Provider Providers Copied on Encounter [facility], [address] [place] [address], [id number], tel:[phone] [facility] hand (chief complaint) Pain in left hand 9 Ruth Mack. [address] [place] [address], [id number] , . tel:[phone] Referring Provider: Frederick Miranda, [address] [place] [address], [address] . tel:[phone] [facility], [address] [place] [address], [id number], tel:[phone] [facility] Pain in left hipPain in left [...] with routine healing, subsequent encounter Ruth Mack. [address] [place] [address], [id number] , . tel:[phone] Referring Provider: Frederick Miranda, [address] [place] [address], [address] . tel:[phone] [facility], [address] [place] [address], [id number], tel:[phone] [facility] Nondisplaced intertrochanteric fracture of left femur, init 9 Ruth Mack. [address] [place] [address], [id number] , . tel:[phone] Referring Provider: Frederick Miranda, [address] [place], [address] . tel:[phone] Initial hospital care, [facility], [address] [place] [address], [id number], tel:[phone] [facility] [place] No Information 9 Franklin Miller. [address], [place], [id number] , . tel:[phone] Referring Provider: Mario Ramirze, [address] [place], [address] . tel:[phone] Initial [facility], [facility], [address], [place], [id number], tel:[phone] [facility] No Information Salazar Tony. [address] [place] [address], [id number] , . tel:[phone] Referring Provider: Mario Ramirez, [address] [place], [address] . tel:[phone] Family History Family Member Type Diagnosis Age At Onset Problem (finding) Family history of Diabe cuate mellitus Payers Payer name Insurance type Covered green party ID Authorsladea tiarmani(s) [place] MB [id number] [facility] [id number] Social History Type Description Quantity Date Captured [...] Order [place] nd Xray Min 3 Views ([id number]), Ordered on: Ordered Future Order: Radiology Order [place] nd Xray Min 3 Views ([id number]), Ordered on: Ordered Future Order: Radiology Order Hi p Unil W Pelvis 2-3 Views ([id number]), Ordered on: Ordered History Of Present Illness Encounter Date Complaint History Of Prese nt Illness hand Functional Status Date Functional Assessmen t No Information Instructions Date Instruction Additional Infor mation No Information Assessments Type Assessment Date assessment Pain in left hand Patient Care Teams Name Effective Dates (start - stop) Status Members No Information
--- OUTSIDE RECORDS SUMMARY | 2024-07-02 16:39 | XMS_ITS | Referral Summary ---
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 Pulse 72 01/11/2017 1:21 PM [employer] SUPERVISOR Temperature - - Respiratory Rate - - Oxygen Saturation - - Inhaled Oxygen Concentration - - Weight 59.9 kg (132 lb) 04/27/2021 1:37 PM CDT Height 162.6 cm (5' 4) 04/27/2021 1:37 PM CDT Body Mass Index 22.66 04/27/2021 1:37 PM CDT Plan of Treatment Not on file Insurance [facility] HMO REF Member Subscriber Plan / Payer ( fective 2020-Present) Name:Bita Marybeth Felton Relation to Subscriber:Self Name:Bita Marybeth Felton Payer ID:[id number] (NAIC) Type:[employer] [facility] Address: [place] [id number] [place] [address] [place] [address] HMO REF [employer] MDCR HMO REF Care Teams Night Time Nanny Relationship Specialty Start Date End Date Mario [place] MD PCP - General 11/28/16
--- OUTSIDE RECORDS SUMMARY | 2024-07-02 16:39 | XMS_ITS | Clinical Summary ---
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
--- OUTSIDE RECORDS SUMMARY | 2024-07-02 16:39 | XMS_ITS | Continuity of Care Document ---
Author Organization [facility] Address [address] [place] [address] [address] [place] [address] Phone Care Team Providers Care Child Neurologist Name Role Phone Narayan Caro Unavailable Unavailable [...] Encounter Office/outpat ient Visit, [facility], [address] [place] [address] [address], [place], [place], [id number], [place] tel:[phone] [facility] No Information [address] Gordo Busch. [address] , [address], [place], [address], [place]. tel:[phone] Office/outpat ient Visit, [facility], [address] [place] [address] [address], [place], [place], [id number], [place] tel:[phone] [facility] No Information 0-200 8 Jacque Pagan [address] , [address], [place], [place], [facility], . tel:[phone] Office/outpat ient Visit, [facility], [address], [place], [place], [id number], [place] tel:[phone] [facility] No Information June- 3-200 8 Jacque Butler. [address] , [address], [place], [place], [facility], . tel:[phone] Office/outpat ient Visit, [facility], [address] [place] [address] [address], [place], [place], [id number], [place] tel:[phone] [facility] No Information Sep-2 5-200 7 Jacque Butler. [address] , [address], [place], [place], [facility], . tel:[phone] Office/outpat ient Visit, [facility], [address], [place], [place], [id number], [place] tel:[phone] [facility] No Information Oct-1 9-200 7 Gordo Busch. [address] , [address], [place], [place], [facility], [place]. tel:[phone] Office/outpat ient Visit, [facility], [address] [place] [address] [address], [place], [place], [id number], [place] tel:[phone] [facility] No Information Aug-1 0-200 7 Jacque Pagan [address] , [address], [place], [place], [facility], [place]. tel:[phone] Office/outpat ient Visit, [facility], [address], [place], [place], [id number], [place] tel:[phone] [facility] No Information Miguelito-2 2-200 7 Jacque Pagan [address] , [address], [place], [place], [facility], . tel:[phone] Office/outpat ient Visit, [facility], [address] [place] [address] [address], [place], [place], [id number], tel:[phone] [facility] No Information Miguelito-1 2-200 7 Santillan Carrie. [address] [facility] , [address], [place], [place], [facility], [place]. tel:[phone] Office/outpat ient Visit, [facility], [address] [place] [address] [address], [place], [place], [id number], tel:[phone] [facility] No Information Miguelito-0 5-200 7 Santillan Carrie. [address] [facility] , [address], [place], [place], [facility], . tel:[phone] [facility], [address] [place] [address] [address], [place], [place], [id number], tel:[phone] [facility] No Information Miguelito-0 1-200 7 Gordo Busch. [address] [facility] , [address], [place], [place], [facility], . tel:[phone] Family History Family Member Type Diagnosis Age At Onset No Information Payers Payer name Insurance type Covered democrat ID [place] [id number] Social History Type Description Quantity Date Captured [...]
--- OUTSIDE RECORDS SUMMARY | 2024-07-02 16:39 | XMS_ITS | Clinical Summary ---
Author Organization [facility] Care Team Providers Care Workforce Consultant Name Role Phone Unavailable Primary Care Provider [...]
== END 2024-07-02 19:09 | disposition home or self-care (01) ==
PROVIDERS: Emergency Provider Emergency Medicine; PCP Family Medicine
DX: M48.54XA Collapsed vertebra, not elsewhere classified, thoracic region, initial encounter for fracture (principal); S20.219A Contusion of unspecified front wall of thorax, initial encounter; K59.00 Constipation, unspecified; F41.8 Other specified anxiety disorders; E11.9 Type 2 diabetes mellitus without complications; I10 Essential (primary) hypertension; E55.9 Vitamin D deficiency, unspecified
CPT/HCPCS: 36415; 74019; 74177; 80053; 81003; 83690; 85025; 96374; 99284; J2405; Q9967

== ENCOUNTER 2024-09-17 10:16 | Outpatient (CLI) | payer MEDICARE, SELFPAY ==
--- NOTE | ~2024-09-17 | XR_ITS ---
Exam: Right ankle x-ray minimum 3 views. CLINICAL HISTORY: Cellulitis of unspecified part of limb. TECHNIQUE: 4 images of the right ankle were obtained. Comparisons: None available at this time. FINDINGS: Bones appear osteopenic. No fracture. No dislocation. Soft tissue swelling about the right ankle. Periosteal reaction along the lateral aspect of the distal third of the right fibula and right tibia. The finding is nonspecific, however, osteomyelitis is possible. Consider an MRI with and without con trast for further assessment. Talar dome is unremarkable. IMPRESSION: 1.Periosteal reaction along the lateral aspect of the distal third of the right fibula and right tibi a. The finding is nonspecific, however, osteomyelitis is possible. Consider an MRI with and without c ontrast for further assessment. Reviewed, dictated and finalized at location A. IMPRESSION: 1.Periosteal reaction along the lateral aspect of the distal third of the right fibula and right tibia. The finding is nonspecific, however, osteomyelitis is possible. Consider an MRI with and without contrast for further assessment.
--- OUTSIDE RECORDS SUMMARY | 2024-09-17 11:03 | XMS_ITS | Clinical Summary ---
Author Organization [facility] Address [address] [place] [address] Care Team Providers Care Admissions Director Name Role Phone Mario Walker MD Primary Care Provider + [phone] Allergies Active Allergy Reactions Criticality Noted Date [...] Comments Blood Pressure 138/63 01/11/2017 1:21 PM COMMUNITY CHEST OFFICER Pulse 72 01/11/2017 1:21 PM COMMUNITY CHEST OFFICER Temperature - - Respiratory Rate - - Oxygen Saturation - - Inhaled Oxygen Concentration - - Weight 59.9 kg (132 lb) 04/27/2021 1:37 PM CDT Height 162.6 cm (5' 4) 04/27/2021 1:37 PM CDT Body Mass Index 22.66 04/27/2021 1:37 PM CDT Plan of Treatment Not on file Insurance [facility] Address: [facility] [address] [place] [address] [facility] Address[facility] [address] [place] [address] [facility] MDCR HMO [facility] Address: [facility] [address] [place] [address] Care Teams Admissions Director Relationship Specialty Start Date End Date Mario Walker MD PCP - General 11/28/16
[2024-09-17 11:15] LABS: Hematocrit 35.5 % (37.0-47.0); Hemoglobin 10.9 g/dL (12.0-15.0); Immature Granulocyte Percent A 0.5 % (0-0.5); Lymphocytes Absolute Auto 1.97 K/mm3 (0.9-3.2); Mean Corpuscular HGB Conc 30.7 g/dl (32-36); Mean Corpuscular Hemoglobin 28.9 pg (26-34); Mean Corpuscular Volume 94.2 fl (80-100); Nucleated Red Blood Cells Absolute Auto 0.000 K/mm3 (0.0-0.012); Nucleated Red Blood Cells Perc 0.0 % (0.0-0.2); Platelet Count Result 262 k/mm3 (150-375); Red Blood Count 3.77 M/mm3 (4.2-5.4); White Blood Count 8.5 K/mm3 (4.5-10.0)
[2024-09-17 11:46] LABS: Alanine Aminotransferase 17 U/L (6-35); Albumin Level 4.5 g/dL (3.5-5.1); Alkaline Phosphatase 106 U/L (38-126); Anion Gap 10 mmol/L (4-12); Aspartate Amino Transferase 41 U/L (14-36); Bilirubin,Total 0.7 mg/dL (0.2-1.3); Blood Urea Nitrogen 18 mg/dL (7-17); Calcium 9.9 mg/dL (8.4-10.2); Carbon Dioxide 27 mmol/L (22-30); Chloride 103 mmol/L (98-107); Estimated Glomerular Filt Rate > 60; Glucose 150 mg/dL (65-110); Potassium 5.1 mmol/L (3.4-5.0); Sodium 140 mmol/L (137-145); Total Protein 8.5 g/dL (6.3-8.2)
== END 2024-09-17 10:17 | disposition home or self-care (01) ==
PROVIDERS: PCP Family Medicine; Visit Provider Physician Assistant Medical
DX: L03.119 Cellulitis of unspecified part of limb (principal); L02.419 Cutaneous abscess of limb, unspecified
CPT/HCPCS: 36415; 73610; 80053; 85025; 85652

== ENCOUNTER 2024-09-22 13:13 | Inpatient (IN) | payer MEDICARE, SELFPAY ==
--- NOTE | ~2024-09-22 | CT_ITS ---
EXAMINATION: CTA abd aorta runoff DATE: 09/30/2024 10:35 CDT INDICATION: Rule out peripheral arterial disease. TECHNIQUE: Computed tomographic angiography (CTA) of the abdomen and pelvis and lower extremities was performed without and with intravenous contrast. The dose- length product was 623.01 mGy-cm. Maximum intensity projection 3D- reconstructions of the aorta and other arteries were constructed by the techn ologist on a separate workstation. COMPARISON: None. FINDINGS: Small patchy opacities in the right lower lung. Small to moderate-sized patchy opacities in the left lower lobe with a moderate-sized consolidation. Fatty liver. Heart is moderately enlarged. The spleen is heterogeneous presumably due to timing of the contrast bolus. Adrenal glands and pancreas unremarkable. Gallbladder is prominent. No gallbladder wall thickening. No gallstones. There are a few too small to characterize low-attenuation lesions scattered throughout the kidneys. There is a 1.5 cm cyst in the left kidney. 5 mm nonobstructing right renal stone. No hydronephrosis. Bladder is unremarkable. Hardware in the left hip with surrounding artifact which limits evaluation. Moderate amount of stool. No enlarged lymph nodes in the abdomen or pelvis. Bones appear osteopenic. CTA: Abdominal aorta is partially calcified but is not aneurysmal. Origin the celiac artery demonstrate a small amount of calcified plaque with less than 10% stenosis. Origin of the superior mesenteric artery is widely patent. Visualized branches of celiac artery are patent. Visualized branches of the superior mesenteric artery artery are patent. Single bilateral renal arteries. Tiny amount of plaque at the origins of the bilateral renal arteries. Inferior mesenteric artery is widely patent. Bilateral common iliac arteries are unremarkable. Bilateral internal iliac arteries demonstrate a small amount of calcified plaque. Bilateral external iliac arteries are widely patent. Bilateral common femoral arteries are widely patent. Small amount of calcified and noncalcified plaque scattered throughout the bilateral superficial femoral arteries with less than 10% stenosis. Bilateral popliteal arteries are widely patent without arterial disease. Unremarkable bilateral trifurcation of the anterior tibial arteries, posterior tibial arteries and peroneal arteries. The bilateral anterior tibial arteries, posterior tibial arteries and peroneal arteries are patent into the visualized portions of both feet. IMPRESSION: 1. Mild atherosclerotic disease throughout the visualized arterial system in the abdomen, pelvis and bilateral lower extremities as detailed above. 2. Small patchy opacities in the right lower lung. 3. Moderate-sized patchy opacities in the left lower lobe with a moderate size left lower lobe consolidation. 4. Fatty liver. 5. Left renal cyst 6. Small nonobstructing right renal stone. Reviewed, dictated and finalized at location Q. IMPRESSION: 1. Mild atherosclerotic disease throughout the visualized arterial system in th e abdomen, pelvis and bilateral lower extremities as detailed above. 2. Small patchy opacities in the right lower lung. 3. Moderate-sized patchy opacities in the left lower lobe with a moderate size left lower lobe consolidation. 4. Fatty liver. 5. Left renal cyst 6. Small nonobstructing right renal stone.
--- NOTE | ~2024-09-22 | US_ITS ---
EXAMINATION: US venous doppler LE RT DATE: 09/22/2024 19:19 INDICATION: Pain and erythema and swelling TECHNIQUE: Grayscale ultrasound images without and with compression and Doppler ultrasound images of the right lower extremity veins were obtained. COMPARISON: None. FINDINGS: The visualized portions of right common femoral vein, profunda (deep) femoral vein, femoral vein, pop liteal vein, peroneal veins, posterior tibial veins, and greater saphenous vein outflow are patent. IMPRESSION: 1. No deep venous thrombosis. Reviewed, dictated and finalized at location A.
--- NOTE | ~2024-09-22 | US_ITS ---
Ankle Brachial Index with Ultrasound Dopplers and Pulse Volume Recordings Technique: Pressures in the arm and lower extremity were obtained. Additionally, arterial and pulse v olume waveforms were obtained bilaterally. Findings: Segmental pressures Right posterior tibial: 192 Right dorsalis pedis: 184 Left posterior tibial: 186 Left dorsalis pedis: 172 There are dampened waveforms in the bilateral lower extremities. Within the left lower extremity, irregular (notched) waveforms are detected, likely secondary to tech nique. TERESA Right 1.05 Left 1.02 TBI Right 0.59 Left 0.52 Impression: Unremarkable ABIs within the bilateral lower extremities, although given patient's diabetes history, this is an unreliable value. The TBI is markedly diminished, consistent with bilateral peripheral arterial disease, for which CTA with runoff would provide additional information and also provide better anatomical information. Reviewed, dictated and finalized at location A. Impression: Unremarkable ABIs within the bilateral lower extremities, although given patien t's diabetes history, this is an unreliable value. The TBI is markedly diminished, consistent with bilateral peripheral arterial d isease, for which CTA with runoff would provide additional information and also provide better anatomical information.
[2024-09-22 13:21] VITALS: BP 186/101; PULSE 83; RESP 16; TEMP 36.5; O2SAT 98
--- NOTE | 2024-09-22 13:33 | ED_ITS ---
HPI - General Adult General Chief complaint: Skin/Abscess/Foreign Body Stated complaint: wound, lethargic, SOB Time Seen by Provider: 09/22/24 13:31 Source: patient and EMS Mode of arrival: EMS Limitations: no limitations History of Present Illness HPI narrative: 89 years old white female came to the ED from home by ambulance complaining of multiple ulcers at the lower leg distally around ankle area started 8 days ago, and getting worse, was seen by her family physician and failed outpatient antibiotic twice and topical mupirocin. Patient denies any trauma, fever, chills or history of diabetes. Related Data Allergies Allergy/AdvReac Type Severity Reaction Status Date / Time metformin Allergy Mild Hives Verified 09/20/24 07:34 Penicillins Allergy Mild Hives Verified 09/20/24 07:34 Review of Systems 2 Review of Systems: All systems reviewed & are unremarkable except as noted in HPI and below PMFSH Past Medical History Medical History Compression fracture Bilateral renal stones Weakness Contracture of muscle, unspecified hand Injury of left hip Left wrist pain Influenza A COVID-19 Other iron deficiency anemias Dysphagia RUQ abdominal pain Enteritis Diarrhea Esophageal obstruction Acute sinusitis Diabetes type 2, controlled BMI 21.0-21.9, adult Hospital discharge follow-up Pneumonia age 18 Gastritis BMI 22.0-22.9, adult Esophageal ring Depression with anxiety Cricopharyngeal achalasia Status post dilatation and Botox injection per Dr. Jah Soni (ENT) at [facility]. Anemia Essential hypertension Type 2 diabetes mellitus Vitamin D deficiency Surgical History Surgical History History of open reduction and internal fixation (ORIF) procedure Pinning of left hip fracture. History of arthroscopic knee surgery History of tonsillectomy History of cataract extraction Family History Family History Father Family history of diabetes mellitus in first degree relative Mother Rheumatoid arthritis Sibling No problems noted. Other Family history of lupus erythematosus Social History Social History Social History: Surrogate decision maker: Guerda Mark, daughter. Code status: Full code. Smoking status: Never smoker Second hand tobacco smoke exposure: Yes Alcohol intake: never Substance use: never Substance use type: does not use Do You Feel Safe in your Home?: Yes Lack of Transportation: No Lack of Food: Never True Current Housing: I Have Housing Concerned About Future Housing: No Difficulty Paying Gas/Electric Bills: No Difficulty Paying for Meds: No Currently Unemployed: No Education: Trade/Vocational Certificate Difficulty w/ Childcare or Family Care: No Living arrangements: alone Additional living arrangements comments: Patient lives in a senior apartment in [place]. She has 6 children and was essentially a single mother for many years as her at a young age. 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 Gender identity (if verbalized by the patient): Female Spiritual care concerns: No Exam 2 Narrative: General appearance: Well-developed, well-nourished Skin: Normal color Head: Normocephalic, nontraumatic Eyes: Clear conjunctiva ENT: Oropharynx normal, ears normal, nose normal Neck: Supple, nontender Chest and respiratory: Airway patent, no respiratory distress, no accessory muscle use Heart: Regular rate/rhythm Abdomen: Soft, nontender, no organomegaly, quiet bowel sounds Vascular: Normal peripheral pulses, normal capillary refill. Musculoskeletal: Right lower leg examination showed multiple ulcerations with scabs at the distal leg all the way around the ankle surrounded by extensive erythema, severe diffuse tenderness including the foot +palpable purpura Neurologic: Alert and oriented ?3, LUMBER GRADER is normal as tested, no gross motor deficit Course Vital Signs Vital signs: Vital Signs Temperature 36.5 C 09/22/24 13:21 Pulse Rate 83 09/22/24 13:21 Respiratory Rate 16 09/22/24 13:21 Blood Pressure 186/101 H 09/22/24 13:21 Pulse Oximetry 98 09/22/24 13:21 Oxygen Delivery Room Air 09/22/24 13:21 Temperature 36.5 C 09/22/24 13:21 Pulse Rate 70 09/22/24 15:07 Respiratory Rate 17 09/22/24 15:07 Blood Pressure 168/69 H 09/22/24 15:07 Pulse Oximetry 98 09/22/24 15:07 Oxygen Delivery Room Air 09/22/24 13:21 Medical Decision Making [facility] Narrative Medical decision making narrative: Patient presents with ulcers and your symptoms changes of the right lower leg for the last 8 days Did not get better on 2 courses of antibiotic and mupirocin Vital signs showing blood pressure 186/101 otherwise within normal limit Physical examination showing multiple ulcers surrounded by extensive erythema and palpable purpura Differential diagnosis include: Vasculitis legs which end up causing palpable purpura, pain and swelling, and skin ulcers., cellulitis Blood workup today includes CBC, CMP, sed rate, coags showed WBC of 8.1, hemoglobin 10.1, sed rate of 132, BUN 18 creatinine 0.55 blood glucose of 204, C-reactive protein 3.0 Patient started on IV antibiotic Differential Diagnosis Differential Diagnosis: As above Vital Signs Vital Signs: Vital Signs Temperature 36.5 C 09/22/24 13:21 Pulse Rate 83 09/22/24 13:21 Respiratory Rate 16 09/22/24 13:21 Blood Pressure 186/101 H 09/22/24 13:21 Pulse Oximetry 98 09/22/24 13:21 Oxygen Delivery Room Air 09/22/24 13:21 Temperature 36.5 C 09/22/24 13:21 Pulse Rate 70 09/22/24 15:07 Respiratory Rate 17 09/22/24 15:07 Blood Pressure 168/69 H 09/22/24 15:07 Pulse Oximetry 98 09/22/24 15:07 Oxygen Delivery Room Air 09/22/24 13:21 Lab Data 09/22/24 14:18 09/22/24 14:18 Labs: Lab Results 09/22/24 Range/Units 14:18 WBC 8.1 (4.5-10.0) K/mm3 RBC 3.53 L (4.2-5.4) M/mm3 Hgb 10.1 L (12.0-15.0) g/dL Hct 32.2 L (37.0-47.0) % MCV 91.2 (80-100) fl MCH 28.6 (26-34) pg MCHC 31.4 L (32-36) g/dl RDW 15.1 H (11.5-14.5) % Plt Count 258 (150-375) k/mm3 MPV 10.6 H (7.4-10.4) fl Immature Gran % (Auto) 0.4 (0-0.5) % Neut % (Auto) 78.8 H (45.5-73.1) % Lymph % (Auto) 12.8 L (18.3-44.2) % Rooks % (Auto) 7.1 (2.6-8.5) % Eos % (Auto) 0.4 (0-4.4) % Baso % (Auto) 0.5 (0.2-1.2) % Lymph # (Auto) 1.03 (0.9-3.2) K/mm3 Rooks # (Auto) 0.6 (0.1-0.6) K/mm3 Eos # (Auto) 0.0 (0-0.3) K/mm3 Baso # (Auto) 0.0 (0.0-0.1) K/mm3 Abs Immat Gran (auto) 0.03 (0.00-0.031) K/mm3 Absolute Neuts (auto) 6.4 (1.3-6.7) K/mm3 Absolute Nucleated RBC 0.000 (0.0-0.012) K/mm3 Nucleated RBC % 0.0 (0.0-0.2) % ESR 132 H (0-20) mm/hr Sodium 137 (137-145) mmol/L Potassium 3.8 (3.4-5.0) mmol/L Chloride 102 (98-107) mmol/L Carbon Dioxide 27 (22-30) mmol/L Anion Gap 8 (4-12) mmol/L BUN 18 H (7-17) mg/dL Creatinine 0.55 L (0.7-1.0) mg/dL Estim Creat Clear Calc 48 ml/min Estimated GFR > 60 (59 - ) Glucose 204 H (65-110) mg/dL Lactic Acid 0.9 (0.7-2.0) mmol/L Calcium 9.6 (8.4-10.2) mg/dL Total Bilirubin 0.5 (0.2-1.3) mg/dL AST 27 (14-36) U/L ALT 13 (6-35) U/L Alkaline Phosphatase 90 (38-126) U/L C-Reactive Protein 3.0 H (<1.0) mg/dL Total Protein 7.5 (6.3-8.2) g/dL Albumin 3.9 (3.5-5.1) g/dL Discharge Plan Discharge Clinical Impression: Cellulitis of leg, right, Failure of outpatient treatment Patient Disposition: Still a Patient Condition: Stable Patient Language: [place] Prescriptions: No Action mupirocin [Centany] 2 % ointment 1 applic topical BID Qty: 30 0RF Saccharomyces boulardii [Florastor] 250 mg capsule 250 mg PO BID Qty: 60 0RF tramadol 50 mg tablet 50 mg PO BID PRN (Reason: pain) Qty: 30 0RF levofloxacin 500 mg tablet 500 mg PO DAILY Qty: 5 0RF ondansetron HCl 4 mg tablet 4 mg PO Q8H PRN (Reason: nausea and vomiting) Qty: 20 0RF acetaminophen 325 mg Tablet 650 mg PO Q6H PRN (Reason: Mild Pain (1-3) Or Fever) Qty: 30 0RF cholecalciferol (vitamin D3) 125 mcg (5,000 unit) capsule 125 mcg PO DAILY Qty: 30 0RF sertraline [Zoloft] 50 mg tablet 75 mg PO DAILY Qty: 135 3RF ibandronate 150 mg tablet 150 mg PO MONTHLY Qty: 12 2RF gabapentin [Neurontin] 300 mg capsule See Rx Instructions PO DAILY Qty: 270 2RF Rx Instructions: Take 1 capsule by mouth in the AM and 2 in the PM PO daily; Follow-up/Referrals: Mario Walker MD [Primary Care Provider] -
--- OUTSIDE RECORDS SUMMARY | 2024-09-22 13:47 | XMS_ITS | Clinical Summary ---
Author Organization [facility] Address [facility] [place] [address] Care Team Providers Care Electrologist Name Role Phone Unavailable Primary Care Provider [...] - 1-dose 75+ series) 09/16/2010 COVID-19 Vaccine ( - 2023-2 5 season) 2023 Meningococcal B Vaccine Aged Out No l onger eligible based on patient's age to complete this topic Meningococcal Vaccine Aged Out No skye fabiano eligible based on patient's age to complete this topic RSV Immunizations Under 20 Months Aged Out No longer eligible based on patient's age to complete this topic
--- OUTSIDE RECORDS SUMMARY | 2024-09-22 13:47 | XMS_ITS | Clinical Summary ---
Author Organization [facility] Care Team Providers Care Assembly Technician Name Role Phone Unavailable Primary Care Provider Unavailabl e Social History Tobacco Use Types Packs/Day Years Used Date Smoking Tobacco: Never Assessed Comments Unknown Sex and Gender Information Value Date Recorded Sex Assigned at Not on file Legal Sex Female 1:48 PM CDT Gender Identity Not on file Sexual Orientation Not on file Plan of Treatment Health Maintenance Due Date Last Done Comments Hepatitis C Virus (HCV) Screening 1935 Pneumococcal Immunization (5 0+ years) (1 of 1 - PCV) 09/16/1985 Zoster Immunization (1 of 2) 09/16/1985 Respiratory Syncytial Virus (RSV) Immunization (Adult) (1 - 1-dose 75+ series) 09/16/2010 SARS-COV-2 Immunization ( season) 2023 05/28/2020, 05/03/2020 Influenza Immunization (#1) 2024 DTaP/Tdap/Td Immunization Discontinued 06/17/2016 TdaP Immunization Completed 06/17/2016 Hepatitis B Immunization Aged Out No longer eligible based on patient's age to complete this topic Human Papillomavirus (HPV) Immunization Aged Out No longer eligible based on patient's age to complete this topic Meningococcal Immunization (ACWY) Aged Out No longer eligible based on patient's age to complete this topic Rotavirus Immunization Aged Out No lo nger eligible based on patient's age to complete this topic
--- OUTSIDE RECORDS SUMMARY | 2024-09-22 13:47 | XMS_ITS | Continuity of Care Document ---
Author Organization [facility] Address [address] [place] [address] [place] [address] Phone Care Team Providers Care Fill Manager Name Role Phone Narayan Caro Unavailable [...] Providers Copied on Encounter Office/[place]pat [place], [facility] [address] [place] [address] [address], [place], [place], [id number], [place] tel:[phone] [facility] No Information [address] , [address], [place], [address], [place]. tel:[phone] Office/outpat ient [place], [facility] [address] [place] [address] [address], [place], [place], [id number], [place] tel:[phone] [facility] No Information 0-[address]que Pagan [address] , [address], [place], [place], [facility], . tel:[phone] Office/outpat ient Visit, [facility], [address], [place], [place], [id number], [place] tel:[phone] [facility] No Information June- 3-200 8 Jacque Butler. [address] , [address], [place], [place], [facility], . tel:[phone] Office/outpat ient Visit, [facility], [address] [place] [address] [address], [place], [place], [id number], [place] tel:[phone] [facility] No Information Sep-2 5-200 7 Jacque Butler. [address] , [address], [place], [place], [facility], . tel:[phone] Office/outpat ient Visit, [facility], [address], [place], [place], [id number], [place] tel:[phone] [facility] No Information Oct-1 9-200 7 [address]. [address] , [address], [place], [place], [facility], [place]. tel:[phone] Office/outpat ient Visit, [facility] [address] [place] [address] [address], [place], [place], [id number], [place] tel:[phone] [facility] No Information Aug-1 0-200 7 [address] Pagan [address] , [address], [place], [facility], [place]. tel:[phone] Office/outpat ient Visit, [facility], [address], [place], [place], [id number], [place] tel:[phone] [facility] No Information Miguelito-2 2-200 7 [address] Pagan [address] , [address], [place], [facility], . tel:[phone] Office/outpat ient Visit, [facility], [address] [place] [address] [address], [place], [place], [id number], tel:[phone] [facility] No Information Miguelito-1 2-200 7 Santill[address] Carrie. [address] [facility] , [address], [place], [place], [facility], [place]. tel:[phone] Office/outpat ient Visit, [facility], [address] [place] [address] [address], [place], [place], [id number], tel:[phone] [facility] No Information Miguelito-0 5-200 7 Santill[address] Carrie. [address] [facility] , [address], [place], [facility], . tel:[phone] [facility], [address] [place] [address] [address], [place], [place], [id number], tel:[phone] [facility] No Information Miguelito-0 1-200 7 [address] Busch. [address] [facility] , [address], [place], [place], [facility], . tel:[phone] Family History Family Member Type Diagnosis Age At Onset No Information Payers Payer name Insurance type Covered green party [place] [id number] Social History Type Description Quantity Date Captured [...]
--- OUTSIDE RECORDS SUMMARY | 2024-09-22 13:47 | XMS_ITS | Encounter Summary ---
Author Organization [facility] Address [address] [place] [address] Care Team Providers Care Coin Machine Supervisor Name Role Phone Mario Walker MD Primary Care Provider [phone] Encounter Details Date Type Department Care Team (Late st Contact Info) Description 2024 Orders Only [facility] [address] [place] [address] Scanning, Provider Social History Tobacco Use Types Packs/Day Years Used Date Smoking Tobacco: Never Comments Unknown Sex and Gender Information Value Date Recorded Sex Assigned at Not on file Legal Sex Female 3:19 PM CDT Gender Identity Not on file Sexual Orientation Not on file documented as of this encounter Plan of Treatment Not on file documented as of this encounter Procedures Procedure Name Priority Date/Time Associated Diagnosis Comments SCAN - OTHER ORDERS 2024 documented in this encounter Results * SCAN - OTHER ORDERS (2024) us Provider Scanning Final Result documented in this encounter Visit Diagnoses Not on filedocumented in this encounter Care Teams Coin Machine Supervisor Relationship Specialty Start Date End Date Mario Walker MD PCP - General 11/28/16 documented as of this encounter
--- OUTSIDE RECORDS SUMMARY | 2024-09-22 13:47 | XMS_ITS | Clinical Summary ---
Author Organization [facility] Address [address] [place] [address] Care Team Providers Care Public Works Technician Name Role Phone Mario Walker MD Primary Care Provider [phone] Allergies Active Allergy Reactions Criticality Noted Date [...] (dupuytren) 12/19/19 21 Cricopharyngeus muscle dysfunction 01/25/2017 Encounters Date Type Department Care Team Description 2024 4:00 PM CDT - 2024 11:59 PM CDT Hospital Encounter [facility] [address] [place] [id number] Abnormal findings on diagnostic imaging of other parts of musculoskeletal system Discharge Disposition: Discharge to home or self care 2024 Orders Only [facility] Health Information Management [address] [place] [address] Scanning, Provider from Last 3 Months Medical History Medical History Date Comments Anxiety [...] Comments Blood Pressure 138/63 01/11/2017 1:21 PM [employer] Pulse 72 01/11/2017 1:21 PM [employer] Temperature - - Respiratory Rate - - Oxygen Saturation - - Inhaled Oxygen Concentration - - Weight 76.2 kg (168 lb) 2024 4:03 PM CDT Height 162.6 cm (5' 4) 2024 4:03 PM CDT Body Mass Index 28.84 2024 4:03 PM CDT Plan of Treatment Health Maintenance Due Date Last Done Comments Depression Screening 1935 Fall Risk Assessment 1935 Osteoporosis Screening-Bone Density Scan 1935 Hepatitis B Screening 09/16/1953 Pneumococcal vaccine 65+ (1 of 1 - PCV) 09/16/1985 Zoster Vaccine (1 of 2) 09/16/1985 Well Visit 65+ 09/16/2000 Covid-19 Vaccine (3 - Pfizer risk series) 06/25/2020 05/28/2020, 05/03/2020 Influenza Vaccine (#1) 2024 DTaP/Tdap/Td Vaccine (2 - Td or Tdap) 06/17/202601/2017 Procedures Procedure Name Priority Date/Time Associated Diagnosis Comments MRI ANKLE RIGHT W WO CONTRAST Schedule DEANDRE, Read DEANDRE (Appt Today, Awaiting Results) 2024 6:11 PM CDT Abnormal findings on diagnostic imaging of other parts of musculoskeletal system SCAN - OTHER ORDERS 2024 from Last 3 Months Results * MRI Ankle Right W WO Contrast (2024 6:11 PM CDT) Anatomical Region Laterality Modality Lower Extremities Right Magnetic Reson ance 09/18/2024 7:18 AM CDT Impressions 09/18/2024 7:18 AM CDT 1. No MR evidence of osteomyelitis of the ankle and hindfoot. 2. Nonenhancing soft tissue edema throughout the ankle and foot. Electronically signed by: Salas Weinberg M.D. Narrative 09/18/2024 7:18 AM CDT EXAMINATION: 1. MR right ankle and hindfoot without and with contrast HISTORY: Suspected right ankle osteomyelitis. FINDINGS: Comparison studies are not available. MR examination of the right ankle and hindfoot is performed with a local coil.. Sagittal short TR/TE and STIR images and transverse and coronal short TR/TE and fast spin-echo images are obtained. Postcontrast images were obtained following the administration of 10 mL Dotarem intravenously. Image quality is markedly impaired by motion artifact despite multiple sequence repetition. Medially, the visualized flexor tendons are grossly intact. The medial ligaments appear intact. The tarsal tunnel is normal. Laterally, the peroneal tendons are intact. . The syndesmotic and lateral ankle ligaments are not well visualized. Posteriorly, the Achilles is normal. There is no retrocalcaneal bursitis. Intrinsically, the calcaneus is normal without evidence of a stress fracture. The sinus Tarsi is normal. The plantar fascia is normal. Anteriorly, the extensor tendons are grossly intact. The talar dome is normal without evidence of osteochondral lesion. There is a physiologic amount of fluid within the ankle and posterior subtalar joints. The bone marrow signal is normal. There is diffuse nonenhancing soft tissue edema throughout the ankle and foot. There is no soft tissue mass or fluid collection. Procedure Note Salas Weinberg MD - 09/18/2024 EXAMINATION: 1. MR right ankle and hindfoot without and with contrast HISTORY: Suspected right ankle osteomyelitis. FINDINGS: Comparison studies are not available. MR examination of the right ankle and hindfoot is performed with a local coil.. Sagittal short TR/TE and STIR images and transverse and coronal short TR/TE and fast spin-echo images are obtained. Postcontrast images were obtained following the administration of 10 mL Dotarem intravenously. Image quality is markedly impaired by motion artifact despite multiple sequence repetition. Medially, the visualized flexor tendons are grossly intact. The medial ligaments appear intact. The tarsal tunnel is normal. Laterally, the peroneal tendons are intact. . The syndesmotic and lateral ankle ligaments are not well visualized. Posteriorly, the Achilles is normal. There is no retrocalcaneal bursitis. Intrinsically, the calcaneus is normal without evidence of a stress fracture. The sinus Tarsi is normal. The plantar fascia is normal. Anteriorly, the extensor tendons are grossly intact. The talar dome is normal without evidence of osteochondral lesion. There is a physiologic amount of fluid within the ankle and posterior subtalar joints. The bone marrow signal is normal. There is diffuse nonenhancing soft tissue edema throughout the ankle and foot. There is no soft tissue mass or fluid collection. IMPRESSION: 1. No MR evidence of osteomyelitis of the ankle and hindfoot. 2. Nonenhancing soft tissue edema throughout the ankle and foot. Electronically signed by: Salas Weinberg M.D. Mariochristian Walker MD G MRI PROCEDURES Final Res ult * SCAN - OTHER ORDERS (2024) Provider Scanning Final Result from Last 3 Months Insurance [facility] HMO REF [facility] MEDICARE ADVANTAGE [facility] HMO REF Care Teams Public Works Technician Relationship Specialty Start Date End Date Mario Walker MD PCP - General 11/28/16
[2024-09-22 14:26] LABS: Hematocrit 32.2 % (37.0-47.0); Hemoglobin 10.1 g/dL (12.0-15.0); Immature Granulocyte Percent A 0.4 % (0-0.5); Lymphocytes Absolute Auto 1.03 K/mm3 (0.9-3.2); Mean Corpuscular HGB Conc 31.4 g/dl (32-36); Mean Corpuscular Hemoglobin 28.6 pg (26-34); Mean Corpuscular Volume 91.2 fl (80-100); Nucleated Red Blood Cells Absolute Auto 0.000 K/mm3 (0.0-0.012); Nucleated Red Blood Cells Perc 0.0 % (0.0-0.2); Platelet Count Result 258 k/mm3 (150-375); Red Blood Count 3.53 M/mm3 (4.2-5.4); White Blood Count 8.1 K/mm3 (4.5-10.0)
[2024-09-22 14:42] LABS: Alanine Aminotransferase 13 U/L (6-35); Albumin Level 3.9 g/dL (3.5-5.1); Alkaline Phosphatase 90 U/L (38-126); Anion Gap 8 mmol/L (4-12); Aspartate Amino Transferase 27 U/L (14-36); Bilirubin,Total 0.5 mg/dL (0.2-1.3); Blood Urea Nitrogen 18 mg/dL (7-17); CRP 3.0 mg/dL (<1.0); Calcium 9.6 mg/dL (8.4-10.2); Carbon Dioxide 27 mmol/L (22-30); Chloride 102 mmol/L (98-107); Estimated CRCL calculation 48 ml/min; Estimated Glomerular Filt Rate > 60; Glucose 204 mg/dL (65-110); Potassium 3.8 mmol/L (3.4-5.0); Sodium 137 mmol/L (137-145); Total Protein 7.5 g/dL (6.3-8.2)
[2024-09-22 15:07] VITALS: BP 168/69; PULSE 70; RESP 17; O2SAT 98
[2024-09-22] MEDS: ONDANSETRON INJ 4 MG/2 ML VIAL IV PUSH (15:59)
[2024-09-22 16:04] VITALS: BP 153/66; PULSE 68; RESP 17; O2SAT 98
[2024-09-22 16:11] VITALS: BP 148/73; PULSE 80; RESP 20; O2SAT 97
--- NOTE | 2024-09-22 16:32 | P.HP_ITS ---
H&P: HPI History of Present Illness Date/Time: 09/22/24 16:32 Chief Complaint: RLE Redness Narrative: 89 y/o F with PMH of iron deficiency anemia, type 2 diabetes, depression, anxiety, cricopharyngeal achalasia s/p dilation and Botox, hypertension presents here with redness to the right lower extremity. The patient presents here from home via EMS for further evaluation of redness to the right lower extremity. Per chart review, the patient was initially seen on 09/11 by her PCP you for redness, pain, and ulcerations to the right ankle. She was initially started on p.o. clindamycin and topical mupirocin. She returned to her PCP on 09/16 for re-evaluation of the right lower extremity as she was having worsening pain. Plan for culture of ankle and Levaquin was added. She was seen the following day and a stat XR of the ankle was ordered to rule out osteomyelitis which showed periosteal reaction along the lateral aspect of the distal third of the right fibula and right tibia. She again followed up for the right lower extremity on 09/20 and at that time reported pain remained high. At that time her Levaquin course was extended by 5 days and she was then referred for an MRI and wound care. MRI showed no evidence of osteomyelitis and nonenhancing soft tissue edema throughout the ankle and foot. She is seeking care at the emergency department today because the redness, pain, and alterations to her right leg have continued to worsen despite p.o. antibiotics outpatient. She is currently endorsing lethargy. Denies shortness of breath, fever, chills, body aches. Initial VS at presentation: 97.7? F, HR 83, R 16, 186/101, and 98% on RA. ED workup showed: No leukocytosis, hemoglobin 10.1 (at baseline), ESR 132, no significant electrolyte derangements, creatinine 0.55 and GFR >60, glucose 204, lactic 0.9, CRP 3.0. Review of Systems Review of Systems: All systems reviewed & are unremarkable except as noted in HPI and below [facility] Past Medical History Medical History Compression fracture Bilateral renal stones Contracture of muscle, unspecified hand Influenza A COVID-19 Other iron deficiency anemias Dysphagia Esophageal obstruction Acute sinusitis Pneumonia age 18 Esophageal ring Depression with anxiety Cricopharyngeal achalasia Status post dilatation and Botox injection per Dr. Jah Soni (ENT) at [place]. Anemia Essential hypertension Type 2 diabetes mellitus Vitamin D deficiency Surgical History Surgical History History of open reduction and internal fixation (ORIF) procedure Pinning of left hip fracture. History of arthroscopic knee surgery History of tonsillectomy History of cataract extraction Family History Family History Father Family history of diabetes mellitus in first degree relative Mother Rheumatoid arthritis Sibling No problems noted. Other Family history of lupus erythematosus Social History Social History Social History: Surrogate decision maker: Guerda Mark, daughter. Code status: Full code. Smoking status: Never smoker Second hand tobacco smoke exposure: Yes Alcohol intake: never Substance use: unknown Substance use type: does not use Do You Feel Safe in your Home?: Yes Lack of Transportation: No Lack of Food: Never True Current Housing: I Have Housing Concerned About Future Housing: No Difficulty Paying Gas/Electric Bills: No Difficulty Paying for Meds: No Currently Unemployed: No Education: Decline to Answer Difficulty w/ Childcare or Family Care: No Living arrangements: alone Additional living arrangements comments: Patient lives in a senior apartment in [place]. She has 6 children and was essentially a single mother for many years as her at a young age. 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 Gender identity (if verbalized by the patient): Female Spiritual care concerns: No Meds Home Medications and Allergies Home Medications ?Medication ?Instructions ?Recorded ?Confirmed ?Type cholecalciferol (vitamin D3) 125 125 mcg PO DAILY #30 caps 10/25/23 09/22/24 Rx mcg (5,000 unit) capsule sertraline 50 mg tablet (Zoloft) 75 mg (1.5 x 50 mg) PO DAILY #135 03/07/24 09/22/24 Rx tabs acetaminophen 325 mg tablet 650 mg (2 x 325 mg) PO Q6H PRN 03/19/24 09/22/24 Rx Mild Pain (1-3) Or Fever #30 tabs ibandronate 150 mg tablet 150 mg PO MONTHLY #12 tabs 03/26/24 09/22/24 Rx gabapentin 300 mg capsule See Rx Instructions PO DAILY #270 06/21/24 09/22/24 Rx (Neurontin) caps Saccharomyces boulardii 250 mg 250 mg PO BID #60 caps 09/16/24 09/22/24 Rx capsule (Florastor) mupirocin 2 % topical ointment 1 applic topical BID #30 grams 09/16/24 09/22/24 Rx (Centany) tramadol 50 mg tablet 50 mg PO BID PRN pain #30 tabs 09/16/24 09/20/24 Rx ondansetron HCl 4 mg tablet 4 mg PO Q8H PRN nausea and 09/17/24 09/22/24 Rx vomiting #20 tabs levofloxacin 500 mg tablet 500 mg PO DAILY #5 tabs 09/20/24 09/22/24 Rx Allergies Allergy/AdvReac Type Severity Reaction Status Date / Time metformin Allergy Mild Hives Verified 09/20/24 07:34 Penicillins Allergy Mild Hives Verified 09/20/24 07:34 Vital Signs Vital Signs - 24 hr 09/22/24 13:21 09/22/24 15:07 09/22/24 16:04 Temperature 97.7 F Pulse Rate 83 70 68 Respiratory Rate 16 17 17 Blood Pressure 186/101 H 168/69 H 153/66 H Pulse Oximetry 98 98 98 Oxygen Delivery Room Air Exam Narrative: poorly palpable DP pulses, doppleable bilaterally. Const: General: comfortable and no acute distress Other: , female, nontoxic appearance, frail HENMT: Face/Nose/Sinus: Normal nares present Mouth: Yes moist mucous membranes Eyes: General: appearance normal, both eyes and all related structures Sclera: sclerae normal Pupils: Equal, round and reactive pupils present EOM: EOMs intact bilaterally Resp: Effort & Inspection: normal respiratory effort Auscultation: clear to auscultation bilaterally Cardio: Rate: regular rate Rhythm: regular rhythm Other: +murmur, no ectopy or rub GI: Other: Abdomen soft, nondistended, nontender. Normoactive bowel sounds in all quadrants. Skin: Other: Erythema and purpura to the distal right lower extremity. Significant associated tenderness. No open or draining wounds. Neuro: Speech: normal speech Motor exam (neuro): 5/5 motor strength present throughout Sensory Exam: normal sensation Other: A&O x4 Extrem: Other: See skin exam. Poorly palpable DP pulses bilaterally. Audible with Doppler bilaterally. Psych: Mental Status: mental status grossly normal Affect: normal affect Other: Good insight and judgment, pleasant H&P: Results Labs Labs: Short CBC 09/22/24 Range/Units 14:18 WBC 8.1 (4.5-10.0) K/mm3 Hgb 10.1 L (12.0-15.0) g/dL Hct 32.2 L (37.0-47.0) % Plt Count 258 (150-375) k/mm3 BMP 09/22/24 14:18 Sodium 137 Potassium 3.8 Chloride 102 Carbon Dioxide 27 BUN 18 H Creatinine 0.55 L Glucose 204 H Calcium 9.6 Liver Function 09/22/24 Range/Units 14:18 Total Bilirubin 0.5 (0.2-1.3) mg/dL AST 27 (14-36) U/L ALT 13 (6-35) U/L Alkaline Phosphatase 90 (38-126) U/L Albumin 3.9 (3.5-5.1) g/dL Assessment and Plan Assessment and plan (1) Cellulitis and abscess of leg: Code(s): L03.119 - Cellulitis of unspecified part of limb; L02.419 - Cutaneous abscess of limb, unspecified Status: Acute Assessment and Plan: 09/07: Approximate onset 09/11: Initial evaluation. Started on PO Clindamycin and Mupriciron topical. 09/16: Culture ordered (no result in system). Levaquin added and Florastor for gut protection. 09/17: Stat ankle XR showed possible osteomyelitis. MRI completed and showed no OM. Referred to wound care outpatient. Levaquin extended x5 days. 09/22: Presentation to the ED for evaluation as the pain has remained high and ulcerations have worsened despite outpatient oral abx and topical treatment. - started on Cefepime, Flagyl, and Vancomycin on 09/22 - obtain wound culture, blood cultures obtained on 09/22 - analgesics prn - ESR 132, CRP 3.0, WBC 8.1 and lactic 0.9 upon admission - wound RN consulted - obtain US of the RLE and ABIs US: No DVT TERESA: Unremarkable ABIs within the bilateral lower extremities, although given patient's diabetes history, this is an unreliable value. The TBI is markedly diminished, consistent with bilateral peripheral arterial disease, for which CTA with runoff would provide additional information and also provide better anatomical information. Currently treating as cellulitis, however will rule out DVT/PAD -> no DVT, TBI diminished consistent with bilateral peripheral artery disease. Consider vasculitis. May need further imaging via CTA for additional information in regards to PAD. Will monitor response to antibiotics prior to developing further plan of care. (2) Type 2 diabetes mellitus without complications: Qualifiers: Diabetes mellitus halfway insulin use: without acting section chief use Qualified Code(s): E11.9 - Type 2 diabetes mellitus without complications Code(s): E11.9 - Type 2 diabetes mellitus without complications Status: Chronic Assessment and Plan: - hypoglycemia protocol - POC blood glucose ACHS - home medication: no current home medications listed? - correct regimen ordered - low dose TIDWM, based off BMI - A1C 6.7% 2020, update (3) Essential (primary) hypertension: Code(s): I10 - Essential (primary) hypertension Status: Chronic Assessment and Plan: - chronic, currently 148/73 - not currently on a daily antihypertensive - monitor Plan Diet: Diabetic GI Prophylaxis: N/a DVT Prophylaxis: Lovenox IV fluids: None Lines/Tubes: Peripheral IV Code Status: Full code Quality VTE Prophylaxis VTE prophylaxis: pharmacologic ordered Hospitalist [facility] Advance Care Plan I have confirmed that the patient's Advanced Care Plan is present, code status is documented, or surrogate decision maker is listed in patient medical record.: Yes Medication Reconciliation I have utilized all available resources to obtain, update and review the patients current medications (includes all prescriptions, OTC, herbals, cannabis, and nutritional supplements).: Yes
[2024-09-22 17:18] VITALS: BMI 20.2
[2024-09-22 17:45] VITALS: BP 143/59; PULSE 64; RESP 18; TEMP 36.9; O2SAT 100
[2024-09-22] MEDS: ACETAMINOPHEN 325 MG TABLET 650 MG PO (17:51)
[2024-09-22] MEDS: GABAPENTIN 300 MG CAPSULE 600 MG PO (17:51)
--- NOTE | 2024-09-22 18:41 | ADMGEN ---
This patient, Marybeth Sunshine, was admitted to [facility] Room 311-01. Patient/family oriented to hospital policies and general routines including ID bracelet, bed and alarms, visiting hours, pain management, procedures, bathroom and other care routines, personal items, smoking policy, room service/diet, and visiting hours. Information on how to activate the Rapid Response Team has been discussed. Patient/Family are encouraged to report perceived risks to care and to ask questions if they do not understand what they are told or what they should do.
[2024-09-22] MEDS: CEFEPIME 1 GM in SODIUM CHLORIDE 0.9% IV 50 ML 100 ML IVPB (19:36)
[2024-09-22] MEDS: metroNIDAZOLE 500 MG/ISO 100ML 500 MG/100 ML BAG 100 MG IVPB (19:36)
[2024-09-22 20:15] VITALS: BP 153/62; PULSE 69; RESP 18; TEMP 36.3; O2SAT 99
[2024-09-22] MEDS: VANCOMYCIN 1,250 MG/NS 250 ML 1,250 MG/250 ML BAG 166.67 MG IVPB (21:25)
[2024-09-23] MEDS: metroNIDAZOLE 500 MG/ISO 100ML 500 MG/100 ML BAG 100 MG IVPB ×3 (02:52→17:39)
[2024-09-23 04:45] VITALS: BP 167/62; PULSE 81; RESP 20; TEMP 36.4; O2SAT 96
[2024-09-23 05:54] LABS: Hematocrit 33.2 % (37.0-47.0); Hemoglobin 10.1 g/dL (12.0-15.0); Immature Granulocyte Percent A 0.3 % (0-0.5); Lymphocytes Absolute Auto 1.23 K/mm3 (0.9-3.2); Mean Corpuscular HGB Conc 30.4 g/dl (32-36); Mean Corpuscular Hemoglobin 28.7 pg (26-34); Mean Corpuscular Volume 94.3 fl (80-100); Nucleated Red Blood Cells Absolute Auto 0.000 K/mm3 (0.0-0.012); Nucleated Red Blood Cells Perc 0.0 % (0.0-0.2); Platelet Count Result 252 k/mm3 (150-375); Red Blood Count 3.52 M/mm3 (4.2-5.4); White Blood Count 6.6 K/mm3 (4.5-10.0)
[2024-09-23] MEDS: CEFEPIME 1 GM in SODIUM CHLORIDE 0.9% IV 50 ML 100 ML IVPB ×2 (05:59→17:09)
[2024-09-23 06:01] LABS: Hemoglobin A1C 6.8 % (<5.7)
[2024-09-23] MEDS: HYDROcodone/acetaminophen (*CRX) 5-325 MG TABLET 1 TAB PO ×2 (06:13→13:23)
[2024-09-23 06:27] LABS: Alanine Aminotransferase 11 U/L (6-35); Albumin Level 3.6 g/dL (3.5-5.1); Alkaline Phosphatase 80 U/L (38-126); Anion Gap 7 mmol/L (4-12); Aspartate Amino Transferase 25 U/L (14-36); Bilirubin,Total 0.6 mg/dL (0.2-1.3); Blood Urea Nitrogen 11 mg/dL (7-17); Calcium 9.3 mg/dL (8.4-10.2); Carbon Dioxide 28 mmol/L (22-30); Chloride 106 mmol/L (98-107); Estimated CRCL calculation 44 ml/min; Estimated Glomerular Filt Rate > 60; Glucose 112 mg/dL (65-110); Potassium 3.8 mmol/L (3.4-5.0); Sodium 141 mmol/L (137-145); Total Protein 7.0 g/dL (6.3-8.2)
[2024-09-23] MEDS: ENOXAPARIN 40 MG/0.4 ML SYRINGE SUB-Q (09:09)
[2024-09-23] MEDS: SACCHAROMYCES BOULARDII 250 MG CAPSULE PO ×2 (09:09→17:10)
[2024-09-23] MEDS: SERTRALINE HCL 25 MG TABLET 75 MG PO (09:09)
[2024-09-23] MEDS: GABAPENTIN 300 MG CAPSULE PO (09:09)
[2024-09-23] MEDS: CHOLECALCIFEROL (VITAMIN D3) 125 MCG (5,000 UNITS) TABLET PO (09:09)
[2024-09-23 11:32] VITALS: BMI 20.2
--- NOTE | 2024-09-23 12:25 | PM.IMPN ---
Progress Note: A&P Assessment and Plan (1) Cellulitis and abscess of leg: Code(s): L03.119 - Cellulitis of unspecified part of limb; L02.419 - Cutaneous abscess of limb, unspecified Status: Acute Assessment and Plan: 09/07: Approximate onset 09/11: Initial evaluation. Started on PO Clindamycin and Mupriciron topical. 09/16: Culture ordered (no result in system). Levaquin added and Florastor for gut protection. 09/17: Stat ankle XR showed possible osteomyelitis. MRI completed and showed no OM. Referred to wound care outpatient. Levaquin extended x5 days. 09/22: Presentation to the ED for evaluation as the pain has remained high and ulcerations have worsened despite outpatient oral abx and topical treatment. - started on Cefepime, Flagyl, and Vancomycin on 09/22 - obtain wound culture, blood cultures obtained on 09/22 - analgesics prn - ESR 132, CRP 3.0, WBC 8.1 and lactic 0.9 upon admission - wound RN consulted - obtain US of the RLE and ABIs US: No DVT TERESA: Unremarkable ABIs within the bilateral lower extremities, although given patient's diabetes history, this is an unreliable value. The TBI is markedly diminished, consistent with bilateral peripheral arterial disease, for which CTA with runoff would provide additional information and also provide better anatomical information. Currently treating as cellulitis, however will rule out DVT/PAD -> no DVT, TBI diminished consistent with bilateral peripheral artery disease. Consider vasculitis. May need further imaging via CTA for additional information in regards to PAD. Will monitor response to antibiotics prior to developing further plan of care. (2) Type 2 diabetes mellitus without complications: Qualifiers: Diabetes mellitus penitentiary insulin use: without technician terminal and repeater use Qualified Code(s): E11.9 - Type 2 diabetes mellitus without complications Code(s): E11.9 - Type 2 diabetes mellitus without complications Status: Chronic Assessment and Plan: - hypoglycemia protocol - POC blood glucose ACHS - home medication: no current home medications listed? - correct regimen ordered - low dose TIDWM, based off BMI - A1C 6.7% 2020, update (3) Essential (primary) hypertension: Code(s): I10 - Essential (primary) hypertension Status: Chronic Assessment and Plan: - chronic, currently 148/73 - not currently on a daily antihypertensive - monitor Plan patient with right lower extremities with cellulitis, MRI did not show any concern for OM, and TERESA is also normal, will continue Cefepime and vancomycin, will follow and monitor, patient family is present in the room and gave updates. Diet: Diabetic GI Prophylaxis: N/a DVT Prophylaxis: Lovenox IV fluids: None Lines/Tubes: Peripheral IV Code Status: Full code Subjective Date/time seen: 09/23/24 12:25 Interval history: RLE Redness H&P Narrative: 89 y/o F with PMH of iron deficiency anemia, type 2 diabetes, depression, anxiety, cricopharyngeal achalasia s/p dilation and Botox, hypertension presents here with redness to the right lower extremity. The patient presents here from home via EMS for further evaluation of redness to the right lower extremity. Per chart review, the patient was initially seen on 09/11 by her PCP you for redness, pain, and ulcerations to the right ankle. She was initially started on p.o. clindamycin and topical mupirocin. She returned to her PCP on 09/16 for re-evaluation of the right lower extremity as she was having worsening pain. Plan for culture of ankle and Levaquin was added. She was seen the following day and a stat XR of the ankle was ordered to rule out osteomyelitis which showed periosteal reaction along the lateral aspect of the distal third of the right fibula and right tibia. She again followed up for the right lower extremity on 09/20 and at that time reported pain remained high. At that time her Levaquin course was extended by 5 days and she was then referred for an MRI and wound care. MRI showed no evidence of osteomyelitis and nonenhancing soft tissue edema throughout the ankle and foot. She is seeking care at the emergency department today because the redness, pain, and alterations to her right leg have continued to worsen despite p.o. antibiotics outpatient. She is currently endorsing lethargy. Denies shortness of breath, fever, chills, body aches. Initial VS at presentation: 97.7? F, HR 83, R 16, 186/101, and 98% on RA. ED workup showed: No leukocytosis, hemoglobin 10.1 (at baseline), ESR 132, no significant electrolyte derangements, creatinine 0.55 and GFR >60, glucose 204, lactic 0.9, CRP 3.0. patient with right lower extremities with cellulitis, MRI did not show any concern for OM, and TERESA is also normal, will continue Cefepime and vancomycin, will follow and monitor, patient family is present in the room and gave updates. Review of Systems Review of Systems: All systems reviewed & are unremarkable except as noted in HPI and below Exam Narrative: Elderly frail Patient is comfortable, NAD HEENT: eyes are clear and none icteric LUNGS:CTA HEART: RR S1S2 ABD: BS+, Soft and nontender Lower extremities: no edema SKIN: RT lower extremity, proximal to ankle erythematous, no induration, drainage or red streak. Neuro: grossly intact. Objective Data Vital Signs Vital Signs: Vital Signs - 24 hr 09/22/24 13:21 09/22/24 15:07 09/22/24 16:04 Temperature 36.5 C Pulse Rate 83 70 68 Respiratory Rate 16 17 17 Blood Pressure 186/101 H 168/69 H 153/66 H Pulse Oximetry 98 98 98 Oxygen Delivery Room Air 09/22/24 16:11 09/22/24 17:45 09/22/24 20:15 Temperature 36.9 C 36.3 C L Pulse Rate 80 64 69 Respiratory Rate 20 18 18 Blood Pressure 148/73 H 143/59 H 153/62 H Pulse Oximetry 97 100 99 Oxygen Delivery 09/23/24 04:45 09/23/24 08:00 Temperature 36.4 C L Pulse Rate 81 Respiratory Rate 20 Blood Pressure 167/62 H Pulse Oximetry 96 Oxygen Delivery Room Air Intake/Output Intake/Output: Intake & Output 09/20/24 09/21/24 09/22/24 09/23/24 23:59 23:59 23:59 23:59 Intake Total 400 200 Balance 400 200 Meds/Results Medications: Active Medications Generic Name Dose Route Start Last Admin Trade Name Freq PRN Reason Stop Dose Admin Acetaminophen 650 mg 09/22/24 16:11 09/22/24 17:51 Acetaminophen 325 Mg Tablet PO 650 mg Q4H PRN Administration Mild Pain (1-3) or Fever Hydrocodone Bitart/Acetaminophen 1 tab 09/22/24 17:13 09/23/24 06:13 Hydrocodone/Acetaminophen (*Crx) 5-325 Mg Tablet PO 1 tab Q6H PRN Administration Pain Rated 4-6 Dextrose 12.5 gm 09/22/24 17:07 Dextrose 50% 25 Gm/50 Ml Syringe IV PUSH PRN PRN Hypoglycemia Protocol Diphenhydramine HCl 25 mg 09/22/24 17:13 09/22/24 19:35 Diphenhydramine Hcl Inj 50 Mg/Ml Vial IV PUSH 25 mg Q4H PRN Administration Itching/allergic reaction Enoxaparin Sodium 40 mg 09/23/24 09:00 09/23/24 09:09 Enoxaparin 40 Mg/0.4 Ml Syringe SUB-Q 40 mg DAILY JENY Administration Gabapentin 300 mg 09/23/24 09:00 09/23/24 09:09 Gabapentin 300 Mg Capsule PO 300 mg QAM JENY Administration Gabapentin 600 mg 09/22/24 18:00 09/22/24 17:51 Gabapentin 300 Mg Capsule PO 600 mg QPM JENY Administration Glucagon 1 mg 09/22/24 17:07 Glucagon For Inj 1 Mg Vial IM PRN PRN Hypoglycemia Protocol Glucose 15 gm 09/22/24 17:07 Glucose Oral Gel 15 Gm Of Glucse In 37.5 Gm Tube PO PRN PRN Hypoglycemia Protocol Cefepime HCl 1 gm/ Sodium 50 mls @ 100 mls/hr 09/22/24 18:00 09/23/24 06:29 Chloride IVPB Infused Q12H JENY Infusion Metronidazole 500 mg in 100 mls @ 100 mls/hr 09/22/24 18:00 09/23/24 09:10 Flagyl 500 Mg/Iso Soln 100 Ml IVPB 100 mls/hr Q8H JENY Administration Dextrose 1,000 mls @ 100 mls/hr 09/22/24 17:07 Dextrose 5% 1,000 Ml IVPB PRN PRN Hypoglycemia Protocol Vancomycin HCl 1,000 mg/ 250 mls @ 250 mls/hr 09/23/24 21:00 Sodium Chloride IVPB Q24H JENY Insulin Aspart 2 - 5 units 09/23/24 08:00 09/23/24 12:08 Insulin Aspart (*Bkc) 100 Units/Ml SUB-Q Not Given TIDWM [facility] Protocol Morphine Sulfate 2 mg 09/22/24 17:13 Morphine Sulfate (*Crx) 2 Mg/Ml Inj IV PUSH Q4H PRN Pain Rated 7-10 Saccharomyces Boulardii 250 mg 09/23/24 09:00 09/23/24 09:09 Saccharomyces Boulardii 250 Mg Capsule PO 250 mg BID JENY Administration Sertraline HCl 75 mg 09/23/24 09:00 09/23/24 09:09 Sertraline Hcl 25 Mg Tablet PO 75 mg DAILY JENY Administration Vitamin D 125 mcg 09/23/24 09:00 09/23/24 09:09 Cholecalciferol (Vitamin D3) 125 Mcg (5,000 Units) Tablet PO 125 mcg DAILY JENY Administration Radiology Results: ITS Impressions Venous Doppler Study 09/22/24 19:30 IMPRESSION: 1. No deep venous thrombosis. Ankle Brachial Index 09/22/24 19:34 Impression: Unremarkable ABIs within the bilateral lower extremities, although given patient's diabetes history, this is an unreliable value. The TBI is markedly diminished, consistent with bilateral peripheral arterial disease, for which CTA with runoff would provide additional information and also provide better anatomical information. Labs Labs: Laboratory Results - last 24 hr 09/22/24 09/22/24 09/23/24 14:18 20:16 05:09 WBC 8.1 6.6 RBC 3.53 L 3.52 L Hgb 10.1 L 10.1 L Hct 32.2 L 33.2 L MCV 91.2 94.3 MCH 28.6 28.7 MCHC 31.4 L 30.4 L RDW 15.1 H 15.2 H Plt Count 258 252 MPV 10.6 H 10.8 H Immature Gran % (Auto) 0.4 0.3 Neut % (Auto) 78.8 H 68.9 Lymph % (Auto) 12.8 L 18.7 Avery % (Auto) 7.1 9.7 H Eos % (Auto) 0.4 1.8 Baso % (Auto) 0.5 0.6 Lymph # (Auto) 1.03 1.23 Avery # (Auto) 0.6 0.6 Eos # (Auto) 0.0 0.1 Baso # (Auto) 0.0 0.0 Abs Immat Gran (auto) 0.03 0.02 Absolute Neuts (auto) 6.4 4.5 Absolute Nucleated RBC 0.000 0.000 Nucleated RBC % 0.0 0.0 ESR 132 H Sodium 137 141 Potassium 3.8 3.8 Chloride 102 106 Carbon Dioxide 27 28 Anion Gap 8 7 BUN 18 H 11 D Creatinine 0.55 L 0.62 L Estim Creat Clear Calc 48 44 Estimated GFR > 60 > 60 Glucose 204 H 112 H POC Capillary Glucose 140 H Hemoglobin A1c 6.8 H Lactic Acid 0.9 Calcium 9.6 9.3 Total Bilirubin 0.5 0.6 AST 27 25 ALT 13 11 Alkaline Phosphatase 90 80 C-Reactive Protein 3.0 H Total Protein 7.5 7.0 Albumin 3.9 3.6 09/23/24 09/23/24 08:00 11:49 WBC RBC Hgb Hct MCV MCH MCHC RDW Plt Count MPV Immature Gran % (Auto) Neut % (Auto) Lymph % (Auto) Avery % (Auto) Eos % (Auto) Baso % (Auto) Lymph # (Auto) Avery # (Auto) Eos # (Auto) Baso # (Auto) Abs Immat Gran (auto) Absolute Neuts (auto) Absolute Nucleated RBC Nucleated RBC % ESR Sodium Potassium Chloride Carbon Dioxide Anion Gap BUN Creatinine Estim Creat Clear Calc Estimated GFR Glucose POC Capillary Glucose 120 H 109 H Hemoglobin A1c Lactic Acid Calcium Total Bilirubin AST ALT Alkaline Phosphatase C-Reactive Protein Total Protein Albumin Quality VTE Prophylaxis VTE prophylaxis: pharmacologic ordered
[2024-09-23 14:30] VITALS: BP 150/76; PULSE 95; RESP 18; TEMP 36.2; O2SAT 96
[2024-09-23] MEDS: GABAPENTIN 300 MG CAPSULE 600 MG PO (17:10)
[2024-09-23 19:50] VITALS: BP 136/60; PULSE 100; RESP 18; TEMP 36.4; O2SAT 97
[2024-09-23 20:00] VITALS: PULSE 100; RESP 18; O2SAT 97
[2024-09-23] MEDS: MORPHINE SULFATE (*CRX) 2 MG/ML INJ IV PUSH (20:05)
[2024-09-23] MEDS: VANCOMYCIN HCL 1,000 MG in SODIUM CHLORIDE 0.9% IV 250 ML 250 MG IVPB (20:06)
[2024-09-24] MEDS: metroNIDAZOLE 500 MG/ISO 100ML 500 MG/100 ML BAG 100 MG IVPB ×3 (01:44→17:43)
[2024-09-24 04:00] VITALS: BP 160/69; PULSE 94; RESP 20; TEMP 36.3; O2SAT 96
[2024-09-24] MEDS: CEFEPIME 1 GM in SODIUM CHLORIDE 0.9% IV 50 ML 100 ML IVPB ×2 (05:31→17:02)
[2024-09-24 06:34] LABS: Estimated CRCL calculation 47 ml/min; Estimated Glomerular Filt Rate > 60
[2024-09-24 07:35] LABS: Hematocrit 32.9 % (37.0-47.0); Hemoglobin 10.0 g/dL (12.0-15.0); Mean Corpuscular HGB Conc 30.4 g/dl (32-36); Mean Corpuscular Hemoglobin 28.4 pg (26-34); Mean Corpuscular Volume 93.5 fl (80-100); Platelet Count Result 251 k/mm3 (150-375); Red Blood Count 3.52 M/mm3 (4.2-5.4); White Blood Count 6.4 K/mm3 (4.5-10.0)
[2024-09-24 07:50] LABS: Albumin Level 3.5 g/dL (3.5-5.1); Anion Gap 7 mmol/L (4-12); Blood Urea Nitrogen 14 mg/dL (7-17); Calcium 8.8 mg/dL (8.4-10.2); Carbon Dioxide 26 mmol/L (22-30); Chloride 106 mmol/L (98-107); Glucose 147 mg/dL (65-110); Magnesium 1.7 mg/dL (1.6-2.3); Potassium 3.8 mmol/L (3.4-5.0); Sodium 139 mmol/L (137-145)
[2024-09-24 08:00] VITALS: O2SAT 96
[2024-09-24] MEDS: CHOLECALCIFEROL (VITAMIN D3) 125 MCG (5,000 UNITS) TABLET PO (08:38)
[2024-09-24] MEDS: SERTRALINE HCL 25 MG TABLET 75 MG PO (08:39)
[2024-09-24] MEDS: ENOXAPARIN 40 MG/0.4 ML SYRINGE SUB-Q (08:39)
[2024-09-24] MEDS: SACCHAROMYCES BOULARDII 250 MG CAPSULE PO ×2 (08:39→17:03)
[2024-09-24] MEDS: GABAPENTIN 300 MG CAPSULE PO (08:39)
[2024-09-24] MEDS: HYDROcodone/acetaminophen (*CRX) 5-325 MG TABLET 1 TAB PO ×2 (08:42→17:05)
[2024-09-24] MEDS: INSULIN ASPART (*BKC) 100 UNITS/ML SUB-Q (12:28)
[2024-09-24] MEDS: ACETAMINOPHEN 325 MG TABLET 650 MG PO (12:50)
--- NOTE | 2024-09-24 13:07 | P.PNIM_ITS ---
Progress Note: A&P Assessment and Plan (1) Cellulitis and abscess of leg: Code(s): L03.119 - Cellulitis of unspecified part of limb; L02.419 - Cutaneous abscess of limb, unspecified Status: Acute Assessment and Plan: 09/07: Approximate onset 09/11: Initial evaluation. Started on PO Clindamycin and Mupriciron topical. 09/16: Culture ordered (no result in system). Levaquin added and Florastor for gut protection. 09/17: Stat ankle XR showed possible osteomyelitis. MRI completed and showed no OM. Referred to wound care outpatient. Levaquin extended x5 days. 09/22: Presentation to the ED for evaluation as the pain has remained high and ulcerations have worsened despite outpatient oral abx and topical treatment. - started on Cefepime, Flagyl, and Vancomycin on 09/22 - obtain wound culture, blood cultures obtained on 09/22 - analgesics prn - ESR 132, CRP 3.0, WBC 8.1 and lactic 0.9 upon admission - wound RN consulted - obtain US of the RLE and ABIs US: No DVT TERESA: Unremarkable ABIs within the bilateral lower extremities, although given patient's diabetes history, this is an unreliable value. The TBI is markedly diminished, consistent with bilateral peripheral arterial disease, for which CTA with runoff would provide additional information and also provide better anatomical information. Currently treating as cellulitis, however will rule out DVT/PAD -> no DVT, TBI diminished consistent with bilateral peripheral artery disease. Consider vasculitis. May need further imaging via CTA for additional information in regards to PAD. Will monitor response to antibiotics prior to developing furt her plan of care. (2) Type 2 diabetes mellitus without complications: Qualifiers: Diabetes mellitus senior care insulin use: without senior care use Qualified Code(s): E11.9 - Type 2 diabetes mellitus without complications Code(s): E11.9 - Type 2 diabetes mellitus without complications Status: Chronic Assessment and Plan: - hypoglycemia protocol - POC blood glucose ACHS - home medication: no current home medications listed? - correct regimen ordered - low dose TIDWM, based off BMI - A1C 6.7% 2020, update (3) Essential (primary) hypertension: Code(s): I10 - Essential (primary) hypertension Status: Chronic Assessment and Plan: - chronic, currently 148/73 - not currently on a daily antihypertensive - monitor Plan patient with right lower extremities with cellulitis, MRI did not show any concern for OM, and TERESA is also normal, will continue Cefepime and vancomycin, there appear to be slight improvement patient redness and pain, patient will be seen wound care team, will follow and monitor, patient family is present in the room and gave updates. Diet: Diabetic GI Prophylaxis: N/a DVT Prophylaxis: Lovenox IV fluids: None Lines/Tubes: Peripheral IV Code Status: Full code Subjective Date/time seen: 09/24/24 13:07 Interval history: RLE Redness H&P Narrative: 89 y/o F with PMH of iron deficiency anemia, type 2 diabetes, depression, anxiety, cricopharyngeal achalasia s/p dilation and Botox, hypertension presents here with redness to the right lower extremity. The patient presents here from home via EMS for further evaluation of redness to the right lower extremity. Per chart review, the patient was initially seen on 09/11 by her PCP you for redness, pain, and ulcerations to the right ankle. She was initially started on p.o. clindamycin and topical mupirocin. She returned to her PCP on 09/16 for re-evaluation of the right lower extremity as she was having worsening pain. Plan for culture of ankle and Levaquin was added. She was seen the following day and a stat XR of the ankle was ordered to rule out osteomyelitis which showed periosteal reaction along the lateral aspect of the distal third of the right fibula and right tibia. She again followed up for the right lower extremity on 09/20 and at that time reported pain remained high. At that time her Levaquin course was extended by 5 days and she was then referred for an MRI and wound care. MRI showed no evidence of osteomyelitis and nonenhancing soft tissue edema throughout the ankle and foot. She is seeking care at the emergency department today because the redness, pain, and alterations to her right leg have continued to worsen despite p.o. antibiotics outpatient. She is currently endorsing lethargy. Denies shortness of breath, fever, chills, body aches. Initial VS at presentation: 97.7? F, HR 83, R 16, 186/101, and 98% on RA. ED workup showed: No leukocytosis, hemoglobin 10.1 (at baseline), ESR 132, no significant electrolyte derangements, creatinine 0.55 and GFR >60, glucose 204, lactic 0.9, CRP 3.0. patient with right lower extremities with cellulitis, MRI did not show any concern for OM, and TERESA is also normal, will continue Cefepime and vancomycin, there appear to be slight improvement patient redness and pain, patient will be seen wound care team, will follow and monitor, patient family is present in the room and gave updates. Review of Systems Review of Systems: All systems reviewed & are unremarkable except as noted in HPI and below Exam Narrative: Elderly frail Patient is comfortable, NAD HEENT: eyes are clear and none icteric LUNGS:CTA HEART: RR S1S2 ABD: BS+, Soft and nontender Lower extremities: no edema SKIN: RT lower extremity, proximal to ankle erythematous, no induration, drainage or red streak. Neuro: grossly intact. Objective Data Vital Signs Vital Signs: Vital Signs - 24 hr 09/23/24 14:30 09/23/24 19:50 09/23/24 20:00 Temperature 36.2 C L 36.4 C Pulse Rate 95 100 100 Respiratory Rate 18 18 18 Blood Pressure 150/76 H 136/60 Pulse Oximetry 96 97 97 Oxygen Delivery Room Air 09/24/24 04:00 09/24/24 08:00 Temperature 36.3 C L Pulse Rate 94 Respiratory Rate 20 Blood Pressure 160/69 H Pulse Oximetry 96 96 Oxygen Delivery Room Air Intake/Output Intake/Output: Intake & Output 09/21/24 09/22/24 09/23/24 09/24/24 23:59 23:59 23:59 23:59 Intake Total 400 1400 877 Balance 400 1400 877 Meds/Results Medications: Active Medications Generic Name Dose Route Start Last Admin Trade Name Freq PRN Reason Stop Dose Admin Acetaminophen 650 mg 09/22/24 16:11 09/24/24 12:50 Acetaminophen 325 Mg Tablet PO 650 mg Q4H PRN Administration Mild Pain (1-3) or Fever Hydrocodone Bitart/Acetaminophen 1 tab 09/22/24 17:13 09/24/24 08:42 Hydrocodone/Acetaminophen (*Crx) 5-325 Mg Tablet PO 1 tab Q6H PRN Administration Pain Rated 4-6 Dextrose 12.5 gm 09/22/24 17:07 Dextrose 50% 25 Gm/50 Ml Syringe IV PUSH PRN PRN Hypoglycemia Protocol Diphenhydramine HCl 25 mg 09/22/24 17:13 09/23/24 20:05 Diphenhydramine Hcl Inj 50 Mg/Ml Vial IV PUSH 25 mg Q4H PRN Administration Itching/allergic reaction Enoxaparin Sodium 40 mg 09/23/24 09:00 09/24/24 08:39 Enoxaparin 40 Mg/0.4 Ml Syringe SUB-Q 40 mg DAILY JENY Administration Gabapentin 300 mg 09/23/24 09:00 09/24/24 08:39 Gabapentin 300 Mg Capsule PO 300 mg QAM JENY Administration Gabapentin 600 mg 09/22/24 18:00 09/23/24 17:10 Gabapentin 300 Mg Capsule PO 600 mg QPM JENY Administration Glucagon 1 mg 09/22/24 17:07 Glucagon For Inj 1 Mg Vial IM PRN PRN Hypoglycemia Protocol Glucose 15 gm 09/22/24 17:07 Glucose Oral Gel 15 Gm Of Glucse In 37.5 Gm Tube PO PRN PRN Hypoglycemia Protocol Cefepime HCl 1 gm/ Sodium 50 mls @ 100 mls/hr 09/22/24 18:00 09/24/24 05:31 Chloride IVPB 100 mls/hr Q12H JENY Administration Metronidazole 500 mg in 100 mls @ 100 mls/hr 09/22/24 18:00 09/24/24 09:25 Flagyl 500 Mg/Iso Soln 100 Ml IVPB 100 mls/hr Q8H JENY Administration Dextrose 1,000 mls @ 100 mls/hr 09/22/24 17:07 Dextrose 5% 1,000 Ml IVPB PRN PRN Hypoglycemia Protocol Vancomycin HCl 1,000 mg/ 250 mls @ 250 mls/hr 09/23/24 21:00 09/23/24 20:06 Sodium Chloride IVPB 250 mls/hr Q24H JENY Administration Insulin Aspart 2 - 5 units 09/23/24 08:00 09/24/24 12:28 Insulin Aspart (*Bkc) 100 Units/Ml SUB-Q 2 units TIDWM JENY Administration Protocol Morphine Sulfate 2 mg 09/22/24 17:13 09/23/24 20:05 Morphine Sulfate (*Crx) 2 Mg/Ml Inj IV PUSH 2 mg Q4H PRN Administration Pain Rated 7-10 Saccharomyces Boulardii 250 mg 09/23/24 09:00 09/24/24 08:39 Saccharomyces Boulardii 250 Mg Capsule PO 250 mg BID JENY Administration Sertraline HCl 75 mg 09/23/24 09:00 09/24/24 08:39 Sertraline Hcl 25 Mg Tablet PO 75 mg DAILY JENY Administration Vitamin D 125 mcg 09/23/24 09:00 09/24/24 08:38 Cholecalciferol (Vitamin D3) 125 Mcg (5,000 Units) Tablet PO 125 mcg DAILY JENY Administration Radiology Results: ITS Impressions Venous Doppler Study 09/22/24 19:30 IMPRESSION: 1. No deep venous thrombosis. Ankle Brachial Index 09/22/24 19:34 Impression: Unremarkable ABIs within the bilateral lower extremities, although given patient's diabetes history, this is an unreliable value. The TBI is markedly diminished, consistent with bilateral peripheral arterial disease, for which CTA with runoff would provide additional information and also provide better anatomical information. Labs Labs: Laboratory Results - last 24 hr 09/23/24 09/23/24 09/24/24 16:40 19:53 05:09 WBC 6.4 RBC 3.52 L Hgb 10.0 L Hct 32.9 L MCV 93.5 MCH 28.4 MCHC 30.4 L RDW 15.4 H Plt Count 251 MPV 10.8 H Sodium Potassium Chloride Carbon Dioxide Anion Gap BUN Creatinine Estim Creat Clear Calc Estimated GFR Glucose POC Capillary Glucose 133 H 179 H Calcium Phosphorus Magnesium Albumin 09/24/24 09/24/24 09/24/24 05:10 07:51 11:37 WBC RBC Hgb Hct MCV MCH MCHC RDW Plt Count MPV Sodium 139 Potassium 3.8 Chloride 106 Carbon Dioxide 26 Anion Gap 7 BUN 14 Creatinine 0.58 L Estim Creat Clear Calc 47 Estimated GFR > 60 Glucose 147 H POC Capillary Glucose 158 H 218 H Calcium 8.8 Phosphorus 2.9 Magnesium 1.7 Albumin 3.5 Quality VTE Prophylaxis VTE prophylaxis: pharmacologic ordered
[2024-09-24 14:00] VITALS: BP 127/58; PULSE 83; RESP 20; TEMP 36.4; O2SAT 98
[2024-09-24] MEDS: GABAPENTIN 300 MG CAPSULE 600 MG PO (17:03)
[2024-09-24 19:45] VITALS: BP 169/80; PULSE 90; RESP 18; TEMP 36.5; O2SAT 97
[2024-09-24 22:31] VITALS: PULSE 70; RESP 20; O2SAT 96
[2024-09-24 22:32] VITALS: PULSE 85; RESP 20; O2SAT 90
[2024-09-24] MEDS: VANCOMYCIN HCL 1,000 MG in SODIUM CHLORIDE 0.9% IV 250 ML 250 MG IVPB (22:58)
[2024-09-25] MEDS: MORPHINE SULFATE (*CRX) 2 MG/ML INJ IV PUSH ×3 (00:39→21:01)
[2024-09-25] MEDS: metroNIDAZOLE 500 MG/ISO 100ML 500 MG/100 ML BAG 100 MG IVPB ×2 (00:41→10:00)
[2024-09-25 05:05] VITALS: BP 149/74; PULSE 99; RESP 20; TEMP 36.4; O2SAT 97
[2024-09-25] MEDS: CEFEPIME 1 GM in SODIUM CHLORIDE 0.9% IV 50 ML 100 ML IVPB (05:10)
[2024-09-25 06:07] LABS: Hematocrit 31.0 % (37.0-47.0); Hemoglobin 9.6 g/dL (12.0-15.0); Mean Corpuscular HGB Conc 31.0 g/dl (32-36); Mean Corpuscular Hemoglobin 28.7 pg (26-34); Mean Corpuscular Volume 92.8 fl (80-100); Platelet Count Result 233 k/mm3 (150-375); Red Blood Count 3.34 M/mm3 (4.2-5.4); White Blood Count 8.1 K/mm3 (4.5-10.0)
[2024-09-25 06:28] LABS: Albumin Level 3.4 g/dL (3.5-5.1); Anion Gap 6 mmol/L (4-12); Blood Urea Nitrogen 13 mg/dL (7-17); Calcium 8.9 mg/dL (8.4-10.2); Carbon Dioxide 26 mmol/L (22-30); Chloride 104 mmol/L (98-107); Estimated CRCL calculation 53 ml/min; Estimated Glomerular Filt Rate > 60; Glucose 170 mg/dL (65-110); Potassium 4.2 mmol/L (3.4-5.0); Sodium 136 mmol/L (137-145)
[2024-09-25 08:00] VITALS: O2SAT 97
[2024-09-25 08:29] VITALS: O2SAT 97
[2024-09-25] MEDS: GABAPENTIN 300 MG CAPSULE PO (08:36)
[2024-09-25] MEDS: SERTRALINE HCL 25 MG TABLET 75 MG PO (08:36)
[2024-09-25] MEDS: SACCHAROMYCES BOULARDII 250 MG CAPSULE PO ×2 (08:36→17:49)
[2024-09-25] MEDS: CHOLECALCIFEROL (VITAMIN D3) 125 MCG (5,000 UNITS) TABLET PO (08:36)
[2024-09-25] MEDS: ENOXAPARIN 40 MG/0.4 ML SYRINGE SUB-Q (08:37)
[2024-09-25] MEDS: HYDROcodone/acetaminophen (*CRX) 5-325 MG TABLET 1 TAB PO ×3 (08:39→14:56)
[2024-09-25] MEDS: VANCOMYCIN HCL 1,000 MG in SODIUM CHLORIDE 0.9% IV 250 ML 250 MG IVPB (10:51)
[2024-09-25] MEDS: ACETAMINOPHEN 325 MG TABLET 650 MG PO ×2 (10:53→17:52)
--- NOTE | 2024-09-25 11:01 | PC.NURSE ---
Patient c/o increasing pain to right lower leg. Pedal pulse palpable. Dr Jaramillo notified.
--- NOTE | 2024-09-25 12:12 | PM.IMPN ---
Progress Note: A&P Assessment and Plan (1) Cellulitis and abscess of leg: Code(s): L03.119 - Cellulitis of unspecified part of limb; L02.419 - Cutaneous abscess of limb, unspecified Status: Acute Assessment and Plan: 09/07: Approximate onset 09/11: Initial evaluation. Started on PO Clindamycin and Mupriciron topical. 09/16: Culture ordered (no result in system). Levaquin added and Florastor for gut protection. 09/17: Stat ankle XR showed possible osteomyelitis. MRI completed and showed no OM. Referred to wound care outpatient. Levaquin extended x5 days. 09/22: Presentation to the ED for evaluation as the pain has remained high and ulcerations have worsened despite outpatient oral abx and topical treatment. - started on Cefepime, Flagyl, and Vancomycin on 09/22 - obtain wound culture, blood cultures obtained on 09/22 - analgesics prn - ESR 132, CRP 3.0, WBC 8.1 and lactic 0.9 upon admission - wound RN consulted - obtain US of the RLE and ABIs US: No DVT TERESA: Unremarkable ABIs within the bilateral lower extremities, although given patient's diabetes history, this is an unreliable value. The TBI is markedly diminished, consistent with bilateral peripheral arterial disease, for which CTA with runoff would provide additional information and also provide better anatomical information. Currently treating as cellulitis, however will rule out DVT/PAD -> no DVT, TBI diminished consistent with bilateral peripheral artery disease. Consider vasculitis. May need further imaging via CTA for additional information in regards to PAD. Will monitor response to antibiotics prior to developing further plan of care. (2) Type 2 diabetes mellitus without complications: Qualifiers: Diabetes mellitus senior care insulin use: without storm door maker use Qualified Code(s): E11.9 - Type 2 diabetes mellitus without complications Code(s): E11.9 - Type 2 diabetes mellitus without complications Status: Chronic Assessment and Plan: - hypoglycemia protocol - POC blood glucose ACHS - home medication: no current home medications listed? - correct regimen ordered - low dose TIDWM, based off BMI - A1C 6.7% 2020, update (3) Essential (primary) hypertension: Code(s): I10 - Essential (primary) hypertension Status: Chronic Assessment and Plan: - chronic, currently 148/73 - not currently on a daily antihypertensive - monitor Plan patient with right lower extremities with cellulitis, MRI did not show any concern for OM, and TERESA is also normal, will continue Cefepime and vancomycin, there appear to be slight improvement patient redness however pain is persisting, patient was seen by wound care team recommended to apply silver gel, will continue, will also try triamcinolone low dose, if that helps, will follow and monitor, patient family is present in the room and gave updates. Diet: Diabetic GI Prophylaxis: N/a DVT Prophylaxis: Lovenox IV fluids: None Lines/Tubes: Peripheral IV Code Status: Full code Subjective Date/time seen: 09/25/24 12:12 Interval history: RLE Redness H&P Narrative: 89 y/o F with PMH of iron deficiency anemia, type 2 diabetes, depression, anxiety, cricopharyngeal achalasia s/p dilation and Botox, hypertension presents here with redness to the right lower extremity. The patient presents here from home via EMS for further evaluation of redness to the right lower extremity. Per chart review, the patient was initially seen on 09/11 by her PCP you for redness, pain, and ulcerations to the right ankle. She was initially started on p.o. clindamycin and topical mupirocin. She returned to her PCP on 09/16 for re-evaluation of the right lower extremity as she was having worsening pain. Plan for culture of ankle and Levaquin was added. She was seen the following day and a stat XR of the ankle was ordered to rule out osteomyelitis which showed periosteal reaction along the lateral aspect of the distal third of the right fibula and right tibia. She again followed up for the right lower extremity on 09/20 and at that time reported pain remained high. At that time her Levaquin course was extended by 5 days and she was then referred for an MRI and wound care. MRI showed no evidence of osteomyelitis and nonenhancing soft tissue edema throughout the ankle and foot. She is seeking care at the emergency department today because the redness, pain, and alterations to her right leg have continued to worsen despite p.o. antibiotics outpatient. She is currently endorsing lethargy. Denies shortness of breath, fever, chills, body aches. Initial VS at presentation: 97.7? F, HR 83, R 16, 186/101, and 98% on RA. ED workup showed: No leukocytosis, hemoglobin 10.1 (at baseline), ESR 132, no significant electrolyte derangements, creatinine 0.55 and GFR >60, glucose 204, lactic 0.9, CRP 3.0. patient with right lower extremities with cellulitis, MRI did not show any concern for OM, and TERESA is also normal, will continue Cefepime and vancomycin, there appear to be slight improvement patient redness however pain is persisting, patient was seen by wound care team recommended to apply silver gel, will continue, will also try triamcinolone low dose, if that helps, will follow and monitor, patient family is present in the room and gave updates. Review of Systems Review of Systems: All systems reviewed & are unremarkable except as noted in HPI and below Exam Narrative: Elderly frail Patient is comfortable, NAD HEENT: eyes are clear and none icteric LUNGS:CTA HEART: RR S1S2 ABD: BS+, Soft and nontender Lower extremities: no edema SKIN: RT lower extremity, proximal to ankle erythematous, no induration, drainage or red streak. Neuro: grossly intact. Objective Data Vital Signs Vital Signs: Vital Signs - 24 hr 09/24/24 14:00 09/24/24 19:45 09/24/24 20:00 Temperature 36.4 C 36.5 C Pulse Rate 83 90 Respiratory Rate 20 18 Blood Pressure 127/58 L 169/80 H Pulse Oximetry 98 97 Oxygen Delivery Room Air Fraction of Inspired Oxygen 09/24/24 22:31 09/24/24 22:32 09/25/24 05:05 Temperature 36.4 C L Pulse Rate 70 85 99 Respiratory Rate 20 20 20 Blood Pressure 149/74 H Pulse Oximetry 96 90 97 Oxygen Delivery Room Air Room Air Fraction of Inspired Oxygen 21 21 09/25/24 08:00 09/25/24 08:29 Temperature Pulse Rate Respiratory Rate Blood Pressure Pulse Oximetry 97 97 Oxygen Delivery Room Air Room Air Fraction of Inspired Oxygen Intake/Output Intake/Output: Intake & Output 09/22/24 09/23/24 09/24/24 09/25/24 23:59 23:59 23:59 23:59 Intake Total 400 1400 1901 540 Balance 400 1400 1901 540 Meds/Results Medications: Active Medications Generic Name Dose Route Start Last Admin Trade Name Freq PRN Reason Stop Dose Admin Acetaminophen 650 mg 09/22/24 16:11 09/25/24 10:53 Acetaminophen 325 Mg Tablet PO 650 mg Q4H PRN Administration Mild Pain (1-3) or Fever Hydrocodone Bitart/Acetaminophen 1 tab 09/22/24 17:13 09/25/24 08:39 Hydrocodone/Acetaminophen (*Crx) 5-325 Mg Tablet PO 1 tab Q6H PRN Administration Pain Rated 4-6 Dextrose 12.5 gm 09/22/24 17:07 Dextrose 50% 25 Gm/50 Ml Syringe IV PUSH PRN PRN Hypoglycemia Protocol Diphenhydramine HCl 25 mg 09/22/24 17:13 09/24/24 20:16 Diphenhydramine Hcl Inj 50 Mg/Ml Vial IV PUSH 25 mg Q4H PRN Administration Itching/allergic reaction Enoxaparin Sodium 40 mg 09/23/24 09:00 09/25/24 08:37 Enoxaparin 40 Mg/0.4 Ml Syringe SUB-Q 40 mg DAILY JENY Administration Gabapentin 300 mg 09/23/24 09:00 09/25/24 08:36 Gabapentin 300 Mg Capsule PO 300 mg QAM JENY Administration Gabapentin 600 mg 09/22/24 18:00 09/24/24 17:03 Gabapentin 300 Mg Capsule PO 600 mg QPM JENY Administration Glucagon 1 mg 09/22/24 17:07 Glucagon For Inj 1 Mg Vial IM PRN PRN Hypoglycemia Protocol Glucose 15 gm 09/22/24 17:07 Glucose Oral Gel 15 Gm Of Glucse In 37.5 Gm Tube PO PRN PRN Hypoglycemia Protocol Cefepime HCl 1 gm/ Sodium 50 mls @ 100 mls/hr 09/22/24 18:00 09/25/24 05:10 Chloride IVPB 100 mls/hr Q12H JENY Administration Metronidazole 500 mg in 100 mls @ 100 mls/hr 09/22/24 18:00 09/25/24 10:00 Flagyl 500 Mg/Iso Soln 100 Ml IVPB 100 mls/hr Q8H JENY Administration Dextrose 1,000 mls @ 100 mls/hr 09/22/24 17:07 Dextrose 5% 1,000 Ml IVPB PRN PRN Hypoglycemia Protocol Vancomycin HCl 1,000 mg/ 250 mls @ 250 mls/hr 09/24/24 23:00 09/25/24 10:51 Sodium Chloride IVPB 250 mls/hr Q12H JENY Administration Insulin Aspart 2 - 5 units 09/23/24 08:00 09/25/24 08:01 Insulin Aspart (*Bkc) 100 Units/Ml SUB-Q Not Given TIDWM [facility] Protocol Morphine Sulfate 2 mg 09/22/24 17:13 09/25/24 08:03 Morphine Sulfate (*Crx) 2 Mg/Ml Inj IV PUSH 2 mg Q4H PRN Administration Pain Rated 7-10 Saccharomyces Boulardii 250 mg 09/23/24 09:00 09/25/24 08:36 Saccharomyces Boulardii 250 Mg Capsule PO 250 mg BID JENY Administration Sertraline HCl 75 mg 09/23/24 09:00 09/25/24 08:36 Sertraline Hcl 25 Mg Tablet PO 75 mg DAILY JENY Administration Triamcinolone Acetonide 1 applic 09/25/24 10:00 Triamcinolone Acet 0.5% Oint 15 Gm Tube TOPICAL DAILY [facility] Vitamin D 125 mcg 09/23/24 09:00 09/25/24 08:36 Cholecalciferol (Vitamin D3) 125 Mcg (5,000 Units) Tablet PO 125 mcg DAILY JENY Administration Radiology Results: ITS Impressions Venous Doppler Study 09/22/24 19:30 IMPRESSION: 1. No deep venous thrombosis. Ankle Brachial Index 09/22/24 19:34 Impression: Unremarkable ABIs within the bilateral lower extremities, although given patient's diabetes history, this is an unreliable value. The TBI is markedly diminished, consistent with bilateral peripheral arterial disease, for which CTA with runoff would provide additional information and also provide better anatomical information. Labs Labs: Laboratory Results - last 24 hr 09/24/24 09/24/24 09/24/24 17:26 19:46 19:57 WBC RBC Hgb Hct MCV MCH MCHC RDW Plt Count MPV Sodium Potassium Chloride Carbon Dioxide Anion Gap BUN Creatinine Estim Creat Clear Calc Estimated GFR Glucose POC Capillary Glucose 197 H 272 H Calcium Phosphorus Albumin Vancomycin Trough < 5.0 L 09/25/24 09/25/24 09/25/24 05:23 07:54 11:57 WBC 8.1 RBC 3.34 L Hgb 9.6 L Hct 31.0 L MCV 92.8 MCH 28.7 MCHC 31.0 L RDW 15.5 H Plt Count 233 MPV 10.8 H Sodium 136 L Potassium 4.2 Chloride 104 Carbon Dioxide 26 Anion Gap 6 BUN 13 Creatinine 0.51 L Estim Creat Clear Calc 53 Estimated GFR > 60 Glucose 170 H POC Capillary Glucose 175 H 196 H Calcium 8.9 Phosphorus 2.6 Albumin 3.4 L Vancomycin Trough Quality VTE Prophylaxis VTE prophylaxis: pharmacologic ordered
--- NOTE | 2024-09-25 12:40 | PCPTNOTE ---
Pt continues to be on bedrest. Will perform PT evaluation once activity restriction lifted
--- NOTE | 2024-09-25 13:28 | PCPTNOTE ---
Spoke with Dr. Jaramillo who agreed to pt coming off bedrest to work with therapy safely. Bedrest orders removed. Will notify nursing.
[2024-09-25 14:00] VITALS: BP 141/60; PULSE 80; RESP 18; TEMP 36.4; O2SAT 100
[2024-09-25] MEDS: TRIAMCINOLONE ACET 0.5% OINT 15 GM TUBE 1 APPLIC TOPICAL (14:05)
[2024-09-25] MEDS: CLINDAMYCIN 600 MG/D5W 50 ML 600 MG/50 ML PIGGYBACK 100 MG IVPB ×2 (14:05→21:55)
[2024-09-25] MEDS: GABAPENTIN 300 MG CAPSULE 600 MG PO (17:49)
[2024-09-25 21:42] VITALS: BP 169/72; PULSE 87; RESP 18; TEMP 37.1; O2SAT 99
[2024-09-26 05:03] VITALS: BP 161/75; PULSE 102; RESP 16; TEMP 36.7; O2SAT 98
[2024-09-26] MEDS: CLINDAMYCIN 600 MG/D5W 50 ML 600 MG/50 ML PIGGYBACK 100 MG IVPB ×3 (05:58→21:33)
[2024-09-26 06:11] LABS: Hematocrit 32.9 % (37.0-47.0); Hemoglobin 10.0 g/dL (12.0-15.0); Mean Corpuscular HGB Conc 30.4 g/dl (32-36); Mean Corpuscular Hemoglobin 28.3 pg (26-34); Mean Corpuscular Volume 93.2 fl (80-100); Platelet Count Result 251 k/mm3 (150-375); Red Blood Count 3.53 M/mm3 (4.2-5.4); White Blood Count 7.0 K/mm3 (4.5-10.0)
[2024-09-26 06:34] LABS: Albumin Level 3.4 g/dL (3.5-5.1); Anion Gap 5 mmol/L (4-12); Blood Urea Nitrogen 9 mg/dL (7-17); Calcium 9.0 mg/dL (8.4-10.2); Carbon Dioxide 28 mmol/L (22-30); Chloride 104 mmol/L (98-107); Estimated CRCL calculation 56 ml/min; Estimated Glomerular Filt Rate > 60; Glucose 163 mg/dL (65-110); Potassium 4.0 mmol/L (3.4-5.0); Sodium 137 mmol/L (137-145)
[2024-09-26 08:00] VITALS: O2SAT 98
[2024-09-26] MEDS: SERTRALINE HCL 25 MG TABLET 75 MG PO (09:05)
[2024-09-26] MEDS: ENOXAPARIN 40 MG/0.4 ML SYRINGE SUB-Q (09:05)
[2024-09-26] MEDS: SACCHAROMYCES BOULARDII 250 MG CAPSULE PO ×2 (09:05→17:08)
[2024-09-26] MEDS: CHOLECALCIFEROL (VITAMIN D3) 125 MCG (5,000 UNITS) TABLET PO (09:05)
[2024-09-26] MEDS: GABAPENTIN 300 MG CAPSULE PO (09:05)
[2024-09-26] MEDS: HYDROcodone/acetaminophen (*CRX) 5-325 MG TABLET 1 TAB PO ×3 (09:06→22:03)
[2024-09-26] MEDS: TRIAMCINOLONE ACET 0.5% OINT 15 GM TUBE 1 APPLIC TOPICAL (09:10)
[2024-09-26] MEDS: MORPHINE SULFATE (*CRX) 2 MG/ML INJ IV PUSH ×2 (11:08→20:07)
[2024-09-26] MEDS: ACETAMINOPHEN 325 MG TABLET 650 MG PO (12:59)
--- NOTE | 2024-09-26 13:22 | PM.IMPN ---
Progress Note: A&P Assessment and Plan (1) Cellulitis and abscess of leg: Code(s): L03.119 - Cellulitis of unspecified part of limb; L02.419 - Cutaneous abscess of limb, unspecified Status: Acute Assessment and Plan: 09/07: Approximate onset 09/11: Initial evaluation. Started on PO Clindamycin and Mupriciron topical. 09/16: Culture ordered (no result in system). Levaquin added and Florastor for gut protection. 09/17: Stat ankle XR showed possible osteomyelitis. MRI completed and showed no OM. Referred to wound care outpatient. Levaquin extended x5 days. 09/22: Presentation to the ED for evaluation as the pain has remained high and ulcerations have worsened despite outpatient oral abx and topical treatment. - started on Cefepime, Flagyl, and Vancomycin on 09/22 - obtain wound culture, blood cultures obtained on 09/22 - analgesics prn - ESR 132, CRP 3.0, WBC 8.1 and lactic 0.9 upon admission - wound RN consulted - obtain US of the RLE and ABIs US: No DVT TERESA: Unremarkable ABIs within the bilateral lower extremities, although given patient's diabetes history, this is an unreliable value. The TBI is markedly diminished, consistent with bilateral peripheral arterial disease, for which CTA with runoff would provide additional information and also provide better anatomical information. Currently treating as cellulitis, however will rule out DVT/PAD -> no DVT, TBI diminished consistent with bilateral peripheral artery disease. Consider vasculitis. May need further imaging via CTA for additional information in regards to PAD. Will monitor response to antibiotics prior to developing further plan of care. (2) Type 2 diabetes mellitus without complications: Qualifiers: Diabetes mellitus custodial insulin use: without intermediate teacher use Qualified Code(s): E11.9 - Type 2 diabetes mellitus without complications Code(s): E11.9 - Type 2 diabetes mellitus without complications Status: Chronic Assessment and Plan: - hypoglycemia protocol - POC blood glucose ACHS - home medication: no current home medications listed? - correct regimen ordered - low dose TIDWM, based off BMI - A1C 6.7% 2020, update (3) Essential (primary) hypertension: Code(s): I10 - Essential (primary) hypertension Status: Chronic Assessment and Plan: - chronic, currently 148/73 - not currently on a daily antihypertensive - monitor Plan patient with right lower extremities with cellulitis, MRI did not show any concern for OM, and TERESA is also normal, will continue Cefepime and vancomycin, there appear to be slight improvement patient redness however pain is persisting, patient was seen by wound care team recommended to apply silver gel, will continue, will also try triamcinolone low dose, if that helps, on 09/25 discussed with clinical pharmacist and will switch patient to clindamycin from Cefepime and dc vancomycin, there appears to be some improvement patient erythema and pain, will follow and monitor, patient family is present in the room and gave updates. Diet: Diabetic GI Prophylaxis: N/a DVT Prophylaxis: Lovenox IV fluids: None Lines/Tubes: Peripheral IV Code Status: Full code Subjective Date/time seen: 09/26/24 13:22 Interval history: RLE Redness H&P Narrative: 89 y/o F with PMH of iron deficiency anemia, type 2 diabetes, depression, anxiety, cricopharyngeal achalasia s/p dilation and Botox, hypertension presents here with redness to the right lower extremity. The patient presents here from home via EMS for further evaluation of redness to the right lower extremity. Per chart review, the patient was initially seen on 09/11 by her PCP you for redness, pain, and ulcerations to the right ankle. She was initially started on p.o. clindamycin and topical mupirocin. She returned to her PCP on 09/16 for re-evaluation of the right lower extremity as she was having worsening pain. Plan for culture of ankle and Levaquin was added. She was seen the following day and a stat XR of the ankle was ordered to rule out osteomyelitis which showed periosteal reaction along the lateral aspect of the distal third of the right fibula and right tibia. She again followed up for the right lower extremity on 09/20 and at that time reported pain remained high. At that time her Levaquin course was extended by 5 days and she was then referred for an MRI and wound care. MRI showed no evidence of osteomyelitis and nonenhancing soft tissue edema throughout the ankle and foot. She is seeking care at the emergency department today because the redness, pain, and alterations to her right leg have continued to worsen despite p.o. antibiotics outpatient. She is currently endorsing lethargy. Denies shortness of breath, fever, chills, body aches. Initial VS at presentation: 97.7? F, HR 83, R 16, 186/101, and 98% on RA. ED workup showed: No leukocytosis, hemoglobin 10.1 (at baseline), ESR 132, no significant electrolyte derangements, creatinine 0.55 and GFR >60, glucose 204, lactic 0.9, CRP 3.0. patient with right lower extremities with cellulitis, MRI did not show any concern for OM, and TERESA is also normal, will continue Cefepime and vancomycin, there appear to be slight improvement patient redness however pain is persisting, patient was seen by wound care team recommended to apply silver gel, will continue, will also try triamcinolone low dose, if that helps, on 09/25 discussed with clinical pharmacist and will switch patient to clindamycin from Cefepime and dc vancomycin, there appears to be some improvement patient erythema and pain, will follow and monitor, patient family is present in the room and gave updates. Review of Systems Review of Systems: All systems reviewed & are unremarkable except as noted in HPI and below Exam Narrative: Elderly frail Patient is comfortable, NAD HEENT: eyes are clear and none icteric LUNGS:CTA HEART: RR S1S2 ABD: BS+, Soft and nontender Lower extremities: no edema SKIN: RT lower extremity, proximal to ankle erythematous, no induration, drainage or red streak. Neuro: grossly intact. Objective Data Vital Signs Vital Signs: Vital Signs - 24 hr 09/25/24 14:00 09/25/24 15:34 09/25/24 20:00 Temperature 36.4 C L Pulse Rate 80 Respiratory Rate 18 Blood Pressure 141/60 H Pulse Oximetry 100 Oxygen Delivery Room Air Room Air Fraction of Inspired Oxygen 09/25/24 21:42 09/26/24 05:03 09/26/24 08:00 Temperature 37.1 C 36.7 C Pulse Rate 87 102 H Respiratory Rate 18 16 Blood Pressure 169/72 H 161/75 H Pulse Oximetry 99 98 98 Oxygen Delivery Room Air Fraction of Inspired Oxygen 21 Intake/Output Intake/Output: Intake & Output 09/23/24 09/24/24 09/25/24 09/26/24 23:59 23:59 23:59 23:59 Intake Total 1400 1901 1120 390 Balance 1400 1901 1120 390 Meds/Results Medications: Active Medications Generic Name Dose Route Start Last Admin Trade Name Freq PRN Reason Stop Dose Admin Acetaminophen 650 mg 09/22/24 16:11 09/26/24 12:59 Acetaminophen 325 Mg Tablet PO 650 mg Q4H PRN Administration Mild Pain (1-3) or Fever Hydrocodone Bitart/Acetaminophen 1 tab 09/22/24 17:13 09/26/24 09:06 Hydrocodone/Acetaminophen (*Crx) 5-325 Mg Tablet PO 1 tab Q6H PRN Administration Pain Rated 4-6 Dextrose 12.5 gm 09/22/24 17:07 Dextrose 50% 25 Gm/50 Ml Syringe IV PUSH PRN PRN Hypoglycemia Protocol Diphenhydramine HCl 25 mg 09/22/24 17:13 09/26/24 11:07 Diphenhydramine Hcl Inj 50 Mg/Ml Vial IV PUSH 25 mg Q4H PRN Administration Itching/allergic reaction Enoxaparin Sodium 40 mg 09/23/24 09:00 09/26/24 09:05 Enoxaparin 40 Mg/0.4 Ml Syringe SUB-Q 40 mg DAILY JENY Administration Gabapentin 300 mg 09/23/24 09:00 09/26/24 09:05 Gabapentin 300 Mg Capsule PO 300 mg QAM JENY Administration Gabapentin 600 mg 09/22/24 18:00 09/25/24 17:49 Gabapentin 300 Mg Capsule PO 600 mg QPM JENY Administration Glucagon 1 mg 09/22/24 17:07 Glucagon For Inj 1 Mg Vial IM PRN PRN Hypoglycemia Protocol Glucose 15 gm 09/22/24 17:07 Glucose Oral Gel 15 Gm Of Glucse In 37.5 Gm Tube PO PRN PRN Hypoglycemia Protocol Dextrose 1,000 mls @ 100 mls/hr 09/22/24 17:07 Dextrose 5% 1,000 Ml IVPB PRN PRN Hypoglycemia Protocol Clindamycin Phosphate 600 mg in 50 mls @ 100 mls/hr 09/25/24 14:00 09/26/24 06:28 Clindamycin 600 Mg/D5w 50 Ml IVPB Infused Q8H JENY Infusion Insulin Aspart 2 - 5 units 09/23/24 08:00 09/26/24 11:48 Insulin Aspart (*Bkc) 100 Units/Ml SUB-Q Not Given TIDWM JENY Protocol Morphine Sulfate 2 mg 09/22/24 17:13 09/26/24 11:08 Morphine Sulfate (*Crx) 2 Mg/Ml Inj IV PUSH 2 mg Q4H PRN Administration Pain Rated 7-10 Saccharomyces Boulardii 250 mg 09/23/24 09:00 09/26/24 09:05 Saccharomyces Boulardii 250 Mg Capsule PO 250 mg BID JENY Administration Sertraline HCl 75 mg 09/23/24 09:00 09/26/24 09:05 Sertraline Hcl 25 Mg Tablet PO 75 mg DAILY JENY Administration Triamcinolone Acetonide 1 applic 09/25/24 10:00 09/26/24 09:10 Triamcinolone Acet 0.5% Oint 15 Gm Tube TOPICAL 1 applic DAILY JENY Administration Vitamin D 125 mcg 09/23/24 09:00 09/26/24 09:05 Cholecalciferol (Vitamin D3) 125 Mcg (5,000 Units) Tablet PO 125 mcg DAILY JENY Administration Radiology Results: ITS Impressions Venous Doppler Study 09/22/24 19:30 IMPRESSION: 1. No deep venous thrombosis. Ankle Brachial Index 09/22/24 19:34 Impression: Unremarkable ABIs within the bilateral lower extremities, although given patient's diabetes history, this is an unreliable value. The TBI is markedly diminished, consistent with bilateral peripheral arterial disease, for which CTA with runoff would provide additional information and also provide better anatomical information. Labs Labs: Laboratory Results - last 24 hr 09/25/24 09/25/24 09/26/24 17:20 20:02 05:05 WBC 7.0 RBC 3.53 L Hgb 10.0 L Hct 32.9 L MCV 93.2 MCH 28.3 MCHC 30.4 L RDW 15.5 H Plt Count 251 MPV 11.3 H Sodium 137 Potassium 4.0 Chloride 104 Carbon Dioxide 28 Anion Gap 5 BUN 9 Creatinine 0.48 L Estim Creat Clear Calc 56 Estimated GFR > 60 Glucose 163 H POC Capillary Glucose 134 H 203 H Calcium 9.0 Phosphorus 2.6 Albumin 3.4 L 09/26/24 09/26/24 07:40 11:43 WBC RBC Hgb Hct MCV MCH MCHC RDW Plt Count MPV Sodium Potassium Chloride Carbon Dioxide Anion Gap BUN Creatinine Estim Creat Clear Calc Estimated GFR Glucose POC Capillary Glucose 171 H 187 H Calcium Phosphorus Albumin Quality VTE Prophylaxis VTE prophylaxis: pharmacologic ordered
[2024-09-26 14:00] VITALS: BP 122/61; PULSE 92; RESP 18; TEMP 37.3; O2SAT 100
[2024-09-26] MEDS: GABAPENTIN 300 MG CAPSULE 600 MG PO (17:08)
[2024-09-26] MEDS: INSULIN ASPART (*BKC) 100 UNITS/ML SUB-Q (17:10)
[2024-09-26 21:05] VITALS: BP 129/62; PULSE 66; RESP 18; TEMP 36.7; O2SAT 99
[2024-09-27 05:04] VITALS: BP 168/72; PULSE 89; RESP 14; TEMP 36.6; O2SAT 94
[2024-09-27] MEDS: CLINDAMYCIN 600 MG/D5W 50 ML 600 MG/50 ML PIGGYBACK 100 MG IVPB ×3 (05:44→22:29)
[2024-09-27 06:18] LABS: Hematocrit 32.1 % (37.0-47.0); Hemoglobin 9.7 g/dL (12.0-15.0); Mean Corpuscular HGB Conc 30.2 g/dl (32-36); Mean Corpuscular Hemoglobin 28.1 pg (26-34); Mean Corpuscular Volume 93.0 fl (80-100); Platelet Count Result 238 k/mm3 (150-375); Red Blood Count 3.45 M/mm3 (4.2-5.4); White Blood Count 6.0 K/mm3 (4.5-10.0)
[2024-09-27 06:40] LABS: Albumin Level 3.4 g/dL (3.5-5.1); Anion Gap 4 mmol/L (4-12); Blood Urea Nitrogen 15 mg/dL (7-17); Calcium 8.9 mg/dL (8.4-10.2); Carbon Dioxide 28 mmol/L (22-30); Chloride 104 mmol/L (98-107); Estimated CRCL calculation 51 ml/min; Estimated Glomerular Filt Rate > 60; Glucose 170 mg/dL (65-110); Potassium 4.2 mmol/L (3.4-5.0); Sodium 136 mmol/L (137-145)
[2024-09-27] MEDS: MORPHINE SULFATE (*CRX) 2 MG/ML INJ IV PUSH ×3 (08:13→20:32)
[2024-09-27] MEDS: TRIAMCINOLONE ACET 0.5% OINT 15 GM TUBE 1 APPLIC TOPICAL (08:13)
[2024-09-27] MEDS: ENOXAPARIN 40 MG/0.4 ML SYRINGE SUB-Q (08:16)
[2024-09-27] MEDS: SERTRALINE HCL 25 MG TABLET 75 MG PO (08:16)
[2024-09-27] MEDS: CHOLECALCIFEROL (VITAMIN D3) 125 MCG (5,000 UNITS) TABLET PO (08:16)
[2024-09-27] MEDS: GABAPENTIN 300 MG CAPSULE PO (08:16)
[2024-09-27] MEDS: SACCHAROMYCES BOULARDII 250 MG CAPSULE PO ×2 (08:16→16:59)
--- NOTE | 2024-09-27 09:26 | PM.IMPN ---
Progress Note: A&P Assessment and Plan (1) Cellulitis and abscess of leg: Code(s): L03.119 - Cellulitis of unspecified part of limb; L02.419 - Cutaneous abscess of limb, unspecified Status: Acute Assessment and Plan: 09/07: Approximate onset 09/11: Initial evaluation. Started on PO Clindamycin and Mupriciron topical. 09/16: Culture ordered (no result in system). Levaquin added and Florastor for gut protection. 09/17: Stat ankle XR showed possible osteomyelitis. MRI completed and showed no OM. Referred to wound care outpatient. Levaquin extended x5 days. 09/22: Presentation to the ED for evaluation as the pain has remained high and ulcerations have worsened despite outpatient oral abx and topical treatment. - started on Cefepime, Flagyl, and Vancomycin on 09/22 - obtain wound culture, blood cultures obtained on 09/22 - analgesics prn - ESR 132, CRP 3.0, WBC 8.1 and lactic 0.9 upon admission - wound RN consulted - obtain US of the RLE and ABIs US: No DVT TERESA: Unremarkable ABIs within the bilateral lower extremities, although given patient's diabetes history, this is an unreliable value. The TBI is markedly diminished, consistent with bilateral peripheral arterial disease, for which CTA with runoff would provide additional information and also provide better anatomical information. Currently treating as cellulitis, however will rule out DVT/PAD -> no DVT, TBI diminished consistent with bilateral peripheral artery disease. Consider vasculitis. May need further imaging via CTA for additional information in regards to PAD. Will monitor response to antibiotics prior to developing further plan of care. 09/27- on clinda now, erythema impotving. But more painful today- continue pain meds prn (2) Type 2 diabetes mellitus without complications: Qualifiers: Diabetes mellitus questioned documents examiner insulin use: without fci use Qualified Code(s): E11.9 - Type 2 diabetes mellitus without complications Code(s): E11.9 - Type 2 diabetes mellitus without complications Status: Chronic Assessment and Plan: - hypoglycemia protocol - POC blood glucose ACHS - home medication: no current home medications listed? - correct regimen ordered - low dose TIDWM, based off BMI - A1C 6.7% 2020, update (3) Essential (primary) hypertension: Code(s): I10 - Essential (primary) hypertension Status: Chronic Assessment and Plan: - chronic, currently 148/73 - not currently on a daily antihypertensive - monitor Plan patient with right lower extremities with cellulitis, MRI did not show any concern for OM, and TERESA is also normal, will continue Cefepime and vancomycin, there appear to be slight improvement patient redness however pain is persisting, patient was seen by wound care team recommended to apply silver gel, will continue, will also try triamcinolone low dose, if that helps, on 09/25 discussed with clinical pharmacist and will switch patient to clindamycin from Cefepime and dc vancomycin, there appears to be some improvement patient erythema and pain, will follow and monitor, patient family is present in the room and gave updates. Diet: Diabetic GI Prophylaxis: N/a DVT Prophylaxis: Lovenox IV fluids: None Lines/Tubes: Peripheral IV Code Status: Full code Time Spent With Patient Time with patient: 25 - 35 minutes Subjective Date/time seen: 09/27/24 09:26 Interval history: RLE Redness H&P Narrative: 89 y/o F with PMH of iron deficiency anemia, type 2 diabetes, depression, anxiety, cricopharyngeal achalasia s/p dilation and Botox, hypertension presents here with redness to the right lower extremity. The patient presents here from home via EMS for further evaluation of redness to the right lower extremity. Per chart review, the patient was initially seen on 09/11 by her PCP you for redness, pain, and ulcerations to the right ankle. She was initially started on p.o. clindamycin and topical mupirocin. She returned to her PCP on 09/16 for re-evaluation of the right lower extremity as she was having worsening pain. Plan for culture of ankle and Levaquin was added. She was seen the following day and a stat XR of the ankle was ordered to rule out osteomyelitis which showed periosteal reaction along the lateral aspect of the distal third of the right fibula and right tibia. She again followed up for the right lower extremity on 09/20 and at that time reported pain remained high. At that time her Levaquin course was extended by 5 days and she was then referred for an MRI and wound care. MRI showed no evidence of osteomyelitis and nonenhancing soft tissue edema throughout the ankle and foot. She is seeking care at the emergency department today because the redness, pain, and alterations to her right leg have continued to worsen despite p.o. antibiotics outpatient. She is currently endorsing lethargy. Denies shortness of breath, fever, chills, body aches. Initial VS at presentation: 97.7? F, HR 83, R 16, 186/101, and 98% on RA. ED workup showed: No leukocytosis, hemoglobin 10.1 (at baseline), ESR 132, no significant electrolyte derangements, creatinine 0.55 and GFR >60, glucose 204, lactic 0.9, CRP 3.0. patient with right lower extremities with cellulitis, MRI did not show any concern for OM, and TERESA is also normal, currently on Cefepime and vancomycin. There was a slight improvement patient redness however pain is persisting, patient was seen by wound care team recommended to apply silver gel, will continue, will also try triamcinolone low dose, if that helps, on 09/25 discussed with clinical pharmacist and will switch patient to clindamycin from Cefepime and dc vancomycin, there appears to be some improvement patient erythema and pain, will follow and monitor, patient family is present in the room and gave updates. 09/27- pt is seen and examined. she is in a lot of pain today. family at the bedside. Other than pain, she has no complains. Review of Systems Review of Systems: All systems reviewed & are unremarkable except as noted in HPI and below Exam Narrative: Elderly frail Patient is comfortable, NAD HEENT: eyes are clear and none icteric LUNGS:CTA HEART: RR S1S2 ABD: BS+, Soft and nontender Lower extremities: no edema SKIN: RT lower extremity, proximal to ankle erythematous, no induration, drainage or red streak. Neuro: grossly intact. Const: General: comfortable and no acute distress Other: , female, nontoxic appearance, frail HENMT: Face/Nose/Sinus: Normal nares present Mouth: Yes moist mucous membranes Eyes: General: appearance normal, both eyes and all related structures Sclera: sclerae normal Pupils: Equal, round and reactive pupils present EOM: EOMs intact bilaterally Resp: Effort & Inspection: normal respiratory effort Auscultation: clear to auscultation bilaterally Cardio: Rate: regular rate Rhythm: regular rhythm Other: +murmur, no ectopy or rub GI: Other: Abdomen soft, nondistended, nontender. Normoactive bowel sounds in all quadrants. Skin: Other: Erythema and purpura to the distal right lower extremity. Significant associated tenderness. No open or draining wounds. Neuro: Cranial nerves: Yes Equal, round and reactive pupils present Speech: normal speech Motor exam (neuro): 5/5 motor strength present throughout Sensory Exam: normal sensation Other: A&O x4 Extrem: Other: See skin exam. Poorly palpable DP pulses bilaterally. Audible with Doppler bilaterally. Psych: Mental Status: mental status grossly normal Affect: normal affect Other: Good insight and judgment, pleasant Objective Data Vital Signs Vital Signs: Vital Signs - 24 hr 09/26/24 14:00 09/26/24 20:07 09/26/24 21:05 Temperature 99.2 F 98.0 F Pulse Rate 92 66 Respiratory Rate 18 18 Blood Pressure 122/61 129/62 Pulse Oximetry 100 99 Oxygen Delivery Room Air 09/27/24 05:04 Temperature 97.9 F Pulse Rate 89 Respiratory Rate 14 Blood Pressure 168/72 H Pulse Oximetry 94 Oxygen Delivery Intake/Output Intake/Output: Intake & Output 09/24/24 09/25/24 09/26/24 09/27/24 23:59 23:59 23:59 23:59 Intake Total 1901 1120 1210 200 Output Total 400 Balance 1901 1120 1210 -200 Meds/Results Medications: Active Medications Generic Name Dose Route Start Last Admin Trade Name Freq PRN Reason Stop Dose Admin Acetaminophen 650 mg 09/22/24 16:11 09/26/24 12:59 Acetaminophen 325 Mg Tablet PO 650 mg Q4H PRN Administration Mild Pain (1-3) or Fever Hydrocodone Bitart/Acetaminophen 1 tab 09/22/24 17:13 09/26/24 22:03 Hydrocodone/Acetaminophen (*Crx) 5-325 Mg Tablet PO 1 tab Q6H PRN Administration Pain Rated 4-6 Dextrose 12.5 gm 09/22/24 17:07 Dextrose 50% 25 Gm/50 Ml Syringe IV PUSH PRN PRN Hypoglycemia Protocol Diphenhydramine HCl 25 mg 09/22/24 17:13 09/26/24 22:02 Diphenhydramine Hcl Inj 50 Mg/Ml Vial IV PUSH 25 mg Q4H PRN Administration Itching/allergic reaction Enoxaparin Sodium 40 mg 09/23/24 09:00 09/27/24 08:16 Enoxaparin 40 Mg/0.4 Ml Syringe SUB-Q 40 mg DAILY JENY Administration Gabapentin 300 mg 09/23/24 09:00 09/27/24 08:16 Gabapentin 300 Mg Capsule PO 300 mg QAM JENY Administration Gabapentin 600 mg 09/22/24 18:00 09/26/24 17:08 Gabapentin 300 Mg Capsule PO 600 mg QPM JENY Administration Glucagon 1 mg 09/22/24 17:07 Glucagon For Inj 1 Mg Vial IM PRN PRN Hypoglycemia Protocol Glucose 15 gm 09/22/24 17:07 Glucose Oral Gel 15 Gm Of Glucse In 37.5 Gm Tube PO PRN PRN Hypoglycemia Protocol Dextrose 1,000 mls @ 100 mls/hr 09/22/24 17:07 Dextrose 5% 1,000 Ml IVPB PRN PRN Hypoglycemia Protocol Clindamycin Phosphate 600 mg in 50 mls @ 100 mls/hr 09/25/24 14:00 09/27/24 05:44 Clindamycin 600 Mg/D5w 50 Ml IVPB 100 mls/hr Q8H JENY Administration Insulin Aspart 2 - 5 units 09/23/24 08:00 09/27/24 08:17 Insulin Aspart (*Bkc) 100 Units/Ml SUB-Q Not Given T[facility] Protocol Morphine Sulfate 2 mg 09/22/24 17:13 09/27/24 08:13 Morphine Sulfate (*Crx) 2 Mg/Ml Inj IV PUSH 2 mg Q4H PRN Administration Pain Rated 7-10 Saccharomyces Boulardii 250 mg 09/23/24 09:00 09/27/24 08:16 Saccharomyces Boulardii 250 Mg Capsule PO 250 mg BID JENY Administration Sertraline HCl 75 mg 09/23/24 09:00 09/27/24 08:16 Sertraline Hcl 25 Mg Tablet PO 75 mg DAILY JENY Administration Triamcinolone Acetonide 1 applic 09/25/24 10:00 09/26/24 09:10 Triamcinolone Acet 0.5% Oint 15 Gm Tube TOPICAL 1 applic DAILY JENY Administration Vitamin D 125 mcg 09/23/24 09:00 09/27/24 08:16 Cholecalciferol (Vitamin D3) 125 Mcg (5,000 Units) Tablet PO 125 mcg DAILY JENY Administration Radiology Results: ITS Impressions Venous Doppler Study 09/22/24 19:30 IMPRESSION: 1. No deep venous thrombosis. Ankle Brachial Index 09/22/24 19:34 Impression: Unremarkable ABIs within the bilateral lower extremities, although given patient's diabetes history, this is an unreliable value. The TBI is markedly diminished, consistent with bilateral peripheral arterial disease, for which CTA with runoff would provide additional information and also provide better anatomical information. Labs Labs: Laboratory Results - last 24 hr 09/26/24 09/26/24 09/26/24 11:43 16:47 19:31 WBC RBC Hgb Hct MCV MCH MCHC RDW Plt Count MPV Sodium Potassium Chloride Carbon Dioxide Anion Gap BUN Creatinine Estim Creat Clear Calc Estimated GFR Glucose POC Capillary Glucose 187 H 231 H 186 H Calcium Phosphorus Albumin 09/27/24 09/27/24 09/27/24 05:25 06:24 07:59 WBC 6.0 RBC 3.45 L Hgb 9.7 L Hct 32.1 L MCV 93.0 MCH 28.1 MCHC 30.2 L RDW 15.4 H Plt Count 238 MPV 11.3 H Sodium 136 L Potassium 4.2 Chloride 104 Carbon Dioxide 28 Anion Gap 4 BUN 15 D Creatinine 0.53 L Estim Creat Clear Calc 51 Estimated GFR > 60 Glucose 170 H POC Capillary Glucose 166 H 180 H Calcium 8.9 Phosphorus 2.9 Albumin 3.4 L Quality VTE Prophylaxis VTE prophylaxis: pharmacologic ordered
--- NOTE | 2024-09-27 12:17 | PCNFU ---
Nutrition Follow-Up Complete: Unintentional weight loss related to reduced appetite and intake as evidenced by nursing report and noted -10% loss x 1 year Goal:PO intake 50% or greater Pt meeting goal, continue with same goal Pt current nutrition is Diabetic, Glucerna shakes BID. Nutrition recommendation: continue with current plan of care Last recorded weight is 53.6 kg. Bowel Motility: +BM 09/27 Labs Reviewed: Hgb:9.7, HCT:32.1, NA:136, Cr:0.53, Glu:170 Meds Noted: novolog, lovenox Skin: WNL Additional Notes: Pt continues on a diabetic diet, intake 50-100% of meals. Glucerna shakes in place. Monitor intake, wt, labs. Follow up in 7 days.
[2024-09-27] MEDS: INSULIN ASPART (*BKC) 100 UNITS/ML SUB-Q (12:37)
[2024-09-27] MEDS: ACETAMINOPHEN 325 MG TABLET 650 MG PO (12:38)
[2024-09-27 14:00] VITALS: BP 123/62; PULSE 91; RESP 18; TEMP 36.4; O2SAT 100
[2024-09-27] MEDS: HYDROcodone/acetaminophen (*CRX) 5-325 MG TABLET 1 TAB PO (17:00)
[2024-09-27] MEDS: GABAPENTIN 300 MG CAPSULE 600 MG PO (17:00)
[2024-09-27 22:00] VITALS: BP 138/96; PULSE 91; RESP 14; TEMP 36.2; O2SAT 98
[2024-09-28] MEDS: CLINDAMYCIN 600 MG/D5W 50 ML 600 MG/50 ML PIGGYBACK 100 MG IVPB ×3 (05:58→21:25)
[2024-09-28 06:00] VITALS: BP 146/63; PULSE 85; RESP 18; O2SAT 97
[2024-09-28 06:09] LABS: Hematocrit 31.4 % (37.0-47.0); Hemoglobin 9.7 g/dL (12.0-15.0); Mean Corpuscular HGB Conc 30.9 g/dl (32-36); Mean Corpuscular Hemoglobin 28.4 pg (26-34); Mean Corpuscular Volume 91.8 fl (80-100); Platelet Count Result 252 k/mm3 (150-375); Red Blood Count 3.42 M/mm3 (4.2-5.4); White Blood Count 7.2 K/mm3 (4.5-10.0)
[2024-09-28] MEDS: HYDROcodone/acetaminophen (*CRX) 5-325 MG TABLET 1 TAB PO ×4 (06:28→20:16)
[2024-09-28 06:34] LABS: Albumin Level 3.4 g/dL (3.5-5.1); Anion Gap 4 mmol/L (4-12); Blood Urea Nitrogen 17 mg/dL (7-17); Calcium 9.0 mg/dL (8.4-10.2); Carbon Dioxide 30 mmol/L (22-30); Chloride 102 mmol/L (98-107); Estimated CRCL calculation 52 ml/min; Estimated Glomerular Filt Rate > 60; Glucose 179 mg/dL (65-110); Potassium 4.2 mmol/L (3.4-5.0); Sodium 136 mmol/L (137-145)
[2024-09-28] MEDS: GABAPENTIN 300 MG CAPSULE PO (08:57)
[2024-09-28] MEDS: SACCHAROMYCES BOULARDII 250 MG CAPSULE PO ×2 (08:57→16:27)
[2024-09-28] MEDS: CHOLECALCIFEROL (VITAMIN D3) 125 MCG (5,000 UNITS) TABLET PO (08:57)
[2024-09-28] MEDS: SERTRALINE HCL 25 MG TABLET 75 MG PO (08:57)
[2024-09-28] MEDS: ENOXAPARIN 40 MG/0.4 ML SYRINGE SUB-Q (08:58)
[2024-09-28] MEDS: TRIAMCINOLONE ACET 0.5% OINT 15 GM TUBE 1 APPLIC TOPICAL (09:00)
--- NOTE | 2024-09-28 13:10 | P.PNIM_ITS ---
Progress Note: A&P Assessment and Plan (1) Cellulitis and abscess of leg: Code(s): L03.119 - Cellulitis of unspecified part of limb; L02.419 - Cutaneous abscess of limb, unspecified Status: Acute Assessment and Plan: 09/07: Approximate onset 09/11: Initial evaluation. Started on PO Clindamycin and Mupriciron topical. 09/16: Culture ordered (no result in system). Levaquin added and Florastor for gut protection. 09/17: Stat ankle XR showed possible osteomyelitis. MRI completed and showed no OM. Referred to wound care outpatient. Levaquin extended x5 days. 09/22: Presentation to the ED for evaluation as the pain has remained high and ulcerations have worsened despite outpatient oral abx and topical treatment. - started on Cefepime, Flagyl, and Vancomycin on 09/22 - obtain wound culture, blood cultures obtained on 09/22 - analgesics prn - ESR 132, CRP 3.0, WBC 8.1 and lactic 0.9 upon admission - wound RN consulted - obtain US of the RLE and ABIs US: No DVT TERESA: Unremarkable ABIs within the bilateral lower extremities, although given patient's diabetes history, this is an unreliable value. The TBI is markedly diminished, consistent with bilateral peripheral arterial disease, for which CTA with runoff would provide additional information and also provide better anatomical information. Currently treating as cellulitis, however will rule out DVT/PAD -> no DVT, TBI diminished consistent with bilateral peripheral artery disease. Consider vasculitis. May need further imaging via CTA for additional information in regards to PAD. Will monitor response to antibiotics prior to developing furt her plan of care. 09/27- on clinda now, erythema improving. But more painful today- continue pain meds prn 09/28 wound culture -no growth-final BC prelim- negative -TERESA recommend CTA with runoff. Discussed with attending- will order iD consult for further recommendations and check MRSA. Pt's leg is warm and pulses present. -norco q4h instead of q6 h prn for better pain control (2) Type 2 diabetes mellitus without complications: Qualifiers: Diabetes mellitus fpc insulin use: without intermodal truck driver use Qualified Code(s): E11.9 - Type 2 diabetes mellitus without complications Code(s): E11.9 - Type 2 diabetes mellitus without complications Status: Chronic Assessment and Plan: - hypoglycemia protocol - POC blood glucose ACHS - home medication: no current home medications listed? - correct regimen ordered - low dose TIDWM, based off BMI - A1C 6.7% 2020, update reviewed and overall stable, continue regimen (3) Essential (primary) hypertension: Code(s): I10 - Essential (primary) hypertension Status: Chronic Assessment and Plan: - chronic, currently 148/73 - not currently on a daily antihypertensive - monitor Plan patient with right lower extremities with cellulitis, MRI did not show any concern for OM, and TERESA is also normal, will continue Cefepime and vancomycin, there appear to be slight improvement patient redness however pain is persisting, patient was seen by wound care team recommended to apply silver gel, will continue, will also try triamcinolone low dose, if that helps, on 09/25 discussed with clinical pharmacist and will switch patient to clindamycin from Cefepime and dc vancomycin, there appears to be some improvement patient erythema and pain, will follow and monitor, patient family is present in the room and gave updates. Diet: Diabetic GI Prophylaxis: N/a DVT Prophylaxis: Lovenox IV fluids: None Lines/Tubes: Peripheral IV Code Status: Full code Time Spent With Patient Time with patient: 25 - 35 minutes Subjective Date/time seen: 09/28/24 13:10 Interval history: RLE Redness H&P Narrative: 89 y/o F with PMH of iron deficiency anemia, type 2 diabetes, depression, anxiety, cricopharyngeal achalasia s/p dilation and Botox, hypertension presents here with redness to the right lower extremity. The patient presents here from home via EMS for further evaluation of redness to the right lower extremity. Per chart review, the patient was initially seen on 09/11 by her PCP you for redness, pain, and ulcerations to the right ankle. She was initially started on p.o. clindamycin and topical mupirocin. She returned to her PCP on 09/16 for re-evaluation of the right lower extremity as she was having worsening pain. Plan for culture of ankle and Levaquin was added. She was seen the following day and a stat XR of the ankle was ordered to rule out osteomyelitis which showed periosteal reaction along the lateral aspect of the distal third of the right fibula and right tibia. She again followed up for the right lower extremity on 09/20 and at that time reported pain remained high. At that time her Levaquin course was extended by 5 days and she was then referred for an MRI and wound care. MRI showed no evidence of osteomyelitis and nonenhancing soft tissue edema throughout the ankle and foot. She is seeking care at the emergency department today because the redness, pain, and alterations to her right leg have continued to worsen despite p.o. antibiotics outpatient. She is currently endorsing lethargy. Denies shortness of breath, fever, chills, body aches. Initial VS at presentation: 97.7? F, HR 83, R 16, 186/101, and 98% on RA. ED workup showed: No leukocytosis, hemoglobin 10.1 (at baseline), ESR 132, no significant electrolyte derangements, creatinine 0.55 and GFR >60, glucose 204, lactic 0.9, CRP 3.0. patient with right lower extremities with cellulitis, MRI did not show any concern for OM, and TERESA is also normal, currently on Cefepime and vancomycin. There was a slight improvement patient redness however pain is persisting, patient was seen by wound care team recommended to apply silver gel, will continue, will also try triamcinolone low dose, if that helps, on 09/25 discussed with clinical pharmacist and will switch patient to clindamycin from Cefepime and dc vancomycin, there appears to be some improvement patient erythema and pain, will follow and monitor, patient family is present in the room and gave updates. 09/27- pt is seen and examined. she is in a lot of pain today. family at the bedside. Other than pain, she has no complains. 09/28 pain is still an issue erythema still present Review of Systems Review of Systems: All systems reviewed & are unremarkable except as noted in HPI and below Exam Narrative: Elderly frail, up in a chair Patient is comfortable, NAD HEENT: eyes are clear and none icteric LUNGS:CTA HEART: RR S1S2 ABD: BS+, Soft and nontender Lower extremities: no edema SKIN: RT lower extremity, proximal to ankle erythematous, no induration, drainage or red streak. Neuro: grossly intact. Const: General: comfortable and no acute distress Other: , female, nontoxic appearance, frail HENMT: Face/Nose/Sinus: Normal nares present Mouth: Yes moist mucous membranes Eyes: General: appearance normal, both eyes and all related structures Sclera: sclerae normal Pupils: Equal, round and reactive pupils present EOM: EOMs intact bilaterally Resp: Effort & Inspection: normal respiratory effort Auscultation: clear to auscultation bilaterally Cardio: Rate: regular rate Rhythm: regular rhythm Other: +murmur, no ectopy or rub GI: Other: Abdomen soft, nondistended, nontender. Normoactive bowel sounds in all quadrants. Skin: Other: Erythema and purpura to the distal right lower extremity. Significant associated tenderness. No open or draining wounds. Neuro: Cranial nerves: Yes Equal, round and reactive pupils present Speech: normal speech Motor exam (neuro): 5/5 motor strength present throughout Sensory Exam: normal sensation Other: A&O x4 Extrem: Other: See skin exam. Poorly palpable DP pulses bilaterally. Audible with Doppler bilaterally. Psych: Mental Status: mental status grossly normal Affect: normal affect Other: Good insight and judgment, pleasant Objective Data Vital Signs Vital Signs: Vital Signs - 24 hr 09/27/24 14:00 09/27/24 20:32 09/27/24 22:00 Temperature 97.6 F 97.1 F L Pulse Rate 91 91 Respiratory Rate 18 14 Blood Pressure 123/62 138/96 H Pulse Oximetry 100 98 Oxygen Delivery Room Air 09/28/24 06:00 Temperature Pulse Rate 85 Respiratory Rate 18 Blood Pressure 146/63 H Pulse Oximetry 97 Oxygen Delivery Intake/Output Intake/Output: Intake & Output 09/25/24 09/26/24 09/27/24 09/28/24 23:59 23:59 23:59 23:59 Intake Total 1120 1210 1070 320 Output Total 400 Balance 1120 1210 670 320 Meds/Results Medications: Active Medications Generic Name Dose Route Start Last Admin Trade Name Freq PRN Reason Stop Dose Admin Acetaminophen 650 mg 09/22/24 16:11 09/27/24 12:38 Acetaminophen 325 Mg Tablet PO 650 mg Q4H PRN Administration Mild Pain (1-3) or Fever Hydrocodone Bitart/Acetaminophen 1 tab 09/22/24 17:13 09/28/24 12:40 Hydrocodone/Acetaminophen (*Crx) 5-325 Mg Tablet PO 1 tab Q6H PRN Administration Pain Rated 4-6 Dextrose 12.5 gm 09/22/24 17:07 Dextrose 50% 25 Gm/50 Ml Syringe IV PUSH PRN PRN Hypoglycemia Protocol Diphenhydramine HCl 25 mg 09/22/24 17:13 09/27/24 22:29 Diphenhydramine Hcl Inj 50 Mg/Ml Vial IV PUSH 25 mg Q4H PRN Administration Itching/allergic reaction Enoxaparin Sodium 40 mg 09/23/24 09:00 09/28/24 08:58 Enoxaparin 40 Mg/0.4 Ml Syringe SUB-Q 40 mg DAILY JENY Administration Gabapentin 300 mg 09/23/24 09:00 09/28/24 08:57 Gabapentin 300 Mg Capsule PO 300 mg QAM JENY Administration Gabapentin 600 mg 09/22/24 18:00 09/27/24 17:00 Gabapentin 300 Mg Capsule PO 600 mg QPM JENY Administration Glucagon 1 mg 09/22/24 17:07 Glucagon For Inj 1 Mg Vial IM PRN PRN Hypoglycemia Protocol Glucose 15 gm 09/22/24 17:07 Glucose Oral Gel 15 Gm Of Glucse In 37.5 Gm Tube PO PRN PRN Hypoglycemia Protocol Dextrose 1,000 mls @ 100 mls/hr 09/22/24 17:07 Dextrose 5% 1,000 Ml IVPB PRN PRN Hypoglycemia Protocol Clindamycin Phosphate 600 mg in 50 mls @ 100 mls/hr 09/25/24 14:00 09/28/24 13:02 Clindamycin 600 Mg/D5w 50 Ml IVPB 100 mls/hr Q8H JENY Administration Insulin Aspart 2 - 5 units 09/23/24 08:00 09/28/24 11:28 Insulin Aspart (*Bkc) 100 Units/Ml SUB-Q Not Given TIDWM [facility] Protocol Morphine Sulfate 2 mg 09/22/24 17:13 09/27/24 20:32 Morphine Sulfate (*Crx) 2 Mg/Ml Inj IV PUSH 2 mg Q4H PRN Administration Pain Rated 7-10 Saccharomyces Boulardii 250 mg 09/23/24 09:00 09/28/24 08:57 Saccharomyces Boulardii 250 Mg Capsule PO 250 mg BID JENY Administration Sertraline HCl 75 mg 09/23/24 09:00 09/28/24 08:57 Sertraline Hcl 25 Mg Tablet PO 75 mg DAILY JENY Administration Triamcinolone Acetonide 1 applic 09/25/24 10:00 09/28/24 09:00 Triamcinolone Acet 0.5% Oint 15 Gm Tube TOPICAL 1 applic DAILY JENY Administration Vitamin D 125 mcg 09/23/24 09:00 09/28/24 08:57 Cholecalciferol (Vitamin D3) 125 Mcg (5,000 Units) Tablet PO 125 mcg DAILY JENY Administration Radiology Results: ITS Impressions Venous Doppler Study 09/22/24 19:30 IMPRESSION: 1. No deep venous thrombosis. Ankle Brachial Index 09/22/24 19:34 Impression: Unremarkable ABIs within the bilateral lower extremities, although given patient's diabetes history, this is an unreliable value. The TBI is markedly diminished, consistent with bilateral peripheral arterial disease, for which CTA with runoff would provide additional information and also provide better anatomical information. Labs Labs: Laboratory Results - last 24 hr 09/27/24 09/27/24 09/28/24 16:48 21:23 05:33 WBC 7.2 RBC 3.42 L Hgb 9.7 L Hct 31.4 L MCV 91.8 MCH 28.4 MCHC 30.9 L RDW 15.3 H Plt Count 252 MPV 11.2 H Sodium 136 L Potassium 4.2 Chloride 102 Carbon Dioxide 30 Anion Gap 4 BUN 17 Creatinine 0.52 L Estim Creat Clear Calc 52 Estimated GFR > 60 Glucose 179 H POC Capillary Glucose 163 H 194 H Calcium 9.0 Phosphorus 3.2 Albumin 3.4 L 09/28/24 09/28/24 07:45 11:16 WBC RBC Hgb Hct MCV MCH MCHC RDW Plt Count MPV Sodium Potassium Chloride Carbon Dioxide Anion Gap BUN Creatinine Estim Creat Clear Calc Estimated GFR Glucose POC Capillary Glucose 166 H 185 H Calcium Phosphorus Albumin Quality VTE Prophylaxis VTE prophylaxis: pharmacologic ordered
[2024-09-28 14:00] VITALS: BP 137/71; PULSE 92; RESP 18; TEMP 36.4; O2SAT 100
[2024-09-28 15:43] LABS: MRSA (PCR) NOT DETECTED (NOT DETECTE)
[2024-09-28] MEDS: INSULIN ASPART (*BKC) 100 UNITS/ML SUB-Q (16:28)
[2024-09-28] MEDS: GABAPENTIN 300 MG CAPSULE 600 MG PO (20:15)
[2024-09-28 22:00] VITALS: BP 160/68; PULSE 93; RESP 18; TEMP 36.2; O2SAT 98
[2024-09-28 22:02] VITALS: O2SAT 95
[2024-09-28] MEDS: MELATONIN 5 MG TABLET PO (22:26)
[2024-09-29] MEDS: HYDROcodone/acetaminophen (*CRX) 5-325 MG TABLET 1 TAB PO ×4 (05:12→20:28)
[2024-09-29] MEDS: CLINDAMYCIN 600 MG/D5W 50 ML 600 MG/50 ML PIGGYBACK 100 MG IVPB ×3 (05:13→21:15)
[2024-09-29 05:32] LABS: Hematocrit 28.8 % (37.0-47.0); Hemoglobin 9.2 g/dL (12.0-15.0); Mean Corpuscular HGB Conc 31.9 g/dl (32-36); Mean Corpuscular Hemoglobin 28.8 pg (26-34); Mean Corpuscular Volume 90.3 fl (80-100); Platelet Count Result 240 k/mm3 (150-375); Red Blood Count 3.19 M/mm3 (4.2-5.4); White Blood Count 8.2 K/mm3 (4.5-10.0)
[2024-09-29 05:57] LABS: Albumin Level 3.3 g/dL (3.5-5.1); Anion Gap 3 mmol/L (4-12); Blood Urea Nitrogen 15 mg/dL (7-17); Calcium 9.1 mg/dL (8.4-10.2); Carbon Dioxide 30 mmol/L (22-30); Chloride 101 mmol/L (98-107); Estimated CRCL calculation 53 ml/min; Estimated Glomerular Filt Rate > 60; Glucose 197 mg/dL (65-110); Potassium 4.4 mmol/L (3.4-5.0); Sodium 134 mmol/L (137-145)
[2024-09-29 06:00] VITALS: BP 157/71; PULSE 94; RESP 18; TEMP 36.3; O2SAT 99
[2024-09-29 08:00] VITALS: PULSE 94; RESP 18; O2SAT 99
[2024-09-29] MEDS: ENOXAPARIN 40 MG/0.4 ML SYRINGE SUB-Q (08:40)
[2024-09-29] MEDS: SACCHAROMYCES BOULARDII 250 MG CAPSULE PO ×2 (08:41→18:00)
[2024-09-29] MEDS: GABAPENTIN 300 MG CAPSULE PO (08:41)
[2024-09-29] MEDS: SERTRALINE HCL 25 MG TABLET 75 MG PO (08:41)
[2024-09-29] MEDS: CHOLECALCIFEROL (VITAMIN D3) 125 MCG (5,000 UNITS) TABLET PO (08:41)
[2024-09-29] MEDS: TRIAMCINOLONE ACET 0.5% OINT 15 GM TUBE 1 APPLIC TOPICAL (08:43)
[2024-09-29] MEDS: INSULIN ASPART (*BKC) 100 UNITS/ML SUB-Q (11:57)
--- NOTE | 2024-09-29 12:05 | P.PNIM_ITS ---
Progress Note: A&P Assessment and Plan (1) Cellulitis and abscess of leg: Code(s): L03.119 - Cellulitis of unspecified part of limb; L02.419 - Cutaneous abscess of limb, unspecified Status: Acute Assessment and Plan: 09/07: Approximate onset 09/11: Initial evaluation. Started on PO Clindamycin and Mupriciron topical. 09/16: Culture ordered (no result in system). Levaquin added and Florastor for gut protection. 09/17: Stat ankle XR showed possible osteomyelitis. MRI completed and showed no OM. Referred to wound care outpatient. Levaquin extended x5 days. 09/22: Presentation to the ED for evaluation as the pain has remained high and ulcerations have worsened despite outpatient oral abx and topical treatment. - started on Cefepime, Flagyl, and Vancomycin on 09/22 - obtain wound culture, blood cultures obtained on 09/22 - analgesics prn - ESR 132, CRP 3.0, WBC 8.1 and lactic 0.9 upon admission - wound RN consulted - obtain US of the RLE and ABIs US: No DVT TERESA: Unremarkable ABIs within the bilateral lower extremities, although given patient's diabetes history, this is an unreliable value. The TBI is markedly diminished, consistent with bilateral peripheral arterial disease, for which CTA with runoff would provide additional information and also provide better anatomical information. Currently treating as cellulitis, however will rule out DVT/PAD -> no DVT, TBI diminished consistent with bilateral peripheral artery disease. Consider vasculitis. May need further imaging via CTA for additional information in regards to PAD. Will monitor response to antibiotics prior to developing furt her plan of care. 09/27- on clinda now, erythema improving. But more painful today- continue pain meds prn 09/28 wound culture -no growth-final BC prelim- negative -TERESA recommend CTA with runoff. Discussed with attending- will order iD consult for further recommendations and check MRSA. Pt's leg is warm and pulses present. -norco q4h instead of q6 h prn for better pain control 09/29 pain is better contolled. ID consult pending. MRSA negative (2) Type 2 diabetes mellitus without complications: Qualifiers: Diabetes mellitus buttermaker helper insulin use: without buttermaker helper use Qualified Code(s): E11.9 - Type 2 diabetes mellitus without complications Code(s): E11.9 - Type 2 diabetes mellitus without complications Status: Chronic Assessment and Plan: - hypoglycemia protocol - POC blood glucose ACHS - home medication: no current home medications listed? - correct regimen ordered - low dose TIDWM, based off BMI - A1C 6.7% 2020, update reviewed and overall stable, continue regimen (3) Essential (primary) hypertension: Code(s): I10 - Essential (primary) hypertension Status: Chronic Assessment and Plan: - chronic, currently 148/73 - not currently on a daily antihypertensive - monitor Plan patient with right lower extremities with cellulitis, MRI did not show any con cern for OM, and TERESA is also normal. ID consulted for antibiotic mngmnt. Diet: Diabetic GI Prophylaxis: N/a DVT Prophylaxis: Lovenox IV fluids: None Lines/Tubes: Peripheral IV Code Status: Full code Time Spent With Patient Time with patient: 25 - 35 minutes Subjective Date/time seen: 09/29/24 12:05 Interval history: RLE Redness H&P Narrative: 89 y/o F with PMH of iron deficiency anemia, type 2 diabetes, depression, anxiety, cricopharyngeal achalasia s/p dilation and Botox, hypertension presents here with redness to the right lower extremity. The patient presents here from home via EMS for further evaluation of redness to the right lower extremity. Per chart review, the patient was initially seen on 09/11 by her PCP you for redness, pain, and ulcerations to the right ankle. She was initially started on p.o. clindamycin and topical mupirocin. She returned to her PCP on 09/16 for re-evaluation of the right lower extremity as she was having worsening pain. Plan for culture of ankle and Levaquin was added. She was seen the following day and a stat XR of the ankle was ordered to rule out osteomyelitis which showed periosteal reaction along the lateral aspect of the distal third of the right fibula and right tibia. She again followed up for the right lower extremity on 09/20 and at that time reported pain remained high. At that time her Levaquin course was extended by 5 days and she was then referred for an MRI and wound care. MRI showed no evidence of osteomyelitis and nonenhancing soft tissue edema throughout the ankle and foot. She is seeking care at the emergency department today because the redness, pain, and alterations to her right leg have continued to worsen despite p.o. antibiotics outpatient. She is currently endorsing lethargy. Denies shortness of breath, fever, chills, body aches. Initial VS at presentation: 97.7? F, HR 83, R 16, 186/101, and 98% on RA. ED workup showed: No leukocytosis, hemoglobin 10.1 (at baseline), ESR 132, no significant electrolyte derangements, creatinine 0.55 and GFR >60, glucose 204, lactic 0.9, CRP 3.0. patient with right lower extremities with cellulitis, MRI did not show any concern for OM, and TERESA is also normal, currently on Cefepime and vancomycin. There was a slight improvement patient redness however pain is persisting, patient was seen by wound care team recommended to apply silver gel, will continue, will also try triamcinolone low dose, if that helps, on 09/25 discussed with clinical pharmacist and will switch patient to clindamycin from Cefepime and dc vancomycin, there appears to be some improvement patient erythema and pain, will follow and monitor, patient family is present in the room and gave updates. 09/27- pt is seen and examined. she is in a lot of pain today. family at the bedside. Other than pain, she has no complains. 09/28 pain is still an issue erythema still present 09/29- pain is better today. able to rest. ID consult is pending Review of Systems Review of Systems: All systems reviewed & are unremarkable except as noted in HPI and below Exam Narrative: Elderly frai, resting in bed, calm and comfortable Patient is comfortable, NAD HEENT: eyes are clear and none icteric LUNGS:CTA HEART: RR S1S2 ABD: BS+, Soft and nontender Lower extremities: no edema SKIN: RT lower extremity, proximal to ankle erythematous, no induration, drainage or red streak. Neuro: grossly intact. Const: General: comfortable and no acute distress Other: , female, nontoxic appearance, frail HENMT: Face/Nose/Sinus: Normal nares present Mouth: Yes moist mucous membranes Eyes: General: appearance normal, both eyes and all related structures Sclera: sclerae normal Pupils: Equal, round and reactive pupils present EOM: EOMs intact bilaterally Resp: Effort & Inspection: normal respiratory effort Auscultation: clear to auscultation bilaterally Cardio: Rate: regular rate Rhythm: regular rhythm Other: +murmur, no ectopy or rub GI: Other: Abdomen soft, nondistended, nontender. Normoactive bowel sounds in all quadrants. Skin: Other: Erythema and purpura to the distal right lower extremity. Significant associated tenderness. No open or draining wounds. Neuro: Cranial nerves: Yes Equal, round and reactive pupils present Speech: normal speech Motor exam (neuro): 5/5 motor strength present throughout Sensory Exam: normal sensation Other: A&O x4 Extrem: Other: See skin exam. Poorly palpable DP pulses bilaterally. Audible with Doppler bilaterally. Psych: Mental Status: mental status grossly normal Affect: normal affect Other: Good insight and judgment, pleasant Objective Data Vital Signs Vital Signs: Vital Signs - 24 hr 09/28/24 14:00 09/28/24 20:15 09/28/24 22:00 Temperature 97.5 F L 97.1 F L Pulse Rate 92 93 Respiratory Rate 18 18 Blood Pressure 137/71 160/68 H Pulse Oximetry 100 98 Oxygen Delivery Room Air Fraction of Inspired Oxygen 09/28/24 22:02 09/29/24 06:00 09/29/24 08:00 Temperature 97.4 F L Pulse Rate 94 94 Respiratory Rate 18 18 Blood Pressure 157/71 H Pulse Oximetry 95 99 99 Oxygen Delivery Room Air Room Air Fraction of Inspired Oxygen 21 21 Intake/Output Intake/Output: Intake & Output 09/26/24 09/27/24 09/28/24 09/29/24 23:59 23:59 23:59 23:59 Intake Total 1210 1070 2787 350 Output Total 400 950 400 Balance 2118 943 4537 -50 Meds/Results Medications: Active Medications Generic Name Dose Route Start Last Admin Trade Name Freq PRN Reason Stop Dose Admin Acetaminophen 650 mg 09/22/24 16:11 09/27/24 12:38 Acetaminophen 325 Mg Tablet PO 650 mg Q4H PRN Administration Mild Pain (1-3) or Fever Hydrocodone Bitart/Acetaminophen 1 tab 09/28/24 14:11 09/29/24 10:40 Hydrocodone/Acetaminophen (*Crx) 5-325 Mg Tablet PO 1 tab Q4H PRN Administration Pain Rated 4-6 Dextrose 12.5 gm 09/22/24 17:07 Dextrose 50% 25 Gm/50 Ml Syringe IV PUSH PRN PRN Hypoglycemia Protocol Diphenhydramine HCl 25 mg 09/22/24 17:13 09/27/24 22:29 Diphenhydramine Hcl Inj 50 Mg/Ml Vial IV PUSH 25 mg Q4H PRN Administration Itching/allergic reaction Enoxaparin Sodium 40 mg 09/23/24 09:00 09/29/24 08:40 Enoxaparin 40 Mg/0.4 Ml Syringe SUB-Q 40 mg DAILY JENY Administration Gabapentin 300 mg 09/23/24 09:00 09/29/24 08:41 Gabapentin 300 Mg Capsule PO 300 mg QAM JENY Administration Gabapentin 600 mg 09/28/24 21:00 09/28/24 20:15 Gabapentin 300 Mg Capsule PO 600 mg HS JENY Administration Glucagon 1 mg 09/22/24 17:07 Glucagon For Inj 1 Mg Vial IM PRN PRN Hypoglycemia Protocol Glucose 15 gm 09/22/24 17:07 Glucose Oral Gel 15 Gm Of Glucse In 37.5 Gm Tube PO PRN PRN Hypoglycemia Protocol Dextrose 1,000 mls @ 100 mls/hr 09/22/24 17:07 Dextrose 5% 1,000 Ml IVPB PRN PRN Hypoglycemia Protocol Clindamycin Phosphate 600 mg in 50 mls @ 100 mls/hr 09/25/24 14:00 09/29/24 05:43 Clindamycin 600 Mg/D5w 50 Ml IVPB Infused Q8H JENY Infusion Insulin Aspart 2 - 5 units 09/23/24 08:00 09/29/24 11:57 Insulin Aspart (*Bkc) 100 Units/Ml SUB-Q 2 units TIDWM JENY Administration Protocol Melatonin 5 mg 09/28/24 22:12 09/28/24 22:26 Melatonin 5 Mg Tablet PO 5 mg HS PRN Administration Insomnia Morphine Sulfate 2 mg 09/22/24 17:13 09/27/24 20:32 Morphine Sulfate (*Crx) 2 Mg/Ml Inj IV PUSH 2 mg Q4H PRN Administration Pain Rated 7-10 Saccharomyces Boulardii 250 mg 09/23/24 09:00 09/29/24 08:41 Saccharomyces Boulardii 250 Mg Capsule PO 250 mg BID JENY Administration Sertraline HCl 75 mg 09/23/24 09:00 09/29/24 08:41 Sertraline Hcl 25 Mg Tablet PO 75 mg DAILY JENY Administration Triamcinolone Acetonide 1 applic 09/25/24 10:00 09/29/24 08:43 Triamcinolone Acet 0.5% Oint 15 Gm Tube TOPICAL 1 applic DAILY JENY Administration Vitamin D 125 mcg 09/23/24 09:00 09/29/24 08:41 Cholecalciferol (Vitamin D3) 125 Mcg (5,000 Units) Tablet PO 125 mcg DAILY JENY Administration Radiology Results: ITS Impressions Venous Doppler Study 09/22/24 19:30 IMPRESSION: 1. No deep venous thrombosis. Ankle Brachial Index 09/22/24 19:34 Impression: Unremarkable ABIs within the bilateral lower extremities, although given juan ent's diabetes history, this is an unreliable value. The TBI is markedly diminished, consistent with bilateral peripheral arterial disease, for which CTA with runoff would provide additional information and also provide better anatomical information. Labs Labs: Laboratory Results - last 24 hr 09/28/24 09/28/24 09/28/24 14:23 16:21 21:33 WBC RBC Hgb Hct MCV MCH MCHC RDW Plt Count MPV Sodium Potassium Chloride Carbon Dioxide Anion Gap BUN Creatinine Estim Creat Clear Calc Estimated GFR Glucose POC Capillary Glucose 234 H 189 H Calcium Phosphorus Albumin Nasal MRSA (PCR) Not detected 09/29/24 09/29/24 09/29/24 05:20 07:46 11:28 WBC 8.2 RBC 3.19 L Hgb 9.2 L Hct 28.8 L MCV 90.3 MCH 28.8 MCHC 31.9 L RDW 14.9 H Plt Count 240 MPV 10.9 H Sodium 134 L Potassium 4.4 Chloride 101 Carbon Dioxide 30 Anion Gap 3 L BUN 15 Creatinine 0.51 L Estim Creat Clear Calc 53 Estimated GFR > 60 Glucose 197 H POC Capillary Glucose 189 H 216 H Calcium 9.1 Phosphorus 3.2 Albumin 3.3 L Nasal MRSA (PCR) Quality VTE Prophylaxis VTE prophylaxis: pharmacologic ordered
[2024-09-29 14:00] VITALS: BP 135/57; PULSE 78; RESP 18; TEMP 36.2; O2SAT 100
--- NOTE | 2024-09-29 15:06 | PCPTNOTE ---
Attempted to see patient for Physical Therapy this afternoon. Patient stated that she was hurting too much to move and she was tired. RN notified and was going to give patient her pain medicine.
--- NOTE | 2024-09-29 15:06 | PCPTNOTE ---
Attempted to see patient for Physical Therapy this afternoon. Patient refused to participate in therapy due to it hurting too much to move and she was tired. RN notified and was going to give patient her pain medicine.
[2024-09-29] MEDS: ACETAMINOPHEN 325 MG TABLET 650 MG PO (18:05)
[2024-09-29] MEDS: GABAPENTIN 300 MG CAPSULE 600 MG PO (20:28)
[2024-09-29] MEDS: MELATONIN 5 MG TABLET PO (20:28)
[2024-09-29 20:50] VITALS: O2SAT 98
[2024-09-29 21:51] VITALS: BP 152/70; PULSE 84; RESP 18; TEMP 36.4; O2SAT 98
[2024-09-30] MEDS: HYDROcodone/acetaminophen (*CRX) 5-325 MG TABLET 1 TAB PO ×3 (03:06→20:30)
[2024-09-30] MEDS: CLINDAMYCIN 600 MG/D5W 50 ML 600 MG/50 ML PIGGYBACK 100 MG IVPB ×2 (05:49→13:34)
[2024-09-30 05:51] LABS: Hematocrit 30.2 % (37.0-47.0); Hemoglobin 9.4 g/dL (12.0-15.0); Mean Corpuscular HGB Conc 31.1 g/dl (32-36); Mean Corpuscular Hemoglobin 28.6 pg (26-34); Mean Corpuscular Volume 91.8 fl (80-100); Platelet Count Result 258 k/mm3 (150-375); Red Blood Count 3.29 M/mm3 (4.2-5.4); White Blood Count 6.8 K/mm3 (4.5-10.0)
[2024-09-30 06:00] VITALS: BP 164/63; PULSE 75; RESP 18; TEMP 36.6; O2SAT 98
[2024-09-30 06:06] LABS: Albumin Level 3.3 g/dL (3.5-5.1); Anion Gap 4 mmol/L (4-12); Blood Urea Nitrogen 14 mg/dL (7-17); Calcium 9.3 mg/dL (8.4-10.2); Carbon Dioxide 30 mmol/L (22-30); Chloride 101 mmol/L (98-107); Estimated CRCL calculation 63 ml/min; Estimated Glomerular Filt Rate > 60; Glucose 184 mg/dL (65-110); Potassium 4.3 mmol/L (3.4-5.0); Sodium 135 mmol/L (137-145)
--- NOTE | 2024-09-30 07:14 | PM.IMPN ---
Progress Note: A&P Assessment and Plan (1) Cellulitis and abscess of leg: Code(s): L03.119 - Cellulitis of unspecified part of limb; L02.419 - Cutaneous abscess of limb, unspecified Status: Acute Assessment and Plan: 09/07: Approximate onset 09/11: Initial evaluation. Started on PO Clindamycin and Mupriciron topical. 09/16: Culture ordered (no result in system). Levaquin added and Florastor for gut protection. 09/17: Stat ankle XR showed possible osteomyelitis. MRI completed and showed no OM. Referred to wound care outpatient. Levaquin extended x5 days. 09/22: Presentation to the ED for evaluation as the pain has remained high and ulcerations have worsened despite outpatient oral abx and topical treatment. - started on Cefepime, Flagyl, and Vancomycin on 09/22, transitioned to clindamycin on 09/25 ID consulted, awaiting recommendations - wound culture showed no growth, blood cultures obtained on 09/22 showing NGTD - analgesics prn: norco q4h - ESR 132, CRP 3.0, WBC 8.1 and lactic 0.9 upon admission - obtain US of the RLE and ABIs US: No DVT TERESA: Unremarkable ABIs within the bilateral lower extremities, unreliable given patient's diabetes hx. TBI is markedly diminished, consistent with bilateral PAD, for which CTA with runoff would provide better anatomical information. CTA with runoff: Mild atherosclerotic disease No significant PAD causing skin changes as seen on imaging - wound RN consulted Right lower extremity with several nondraining wounds with black eschar on the lateral aspect of the ankle region. Tenderness to palpation. No edema or warmth. Slight redness. Patient states much improved today. WBC WNL. Remains on antibiotics pending ID recommendations. (2) Type 2 diabetes mellitus without complications: Qualifiers: Diabetes mellitus chcf insulin use: without vermin exterminator use Qualified Code(s): E11.9 - Type 2 diabetes mellitus without complications Code(s): E11.9 - Type 2 diabetes mellitus without complications Status: Chronic Assessment and Plan: - hypoglycemia protocol - POC blood glucose ACHS - home medication: no current home medications listed? - correct regimen ordered - low dose TIDWM, based off BMI - A1C 6.8 reviewed and overall stable, continue regimen (3) Essential (primary) hypertension: Code(s): I10 - Essential (primary) hypertension Status: Chronic Assessment and Plan: - chronic, not currently on a daily antihypertensive - remains slightly elevated however possibly related to pain - discussed with patient to monitor blood pressures and document daily when discharged for further discussion with PCP upon discharge - continue to monitor Time Spent With Patient Time with patient: 25 - 35 minutes Subjective Date/time seen: 09/30/24 07:14 Interval history: 89 y/o female with past medical history of iron deficiency anemia, type 2 diabetes, depression, anxiety, cricopharyngeal achalasia s/p dilation and Botox, and hypertension presents to the hospital with redness to the right lower extremity. Patient is pleasant lying comfortably in bed. She states that the lower extremity redness and swelling has much improved today. She continues to endorse pain to the area. She has no other complaints denying chest pain, palpitations, shortness of breath, nausea/vomiting, and abdominal pain. Strongly encouraged patient to continue working with PT/OT for therapy and to get up and ambulate to the chair for all meals. She stated understanding. Review of Systems Review of Systems: All systems reviewed & are unremarkable except as noted in HPI and below Exam Narrative: AF HR 75 RR 18 SpO2 98 BP 164/63 General: female in no acute respiratory distress who is nontoxic appearing, lying semi recumbent in bed. HEENT: Normocephalic. Atraumatic. Extraocular movement intact. Sclera clear and anicteric. No facial asymmetry. Chest: Lungs are clear to auscultation bilaterally. No wheezes or crackles. CV: Heart was regular rate and rhythm. Abd: Abdomen was soft. Nontender. Nondistended. Positive bowel sounds. Ext: No clubbing, cyanosis, or edema. DP pulses bilaterally. Right lower extremity with several nondraining wounds with black eschar on the lateral aspect of the ankle region. Tenderness to palpation. No edema or warmth. Slight redness. Neuro: Patient is alert. Speech is clear. Objective Data Vital Signs Vital Signs: Vital Signs - 24 hr 09/29/24 08:00 09/29/24 14:00 09/29/24 20:28 Temperature 97.1 F L Pulse Rate 94 78 Respiratory Rate 18 18 Blood Pressure 135/57 L Pulse Oximetry 99 100 Oxygen Delivery Room Air Room Air Fraction of Inspired Oxygen 09/29/24 20:50 09/29/24 21:51 09/30/24 06:00 Temperature 97.6 F 97.8 F Pulse Rate 84 75 Respiratory Rate 18 18 Blood Pressure 152/70 H 164/63 H Pulse Oximetry 98 98 98 Oxygen Delivery Room Air Fraction of Inspired Oxygen Intake/Output Intake/Output: Intake & Output 09/27/24 09/28/24 09/29/24 09/30/24 23:59 23:59 23:59 23:59 Intake Total 1070 2787 808 500 Output Total 572 922 3798 400 Balance 670 1837 -592 100 Meds/Results Medications: Active Medications Generic Name Dose Route Start Last Admin Trade Name Freq PRN Reason Stop Dose Admin Acetaminophen 650 mg 09/22/24 16:11 09/29/24 18:05 Acetaminophen 325 Mg Tablet PO 650 mg Q4H PRN Administration Mild Pain (1-3) or Fever Hydrocodone Bitart/Acetaminophen 1 tab 09/28/24 14:11 09/30/24 03:06 Hydrocodone/Acetaminophen (*Crx) 5-325 Mg Tablet PO 1 tab Q4H PRN Administration Pain Rated 4-6 Dextrose 12.5 gm 09/22/24 17:07 Dextrose 50% 25 Gm/50 Ml Syringe IV PUSH PRN PRN Hypoglycemia Protocol Diphenhydramine HCl 25 mg 09/22/24 17:13 09/27/24 22:29 Diphenhydramine Hcl Inj 50 Mg/Ml Vial IV PUSH 25 mg Q4H PRN Administration Itching/allergic reaction Enoxaparin Sodium 40 mg 09/23/24 09:00 09/29/24 08:40 Enoxaparin 40 Mg/0.4 Ml Syringe SUB-Q 40 mg DAILY JENY Administration Gabapentin 300 mg 09/23/24 09:00 09/29/24 08:41 Gabapentin 300 Mg Capsule PO 300 mg QAM JENY Administration Gabapentin 600 mg 09/28/24 21:00 09/29/24 20:28 Gabapentin 300 Mg Capsule PO 600 mg HS JENY Administration Glucagon 1 mg 09/22/24 17:07 Glucagon For Inj 1 Mg Vial IM PRN PRN Hypoglycemia Protocol Glucose 15 gm 09/22/24 17:07 Glucose Oral Gel 15 Gm Of Glucse In 37.5 Gm Tube PO PRN PRN Hypoglycemia Protocol Dextrose 1,000 mls @ 100 mls/hr 09/22/24 17:07 Dextrose 5% 1,000 Ml IVPB PRN PRN Hypoglycemia Protocol Clindamycin Phosphate 600 mg in 50 mls @ 100 mls/hr 09/25/24 14:00 09/30/24 06:19 Clindamycin 600 Mg/D5w 50 Ml IVPB Infused Q8H JENY Infusion Insulin Aspart 2 - 5 units 09/23/24 08:00 09/29/24 17:58 Insulin Aspart (*Bkc) 100 Units/Ml SUB-Q Not Given TIDWM [facility] Protocol Melatonin 5 mg 09/28/24 22:12 09/29/24 20:28 Melatonin 5 Mg Tablet PO 5 mg HS PRN Administration Insomnia Morphine Sulfate 2 mg 09/22/24 17:13 09/27/24 20:32 Morphine Sulfate (*Crx) 2 Mg/Ml Inj IV PUSH 2 mg Q4H PRN Administration Pain Rated 7-10 Saccharomyces Boulardii 250 mg 09/23/24 09:00 09/29/24 18:00 Saccharomyces Boulardii 250 Mg Capsule PO 250 mg BID JENY Administration Sertraline HCl 75 mg 09/23/24 09:00 09/29/24 08:41 Sertraline Hcl 25 Mg Tablet PO 75 mg DAILY JENY Administration Triamcinolone Acetonide 1 applic 09/25/24 10:00 09/29/24 08:43 Triamcinolone Acet 0.5% Oint 15 Gm Tube TOPICAL 1 applic DAILY JENY Administration Vitamin D 125 mcg 09/23/24 09:00 09/29/24 08:41 Cholecalciferol (Vitamin D3) 125 Mcg (5,000 Units) Tablet PO 125 mcg DAILY JENY Administration Radiology Results: ITS Impressions Venous Doppler Study 09/22/24 19:30 IMPRESSION: 1. No deep venous thrombosis. Ankle Brachial Index 09/22/24 19:34 Impression: Unremarkable ABIs within the bilateral lower extremities, although given patient's diabetes history, this is an unreliable value. The TBI is markedly diminished, consistent with bilateral peripheral arterial disease, for which CTA with runoff would provide additional information and also provide better anatomical information. Labs Labs: Laboratory Results - last 24 hr 09/29/24 09/29/24 09/29/24 07:46 11:28 16:23 WBC RBC Hgb Hct MCV MCH MCHC RDW Plt Count MPV Sodium Potassium Chloride Carbon Dioxide Anion Gap BUN Creatinine Estim Creat Clear Calc Estimated GFR Glucose POC Capillary Glucose 189 H 216 H 140 H Calcium Phosphorus Albumin 09/29/24 09/30/24 19:26 05:16 WBC 6.8 RBC 3.29 L Hgb 9.4 L Hct 30.2 L MCV 91.8 MCH 28.6 MCHC 31.1 L RDW 15.1 H Plt Count 258 MPV 11.7 H Sodium 135 L Potassium 4.3 Chloride 101 Carbon Dioxide 30 Anion Gap 4 BUN 14 Creatinine 0.42 L Estim Creat Clear Calc 63 Estimated GFR > 60 Glucose 184 H POC Capillary Glucose 215 H Calcium 9.3 Phosphorus 3.2 Albumin 3.3 L Quality VTE Prophylaxis VTE prophylaxis: pharmacologic ordered
--- NOTE | 2024-09-30 09:53 | PCPTNOTE ---
Patient receiving CT with contrast this date and was out of room. Will check in at a later time.
[2024-09-30] MEDS: SACCHAROMYCES BOULARDII 250 MG CAPSULE PO ×2 (10:35→17:32)
[2024-09-30] MEDS: CHOLECALCIFEROL (VITAMIN D3) 125 MCG (5,000 UNITS) TABLET PO (10:35)
[2024-09-30] MEDS: ENOXAPARIN 40 MG/0.4 ML SYRINGE SUB-Q (10:36)
[2024-09-30] MEDS: SERTRALINE HCL 25 MG TABLET 75 MG PO (10:36)
[2024-09-30] MEDS: GABAPENTIN 300 MG CAPSULE PO (10:36)
[2024-09-30] MEDS: MORPHINE SULFATE (*CRX) 2 MG/ML INJ IV PUSH ×2 (10:47→19:30)
[2024-09-30] MEDS: TRIAMCINOLONE ACET 0.5% OINT 15 GM TUBE 1 APPLIC TOPICAL (10:54)
--- NOTE | 2024-09-30 12:00 | WPDIDCN ---
Assessment and Plan Assessment and plan (1) Cellulitis of leg, right: Code(s): L03.115 - Cellulitis of right lower limb Status: Acute (2) Leg wound, right: Code(s): S81.801A - Unspecified open wound, right lower leg, initial encounter Status: Acute (3) Type 2 diabetes mellitus without complications: Qualifiers: Diabetes mellitus terminal superintendent insulin use: without terminal superintendent use Qualified Code(s): E11.9 - Type 2 diabetes mellitus without complications Code(s): E11.9 - Type 2 diabetes mellitus without complications Status: Chronic Plan # Distal lateral right leg wound formation with secondary infection and surrounding cellulitis. Likely associated with diabetes and vascular insufficiency. -- wound cultures unenlightening. -- MRI with out osteomyelitis. # History of penicillin allergy- - hives. Plan: -- has had some but slow clinical improvement while on intravenous clindamycin. Okay at this time to transition to oral antibiotics and would resume levofloxacin but at 750 mg daily along with doxycycline 100 mg q.12 hours. Recommend continuing both antibiotics for an additional 10 days. -- continued local wound care to right distal leg. -- further recommendations to follow. Thank you for the consult. Patient was seen via video telehealth consultation with the assistance of staff. Chart, data, and patient independently reviewed. Patient was located at [facility] while I was located in my [place] office. Received verbal consent from patient. HPI Data of Consult Date/Time: 09/30/24 12:00 Requesting Physician: Chary Jaramillo MD Primary Care Provider: Mario Walker MD Consult Narrative Reason for consult: Antibiotic recommendations for continued treatment of right lower extremity Narrative: Cristine Sunshine is a 89 year old female With past medical history significant for diabetes, hypertension, iron deficiency anemia, cricopharyngeus at [facility] status post dilation and Botox, depression, and anxiety. Presented to the ED 09/22 with complaint of right distal leg wounds with increasing redness and pain despite outpatient oral antibiotics including clindamycin and a limited course of levofloxacin. Outpatient x-ray with lateral aspect of the distal 3rd of the right fibula and right tibia periosteal reaction The outpatient MRI negative for osteomyelitis. She reports a hives allergy to penicillin. Upon admission she was placed on clindamycin. A surface wound culture was finalized as negative. She has been afebrile and with normal white blood cell count. ID consult for further antibiotic direction. Review of Systems Review of Systems: Still with right distal leg tenderness but improved. Also states wounds and erythema improving. All systems reviewed & are unremarkable except as noted in HPI and below PMFSH Past Medical History Medical History Compression fracture Bilateral renal stones Contracture of muscle, unspecified hand Influenza A COVID-19 Other iron deficiency anemias Dysphagia Esophageal obstruction Acute sinusitis Pneumonia age 18 Esophageal ring Depression with anxiety Cricopharyngeal achalasia Status post dilatation and Botox injection per Dr. Jah Soni (ENT) at [place]. Anemia Essential hypertension Type 2 diabetes mellitus Vitamin D deficiency Surgical History Surgical History History of open reduction and internal fixation (ORIF) procedure Pinning of left hip fracture. History of arthroscopic knee surgery History of tonsillectomy History of cataract extraction Family History Family History Father Family history of diabetes mellitus in first degree relative Mother Rheumatoid arthritis Sibling No problems noted. Other Family history of lupus erythematosus Social History Social History Social History: Surrogate decision maker: Guerda Mark, daughter. Code status: Full code. Smoking status: Never smoker Second hand tobacco smoke exposure: Yes Alcohol intake: never Substance use: unknown Substance use type: does not use Do You Feel Safe in your Home?: Yes Lack of Transportation: No Lack of Food: Never True Current Housing: I Have Housing Concerned About Future Housing: No Difficulty Paying Gas/Electric Bills: No Difficulty Paying for Meds: No Currently Unemployed: No Education: Decline to Answer Difficulty w/ Childcare or Family Care: No Living arrangements: alone Additional living arrangements comments: Patient lives in a senior apartment in [place]. She has 6 children and was essentially a single mother for many years as her at a young age. 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 Gender identity (if verbalized by the patient): Female Spiritual care concerns: No Meds Home Medications and Allergies Home Medications ?Medication ?Instructions ?Recorded ?Confirmed ?Type cholecalciferol (vitamin D3) 125 125 mcg PO DAILY #30 caps 10/25/23 09/22/24 Rx mcg (5,000 unit) capsule sertraline 50 mg tablet (Zoloft) 75 mg (1.5 x 50 mg) PO DAILY #135 03/07/24 09/22/24 Rx tabs acetaminophen 325 mg tablet 650 mg (2 x 325 mg) PO Q6H PRN 03/19/24 09/22/24 Rx Mild Pain (1-3) Or Fever #30 tabs ibandronate 150 mg tablet 150 mg PO MONTHLY #12 tabs 03/26/24 09/22/24 Rx gabapentin 300 mg capsule See Rx Instructions PO DAILY #270 06/21/24 09/22/24 Rx (Neurontin) caps Saccharomyces boulardii 250 mg 250 mg PO BID #60 caps 09/16/24 09/22/24 Rx capsule (Florastor) mupirocin 2 % topical ointment 1 applic topical BID #30 grams 09/16/24 09/22/24 Rx (Centany) tramadol 50 mg tablet 50 mg PO BID PRN pain #30 tabs 09/16/24 09/24/24 Rx ondansetron HCl 4 mg tablet 4 mg PO Q8H PRN nausea and 09/17/24 09/22/24 Rx vomiting #20 tabs levofloxacin 500 mg tablet 500 mg PO DAILY #5 tabs 09/20/24 09/22/24 Rx Allergies Allergy/AdvReac Type Severity Reaction Status Date / Time metformin Allergy Mild Hives Verified 09/20/24 07:34 Penicillins Allergy Mild Hives Verified 09/25/24 08:20 Vital Signs Vital Signs - 24 hr 09/29/24 14:00 09/29/24 20:28 09/29/24 20:50 Temperature 97.1 F L Pulse Rate 78 Respiratory Rate 18 Blood Pressure 135/57 L Pulse Oximetry 100 98 Oxygen Delivery Room Air Room Air 09/29/24 21:51 09/30/24 06:00 Temperature 97.6 F 97.8 F Pulse Rate 84 75 Respiratory Rate 18 18 Blood Pressure 152/70 H 164/63 H Pulse Oximetry 98 98 Oxygen Delivery Exam Narrative: Awake and alert and nontoxic in appearance. No respiratory distress. No significant abdominal distension. Right lower extremity without significant edema. Distal leg with lateral shallow ulcerative wounds, nonpurulent at this time, but associated with surrounding erythema and some tenderness. No rash. Results Labs 09/30/24 05:16 09/30/24 05:16 Labs: Short CBC 09/30/24 Range/Units 05:16 WBC 6.8 (4.5-10.0) K/mm3 Hgb 9.4 L (12.0-15.0) g/dL Hct 30.2 L (37.0-47.0) % Plt Count 258 (150-375) k/mm3 BMP 09/30/24 05:16 Sodium 135 L Potassium 4.3 Chloride 101 Carbon Dioxide 30 BUN 14 Creatinine 0.42 L Glucose 184 H Calcium 9.3 Liver Function 09/30/24 Range/Units 05:16 Albumin 3.3 L (3.5-5.1) g/dL
[2024-09-30] MEDS: INSULIN ASPART (*BKC) 100 UNITS/ML SUB-Q (12:39)
[2024-09-30 13:57] VITALS: BP 142/76; PULSE 78; RESP 20; TEMP 36.6; O2SAT 97
[2024-09-30] MEDS: DOXYCYCLINE HYCLATE 100 MG TABLET PO ×2 (15:57→20:31)
[2024-09-30] MEDS: ONDANSETRON INJ 4 MG/2 ML VIAL IV PUSH (16:58)
[2024-09-30 20:20] VITALS: BP 133/63; PULSE 78; RESP 20; TEMP 36.3; O2SAT 100
[2024-09-30] MEDS: MELATONIN 5 MG TABLET PO (20:31)
[2024-09-30] MEDS: GABAPENTIN 300 MG CAPSULE 600 MG PO (20:31)
[2024-09-30 21:17] VITALS: PULSE 77; RESP 20; O2SAT 93
[2024-10-01 05:15] VITALS: BP 170/75; PULSE 75; RESP 20; TEMP 36.3; O2SAT 98
[2024-10-01] MEDS: HYDROcodone/acetaminophen (*CRX) 5-325 MG TABLET 1 TAB PO ×4 (05:19→21:33)
[2024-10-01 05:45] LABS: Hematocrit 30.2 % (37.0-47.0); Hemoglobin 9.1 g/dL (12.0-15.0); Mean Corpuscular HGB Conc 30.1 g/dl (32-36); Mean Corpuscular Hemoglobin 28.2 pg (26-34); Mean Corpuscular Volume 93.5 fl (80-100); Platelet Count Result 281 k/mm3 (150-375); Red Blood Count 3.23 M/mm3 (4.2-5.4); White Blood Count 5.3 K/mm3 (4.5-10.0)
[2024-10-01 06:14] LABS: Alanine Aminotransferase 13 U/L (6-35); Albumin Level 3.4 g/dL (3.5-5.1); Alkaline Phosphatase 80 U/L (38-126); Anion Gap 5 mmol/L (4-12); Aspartate Amino Transferase 30 U/L (14-36); Bilirubin,Total 0.3 mg/dL (0.2-1.3); Blood Urea Nitrogen 16 mg/dL (7-17); Calcium 9.1 mg/dL (8.4-10.2); Carbon Dioxide 32 mmol/L (22-30); Chloride 98 mmol/L (98-107); Estimated CRCL calculation 45 ml/min; Estimated Glomerular Filt Rate > 60; Glucose 151 mg/dL (65-110); Potassium 4.5 mmol/L (3.4-5.0); Sodium 135 mmol/L (137-145); Total Protein 6.7 g/dL (6.3-8.2)
[2024-10-01 06:30] VITALS: BP 116/66; PULSE 74; RESP 20; TEMP 36.2; O2SAT 97
--- NOTE | 2024-10-01 08:57 | PM.IMPN ---
Progress Note: A&P Assessment and Plan (1) Cellulitis and abscess of leg: Code(s): L03.119 - Cellulitis of unspecified part of limb; L02.419 - Cutaneous abscess of limb, unspecified Status: Acute Assessment and Plan: 09/07: Approximate onset 09/11: Initial evaluation. Started on PO Clindamycin and Mupriciron topical. 09/16: Culture ordered (no result in system). Levaquin added and Florastor for gut protection. 09/17: Stat ankle XR showed possible osteomyelitis. MRI completed and showed no OM. Referred to wound care outpatient. Levaquin extended x5 days. 09/22: Presentation to the ED for evaluation as the pain has remained high and ulcerations have worsened despite outpatient oral abx and topical treatment. - started on Cefepime, Flagyl, and Vancomycin on 09/22, transitioned to clindamycin on 09/25. ID consulted, patient transitioned to levaquin and doxycycline on 09/30, course to be completed in 10 days. - wound culture showed no growth, blood cultures obtained on 09/22 showing NGTD - analgesics prn: norco q4h - obtain US of the RLE and ABIs US: No DVT TERESA: Unremarkable ABIs within the bilateral lower extremities, unreliable given patient's diabetes hx. TBI is markedly diminished, consistent with bilateral PAD, for which CTA with runoff would provide better anatomical information. 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: without local intermodal truck driver use Qualified Code(s): E11.9 - Type 2 diabetes mellitus without complications Code(s): E11.9 - Type 2 diabetes mellitus without complications Status: Chronic Assessment and Plan: - hypoglycemia protocol - POC blood glucose ACHS - home medication: no current home medications listed - correct regimen ordered - low dose TIDWM, based off BMI - A1C 6.8 reviewed and overall stable, continue regimen (3) Essential (primary) hypertension: Code(s): I10 - Essential (primary) hypertension Status: Chronic Assessment and Plan: - chronic, not currently on a daily antihypertensive - remains slightly elevated however possibly related to pain - discussed with patient to monitor blood pressures and document daily when discharged for further discussion with PCP upon discharge - continue to monitor Time Spent With Patient Time with patient: 25 - 35 minutes Subjective Date/time seen: 10/01/24 08:57 Interval history: 89 y/o female with past medical history of iron deficiency anemia, type 2 diabetes, depression, anxiety, cricopharyngeal achalasia s/p dilation and Botox, and hypertension presents to the hospital with redness to the right lower extremity. Patient is pleasant sitting up comfortably in her chair with family at bedside. She continues to endorse pain to the right lower extremity but notes that this is improved since admission and continues to endorse that the wound is improving. Patient was transitioned to oral antibiotics by ID yesterday. Patient working well with physical therapy and occupational therapy. Awaiting insurance authorization for possible SNF placement. Patient continues to state that she does not feel safe returning home given her weakness and the ongoing pain to the lower extremity. Patient has no other complaints denying chest pain, palpitations, nausea/vomiting, abdominal pain, and dizziness/lightheadedness. Review of Systems Review of Systems: All systems reviewed & are unremarkable except as noted in HPI and below Exam Narrative: AF HR 74 RR 20 Spo2 97 BP 116/66 General: female in no acute respiratory distress who is nontoxic appearing, sitting up in chair HEENT: Normocephalic. Atraumatic. Extraocular movement intact. Sclera clear and anicteric. No facial asymmetry. Chest: Lungs are clear to auscultation bilaterally. No wheezes or crackles. CV: Heart was regular rate and rhythm. Abd: Abdomen was soft. Nontender. Nondistended. Positive bowel sounds. Ext: No clubbing, cyanosis, or edema. DP pulses bilaterally. Right lower extremity with several nondraining wounds with black eschar on the lateral aspect of the ankle region. Tenderness to palpation. No edema or warmth. Slight redness. Neuro: Patient is alert. Speech is clear. Objective Data Vital Signs Vital Signs: Vital Signs - 24 hr 09/30/24 13:57 09/30/24 20:20 09/30/24 20:30 Temperature 97.8 F 97.3 F L Pulse Rate 78 78 Respiratory Rate 20 20 Blood Pressure 142/76 H 133/63 Pulse Oximetry 97 100 Oxygen Delivery Room Air Fraction of Inspired Oxygen 09/30/24 21:17 10/01/24 05:15 10/01/24 06:30 Temperature 97.3 F L 97.1 F L Pulse Rate 77 75 74 Respiratory Rate 20 20 20 Blood Pressure 170/75 H 116/66 Pulse Oximetry 93 98 97 Oxygen Delivery Room Air Fraction of Inspired Oxygen 21 Intake/Output Intake/Output: Intake & Output 09/28/24 09/29/24 09/30/24 10/01/24 23:59 23:59 23:59 23:59 Intake Total 2787 808 980 450 Output Total 950 1400 1150 250 Balance 1837 592 -170 200 Meds/Results Medications: Active Medications Generic Name Dose Route Start Last Admin Trade Name Freq PRN Reason Stop Dose Admin Acetaminophen 650 mg 09/22/24 16:11 09/29/24 18:05 Acetaminophen 325 Mg Tablet PO 650 mg Q4H PRN Administration Mild Pain (1-3) or Fever Hydrocodone Bitart/Acetaminophen 1 tab 09/28/24 14:11 10/01/24 05:19 Hydrocodone/Acetaminophen (*Crx) 5-325 Mg Tablet PO 1 tab Q4H PRN Administration Pain Rated 4-6 Dextrose 12.5 gm 09/22/24 17:07 Dextrose 50% 25 Gm/50 Ml Syringe IV PUSH PRN PRN Hypoglycemia Protocol Diphenhydramine HCl 25 mg 09/22/24 17:13 09/27/24 22:29 Diphenhydramine Hcl Inj 50 Mg/Ml Vial IV PUSH 25 mg Q4H PRN Administration Itching/allergic reaction Doxycycline Hyclate 100 mg 09/30/24 14:00 09/30/24 20:31 Doxycycline Hyclate 100 Mg Tablet PO 10/09/24 21:01 100 mg Q12HR JENY Administration Enoxaparin Sodium 40 mg 09/23/24 09:00 09/30/24 10:36 Enoxaparin 40 Mg/0.4 Ml Syringe SUB-Q 40 mg DAILY JENY Administration Gabapentin 300 mg 09/23/24 09:00 09/30/24 10:36 Gabapentin 300 Mg Capsule PO 300 mg QAM JENY Administration Gabapentin 600 mg 09/28/24 21:00 09/30/24 20:31 Gabapentin 300 Mg Capsule PO 600 mg HS JENY Administration Glucagon 1 mg 09/22/24 17:07 Glucagon For Inj 1 Mg Vial IM PRN PRN Hypoglycemia Protocol Glucose 15 gm 09/22/24 17:07 Glucose Oral Gel 15 Gm Of Glucse In 37.5 Gm Tube PO PRN PRN Hypoglycemia Protocol Dextrose 1,000 mls @ 100 mls/hr 09/22/24 17:07 Dextrose 5% 1,000 Ml IVPB PRN PRN Hypoglycemia Protocol Insulin Aspart 2 - 5 units 09/23/24 08:00 09/30/24 17:31 Insulin Aspart (*Bkc) 100 Units/Ml SUB-Q Not Given TIDWM [facility] Protocol Levofloxacin 750 mg 09/30/24 14:00 09/30/24 15:57 Levofloxacin 750 Mg Tablet PO 10/09/24 09:01 750 mg DAILY JENY Administration Melatonin 5 mg 09/28/24 22:12 09/30/24 20:31 Melatonin 5 Mg Tablet PO 5 mg HS PRN Administration Insomnia Morphine Sulfate 2 mg 09/22/24 17:13 09/30/24 19:30 Morphine Sulfate (*Crx) 2 Mg/Ml Inj IV PUSH 2 mg Q4H PRN Administration Pain Rated 7-10 Ondansetron HCl 4 mg 09/30/24 16:39 09/30/24 16:58 Ondansetron Inj 4 Mg/2 Ml Vial IV PUSH 4 mg Q4H PRN Administration Nausea And Vomiting Saccharomyces Boulardii 250 mg 09/23/24 09:00 09/30/24 17:32 Saccharomyces Boulardii 250 Mg Capsule PO 250 mg BID JENY Administration Sertraline HCl 75 mg 09/23/24 09:00 09/30/24 10:36 Sertraline Hcl 25 Mg Tablet PO 75 mg DAILY JENY Administration Triamcinolone Acetonide 1 applic 09/25/24 10:00 09/30/24 10:54 Triamcinolone Acet 0.5% Oint 15 Gm Tube TOPICAL 1 applic DAILY JENY Administration Vitamin D 125 mcg 09/23/24 09:00 09/30/24 10:35 Cholecalciferol (Vitamin D3) 125 Mcg (5,000 Units) Tablet PO 125 mcg DAILY JENY Administration Radiology Results: ITS Impressions Venous Doppler Study 09/22/24 19:30 IMPRESSION: 1. No deep venous thrombosis. Ankle Brachial Index 09/22/24 19:34 Impression: Unremarkable ABIs within the bilateral lower extremities, although given patient's diabetes history, this is an unreliable value. The TBI is markedly diminished, consistent with bilateral peripheral arterial disease, for which CTA with runoff would provide additional information and also provide better anatomical information. Aorta w/Runoff CTA 09/30/24 10:35 IMPRESSION: 1. Mild atherosclerotic disease throughout the visualized arterial system in the abdomen, pelvis and bilateral lower extremities as detailed above. 2. Small patchy opacities in the right lower lung. 3. Moderate-sized patchy opacities in the left lower lobe with a moderate size left lower lobe consolidation. 4. Fatty liver. 5. Left renal cyst 6. Small nonobstructing right renal stone. Labs Labs: Laboratory Results - last 24 hr 09/30/24 09/30/24 09/30/24 11:42 16:22 20:22 WBC RBC Hgb Hct MCV MCH MCHC RDW Plt Count MPV Sodium Potassium Chloride Carbon Dioxide Anion Gap BUN Creatinine Estim Creat Clear Calc Estimated GFR Glucose POC Capillary Glucose 218 H 142 H 166 H Calcium Total Bilirubin AST ALT Alkaline Phosphatase Total Protein Albumin 10/01/24 10/01/24 05:20 07:49 WBC 5.3 RBC 3.23 L Hgb 9.1 L Hct 30.2 L MCV 93.5 MCH 28.2 MCHC 30.1 L RDW 14.9 H Plt Count 281 MPV 11.4 H Sodium 135 L Potassium 4.5 Chloride 98 Carbon Dioxide 32 H Anion Gap 5 BUN 16 Creatinine 0.61 L Estim Creat Clear Calc 45 Estimated GFR > 60 Glucose 151 H POC Capillary Glucose 166 H Calcium 9.1 Total Bilirubin 0.3 AST 30 ALT 13 Alkaline Phosphatase 80 Total Protein 6.7 Albumin 3.4 L Quality VTE Prophylaxis VTE prophylaxis: pharmacologic ordered
[2024-10-01] MEDS: SERTRALINE HCL 25 MG TABLET 75 MG PO (09:16)
[2024-10-01] MEDS: GABAPENTIN 300 MG CAPSULE PO (09:16)
[2024-10-01] MEDS: SACCHAROMYCES BOULARDII 250 MG CAPSULE PO ×2 (09:16→17:42)
[2024-10-01] MEDS: DOXYCYCLINE HYCLATE 100 MG TABLET PO ×2 (09:16→21:28)
[2024-10-01] MEDS: CHOLECALCIFEROL (VITAMIN D3) 125 MCG (5,000 UNITS) TABLET PO (09:16)
[2024-10-01] MEDS: ENOXAPARIN 40 MG/0.4 ML SYRINGE SUB-Q (09:16)
[2024-10-01] MEDS: TRIAMCINOLONE ACET 0.5% OINT 15 GM TUBE 1 APPLIC TOPICAL (09:17)
--- NOTE | 2024-10-01 11:10 | P.PNINF_ITS ---
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 Likely associated with diabetes and Diabetic micro- vascular insufficiency. lower extremity arterial Doppler studies as well as aorta with runoff study CTA without significant large arterial disease. -- wound cultures unenlightening. -- MRI with out osteomyelitis. # History of penicillin allergy- - hives. Plan: -- has had some but slow clinical improvement while on intravenous clindamycin. Okay at this time to transition to oral antibiotics and would resume levofloxacin but at 750 mg daily along with doxycycline 100 mg q.12 hours. Recommend continuing both antibiotics for an 10 days. -- continued local wound care to right distal leg. -- further recommendations to follow. Patient was seen via video telehealth consultation with the assistance of staff. Chart, data, and patient independently reviewed. Patient was located at [facility] while I was located in my [place] office. Received verbal consent from patient. Subjective Date/time seen: 10/01/24 11:10 Interval history: 10/01/2024: Afebrile and with normal vital signs. Aorta with runoff CTA performed yesterday and significant for mild atherosclerotic disease throughout the visualized arterial system in the abdomen, pelvis, and bilateral lower extremities. Also with small patchy opacities in the right lower lung and moderate size patchy opacities in the left lower lobe with a moderate size left lower lobe consolidation. Review of Systems Review of Systems: Still with right distal leg tenderness but improved. Also states wounds and erythema improving. All systems reviewed & are unremarkable except as noted in HPI and below Exam Narrative: Awake and alert and nontoxic in appearance. No respiratory distress. No significant abdominal distension. Right lower extremity without significant edema. Distal leg with lateral shallow ulcerative wounds, nonpurulent at this time, but associated with surrounding erythema and some tenderness. No rash. Objective Data Vital Signs Vital Signs: Vital Signs - 24 hr 09/30/24 13:57 09/30/24 20:20 09/30/24 20:30 Temperature 97.8 F 97.3 F L Pulse Rate 78 78 Respiratory Rate 20 20 Blood Pressure 142/76 H 133/63 Pulse Oximetry 97 100 Oxygen Delivery Room Air Fraction of Inspired Oxygen 09/30/24 21:17 10/01/24 05:15 10/01/24 06:30 Temperature 97.3 F L 97.1 F L Pulse Rate 77 75 74 Respiratory Rate 20 20 20 Blood Pressure 170/75 H 116/66 Pulse Oximetry 93 98 97 Oxygen Delivery Room Air Fraction of Inspired Oxygen 21 Intake/Output Intake/Output: Intake & Output 09/28/24 09/29/24 09/30/24 10/01/24 23:59 23:59 23:59 23:59 Intake Total 2787 454 193 1385 Output Total 950 1400 1150 250 Balance 4011 -431 -351 760 Meds/Results Medications: Active Medications Generic Name Dose Route Start Last Admin Trade Name Freq PRN Reason Stop Dose Admin Acetaminophen 650 mg 09/22/24 16:11 09/29/24 18:05 Acetaminophen 325 Mg Tablet PO 650 mg Q4H PRN Administration Mild Pain (1-3) or Fever Hydrocodone Bitart/Acetaminophen 1 tab 09/28/24 14:11 10/01/24 09:28 Hydrocodone/Acetaminophen (*Crx) 5-325 Mg Tablet PO 1 tab Q4H PRN Administration Pain Rated 4-6 Dextrose 12.5 gm 09/22/24 17:07 Dextrose 50% 25 Gm/50 Ml Syringe IV PUSH PRN PRN Hypoglycemia Protocol Diphenhydramine HCl 25 mg 09/22/24 17:13 09/27/24 22:29 Diphenhydramine Hcl Inj 50 Mg/Ml Vial IV PUSH 25 mg Q4H PRN Administration Itching/allergic reaction Doxycycline Hyclate 100 mg 09/30/24 14:00 10/01/24 09:16 Doxycycline Hyclate 100 Mg Tablet PO 10/09/24 21:01 100 mg Q12HR JENY Administration Enoxaparin Sodium 40 mg 09/23/24 09:00 10/01/24 09:16 Enoxaparin 40 Mg/0.4 Ml Syringe SUB-Q 40 mg DAILY JENY Administration Gabapentin 300 mg 09/23/24 09:00 10/01/24 09:16 Gabapentin 300 Mg Capsule PO 300 mg QAM JENY Administration Gabapentin 600 mg 09/28/24 21:00 09/30/24 20:31 Gabapentin 300 Mg Capsule PO 600 mg HS JENY Administration Glucagon 1 mg 09/22/24 17:07 Glucagon For Inj 1 Mg Vial IM PRN PRN Hypoglycemia Protocol Glucose 15 gm 09/22/24 17:07 Glucose Oral Gel 15 Gm Of Glucse In 37.5 Gm Tube PO PRN PRN Hypoglycemia Protocol Dextrose 1,000 mls @ 100 mls/hr 09/22/24 17:07 Dextrose 5% 1,000 Ml IVPB PRN PRN Hypoglycemia Protocol Insulin Aspart 2 - 5 units 09/23/24 08:00 10/01/24 09:14 Insulin Aspart (*Bkc) 100 Units/Ml SUB-Q Not Given TIDWM [facility] Protocol Levofloxacin 750 mg 09/30/24 14:00 10/01/24 09:16 Levofloxacin 750 Mg Tablet PO 10/09/24 09:01 750 mg DAILY JENY Administration Melatonin 5 mg 09/28/24 22:12 09/30/24 20:31 Melatonin 5 Mg Tablet PO 5 mg HS PRN Administration Insomnia Morphine Sulfate 2 mg 09/22/24 17:13 09/30/24 19:30 Morphine Sulfate (*Crx) 2 Mg/Ml Inj IV PUSH 2 mg Q4H PRN Administration Pain Rated 7-10 Ondansetron HCl 4 mg 09/30/24 16:39 09/30/24 16:58 Ondansetron Inj 4 Mg/2 Ml Vial IV PUSH 4 mg Q4H PRN Administration Nausea And Vomiting Saccharomyces Boulardii 250 mg 09/23/24 09:00 10/01/24 09:16 Saccharomyces Boulardii 250 Mg Capsule PO 250 mg BID JENY Administration Sertraline HCl 75 mg 09/23/24 09:00 10/01/24 09:16 Sertraline Hcl 25 Mg Tablet PO 75 mg DAILY JENY Administration Triamcinolone Acetonide 1 applic 09/25/24 10:00 10/01/24 09:17 Triamcinolone Acet 0.5% Oint 15 Gm Tube TOPICAL 1 applic DAILY JENY Administration Vitamin D 125 mcg 09/23/24 09:00 10/01/24 09:16 Cholecalciferol (Vitamin D3) 125 Mcg (5,000 Units) Tablet PO 125 mcg DAILY JENY Administration Radiology Results: ITS Impressions Venous Doppler Study 09/22/24 19:30 IMPRESSION: 1. No deep venous thrombosis. Ankle Brachial Index 09/22/24 19:34 Impression: Unremarkable ABIs within the bilateral lower extremities, although given patient's diabetes history, this is an unreliable value. The TBI is markedly diminished, consistent with bilateral peripheral arterial disease, for which CTA with runoff would provide additional information and also provide better anatomical information. Aorta w/Runoff CTA 09/30/24 10:35 IMPRESSION: 1. Mild atherosclerotic disease throughout the visualized arterial system in the abdomen, pelvis and bilateral lower extremities as detailed above. 2. Small patchy opacities in the right lower lung. 3. Moderate-sized patchy opacities in the left lower lobe with a moderate size left lower lobe consolidation. 4. Fatty liver. 5. Left renal cyst 6. Small nonobstructing right renal stone. Labs Labs: Laboratory Results - last 24 hr 09/30/24 09/30/24 09/30/24 11:42 16:22 20:22 WBC RBC Hgb Hct MCV MCH MCHC RDW Plt Count MPV Sodium Potassium Chloride Carbon Dioxide Anion Gap BUN Creatinine Estim Creat Clear Calc Estimated GFR Glucose POC Capillary Glucose 218 H 142 H 166 H Calcium Total Bilirubin AST ALT Alkaline Phosphatase Total Protein Albumin 10/01/24 10/01/24 05:20 07:49 WBC 5.3 RBC 3.23 L Hgb 9.1 L Hct 30.2 L MCV 93.5 MCH 28.2 MCHC 30.1 L RDW 14.9 H Plt Count 281 MPV 11.4 H Sodium 135 L Potassium 4.5 Chloride 98 Carbon Dioxide 32 H Anion Gap 5 BUN 16 Creatinine 0.61 L Estim Creat Clear Calc 45 Estimated GFR > 60 Glucose 151 H POC Capillary Glucose 166 H Calcium 9.1 Total Bilirubin 0.3 AST 30 ALT 13 Alkaline Phosphatase 80 Total Protein 6.7 Albumin 3.4 L
[2024-10-01] MEDS: INSULIN ASPART (*BKC) 100 UNITS/ML SUB-Q (12:34)
[2024-10-01 14:00] VITALS: BP 132/54; PULSE 72; RESP 16; TEMP 36.6; O2SAT 97
[2024-10-01] MEDS: MORPHINE SULFATE (*CRX) 2 MG/ML INJ IV PUSH (19:23)
[2024-10-01 21:02] VITALS: BP 145/60; PULSE 79; RESP 20; TEMP 37; O2SAT 100
[2024-10-01] MEDS: GABAPENTIN 300 MG CAPSULE 600 MG PO (21:28)
[2024-10-02 05:24] VITALS: BP 147/59; PULSE 77; RESP 16; TEMP 37.1; O2SAT 96
[2024-10-02 06:31] LABS: Hematocrit 29.9 % (37.0-47.0); Hemoglobin 9.2 g/dL (12.0-15.0); Mean Corpuscular HGB Conc 30.8 g/dl (32-36); Mean Corpuscular Hemoglobin 28.6 pg (26-34); Mean Corpuscular Volume 92.9 fl (80-100); Platelet Count Result 288 k/mm3 (150-375); Red Blood Count 3.22 M/mm3 (4.2-5.4); White Blood Count 6.6 K/mm3 (4.5-10.0)
[2024-10-02 07:01] LABS: Alanine Aminotransferase 14 U/L (6-35); Albumin Level 3.4 g/dL (3.5-5.1); Alkaline Phosphatase 80 U/L (38-126); Anion Gap 3 mmol/L (4-12); Anion Gap 5 mmol/L (4-12); Aspartate Amino Transferase 34 U/L (14-36); Bilirubin,Total 0.3 mg/dL (0.2-1.3); Blood Urea Nitrogen 17 mg/dL (7-17); Calcium 9.3 mg/dL (8.4-10.2); Carbon Dioxide 31 mmol/L (22-30); Chloride 100 mmol/L (98-107); Chloride 99 mmol/L (98-107); Estimated CRCL calculation 46 ml/min; Estimated Glomerular Filt Rate > 60; Glucose 179 mg/dL (65-110); Potassium 4.4 mmol/L (3.4-5.0); Potassium 4.5 mmol/L (3.4-5.0); Sodium 134 mmol/L (137-145); Sodium 135 mmol/L (137-145); Total Protein 6.7 g/dL (6.3-8.2)
[2024-10-02] MEDS: HYDROcodone/acetaminophen (*CRX) 5-325 MG TABLET 1 TAB PO ×2 (09:31→13:22)
[2024-10-02] MEDS: CHOLECALCIFEROL (VITAMIN D3) 125 MCG (5,000 UNITS) TABLET PO (09:33)
[2024-10-02] MEDS: SERTRALINE HCL 25 MG TABLET 75 MG PO (09:33)
[2024-10-02] MEDS: DOXYCYCLINE HYCLATE 100 MG TABLET PO (09:33)
[2024-10-02] MEDS: ENOXAPARIN 40 MG/0.4 ML SYRINGE SUB-Q (09:33)
[2024-10-02] MEDS: SACCHAROMYCES BOULARDII 250 MG CAPSULE PO (09:34)
[2024-10-02] MEDS: GABAPENTIN 300 MG CAPSULE PO (09:34)
[2024-10-02] MEDS: TRIAMCINOLONE ACET 0.5% OINT 15 GM TUBE 1 APPLIC TOPICAL (09:36)
--- NOTE | 2024-10-02 11:23 | P.PNINF_ITS ---
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 Likely associated with diabetes and Diabetic micro- vascular insufficiency. lower extremity arterial Doppler studies as well as aorta with runoff study CTA without significant large arterial disease. -- wound cultures unenlightening. -- MRI with out osteomyelitis. # History of penicillin allergy- - hives. Plan: -- has had some but slow clinical improvement while on intravenous clindamycin. Okay at this time to transition to oral antibiotics and would resume levofloxacin but at 750 mg daily along with doxycycline 100 mg q.12 hours. Recommend continuing both antibiotics for an 10 days. -- continued local wound care to right distal leg. -- for discharge today. Patient was seen via video telehealth consultation with the assistance of staff. Chart, data, and patient independently reviewed. Patient was located at [facility] while I was located in my [place] office. Received verbal consent from patient. Subjective Date/time seen: 10/02/24 11:23 Interval history: 10/01/2024: Afebrile and with normal vital signs. Aorta with runoff CTA performed yesterday and significant for mild atherosclerotic disease throughout the visualized arterial system in the abdomen, pelvis, and bilateral lower extremities. Also with small patchy opacities in the right lower lung and moderate size patchy opacities in the left lower lobe with a moderate size left lower lobe consolidation. 10/02/2024: Doing well. Discharge planned for today. Review of Systems Review of Systems: Still with right distal leg tenderness but improved. Also states wounds and erythema improving. All systems reviewed & are unremarkable except as noted in HPI and below Exam Narrative: Awake and alert and nontoxic in appearance. No respiratory distress. No significant abdominal distension. Right lower extremity without significant edema. Distal leg with lateral shallow ulcerative wounds, nonpurulent at this time, but associated with surrounding erythema and some tenderness. No rash. Objective Data Vital Signs Vital Signs: Vital Signs - 24 hr 10/01/24 14:00 10/01/24 21:02 10/01/24 21:28 Temperature 98 F 98.6 F Pulse Rate 72 79 Respiratory Rate 16 20 Blood Pressure 132/54 L 145/60 H Pulse Oximetry 97 100 Oxygen Delivery Room Air 10/02/24 05:24 Temperature 98.8 F Pulse Rate 77 Respiratory Rate 16 Blood Pressure 147/59 H Pulse Oximetry 96 Oxygen Delivery Intake/Output Intake/Output: Intake & Output 09/29/24 09/30/24 10/01/24 10/02/24 23:59 23:59 23:59 23:59 Intake Total 759 668 3586 315 Output Total 1400 1150 1100 300 Balance -592 -170 1250 15 Meds/Results Medications: Active Medications Generic Name Dose Route Start Last Admin Trade Name Freq PRN Reason Stop Dose Admin Acetaminophen 650 mg 09/22/24 16:11 09/29/24 18:05 Acetaminophen 325 Mg Tablet PO 650 mg Q4H PRN Administration Mild Pain (1-3) or Fever Hydrocodone Bitart/Acetaminophen 1 tab 09/28/24 14:11 10/02/24 09:31 Hydrocodone/Acetaminophen (*Crx) 5-325 Mg Tablet PO 1 tab Q4H PRN Administration Pain Rated 4-6 Dextrose 12.5 gm 09/22/24 17:07 Dextrose 50% 25 Gm/50 Ml Syringe IV PUSH PRN PRN Hypoglycemia Protocol Diphenhydramine HCl 25 mg 09/22/24 17:13 10/01/24 21:34 Diphenhydramine Hcl Inj 50 Mg/Ml Vial IV PUSH 12.5 mg Q4H PRN Administration Itching/allergic reaction Doxycycline Hyclate 100 mg 09/30/24 14:00 10/02/24 09:33 Doxycycline Hyclate 100 Mg Tablet PO 10/09/24 21:01 100 mg Q12HR JEYN Administration Enoxaparin Sodium 40 mg 09/23/24 09:00 10/02/24 09:33 Enoxaparin 40 Mg/0.4 Ml Syringe SUB-Q 40 mg DAILY JENY Administration Gabapentin 300 mg 09/23/24 09:00 10/02/24 09:34 Gabapentin 300 Mg Capsule PO 300 mg QAM JENY Administration Gabapentin 600 mg 09/28/24 21:00 10/01/24 21:28 Gabapentin 300 Mg Capsule PO 600 mg HS JENY Administration Glucagon 1 mg 09/22/24 17:07 Glucagon For Inj 1 Mg Vial IM PRN PRN Hypoglycemia Protocol Glucose 15 gm 09/22/24 17:07 Glucose Oral Gel 15 Gm Of Glucse In 37.5 Gm Tube PO PRN PRN Hypoglycemia Protocol Dextrose 1,000 mls @ 100 mls/hr 09/22/24 17:07 Dextrose 5% 1,000 Ml IVPB PRN PRN Hypoglycemia Protocol Insulin Aspart 2 - 5 units 09/23/24 08:00 10/01/24 17:41 Insulin Aspart (*Bkc) 100 Units/Ml SUB-Q Not Given TIDWM JENY Protocol Levofloxacin 750 mg 09/30/24 14:00 10/02/24 09:33 Levofloxacin 750 Mg Tablet PO 10/09/24 09:01 750 mg DAILY JENY Administration Melatonin 5 mg 09/28/24 22:12 09/30/24 20:31 Melatonin 5 Mg Tablet PO 5 mg HS PRN Administration Insomnia Morphine Sulfate 2 mg 09/22/24 17:13 10/01/24 19:23 Morphine Sulfate (*Crx) 2 Mg/Ml Inj IV PUSH 2 mg Q4H PRN Administration Pain Rated 7-10 Saccharomyces Boulardii 250 mg 09/23/24 09:00 10/02/24 09:34 Saccharomyces Boulardii 250 Mg Capsule PO 250 mg BID JENY Administration Sertraline HCl 75 mg 09/23/24 09:00 10/02/24 09:33 Sertraline Hcl 25 Mg Tablet PO 75 mg DAILY JENY Administration Triamcinolone Acetonide 1 applic 09/25/24 10:00 10/02/24 09:36 Triamcinolone Acet 0.5% Oint 15 Gm Tube TOPICAL 1 applic DAILY JENY Administration Vitamin D 125 mcg 09/23/24 09:00 10/02/24 09:33 Cholecalciferol (Vitamin D3) 125 Mcg (5,000 Units) Tablet PO 125 mcg DAILY JENY Administration Radiology Results: ITS Impressions Venous Doppler Study 09/22/24 19:30 IMPRESSION: 1. No deep venous thrombosis. Ankle Brachial Index 09/22/24 19:34 Impression: Unremarkable ABIs within the bilateral lower extremities, although given patient's diabetes history, this is an unreliable value. The TBI is markedly diminished, consistent with bilateral peripheral arterial disease, for which CTA with runoff would provide additional information and also provide better anatomical information. Aorta w/Runoff CTA 09/30/24 10:35 IMPRESSION: 1. Mild atherosclerotic disease throughout the visualized arterial system in the abdomen, pelvis and bilateral lower extremities as detailed above. 2. Small patchy opacities in the right lower lung. 3. Moderate-sized patchy opacities in the left lower lobe with a moderate size left lower lobe consolidation. 4. Fatty liver. 5. Left renal cyst 6. Small nonobstructing right renal stone. Labs Labs: Laboratory Results - last 24 hr 10/01/24 10/01/24 10/01/24 11:41 17:10 20:42 WBC RBC Hgb Hct MCV MCH MCHC RDW Plt Count MPV Sodium Potassium Chloride Carbon Dioxide Anion Gap BUN Creatinine Estim Creat Clear Calc Estimated GFR Glucose POC Capillary Glucose 252 H 166 H 238 H Calcium Phosphorus Total Bilirubin AST ALT Alkaline Phosphatase Total Protein Albumin 10/02/24 10/02/24 10/02/24 05:25 05:25 05:25 WBC 6.6 RBC 3.22 L Hgb 9.2 L Hct 29.9 L MCV 92.9 MCH 28.6 MCHC 30.8 L RDW 14.8 H Plt Count 288 MPV 11.8 H Sodium 134 L 135 L Potassium 4.4 4.5 Chloride 100 Carbon Dioxide Anion Gap BUN Creatinine Estim Creat Clear Calc Estimated GFR Glucose POC Capillary Glucose Calcium Phosphorus Total Bilirubin AST ALT Alkaline Phosphatase Total Protein Albumin 10/02/24 10/02/24 10/02/24 05:25 05:25 05:25 WBC RBC Hgb Hct MCV MCH MCHC RDW Plt Count MPV Sodium Potassium Chloride 99 Carbon Dioxide 31 H 31 H Anion Gap 3 L 5 BUN 17 Creatinine Estim Creat Clear Calc Estimated GFR Glucose POC Capillary Glucose Calcium Phosphorus Total Bilirubin AST ALT Alkaline Phosphatase Total Protein Albumin 10/02/24 10/02/24 10/02/24 05:25 05:25 05:25 WBC RBC Hgb Hct MCV MCH MCHC RDW Plt Count MPV Sodium Potassium Chloride Carbon Dioxide Anion Gap BUN 17 Creatinine 0.60 L 0.60 L Estim Creat Clear Calc 46 46 Estimated GFR > 60 Glucose POC Capillary Glucose Calcium Phosphorus Total Bilirubin AST ALT Alkaline Phosphatase Total Protein Albumin 10/02/24 10/02/24 10/02/24 05:25 05:25 05:25 WBC RBC Hgb Hct MCV MCH MCHC RDW Plt Count MPV Sodium Potassium Chloride Carbon Dioxide Anion Gap BUN Creatinine Estim Creat Clear Calc Estimated GFR > 60 Glucose 179 H 179 H POC Capillary Glucose Calcium 9.3 9.3 Phosphorus 3.2 Total Bilirubin 0.3 AST 34 ALT 14 Alkaline Phosphatase 80 Total Protein 6.7 Albumin 3.4 L 10/02/24 10/02/24 05:25 07:36 WBC RBC Hgb Hct MCV MCH MCHC RDW Plt Count MPV Sodium Potassium Chloride Carbon Dioxide Anion Gap BUN Creatinine Estim Creat Clear Calc Estimated GFR Glucose POC Capillary Glucose 188 H Calcium Phosphorus Total Bilirubin AST ALT Alkaline Phosphatase Total Protein Albumin 3.4 L
--- NOTE | 2024-10-02 12:46 | P.DS_ITS ---
DS: Admitting Diagnosis Discharge Date 09/07 Admitting Diagnosis leg pain DS: Discharge Diagnosis Discharge Diagnosis (1) Cellulitis and abscess of leg: Code(s): L03.119 - Cellulitis of unspecified part of limb; L02.419 - Cutaneous abscess of limb, unspecified Status: Acute (2) Type 2 diabetes mellitus without complications: Qualifiers: Diabetes mellitus senior care insulin use: without manager terminal use Qualified Code(s): E11.9 - Type 2 diabetes mellitus without complications Code(s): E11.9 - Type 2 diabetes mellitus without complications Status: Chronic (3) Essential (primary) hypertension: Code(s): I10 - Essential (primary) hypertension Status: Chronic DS: Summary Hospital Course Hospital Course: 89 y/o female with past medical history of iron deficiency anemia, type 2 diabetes, depression, anxiety, cricopharyngeal achalasia s/p dilation and Botox, and hypertension presents to the hospital with redness to the right lower extremity. # cellulitis 09/07: Approximate onset 09/11: Initial evaluation. Started on PO Clindamycin and Mupriciron topical. 09/16: Culture ordered (no result in system). Levaquin added and Florastor for gut protection. 09/17: Stat ankle XR showed possible osteomyelitis. MRI completed and showed no OM. Referred to wound care outpatient. Levaquin extended x5 days. 09/22: Presentation to the ED for evaluation as the pain has remained high and ulcerations have worsened despite outpatient oral abx and topical treatment. - started on Cefepime, Flagyl, and Vancomycin on 09/22, transitioned to clindamycin on 09/25 ID consulted, awaiting recommendations - wound culture showed no growth, blood cultures obtained on 09/22 showing NGTD - analgesics prn: norco q4h - ESR 132, CRP 3.0, WBC 8.1 and lactic 0.9 upon admission - obtain US of the RLE and ABIs US: No DVT TERESA: Unremarkable ABIs within the bilateral lower extremities, unreliable given patient's diabetes hx. TBI is markedly diminished, consistent with bilateral PAD, for which CTA with runoff would provide better anatomical information. CTA with runoff: Mild atherosclerotic disease No significant PAD causing skin changes as seen on imaging - wound RN consulted Right lower extremity with several nondraining wounds with black eschar on the lateral aspect of the ankle region. Tenderness to palpation. No edema or warmth. Slight redness. Patient states much improved today. WBC WNL. Remains on antibiotics pending ID recommendations. ID was following: Plan: -- has had some but slow clinical improvement while on intravenous clindamycin. Okay at this time to transition to oral antibiotics and would resume levofloxacin but at 750 mg daily along with doxycycline 100 mg q.12 hours. Recommend continuing both antibiotics for an 10 days. -- continued local wound care to right distal leg. -- for discharge today. # Type 2 diabetes mellitus without complications - hypoglycemia protocol - POC blood glucose ACHS - home medication: no current home medications listed? - correct regimen ordered - low dose TIDWM, based off BMI - A1C 6.8 # htn - chronic, not currently on a daily antihypertensive - remains slightly elevated however possibly related to pain - discussed with patient to monitor blood pressures and document daily when discharged for further discussion with PCP upon discharge - continue to monitor Status at Discharge Functional status at discharge: uses cane/walker Overall status at discharge: patient is progressing back to baseline Time Spent with Patient Time attestation: Total time spent providing and/or coordinating discharge services: Time spent: Greater than 30 minutes Exam Narrative: General: female in no acute respiratory distress who is nontoxic appearing, sitting up in chair HEENT: Normocephalic. Atraumatic. Extraocular movement intact. Sclera clear and anicteric. No facial asymmetry. Chest: Lungs are clear to auscultation bilaterally. No wheezes or crackles. CV: Heart was regular rate and rhythm. Abd: Abdomen was soft. Nontender. Nondistended. Positive bowel sounds. Ext: No clubbing, cyanosis, or edema. DP pulses bilaterally. Right lower extremity with several nondraining wounds with black eschar on the lateral aspect of the ankle region. Tenderness to palpation. No edema or warmth. Slight redness. Neuro: Patient is alert. Speech is clear. Const: General: comfortable and no acute distress Other: , female, nontoxic appearance, frail HENMT: Face/Nose/Sinus: Normal nares present Mouth: Yes moist mucous membranes Eyes: General: appearance normal, both eyes and all related structures Sclera: sclerae normal Pupils: Equal, round and reactive pupils present EOM: EOMs intact bilaterally Resp: Effort & Inspection: normal respiratory effort Auscultation: clear to auscultation bilaterally Cardio: Rate: regular rate Rhythm: regular rhythm Other: +murmur, no ectopy or rub GI: Other: Abdomen soft, nondistended, nontender. Normoactive bowel sounds in all quadrants. Skin: Other: Erythema and purpura to the distal right lower extremity. Significant associated tenderness. No open or draining wounds. Neuro: Cranial nerves: Yes Equal, round and reactive pupils present Speech: normal speech Motor exam (neuro): 5/5 motor strength present throughout Sensory Exam: normal sensation Other: A&O x4 Extrem: Other: See skin exam. Poorly palpable DP pulses bilaterally. Audible with Doppler bilaterally. Psych: Mental Status: mental status grossly normal Affect: normal affect Other: Good insight and judgment, pleasant DS: Data Data Completed and Pending Labs on day of discharge: Labs from last 24 hours 10/02/24 10/02/24 10/02/24 12:00 07:36 05:25 WBC RBC Hgb Hct MCV MCH MCHC RDW Plt Count MPV Sodium Potassium Chloride Carbon Dioxide Anion Gap BUN Creatinine Estim Creat Clear Calc Estimated GFR Glucose POC Capillary Glucose 200 H 188 H Calcium Phosphorus Total Bilirubin AST ALT Alkaline Phosphatase Total Protein Albumin 3.4 L 10/02/24 10/02/24 10/02/24 05:25 05:25 05:25 WBC RBC Hgb Hct MCV MCH MCHC RDW Plt Count MPV Sodium Potassium Chloride Carbon Dioxide Anion Gap BUN Creatinine Estim Creat Clear Calc Estimated GFR > 60 Glucose 179 H 179 H POC Capillary Glucose Calcium 9.3 9.3 Phosphorus 3.2 Total Bilirubin 0.3 AST 34 ALT 14 Alkaline Phosphatase 80 Total Protein 6.7 Albumin 3.4 L 10/02/24 10/02/24 10/02/24 05:25 05:25 05:25 WBC RBC Hgb Hct MCV MCH MCHC RDW Plt Count MPV Sodium Potassium Chloride Carbon Dioxide Anion Gap BUN 17 Creatinine 0.60 L 0.60 L Estim Creat Clear Calc 46 46 Estimated GFR > 60 Glucose POC Capillary Glucose Calcium Phosphorus Total Bilirubin AST ALT Alkaline Phosphatase Total Protein Albumin 10/02/24 10/02/24 10/02/24 05:25 05:25 05:25 WBC RBC Hgb Hct MCV MCH MCHC RDW Plt Count MPV Sodium Potassium Chloride 99 Carbon Dioxide 31 H 31 H Anion Gap 5 3 L BUN 17 Creatinine Estim Creat Clear Calc Estimated GFR Glucose POC Capillary Glucose Calcium Phosphorus Total Bilirubin AST ALT Alkaline Phosphatase Total Protein Albumin 10/02/24 10/02/24 10/02/24 05:25 05:25 05:25 WBC 6.6 RBC 3.22 L Hgb 9.2 L Hct 29.9 L MCV 92.9 MCH 28.6 MCHC 30.8 L RDW 14.8 H Plt Count 288 MPV 11.8 H Sodium 135 L 134 L Potassium 4.5 4.4 Chloride 100 Carbon Dioxide Anion Gap BUN Creatinine Estim Creat Clear Calc Estimated GFR Glucose POC Capillary Glucose Calcium Phosphorus Total Bilirubin AST ALT Alkaline Phosphatase Total Protein Albumin 10/01/24 10/01/24 20:42 17:10 WBC RBC Hgb Hct MCV MCH MCHC RDW Plt Count MPV Sodium Potassium Chloride Carbon Dioxide Anion Gap BUN Creatinine Estim Creat Clear Calc Estimated GFR Glucose POC Capillary Glucose 238 H 166 H Calcium Phosphorus Total Bilirubin AST ALT Alkaline Phosphatase Total Protein Albumin Discharge Plan Discharge Attending physician on discharge: Geraldo Leon Consulting providers: Dhaval Singh; Noreen Childers Discharging Clinician: Yanelis Alicea Patient Disposition: Home with Home Health Service Activity: may shower Diet: diabetic Discharge Instructions: Please continue levofloxacin at 750 mg daily along with doxycycline 100 mg every 12 hours. rx will be sent to your pharmacy -- continued local wound care to right distal leg. Patient Instructions: Antibiotic Form Patient Language: Palestinian Stand Alone Forms: General Discharge Information Follow-up/Referrals: Mario Walker MD [Primary Care Provider, [facility]] - 2 Weeks Discharge Medications: New triamcinolone acetonide 0.1 % Cream 1 applic topical DAILY Qty: 30 0RF doxycycline hyclate 100 mg Tablet 100 mg PO Q12HR Qty: 15 0RF levofloxacin 750 mg tablet 750 mg PO DAILY 4 Days Qty: 4 0RF hydrocodone-acetaminophen 7.5-325 mg tablet 1 tablet PO Q6H PRN (Reason: pain) Qty: 20 0RF Continued mupirocin [Centany] 2 % ointment 1 applic topical BID Qty: 30 0RF Saccharomyces boulardii [Florastor] 250 mg capsule 250 mg PO BID Qty: 60 0RF tramadol 50 mg tablet 50 mg PO BID PRN (Reason: pain) Qty: 30 0RF ondansetron HCl 4 mg tablet 4 mg PO Q8H PRN (Reason: nausea and vomiting) Qty: 20 0RF acetaminophen 325 mg Tablet 650 mg PO Q6H PRN (Reason: Mild Pain (1-3) Or Fever) Qty: 30 0RF cholecalciferol (vitamin D3) 125 mcg (5,000 unit) capsule 125 mcg PO DAILY Qty: 30 0RF sertraline [Zoloft] 50 mg tablet 75 mg PO DAILY Qty: 135 3RF ibandronate 150 mg tablet 150 mg PO MONTHLY Qty: 12 2RF gabapentin [Neurontin] 300 mg capsule See Rx Instructions PO DAILY Qty: 270 2RF Rx Instructions: Take 1 capsule by mouth in the AM and 2 in the PM PO daily; Discontinued levofloxacin 500 mg tablet 500 mg PO DAILY Qty: 5 0RF Date of admission: 09/23/24 13:23 Primary Care Provider: Mario Walker Admitting Provider: Chary Jaramillo Attending physician on admission: Chary Jaramillo Condition: Stable Quality VTE Prophylaxis VTE prophylaxis: pharmacologic ordered Hospitalist MIPS Heart Failure (Exclusion) Patient has history of Heart Transplant or Left Ventricular Assistive Device?: No IF YES, STOP HERE Heart Failure (Qualifier) Patient has current or prior documentation of LVEF less than or equal to 40%, or mod/servere depressed LVSF?: No IF NO, STOP HERE
[2024-10-02 13:51] VITALS: BP 130/60; PULSE 95; RESP 16; TEMP 36.2; O2SAT 99
== END 2024-10-02 14:55 | disposition home health service (06) | DRG 638 ==
LOC: ANHED 16:02 → ANH3MEDSUR 16:55
PROVIDERS: Student in an Organized Health Care Education/Training Program; Admitting Provider Family Medicine; Emergency Provider Emergency Medicine; PCP Family Medicine; Visit Provider Nurse Practitioner
DX: E11.628 Type 2 diabetes mellitus with other skin complications (principal); L02.415 Cutaneous abscess of right lower limb; L03.115 Cellulitis of right lower limb; L97.819 Non-pressure chronic ulcer of other part of right lower leg with unspecified severity; E11.622 Type 2 diabetes mellitus with other skin ulcer; E11.51 Type 2 diabetes mellitus with diabetic peripheral angiopathy without gangrene; I73.9 Peripheral vascular disease, unspecified; I10 Essential (primary) hypertension; F41.8 Other specified anxiety disorders; D50.9 Iron deficiency anemia, unspecified; Z86.16 Personal history of COVID-19
CPT/HCPCS: 36415; 75635; 80053; 80069; 80202; 82565; 82948; 83036; 83605; 83735; 85025; 85027; 85652; 86140; 87040; 87070; 87075; 87641; 93922; 93971; 96365; 96374; 97110; 97116; 97161; 97165; 97530; 97535; 99212; 99285; A9270; G0378; G0463; J0692; J1200; J1650; J1815; J1836; J2270; J2405; J3373; J7050; Q9967

== ENCOUNTER 2024-10-26 10:45 | Emergency (ER) | payer MEDICARE, SELFPAY ==
--- OUTSIDE RECORDS SUMMARY | 2008-08-21 06:15 | XMS_ITS | Continuity of Care Document ---
Author Organization [facility] Address [address] [place] [address] [place] [address] Phone Care Team Providers Care Reimbursement Manager Name Role Phone Narayan Caro Unavailable Unavailable Procedures Procedure Date Office/outpatient Visit, Est E Prescribing Office/outpatient Visit, Est Office/outpatient Visit, Est Office/outpatient Visit, Est Office/outpatient Visit, Est Office/outpatient Visit, Est Office/outpatient Visit, Est Office/outpatient Visit, Est Office/outpatient Visit, Est Eye Exam Established Pt Advance Directives Directive Yes / No Effective Date File Name No Information Encounters Encounter Description Practice Location Reason(s) For Visit Diagnoses Date Provider Providers Copied on Encounter Office/outpat ient Visit, [facility], [address] [place] [address] [address], [place], [place], [id number], [place] tel:[phone] [facility] No Information 6[address] Gordo Busch. [address] , [address], [place], [address], [place]. tel:[phone] Office/outpat ient Visit, [facility], [address] [place] [address] [address], [place], [place], [id number], [place] tel:[phone] [facility] No Information 0-200 8 Jacque Pagan [address] , [address], [place], [place], [facility], . tel:[phone] Office/outpat ient Visit, [facility], [address], [place], [place], [id number], [place] tel:[phone] [facility] No Information June- 3-200 8 Jacque Butler. [address] , [address], [place], [place], [facility], . tel:[phone] Office/outpat ient Visit, [facility], [address] [place] [address] [address], [place], [place], [id number], [place] tel:[phone] [facility] No Information Sep-2 5-200 7 Jacque Butler. [address] , [address], [place], [place], [facility], . tel:[phone] Office/outpat ient Visit, [facility], [address], [place], [place], [id number], [place] tel:[phone] [facility] No Information Oct-1 9-200 7 Gordo Busch. [address] , [address], [place], [facility], [place]. tel:[phone] Office/outpat ient Visit, [facility], [address] [place] [address] [address], [place], [place], [address], [place] tel:[phone] [facility] No Information Aug-1 0-200 7 Jacque Pagan [address] , [address], [place], [facility], [place]. tel:[phone] Office/outpat ient Visit, [facility], [address], [place], [place], [address], [place] tel:[phone] [facility] No Information Miguelito-2 2-200 7 Jacque Pagan [address] , [address], [place], [facility], . tel:[phone] Office/outpat ient Visit, [facility], [address] [place] [address] [address], [place], [place], [id number], tel:[phone] [facility] No Information Miguelito-1 2-200 7 Santillan Carrie. [address] [facility] , [address], [place], [facility], [place]. tel:[phone] Office/outpat ient Visit, [facility], [address] [place] [address] [address], [place], [place], [id number], tel:[phone] [facility] No Information Miguelito-0 5-200 7 Santillan Carrie. [address] [facility] , [address], [place], [facility], . tel:[phone] [facility], [address] [place] [address] [address], [place], [place], [address], tel:[phone] [facility] No Information Miguelito-0 1-200 7 Gordo Busch. [address] [facility] , [address], [place], [facility], . tel:[phone] Family History Family Member Type Diagnosis Age At Onset No Information Payers Payer name Insurance type Covered green party ID [place] [id number] Social History Type Description Quantity Date Captured Comments Sex Female Smoking Status No Information Chief Complaint And Reason For Visit No Information Reason For Referral Reason For Referral No Information History Of Present Illness Encounter Date Complaint History Of Prese nt Illness No Information Functional Status Date Functional Assessmen t No Information Instructions Date Instruction Additional Infor mation No Information Assessments Type Assessment Date No Information Patient Care Teams Name Effective Dates (start - stop) Status Members No Information
[2024-10-26] VITALS (7 sets, daily range): BP systolic 130–159; BP diastolic 59–100; PULSE 64–80; RESP 12–20; TEMP 36.6; O2SAT 96–100
--- NOTE | ~2024-10-26 | CT_ITS ---
CT HEAD NON-CONTRAST CT C-SPINE Clinical History: FALL Comparison: None Technique: Unenhanced axial images skull base to vertex. Coronal, sagittal reformats. Axial images thoracic inlet to skull base. Sagittal and coronal reformats. CT images acquired with automatic exposure control for dose reduction DLP: 757 mGy-cm Findings: Head: Global atrophy. Small linear encephalomalacia right reyes radiata. Mild white matter changes, typically chronic microvascular ischemic disease. Sulci, ventricles: Unremarkable. No intracerebral hemorrhage. No evidence acute territorial infarct. No mass effect, midline shift, intra-/extra-axial fluid collection. Bony calvarium intact. Visualized paranasal sinuses: Clear. Mastoid air cells: Clear. C-spine: Anterior wedge height loss C6. No other acute fracture. Minimal anterolisthesis C6. Moderate degenerative changes. Disc spaces maintained. Prevertebral soft tissues within normal limits. Visualized lung apices: Clear. Visualized thyroid: Unremarkable. No enlarged cervical nodes. IMPRESSION: HEAD: 1. No acute intracranial findings. C-SPINE: 1. Mild anterior wedge deformity C6, age indeterminate. 2. Otherwise no acute abnormality. Reviewed, dictated and finalized at location R. IMPRESSION: HEAD: 1. No acute intracranial findings. C-SPINE: 1. Mild anterior wedge deformity C6, age indeterminate. 2. Otherwise no acute abnormality.
--- NOTE | ~2024-10-26 | XR_ITS ---
X-rays right hip with AP pelvis X-rays right femur Indication: Fracture Comparison: CTA abdomen pelvis 1 month prior Technique: 2 views right hip with AP pelvis, 2 views right femur 4 films Findings/Impression: Right hip with pelvis: 1. No fracture or dislocation right hip. 2. Femoral mid shaft fracture, see below. 3. Pelvic fracture not excluded given positioning. Right femur: 1. Femoral mid shaft oblique fracture with displacement and angulation. 2. Distal femur intact. Reviewed, dictated and finalized at location R.
--- NOTE | ~2024-10-26 | XR_ITS ---
Examination: XR chest 1V Clinical History: HIP FX? Comparison: 03/11/2024 Technique: Portable AP Findings: Patient rotated. Heart size normal. Lungs clear. No acute bony abnormality. IMPRESSION: 1. No acute cardiopulmonary findings given portable technique. Reviewed, dictated and finalized at location R.
--- NOTE | 2024-10-26 10:50 | ECG_ITS ---
Test Date: 2024-10-26 10:54:34 Measurements Intervals [place] Rate: 64 P: 0 HI: 0 QRS: 61 QRSD: 76 T: 73 QT: 418 QTc: 434 Interpretive Statements POOR QUALITY ECG BECAUSE OF BASELINE ARTIFACT SUSPECT SINUS RHYTHM FURTHER INTERPRETATION IS PEAK PRECLUDED BY POOR TRACING QUALITY Compared to ECG 03/11/2024 10:11:23 THIS ECG IS OF VERY POOR QUALITY Electronically Signed On 10-27-2024 08:08:30 CDT by James Madsen M.D.
[2024-10-26] MEDS: ONDANSETRON INJ 4 MG/2 ML VIAL IV PUSH (10:58)
[2024-10-26] MEDS: MORPHINE SULFATE (*CRX) 2 MG/ML INJ IV PUSH ×3 (10:58→13:27)
--- OUTSIDE RECORDS SUMMARY | 2024-10-26 10:58 | XMS_ITS | Clinical Summary ---
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
--- OUTSIDE RECORDS SUMMARY | 2024-10-26 10:58 | XMS_ITS | Clinical Summary ---
Author Organization [facility] Address [address] [place] [address] Care Team Providers Care Manager Solution Name Role Phone Mario Walker MD Primary Care Provider [phone] Allergies Active Allergy Reactions Criticality Noted Date [...] - 2024 11:59 PM CDT Hospital Encounter [facility] [address] [place] [id number] Abnormal findings on diagnostic imaging of other parts of musculoskeletal system Discharge Disposition: Discharge to home or self care 2024 Orders Only [facility] Information Management [address] [place] [address] Scanning, Provider from Last 3 Months Medical [...] Comments Blood Pressure 138/63 01/11/2017 1:21 PM CORD SPLICER Pulse 72 01/11/2017 1:21 PM CORD SPLICER Temperature - - Respiratory Rate - - [...] foot. Electronically signed by: Salas Weinberg M.D. Mario Mick Walker MD IMG MRI PROCEDURES Final Res ult * SCAN - OTHER ORDERS (2024) us Provider Scanning Final Result from Last [address] [place] [id number] [facility] [address] [place] [address] [place] [id number] [facility] MEDICARE ADVANTAGE [address] [place] [place] [address] [place] [id number] [facility] MDCR HMO REF Care Teams Manager Solution Relationship Specialty Start Date End Date Mario Walker MD PCP - General 11/28/16
--- OUTSIDE RECORDS SUMMARY | 2024-10-26 10:58 | XMS_ITS | Clinical Summary ---
Author Organization [facility] Care Team Providers Care Refractory Repairer Name Role Phone Unavailable Primary Care Provider [...]
--- NOTE | 2024-10-26 11:01 | ED.FALL ---
HPI - Fall General Chief Complaint: Fall Stated Complaint: FALL-DEFORMITY Time Seen by Provider: 10/26/24 10:54 Source: patient and EMS Mode of arrival: EMS Limitations: no limitations History of Present Illness HPI Narrative: Pulling weed, lost balance and landed on the right hip, present with deformity of the right femur and severe pain. Possible head injury. Denies other complaint history of diabetes not on any medication at this time for 1 month pain history of peripheral neuropathy and depression, not on anti-platelet or anticoagulant medication Related Data Allergies Allergy/AdvReac Type Severity Reaction Status Date / Time metformin Allergy Mild Hives Verified 10/26/24 11:04 Penicillins Allergy Mild Hives Verified 10/26/24 11:04 Review of Systems Review of Systems: All systems reviewed & are unremarkable except as noted in HPI and below PMFSH Past Medical History Medical History Compression fracture Bilateral renal stones Contracture of muscle, unspecified hand Influenza A COVID-19 Other iron deficiency anemias Dysphagia Esophageal obstruction Acute sinusitis Pneumonia age 18 Esophageal ring Depression with anxiety Cricopharyngeal achalasia Status post dilatation and Botox injection per Dr. Jah Soni (ENT) at [place]. Anemia Essential hypertension Type 2 diabetes mellitus Vitamin D deficiency Surgical History Surgical History History of open reduction and internal fixation (ORIF) procedure Pinning of left hip fracture. History of arthroscopic knee surgery History of tonsillectomy History of cataract extraction Family History Family History Father Family history of diabetes mellitus in first degree relative Mother Rheumatoid arthritis Sibling No problems noted. Other Family history of lupus erythematosus Social History Social History Social History: Surrogate decision maker: Guerda Mark, daughter. Code status: Full code. Smoking status: Never smoker Second hand tobacco smoke exposure: Yes Alcohol intake: never Substance use: unknown Substance use type: does not use Do You Feel Safe in your Home?: Yes Lack of Transportation: No Lack of Food: Never True Current Housing: I Have Housing Concerned About Future Housing: No Difficulty Paying Gas/Electric Bills: No Difficulty Paying for Meds: No Currently Unemployed: No Education: Decline to Answer Difficulty w/ Childcare or Family Care: No Living arrangements: alone Additional living arrangements comments: Patient lives in a senior apartment in [place]. She has 6 children and was essentially a single mother for many years as her at a young age. 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 Gender identity (if verbalized by the patient): Female Spiritual care concerns: No Exam Narrative: General appearance: Well-developed, well-nourished Skin: Normal color Head: Normocephalic, nontraumatic Eyes: Clear conjunctiva ENT: Oropharynx normal, ears normal, nose normal Neck: Supple, nontender Chest and respiratory: Airway patent, no respiratory distress, no accessory muscle use Heart: Regular rate/rhythm Abdomen: Soft, nontender, no organomegaly, quiet bowel sounds Vascular: Normal peripheral pulses, normal capillary refill. Musculoskeletal: Right femur deformity, severe pain Neurologic: Alert and oriented ?3, [employer] is normal as tested, no gross motor deficit Course Consultations Consultation #1: DR JACKSON TRANSFERRED TO ANOTHER FACILITY Date: 10/26/24 Consultation #2: DR ALVA ED PHYSICIAN AT [facility] WHO ACCEPTED PATIENT TRANSFER Date: 10/26/24 Time: 14:25 Vital Signs Vital signs: Vital Signs Temperature 36.6 C 10/26/24 10:38 Pulse Rate 68 10/26/24 10:38 Respiratory Rate 16 10/26/24 10:38 Blood Pressure 134/88 10/26/24 10:38 Pulse Oximetry 99 10/26/24 10:38 Temperature 36.6 C 10/26/24 10:38 Pulse Rate 80 10/26/24 14:00 Respiratory Rate 19 10/26/24 14:00 Blood Pressure 144/59 H 10/26/24 14:00 Pulse Oximetry 100 10/26/24 14:00 MDM - Fall MDM Narrative Medical decision making narrative: PATIENT LOST HER BALANCE AND HAD A FALL, GROUND LEVEL, RIGHT HIP NO OTHER INJURIES X-RAY SHOWED [place] RIGHT FEMUR FRACTURE, CLOSED FRACTURE TRANSFERRED TO [facility] ED. Differential Diagnosis Differential diagnosis: Likely other (HIP FRACTURE, RIGHT FEMUR FRACTURE) Lab Data 10/26/24 11:12 10/26/24 11:12 Labs: Lab Results 09/20/25 Range/Units 11:12 WBC 6.0 (4.5-10.0) K/mm3 RBC 3.50 L (4.2-5.4) M/mm3 Hgb 9.9 L (12.0-15.0) g/dL Hct 32.8 L (37.0-47.0) % MCV 93.7 (80-100) fl MCH 28.3 (26-34) pg MCHC 30.2 L (32-36) g/dl RDW 15.5 H (11.5-14.5) % Plt Count 185 (150-375) k/mm3 MPV 11.4 H (7.4-10.4) fl Immature Gran % (Auto) 0.3 (0-0.5) % Neut % (Auto) 67.3 (45.5-73.1) % Lymph % (Auto) 20.8 (18.3-44.2) % Ray % (Auto) 7.4 (2.6-8.5) % Eos % (Auto) 3.4 (0-4.4) % Baso % (Auto) 0.8 (0.2-1.2) % Lymph # (Auto) 1.24 (0.9-3.2) K/mm3 Ray # (Auto) 0.4 (0.1-0.6) K/mm3 Eos # (Auto) 0.2 (0-0.3) K/mm3 Baso # (Auto) 0.1 (0.0-0.1) K/mm3 Abs Immat Gran (auto) 0.02 (0.00-0.031) K/mm3 Absolute Neuts (auto) 4.0 (1.3-6.7) K/mm3 Absolute Nucleated RBC 0.000 (0.0-0.012) K/mm3 Nucleated RBC % 0.0 (0.0-0.2) % PT 14.3 (11.1-14.7) Seconds INR 1.1 APTT 26.0 (22.3-36.8) Seconds Sodium 139 (137-145) mmol/L Potassium 4.3 (3.4-5.0) mmol/L Chloride 103 (98-107) mmol/L Carbon Dioxide 28 (22-30) mmol/L Anion Gap 8 (4-12) mmol/L BUN 15 (7-17) mg/dL Creatinine 0.65 L (0.7-1.0) mg/dL Estim Creat Clear Calc 43 ml/min Estimated GFR > 60 (59 - ) Glucose 143 H (65-110) mg/dL Calcium 8.9 (8.4-10.2) mg/dL Total Bilirubin 0.5 (0.2-1.3) mg/dL AST 33 (14-36) U/L ALT 15 (6-35) U/L Alkaline Phosphatase 86 (38-126) U/L Total Protein 7.1 (6.3-8.2) g/dL Albumin 3.9 (3.5-5.1) g/dL Blood Type O Positive Antibody Screen Negative Imaging Data Radiologist's impression: Impressions Chest X-Ray 10/26/24 12:06 IMPRESSION: 1. No acute cardiopulmonary findings given portable technique. Cervical Spine CT 10/26/24 12:16 IMPRESSION: HEAD: 1. No acute intracranial findings. C-SPINE: 1. Mild anterior wedge deformity C6, age indeterminate. 2. Otherwise no acute abnormality. Head CT 10/26/24 12:16 IMPRESSION: HEAD: 1. No acute intracranial findings. C-SPINE: 1. Mild anterior wedge deformity C6, age indeterminate. 2. Otherwise no acute abnormality. X-ray right hip showed Femoral mid shaft oblique fracture with displacement and angulation, distal femur intact Critical Care Time Critical Care Time Critical Care Time: Yes Total Critical Care Time: 30 Discharge Plan Discharge Clinical Impression: Femoral fracture Patient Disposition: Acute Care Hospital Condition: Stable Additional Instructions: Transferred to [facility] ED Patient Language: Vietnamese Prescriptions: No Action Saccharomyces boulardii [Florastor] 250 mg capsule 250 mg PO BID Qty: 60 0RF ondansetron HCl 4 mg tablet 4 mg PO Q8H PRN (Reason: nausea and vomiting) Qty: 20 0RF tramadol 50 mg tablet 50 mg PO BID PRN (Reason: pain) Qty: 30 0RF mupirocin [Centany] 2 % ointment 1 applic topical BID Qty: 30 0RF acetaminophen 325 mg Tablet 650 mg PO Q6H PRN (Reason: Mild Pain (1-3) Or Fever) Qty: 30 0RF triamcinolone acetonide 0.1 % Cream 1 applic topical DAILY Qty: 30 0RF cholecalciferol (vitamin D3) 125 mcg (5,000 unit) capsule 125 mcg PO DAILY Qty: 30 0RF sertraline [Zoloft] 50 mg tablet 75 mg PO DAILY Qty: 135 3RF ibandronate 150 mg tablet 150 mg PO MONTHLY Qty: 12 2RF gabapentin [Neurontin] 300 mg capsule See Rx Instructions PO DAILY Qty: 270 2RF Rx Instructions: Take 1 capsule by mouth in the AM and 2 in the PM PO daily; Follow-up/Referrals: Mario Walker MD [Primary Care Provider, Family Practice]
[2024-10-26] MEDS: SODIUM CHLORIDE 0.9% IV 1,000 ML 1000 ML IV CONT (11:10)
[2024-10-26 11:21] LABS: Hematocrit 32.8 % (37.0-47.0); Hemoglobin 9.9 g/dL (12.0-15.0); Immature Granulocyte Percent A 0.3 % (0-0.5); Lymphocytes Absolute Auto 1.24 K/mm3 (0.9-3.2); Mean Corpuscular HGB Conc 30.2 g/dl (32-36); Mean Corpuscular Hemoglobin 28.3 pg (26-34); Mean Corpuscular Volume 93.7 fl (80-100); Nucleated Red Blood Cells Absolute Auto 0.000 K/mm3 (0.0-0.012); Nucleated Red Blood Cells Perc 0.0 % (0.0-0.2); Platelet Count Result 185 k/mm3 (150-375); Red Blood Count 3.50 M/mm3 (4.2-5.4); White Blood Count 6.0 K/mm3 (4.5-10.0)
[2024-10-26 11:33] LABS: INR 1.1; Partial Thromboplastin Time 26.0 Seconds (22.3-36.8); Prothrombin Time 14.3 Seconds (11.1-14.7)
[2024-10-26 11:42] LABS: Alanine Aminotransferase 15 U/L (6-35); Albumin Level 3.9 g/dL (3.5-5.1); Alkaline Phosphatase 86 U/L (38-126); Anion Gap 8 mmol/L (4-12); Aspartate Amino Transferase 33 U/L (14-36); Bilirubin,Total 0.5 mg/dL (0.2-1.3); Blood Urea Nitrogen 15 mg/dL (7-17); Calcium 8.9 mg/dL (8.4-10.2); Carbon Dioxide 28 mmol/L (22-30); Chloride 103 mmol/L (98-107); Estimated CRCL calculation 43 ml/min; Estimated Glomerular Filt Rate > 60; Glucose 143 mg/dL (65-110); Potassium 4.3 mmol/L (3.4-5.0); Sodium 139 mmol/L (137-145); Total Protein 7.1 g/dL (6.3-8.2)
== END 2024-10-26 15:22 | disposition short-term general hospital (02) ==
PROVIDERS: Emergency Provider Emergency Medicine; PCP Family Medicine
DX: S72.331A Displaced oblique fracture of shaft of right femur, initial encounter for closed fracture (principal); I10 Essential (primary) hypertension; E11.42 Type 2 diabetes mellitus with diabetic polyneuropathy; E55.9 Vitamin D deficiency, unspecified; F41.8 Other specified anxiety disorders; Z86.16 Personal history of COVID-19; Z87.442 Personal history of urinary calculi; Z87.01 Personal history of pneumonia (recurrent); Z86.2 Personal history of diseases of the blood and blood-forming organs and certain disorders involving the immune mechanism; Z98.49 Cataract extraction status, unspecified eye; Z77.22 Contact with and (suspected) exposure to environmental tobacco smoke (acute) (chronic); Z79.899 Other long term (current) drug therapy; W18.39XA Other fall on same level, initial encounter; M48.52XA Collapsed vertebra, not elsewhere classified, cervical region, initial encounter for fracture
CPT/HCPCS: 36415; 70450; 71045; 72125; 73502; 73552; 80053; 85025; 85610; 85730; 86850; 86900; 86901; 93005; 96361; 96374; 96375; 96376; 99285; J1171; J2270; J2405; J7030

== ENCOUNTER 2024-11-12 09:47 | Emergency (ER) | payer MEDICARE, SELFPAY ==
[2024-11-12 09:49] VITALS: BP 166/65; PULSE 76; RESP 18; TEMP 36.6; O2SAT 96
[2024-11-12 10:30] VITALS: PULSE 75; RESP 19; O2SAT 100
[2024-11-12 11:00] LABS: Hematocrit 29.5 % (37.0-47.0); Hemoglobin 8.8 g/dL (12.0-15.0); Immature Granulocyte Percent A 0.4 % (0-0.5); Lymphocytes Absolute Auto 1.34 K/mm3 (0.9-3.2); Mean Corpuscular HGB Conc 29.8 g/dl (32-36); Mean Corpuscular Hemoglobin 28.2 pg (26-34); Mean Corpuscular Volume 94.6 fl (80-100); Nucleated Red Blood Cells Absolute Auto 0.000 K/mm3 (0.0-0.012); Nucleated Red Blood Cells Perc 0.0 % (0.0-0.2); Platelet Count Result 331 k/mm3 (150-375); Red Blood Count 3.12 M/mm3 (4.2-5.4); White Blood Count 6.8 K/mm3 (4.5-10.0)
[2024-11-12 11:13] LABS: Alanine Aminotransferase 13 U/L (6-35); Albumin Level 3.2 g/dL (3.5-5.1); Alkaline Phosphatase 193 U/L (38-126); Anion Gap 4 mmol/L (4-12); Aspartate Amino Transferase 29 U/L (14-36); Bilirubin,Total 0.5 mg/dL (0.2-1.3); Blood Urea Nitrogen 16 mg/dL (7-17); CRP 0.8 mg/dL (<1.0); Calcium 8.5 mg/dL (8.4-10.2); Carbon Dioxide 29 mmol/L (22-30); Chloride 100 mmol/L (98-107); Estimated CRCL calculation 48 ml/min; Estimated Glomerular Filt Rate > 60; Glucose 208 mg/dL (65-110); Potassium 4.3 mmol/L (3.4-5.0); Sodium 133 mmol/L (137-145); Total Protein 6.4 g/dL (6.3-8.2)
[2024-11-12 11:45] LABS: Anisocytosis 1+; Hypochromasia 1+; Schistocytes None Seen
--- OUTSIDE RECORDS SUMMARY | 2024-11-12 11:49 | XMS_ITS | Clinical Summary ---
Author Organization [facility] Address [facility] [place] [address] Care Team Providers Care Senior Sql Server Database Developer Name Role Phone Unavailable Primary Care Provider [...]
--- OUTSIDE RECORDS SUMMARY | 2024-11-12 11:49 | XMS_ITS | Patient Health Record ---
Author Organization [facility] Address [address] [place] [id number] Care Team Providers Care Communication Center Operator Name Role Phone GEREMIASALVINA Primary Care Provider [phone] Annia Durham Unavailable [phone] AdrianShawandaDana Unavailable [phone] Michael Liang Unavailable [phone] Allergies Allergen (clinical drug ingredient) Drug/Non Drug Allergy documented on EMR Reaction Allergy Type Onset Date Status metformin metFORMIN Unknown Drug Allergy Active Substance with penicillin structure and antibacterial mechanism of action (substance) Penicillins Unknown Drug Allergy Active Reason For Referral No Information Medications Medication SIG (Take, Route, Frequency, Duration) Notes Start Date End Date Status Aspirin Adult Low Dose 81 MG Tablet Delayed Release 1 tablet Orally Once a day Active Gabapentin 300 MG Capsule 1 capsule Oral ly Once a day Active Vitamin D (Cholecalciferol) 25 MCG (1000 UT) Capsule 1 capsule Orally Once a day Active Acetaminophen 500 MG Capsule 2 capsule a s needed Orally every 6 hrs Active Lidocaine 5 % Patch 1 patch remove after 12 hours Externally Once a day Active Methocarbamol 500 MG Tablet 1 tablet Ora lly 3 times a day Active Gabapentin 600 MG Tablet 1 tablet Orally Once a day Active Ibandronate Sodium 150 MG Tablet 1 tablet 60 minutes before the first food, beverage or medicine of the day with plain water Orally monthly Active Sertraline HCl 50 MG Tablet 1 tablet Ora lly Once a day Active oxyCODONE HCl 5 MG Tablet 1 tablet as ne eded Orally every 4 hours 11/07/2024 Active MiraLax 17 GM/SCOOP Powder as directed Orally daily Active Senna 8.6-50 MG Tablet 2 tablets Orally Twice a day Active Social History Tobacco Use: Social History Observation Description Date Details (start date - stop date) Never Smoker NA - NA Social History Drug/Alcohol: Social Info Question Answer Notes Drugs Have you used drugs other than those for medical reasons in the past 12 months? No AUDIT-C (Standard) Did you have a drink containing alcohol in the past year? No Points 0 Interpretation Negative Tobacco Use: Social Info Question Answer Notes Tobacco Control (Standard) Tobacco use: Nonsmoker Problems Problem Type SNOMED Code ICD Code Onset Dates Problem Status W/U Status Risk Notes Problem Type II diabetes mellitus without complication (975259375) Type 2 diabetes mellitus without complications (E11.9) Active confirmed Problem Hypomagnesemia (403772568) Hypomagnesemia (E83.42) Active confirmed Problem Recurrent major depression (94825730) Major depressive disorder, recurrent, unspecified (F33.9) Active confirmed Problem Insomnia (803390580) Insomnia, unspecified (G47.00) Active confirmed Problem Idiopathic peripheral autonomic neuropathy (71767585) Other idiopathic peripheral autonomic neuropathy (G90.09) Active confirmed Problem Essential hypertension (49071485) Essential (primary) hypertension (I10) Active confirmed Problem Constipation (37379003) Constipation, unspecified (K59.00) Active confirmed Problem Closed fracture of distal end of right radius (7978804010231399 5) Unspecified fracture of the lower end of right radius, subsequent encounter for closed fracture with routine healing (S52.501D) Active confirmed Problem Vitamin D deficiency (54109570) Vitamin D deficiency (E55.9) Active confirmed Problem Anxiety (65920596) Anxiety (F41.9) Active confirmed Problem Physical deconditioning (64271922057486) Physical deconditioning (R53.81) Active confirmed Problem Polyneuropathy (46426469) Polyneuropathy (G62.9) Active confirmed Problem Closed fracture of right femur with routine healing, unspecified fracture morphology, unspecified portion of femur, subsequent encounter (S72.91XD) Active confirmed Problem Osteoarthritis of right knee joint (137373271539152) Osteoarthritis of right knee, unspecified osteoarthritis type (M17.11) Active confirmed Vital Signs Heart Rate 86 /min 11/08/2024 Temperature 97.4 degrees Fahrenheit 11/08/2024 Respiratory Rate 18 /min 11/08/2024 Oximetry 95 % 11/08/2024 Blood pressure diastolic 56 mm Hg 11/08/2024 Blood pressure systolic 112 mm Hg 11/08/2024 Encounters Encounter Location Date Provider Diagnosis [address] [address] 03/28/2024 ALVINA ARCHULETA Physical decondition ing R53.81 and Acute cough R05.[address] [address] 04/05/2024 Dana Campbell Physical decondition ing R53.81 ; Type 2 diabetes mellitus without complications E11.9 ; Essential (primary) hypertension I10 ; Anxiety F41.9 ; Vitamin D deficiency E55.9 and Insomnia, unspecified G47.[address] [address] 04/11/2024 Dana Campbell Physical decondition ing R53.81 ; Type 2 diabetes mellitus without complications E11.9 ; Essential (primary) hypertension I10 ; Anxiety F41.9 ; Vitamin D deficiency E55.9 and Insomnia, unspecified G47.[address] [address] 10/31/2024 ALVINA ARCHULETA [address] [address] 11/06/2024 Dana Campbell Closed fracture of right femur with routine healing, unspecified fracture morphology, unspecified portion of femur, subsequent encounter S72.91XD ; Unspecified fracture of the lower end of right radius, subsequent encounter for closed fracture with routine healing S52.501D ; Physical deconditioning R53.81 ; Essential (primary) hypertension I10 ; Major depressive disorder, recurrent, unspecified F33.9 ; Type 2 diabetes mellitus without complications E11.9 and Osteoarthritis of right knee, unspecified osteoarthritis type M17.[address] [address] 11/08/2024 Dana Campbell Closed fracture of right femur with routine healing, unspecified fracture morphology, unspecified portion of femur, subsequent encounter S72.91XD ; Unspecified fracture of the lower end of right radius, subsequent encounter for closed fracture with routine healing S52.501D ; Physical deconditioning R53.81 ; Essential (primary) hypertension I10 ; Major depressive disorder, recurrent, unspecified F33.9 ; Type 2 diabetes mellitus without complications E11.9 and Osteoarthritis of right knee, unspecified osteoarthritis type M17.11 [place] [address] [address] 03/20/2024 ALVINA GEREMIAS [place] [address] [address] 03/21/2024 [place] [address] [address] 03/23/2024 Annia Durham [place] [address] [address] 03/25/2024 [place] [address] [address] 03/25/2024 [place] [address] [address] 03/26/[address] [address] 03/27/[address] [address] 04/02/2024 [place] [address] [address] 04/15/2024 ALVINA ARCHULETA [place] [address] [address] 10/30/[address] [address] 10/31/[address] [address] 11/02/2024 Dana Campbell [address] [address] 11/02/2024 Carlosten Azul [address] [address] 11/05/[address] [address] 11/07/2024 Dana Campbell Assessments Encounter Date Diagnosis (ICD Code) Assessment Notes Treatment Notes Treatment Clinical Notes Section Notes 03/28/2024 Acute cough (ICD-10 - R05.1) 03/28/2024 Physical deconditioning (ICD-10 - R53.81) cough 04/05/2024 Type 2 diabetes mellitus without complications (ICD-10 - E11.9) 03/20/24- A1C 6.7%. Well managed on current medication regimen. Continue with current treatment plan and monitoring. 04/05/2024 Physical deconditioning (ICD-10 - R53.81) Patient is working with PT/OT for strengthening and mobility. Reports therapy is going well. Utilizes a wheelchair for ambulation. 04/11/2024 Physical deconditioning (ICD-10 - R53.81) Patient is working with PT/OT for strengthening and mobility. Reports therapy is going well. Utilizes a wheelchair for ambulation. LCD is 04/12 and will be discharging home on 04/13 with orders for home health nursing, and PT/OT. 11/06/2024 Unspecified fracture of the lower end of right radius, subsequent encounter for closed fracture with routine healing (ICD-10 - S52.501D) Patient's fall also caused a right radius fracture. She has a cast noted to the right forearm. According to her hospital discharge records, she is NWB to the right upper extremity. She does have a follow-up on 11/19/2024 with the hand specialist. 11/06/2024 Closed fracture of right femur with routine healing, unspecified fracture morphology, unspecified portion of femur, subsequent encounter (ICD-10 - S72.91XD) Patient had a fall at home that resulted in a right hipfracture. On 10/27/2024, she underwent an open reduction and a cephalomedullary nailing. Her next ortho follow-up is on 12/10/2024. 11/08/2024 Closed fracture of right femur with routine healing, unspecified fracture morphology, unspecified portion of femur, subsequent encounter (ICD-10 - S72.91XD) Patient had a fall at home that resulted in a right hipfracture. On 10/27/2024, she underwent an open reduction and a cephalomedullary nailing. Her next ortho follow-up is on 11/19/2024. 11/06/2024 Physical deconditioning (ICD-10 - R53.81) Patient is working with PT and OT for strengthening and mobility. She reports therapy is not going very well due to the pain in her right knee. She is utilizing a wheelchair for ambulation. 11/08/2024 Unspecified fracture of the lower end of right radius, subsequent encounter for closed fracture with routine healing (ICD-10 - S52.501D) Patient's fall also caused a right radius fracture. She has a cast noted to the right forearm. According to her hospital discharge records, she is NWB to the right upper extremity. She does have a follow-up on 11/19/2024 with the hand specialist. 04/11/2024 Type 2 diabetes mellitus without complications (ICD-10 - E11.9) 03/20/24- A1C 6.7%. Well managed on current medication regimen. Continue with current treatment plan and monitoring. 04/05/2024 Essential (primary) hypertension (ICD-10 - I10) BP stable. Well managed on current medication regimen. Continue with current treatment plan and monitoring. 11/06/2024 Essential (primary) hypertension (ICD-10 - I10) Blood pressure is stable. Managed well on current medications. Continue current treatment plan and monitoring. 04/11/2024 Essential (primary) hypertension (ICD-10 - I10) BP stable. Well managed on current medication regimen. Continue with current treatment plan and monitoring. 04/05/2024 Anxiety (ICD-10 - F41.9) Denies any issues at this time. Well managed on current medication regimen. Continue with current treatment plan and monitoring. 11/08/2024 Physical deconditioning (ICD-10 - R53.81) Patient is working with PT and OT for strengthening and mobility. She reports therapy is not going very well due to the pain in her right knee. She is utilizing a wheelchair for ambulation. 11/08/2024 Essential (primary) hypertension (ICD-10 - I10) Blood pressure is stable. Managed well on current medications. Continue current treatment plan and monitoring. 04/11/2024 Anxiety (ICD-10 - F41.9) Denies any issues at this time. Well managed on current medication regimen. Continue with current treatment plan and monitoring. 11/06/2024 Major depressive disorder, recurrent, unspecified (ICD-10 - F33.9) Patient denies any problems at this time. Managed well on her current medications. Continue current treatment plan and monitoring. 04/05/2024 Vitamin D deficiency (ICD-10 - E55.9) 03/20/24- Vit D WNL. Well managed on current medication regimen. Continue with current treatment plan and monitoring. 04/05/2024 Insomnia, unspecified (ICD-10 - G47.00) Reports not sleeping well, and usually takes Melatonin 10mg at bedtime. Order given to start Melatonin 10mg at HS. 11/06/2024 Type 2 diabetes mellitus without complications (ICD-10 - E11.9) No A1c at this time, but on 10/31/2024, glucose reading was elevated at 226. Order given today to draw a A1c on next lab day. 04/11/2024 Vitamin D deficiency (ICD-10 - E55.9) 03/20/24- Vit D WNL. Well managed on current medication regimen. Continue with current treatment plan and monitoring. 11/08/2024 Major depressive disorder, recurrent, unspecified (ICD-10 - F33.9) Patient denies any problems at this time. Managed well on her current medications. Continue current treatment plan and monitoring. 11/06/2024 Osteoarthritis of right knee, unspecified osteoarthritis type (ICD-10 - M17.11) Patient has been complaining of severe right knee pain, which is limiting her ability to do physical therapy at this time. An x-ray was done on 11/05/2024 that showed multiple impressions. The most significant being severe osteoarthritis of the medial joint compartment. An order was given today to send these results to her orthopedic doctor to see if they suggest a certain type of treatment. Also, order was given today for diclofenac gel 1% t.i.d., ibuprofen 600 mg q. 8 hours x4 days and then p.r.n., and ice for comfort p.r.n. 11/08/2024 Type 2 diabetes mellitus without complications (ICD-10 - E11.9) No A1c at this time, but on 10/31/2024, glucose reading was elevated at 226. Order given on 11/06/2024 to draw A1c on next lab day, awaiting results at this time. 04/11/2024 Insomnia, unspecified (ICD-10 - G47.00) Reports sleeping much better since starting the Melatonin last week. 11/08/2024 Osteoarthritis of right knee, unspecified osteoarthritis type (ICD-10 - M17.11) Patient has been complaining of severe right knee pain, which is limiting her ability to do physical therapy at this time. An x-ray was done on 11/05/2024 that showed multiple impressions. The most significant being severe osteoarthritis of the medial joint compartment. Order was given on 11/06/2024 to send results to the orthopedic doctor to see if they suggest a certain type of treatment, awaiting response at this time. Order given on 11/06/2024 to start Diclofenac Sodium 1 % Gel apply 3 times a day Externally and [id number] mg three tablets q. 8 hours x4 days and then p.r.n. 04/05/2024 Other Continue current treatment plan. Staff to continue to monitor and report any changes. Patient education provided and questions/concerns addressed. Follow up in one month unless necessary sooner. Please refer to facility EHR for current and accurate medication list and treatments. 04/11/2024 Other Ok to discharge patient with current in house treatment plan and medications. Patient education provided and all questions/concerns addressed. Home health nurse, PT/OT to see. Follow up with PCP in one week. Reconciled home medications list sent home with patient. Please refer to facility EHR for current and accurate medication list and treatments. 11/06/2024 Other Continue curren t treatment plan.Staff to continue to monitor and report any changes.Patient education provided and questions/concerns addressed.Follow up in one week unless necessary sooner. 11/08/2024 Other Continue curren t treatment plan.Staff to continue to monitor and report any changes.Patient education provided and questions/concerns addressed.Follow up in one week unless necessary sooner. Plan Of Treatment Future Test Test Name Order Date Hemoglobin A1c 11/09/2024 Next Appt Details Provider Name:Dana Adrian , 11/13/2024 07:00:00 AM, [address] [place] [address], [id number], Provider Name:Dana Campbell , 11/15/2024 07:15:00 AM, [address], [address], Insurance Providers Payer Name Payer Address Payer Phone Subscriber Number Group Number Insured Name Patient Relationship to Insured Coverage Start Date Coverage End Date [facility] [address] [address] [place] [phone] [id number] Cristine Sunshine Self - patient is the insured Medical (General) History Medical History History ICD Code Unspecified fracture of righ t femur, subsequent encounter for closed fracture with routine healing S72.91XD Unspecified fracture of the lower end of right radius, subsequent encounter for closed fracture with routine healing S52.501D Depression, unspecified F32.A Constipation, unspecified K59.00 Pain, unspecified R52 Vitamin D deficiency E55.9 Hypomagnesemia E83.42 Hypokalemia E87.6 Major depressive disorder, recurrent, un specified F33.9 Polyneuropathy G62.9 Other idiopathic peripheral autonomic ne uropathy G90.09 Surgical History Surgery Date(Month/Year) NO PREVIOUS SURGERIES
--- OUTSIDE RECORDS SUMMARY | 2024-11-12 11:49 | XMS_ITS | Clinical Summary ---
Author Organization [facility] Care Team Providers Care Ground Services Instructor Name Role Phone Unavailable Primary Care Provider [...] 1-dose 75+ series) 09/16/2010 Influenza Immunization (#1) 2024 SARS-COV-2 Immunization ( season) 2024 05/28/2020, 05/03/2020 DTaP/Tdap/Td Immunization Discontinued 06/17/2016 TdaP [...]
[2024-11-12 12:02] VITALS: BP 167/75; PULSE 73; RESP 14; O2SAT 98
--- NOTE | 2024-11-12 12:05 | ED_ITS ---
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 She also states that she here for wound check. She denies any fever or new trauma. She stays at [facility]. complaint: lesion (healing wound on the right ankle) Onset (ago): week(s) Location: RLE (ankle) Severity: mild Quality: aching Pain Consistency: constant Relieving factors: none Exacerbating factors: none Context: none Associated symptoms: denies other symptoms Related Data Allergies Allergy/AdvReac Type Severity Reaction Status Date / Time metformin Allergy Mild Hives Verified 11/12/24 09:55 Penicillins Allergy Mild Hives Verified 11/12/24 09:55 Review of Systems 2 Review of Systems: All systems reviewed & are unremarkable except as noted in HPI and below Constitutional: Constitutional: Reports no additional constitutional complaints Eyes: Eyes: Reports no additional eye complaints ENT: Reports system reviewed and no additional complaints, except as documented Cardiovascular: Cardiovascular: Reports no additional cardiovascular complaints Respiratory: Respiratory: Reports no additional respiratory complaints Gastrointestinal: Gastrointestinal: Reports no additional gastrointestinal complaints Musculoskeletal: Musculoskeletal: Reports as per HPI Integumentary/Breasts: Skin/Breast: Reports as per HPI Neurologic: Reports system reviewed and no additional complaints, except as documented PMFSH Past Medical History Medical History Compression fracture Bilateral renal stones Contracture of muscle, unspecified hand Influenza A COVID-19 Other iron deficiency anemias Dysphagia Esophageal obstruction Acute sinusitis Pneumonia age 18 Esophageal ring Depression with anxiety Cricopharyngeal achalasia Status post dilatation and Botox injection per Dr. Jah Soni (ENT) at [place]. Anemia Essential hypertension Type 2 diabetes mellitus Vitamin D deficiency Surgical History Surgical History History of open reduction and internal fixation (ORIF) procedure Pinning of left hip fracture. History of arthroscopic knee surgery History of tonsillectomy History of cataract extraction Family History Family History Father Family history of diabetes mellitus in first degree relative Mother Rheumatoid arthritis Sibling No problems noted. Other Family history of lupus erythematosus Social History Social History Social History: Surrogate decision maker: Guerda Mark, daughter. Code status: Full code. Smoking status: Never smoker Second hand tobacco smoke exposure: Yes Alcohol intake: never Substance use: unknown Substance use type: does not use Do You Feel Safe in your Home?: Yes Lack of Transportation: No Lack of Food: Never True Current Housing: I Have Housing Concerned About Future Housing: No Difficulty Paying Gas/Electric Bills: No Difficulty Paying for Meds: No Currently Unemployed: No Education: Decline to Answer Difficulty w/ Childcare or Family Care: No Living arrangements: alone Additional living arrangements comments: Patient lives in a senior apartment in [place]. She has 6 children and was essentially a single mother for many years as her at a young age. 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 Gender identity (if verbalized by the patient): Female Spiritual care concerns: No Exam 2 Narrative: GENERAL: Well-appearing, well-nourished, and in no acute distress. HEAD: Normocephalic, atraumatic. EYES: PERRLA and EOMI. ENT: Nares clear, no rhinorrhea or epistaxis. Mucous membranes moist. NECK: Supple. CHEST: Clear to auscultation. No respiratory distress. HEART: Regular rate and rhythm. No murmur heard. Normal peripheral pulses. ABDOMEN: Soft, nontender, nondistended, normal active bowel sounds. EXTREMITIES: Normal range of motion. No edema examination of the right ankle shows a scabbed wound on the lateral aspect of the ankle no drainage no erythema. SKIN: Warm, dry, no rash. NEURO: No focal deficits. Alert and oriented x3. PSYCH: Normal mood and affect. Course Course Emergency Course: Informed patient and her family about the lab work. Wound care was consulted no additional wound care treatment is needed in this time. Advised her to continue home medication, follow-up with your primary doctor. Vital Signs Vital signs: Vital Signs Temperature 36.6 C 11/12/24 09:49 Pulse Rate 76 11/12/24 09:49 Respiratory Rate 18 11/12/24 09:49 Blood Pressure 166/65 H 11/12/24 09:49 Pulse Oximetry 96 11/12/24 09:49 Oxygen Delivery Room Air 11/12/24 09:49 Temperature 36.6 C 11/12/24 09:49 Pulse Rate 75 11/12/24 10:30 Respiratory Rate 19 11/12/24 10:30 Blood Pressure 166/65 H 11/12/24 09:49 Pulse Oximetry 100 11/12/24 10:30 Oxygen Delivery Room Air 11/12/24 09:49 MDM - Skin/Abscess/Foreign Bdy Lab Data 11/12/24 10:47 11/12/24 10:47 Labs: Lab Results 11/12/24 Range/Units 10:47 WBC 6.8 (4.5-10.0) K/mm3 RBC 3.12 L (4.2-5.4) M/mm3 Hgb 8.8 L (12.0-15.0) g/dL Hct 29.5 L (37.0-47.0) % MCV 94.6 (80-100) fl MCH 28.2 (26-34) pg MCHC 29.8 L (32-36) g/dl RDW 15.9 H (11.5-14.5) % Plt Count 331 D (150-375) k/mm3 MPV 10.2 (7.4-10.4) fl Immature Gran % (Auto) 0.4 (0-0.5) % Neut % (Auto) 71.5 (45.5-73.1) % Lymph % (Auto) 19.6 (18.3-44.2) % [place] % (Auto) 6.7 (2.6-8.5) % Eos % (Auto) 1.2 (0-4.4) % Baso % (Auto) 0.6 (0.2-1.2) % Lymph # (Auto) 1.34 (0.9-3.2) K/mm3 [place] # (Auto) 0.5 (0.1-0.6) K/mm3 Eos # (Auto) 0.1 (0-0.3) K/mm3 Baso # (Auto) 0.0 (0.0-0.1) K/mm3 Abs Immat Gran (auto) 0.03 (0.00-0.031) K/mm3 Absolute Neuts (auto) 4.9 (1.3-6.7) K/mm3 Absolute Nucleated RBC 0.000 (0.0-0.012) K/mm3 Band Neutrophils % Not Reportable Nucleated RBC % 0.0 (0.0-0.2) % Platelet Estimate Adequate (Adequate) Hypochromasia 1+ Anisocytosis 1+ Schistocytes None seen Sodium 133 L (137-145) mmol/L Potassium 4.3 (3.4-5.0) mmol/L Chloride 100 (98-107) mmol/L Carbon Dioxide 29 (22-30) mmol/L Anion Gap 4 (4-12) mmol/L BUN 16 (7-17) mg/dL Creatinine 0.50 L (0.7-1.0) mg/dL Estim Creat Clear Calc 48 ml/min Estimated GFR > 60 (59 - ) Glucose 208 H (65-110) mg/dL Calcium 8.5 (8.4-10.2) mg/dL Total Bilirubin 0.5 (0.2-1.3) mg/dL AST 29 (14-36) U/L ALT 13 (6-35) U/L Alkaline Phosphatase 193 H (38-126) U/L C-Reactive Protein 0.8 (<1.0) mg/dL Total Protein 6.4 (6.3-8.2) g/dL Albumin 3.2 L (3.5-5.1) g/dL Discharge Plan Discharge Clinical Impression: Neuropathic pain of ankle, Chronic wound of extremity Patient Disposition: Home Condition: Stable Instructions: Leg Pain (ED) Additional Instructions: continue home medications, follow with your doctor Patient Language: Fijian Prescriptions: No Action Saccharomyces boulardii [Florastor] 250 mg capsule 250 mg PO BID Qty: 60 0RF ondansetron HCl 4 mg tablet 4 mg PO Q8H PRN (Reason: nausea and vomiting) Qty: 20 0RF tramadol 50 mg tablet 50 mg PO BID PRN (Reason: pain) Qty: 30 0RF mupirocin [Centany] 2 % ointment 1 applic topical BID Qty: 30 0RF acetaminophen 325 mg Tablet 650 mg PO Q6H PRN (Reason: Mild Pain (1-3) Or Fever) Qty: 30 0RF triamcinolone acetonide 0.1 % Cream 1 applic topical DAILY Qty: 30 0RF cholecalciferol (vitamin D3) 125 mcg (5,000 unit) capsule 125 mcg PO DAILY Qty: 30 0RF sertraline [Zoloft] 50 mg tablet 75 mg PO DAILY Qty: 135 3RF ibandronate 150 mg tablet 150 mg PO MONTHLY Qty: 12 2RF gabapentin [Neurontin] 300 mg capsule See Rx Instructions PO DAILY Qty: 270 2RF Rx Instructions: Take 1 capsule by mouth in the AM and 2 in the PM PO daily; Follow-up/Referrals: Mario Walker MD [Primary Care Provider, Family Practice] Time of Disposition: 12:07
== END 2024-11-12 13:13 ==
PROVIDERS: Emergency Provider Family Medicine; PCP Family Medicine
DX: M79.2 Neuralgia and neuritis, unspecified (principal); E11.622 Type 2 diabetes mellitus with other skin ulcer; L97.319 Non-pressure chronic ulcer of right ankle with unspecified severity; I10 Essential (primary) hypertension; E55.9 Vitamin D deficiency, unspecified; D50.8 Other iron deficiency anemias; F41.8 Other specified anxiety disorders; Z87.01 Personal history of pneumonia (recurrent); Z86.16 Personal history of COVID-19; Z87.442 Personal history of urinary calculi; Z98.49 Cataract extraction status, unspecified eye; Z77.22 Contact with and (suspected) exposure to environmental tobacco smoke (acute) (chronic); Z79.899 Other long term (current) drug therapy
CPT/HCPCS: 36415; 80053; 85025; 86140; 99283